=== PATIENT | female | born 1965 | race Caucasian/White ===

== ENCOUNTER 2017-09-19 08:05 | Outpatient (CLI) | payer BC ==
--- NOTE | 2017-09-19 09:27 | PRG ---
DATE OF SERVICE: 09/19/2017 HISTORY: Ms. Fabio Angela is a very pleasant 52-year-old who presents to the [facility] for evaluation of an ulceration of her left below the knee amputation stump. The patient states that s he was recently seen by Dr. Linares and at this time referred to the Wound Center for further evalua tion and treatment. The patient states that she has not yet been seen by her game author. The mayda ent states that she is still utilizing her prosthesis. She is performing dressing changes of Telfa for the ulceration of her left below the knee amputation stump. PHYSICAL EXAMINATION: VITAL SIGNS: Temperature 97.8, pulse 71, respirations 18, blood pressure 129/59, Accu-Chek 198. EXTREMITIES: The ulceration of the left below the knee amputation stump measures approximately 0.5 x 0.3 cm. A small amount of serous drainage is associated with the wound. No erythema of the skin surrounding the wound is present. No maceration of the skin of the periwound is noted. No signific ant edema of the left BKA stump is present on exam today. ASSESSMENT AND PLAN: 1. Ulceration of left [id number] amputation stump. Dressing changes of Aquacel AG and bordered gauze will be initiated today. These dressing changes are to be performed on a daily basis after c leansing and irrigation until the wound has completely healed. I have asked the patient to refrain from utilizing her prosthesis until her ulceration has completely healed. I have also asked the pat ient to be seen by her game author for an adjustment of the prosthesis before beginning to utilize h er prosthesis again. The patient understands and is in agreement with the preceding treatment plan. Ms. Angela will follow up in the Wound Center on an as needed basis. 2. Diabetes mellitus. The patient's Accu-Chek in clinic today is 198. The patient has been told t hat for optimal wound healing, her blood glucoses should remain below 150. 3. Coronary artery disease. 4. Hypertension.
[2017-09-19] MEDS ORDERED: Sodium Chloride 0.9% 15 ML NEB ONE (22:46)
== END 2017-09-19 08:06 | disposition home or self-care (01) ==
LOC: WCC 08:05
PROVIDERS: ATTEND Family Medicine
DX: T81.89XD Other complications of procedures, not elsewhere classified, subsequent encounter (principal); L97.829 Non-pressure chronic ulcer of other part of left lower leg with unspecified severity; Z89.512 Acquired absence of left leg below knee; E11.622 Type 2 diabetes mellitus with other skin ulcer; I25.10 Atherosclerotic heart disease of native coronary artery without angina pectoris; I10 Essential (primary) hypertension
CPT/HCPCS: 97602; 99213; A4218; G0463

== ENCOUNTER 2017-10-07 12:50 | Outpatient (CLI) | payer BC ==
--- NOTE | 2017-10-07 15:27 | NM ---
VENTILATION PERFUSION STUDY: Date: 10-07-17 History: Dyspnea. Radiopharmaceutical: 50.8 mCi Xenon 133, gas inhaled. 6.5 mCi Technetium 99M labelled MAA, IV. FINDINGS: Ventilation study: There is normal uptake and distribution of radiotracer seen throughout the lungs bilaterally. There i s normal washout on washout imaging. No segmental or subsegmental ventilation defect is seen. Perfusion study: There is normal uptake and distribution of radiotracer seen throughout the lungs bilaterally. Normal perfusion gradient is seen. There is no segmental or subsegmental perfusion defect identified and the re is no evidence for a ventilation perfusion mismatch. IMPRESSION: Normal ventilation perfusion study with very low probability for pulmonary embolus. POS: [facility]
--- NOTE | 2017-10-07 15:44 | RAD ---
PA AND LATERAL CHEST XRAY: DATE: 10/07/17. HISTORY: Patient with dyspnea. COMPARISON: Compared with emergent perfusion study, 09/18/16. FINDINGS: Again noted are postsurgical changes related to CABG. Cardiac silhouette is mildly enlarged. Pulmon dennis vasculature is within normal limits. The lungs remain clear. Degenerative changes are again pre sent in the spine with vascular calcifications seen in the thoracic as well as visualized abdominal a kelsie. There has been no interval change from the prior study. IMPRESSION: 1. No acute cardiopulmonary process. 2. Mild cardiomegaly. POS: [facility]
== END 2017-10-07 12:51 | disposition home or self-care (01) ==
LOC: NM 12:50
PROVIDERS: ATTEND Internal Medicine
DX: R06.00 Dyspnea, unspecified (principal); I26.99 Other pulmonary embolism without acute cor pulmonale; R79.1 Abnormal coagulation profile
CPT/HCPCS: 71020; 78582; A9540; A9558

== ENCOUNTER 2017-11-09 15:44 | Inpatient (IN) | payer BC ==
[2017-11-09 16:37] LABS: #Lymphocytes 0.7 thou/uL (1.20-3.40); #Monocytes 0.7 thou/uL (0.11-0.59); #Neutrophils 6.6 thou/uL (1.40-6.50); %Basophils 0.1 % (0.0-1.0); %Eosinophils 0.5 % (0.0-10.0); %Lymphocytes 8.7 % (21.0-51.0); %Monocytes 8.2 % (0.0-10.0); %Neutrophils 82.4 % (42.0-75.0); Hemoglobin 12.5 g/dL (12.0-16.0); Mean Corpuscular HGB CONC 32.6 g/dL (32.0-36.0); Mean Corpuscular Hemoglobin 29.3 pg (27.0-31.0); Mean Corpuscular Volume 89.9 fl (81.0-99.0); Mean Platelet Volume 9.1 fL (7.4-10.4); Platelet Count 164 thou/uL (130-400); RBC Distribution Width 13.6 % (11.5-14.5); Red Blood Cell (RBC) Count 4.25 mill/uL (4.20-5.40)
[2017-11-09 17:01] LABS: ALT (SGPT) 20 U/L (8-55); AST (SGOT) 26 U/L (5-34); Albumin 4.6 g/dL (3.5-5.0); Alkaline Phosphatase 118 U/L (40-150); Anion Gap 18 mmol/L (10-20); BUN (Urea Nitrogen) 37 mg/dL (9.8-20.1); Bilirubin, Total 0.4 mg/dL (0.2-1.2); CK (CPK) 574 U/L (29-168); Calc. Creatinine Clearance 0 mL/min (70-130); Calcium 9.1 mg/dL (7.8-10.44); Carbon Dioxide 25 mmol/L (22-29); Chloride 102 mmol/L (98-107); Estimated GFR-MDRD 35; Glucose 197 mg/dL (70-105); Potassium 3.7 mmol/L (3.5-5.1); Protein, Total 7.6 g/dL (6.0-8.3); Sodium 141 mmol/L (136-145)
[2017-11-09 17:05] LABS: CKMB 4.2 ng/mL (0-6.6); Troponin I 0.035 ng/mL (< 0.028)
--- NOTE | 2017-11-09 17:23 | RAD ---
PORTABLE CHEST: 11/09/17 HISTORY: Shortness of breath. COMPARISON: 09/18/16 study. Heart size is enlarged. There are postop sternotomy changes. No signs of overt failure or focal infil trates. IMPRESSION: Cardiomegaly with mild vascular prominence but no overt edema. POS: [facility]
[2017-11-09] MEDS ORDERED: Mag-Al 1200 mg/1200 mg/30 ML UDCUP PO PRN (17:38)
[2017-11-09] MEDS ORDERED: Dextrose 5% in Water 1,000 ML IV PRN (17:38)
[2017-11-09] MEDS ORDERED: Senokot 8.6 MG TAB PO PRN (17:38)
[2017-11-09] MEDS ORDERED: Dextrose 50% Abboject 50 ML SYRINGE SLOW IVP PRN (17:38)
--- NOTE | 2017-11-09 18:16 | HP ---
REASON FOR ADMISSION: Acute CHF exacerbation, acute kidney injury, acute respiratory failure with hy poxia. HISTORY OF PRESENTING ILLNESS: The patient initially went to see her primary care physician, Dr. Bhavesh jenkins as she had lot of tremors at home yesterday evening. On arrival there, patient was found to hav e had low saturations and was asked to come to the emergency room. The patient states she has been h aving shortness of breath from last 2 days. Has been coughing a lot, but it is mostly dry. She was scheduled for a pulmonary function test today which she had to postpone as she was not feeling well y esterday. On arrival here, she had saturations of 83% on room air. The patient has left BKA and has prosthesis, but does not ambulate much or is not very active at home. Has no complaint of chest kenney n or palpitations at present. She is a bit lethargic but easily arousable here in the ER. No compla ints of fever. Has no trouble urinating. PAST MEDICAL AND SURGICAL HISTORY: History of CABG done in 2011, diabetes mellitus type 2, hypertens ion, peripheral vascular disease, prior history of pneumonia, prior history of uncontrolled diabetes, depression, left BKA, cataract surgery both eyes, likely COPD. CURRENT MEDICATIONS: Patient is on multiple medications including aspirin 325 mg p.o. daily, Symbico rt inhaler 2 puffs twice daily, bupropion extended release 150 mg p.o. q.a.m., Coreg 12.5 mg p.o. twi ce daily, duloxetine 30 mg p.o. daily, Lasix 80 mg p.o. daily, Humulin R on a sliding scale, Motrin p .r.n., Lantus 80 units q.a.m. and 7 units q.p.m., Imdur extended release 60 mg p.o. daily, levocetiri zine 5 mg p.r.n., lisinopril 10 mg twice daily, metformin 1000 mg q.a.m., potassium 99 mg 2 tablets p .o. on the days she takes 2 Lasix tablets along with metolazone, Lyrica 150 mg 1-2 capsules at bedtim e for chronic neuropathy, Crestor 40 mg p.o. at bedtime, sertraline 100 mg p.o. q.a.m., torsemide 40 mg p.o. q.p.m., trazodone 100 mg p.o. at bedtime. ALLERGIES: No known drug allergies. PERSONAL HISTORY: Quit smoking a year ago, does not abuse alcohol or drugs. FAMILY HISTORY: Mom was bedridden for a long time before her . Father had history of diabetes. Both parents are . She is currently to her friend from last 2 years. CODE STATUS: DNR. Power of internal communications writer is her current . REVIEW OF SYSTEMS: The following complete review of systems was negative, unless otherwise mentioned in the HPI or below: Constitutional: Weight loss or gain, ability to conduct usual activities. Skin: Rash, itching. Eyes: Double vision, pain. ENT/Mouth: Nose bleeding, neck stiffness, pain, tenderness. Cardiovascular: Palpitations, dyspnea on exertion, orthopnea. Respiratory: Shortness of breath, wheezing, cough, hemoptysis, fever or night sweats. Gastrointestinal: Poor appetite, abdominal pain, heartburn, nausea, vomiting, constipation, or diarr hea. Genitourinary: Urgency, frequency, dysuria, nocturia. Musculoskeletal: Pain, swelling. Neurologic/Psychiatric: Anxiety, depression. Allergy/Immunologic: Skin rash, bleeding tendency. PHYSICAL EXAMINATION: GENERAL: The patient is a 52-year-old female who is currently in mild respiratory distress. VITAL SIGNS: Blood pressure 128/76, pulse 70 per minute, respiratory rate 22 per minute, temperature is 97 degrees Fahrenheit, saturating 83% on room air and 92% on 2 liters nasal cannula. NECK: Supple. There is elevated JVD. EYES: Extraocular muscles intact. Pupils reacting to light. ORAL CAVITY: Mucous membranes are dry. No exudates or congestion. CARDIOVASCULAR SYSTEM: S1, S2 heard. Regular rhythm. RESPIRATORY SYSTEM: Air entry 1+ bilateral. Scattered rales plus bilaterally. ABDOMEN: Soft, bowel sounds heard. No tenderness, rigidity or guarding. EXTREMITIES: Patient has left BKA. Right lower extremity has peripheral edema, no calf tenderness. VASCULAR SYSTEM: Peripheral pulses 1+ bilateral. No ischemic ulcerations or gangrene. CENTRAL NERVOUS SYSTEM: No gross focal deficits seen. Patient is lethargic, but oriented well. PSYCHIATRIC SYSTEM: The patient's mood is euthymic. No hallucinations or delusions. LABORATORY DATA AND IMAGING DATA: Influenza A and B antigen nasal swab is negative. Chest x-ray don e shows pulmonary vascular congestion with cardiomegaly. BUN 37, creatinine 1.5, glucose 197. Tropo rc I 0.03. BNP is 1175, albumin is 4.6. CK-MB 4.2. Electrolytes are stable. Serum bicarbonate 25 . White count of 8, hemoglobin and hematocrit 12 and 38, platelet count 164, MCV is 89 with 82% neut rophils. CLINICAL IMPRESSION AND PLAN: Patient will be admitted to telemetry for acute congestive heart failu re exacerbation, acute kidney injury, and acute respiratory failure with hypoxia. She will be on 2 l iters nasal cannula, and will give a total of 60 mg IV Lasix one dose now and she will be on 40 mg IV q.12 hourly. We will consult Dr. Lyles, her fowl blood tester. Echo with 2D Doppler will be obtained for current LV function. We will scale down her cardiac medications to accommodate for diuresis. We fannie l continue her low dose aspirin, bupropion, duloxetine, melatonin, Crestor, and trazodone as before, Lyrica reduced to 50 twice daily in view of her current renal function. She will be on DuoNebs q.6 h ourly as well. If patient were to worsen, she will be placed on BiPAP in the IMCU. Code status was discussed with patient and she wants to be a DO NOT RESUSCITATE. Power of internal communications writer is her of 2 years.
[2017-11-09 19:11] LABS: Troponin I 0.035 ng/mL (< 0.028)
[2017-11-09] MEDS ORDERED: Furosemide 100 MG/10 ML VIAL ONE (19:42)
[2017-11-09] MEDS ORDERED: DULoxetine 60 MG CAP PO SCH (21:00)
[2017-11-09] MEDS ORDERED: Non-Formulary Item 1 EACH (Insulin Glargine,Hum.Rec.Anlog 50 UNIT) SQ SCH (21:00)
[2017-11-09] MEDS: traZODone HCl 50 MG TAB PO SCH (21:31)
[2017-11-09] MEDS: Melatonin 3 MG TAB PO SCH (21:32)
[2017-11-09] MEDS: Rosuvastatin 20 MG TAB PO SCH (21:33)
[2017-11-09] MEDS: Pregabalin 50 MG CAP PO SCH (21:33)
[2017-11-09] MEDS: Heparin 5,000 UNITS/ML VIAL SC SCH (21:34)
[2017-11-09] MEDS: Carvedilol 3.125 MG TAB PO SCH (21:34)
[2017-11-09] MEDS: Famotidine 20 MG TAB PO SCH (21:34)
[2017-11-09] MEDS ORDERED: DULoxetine 30 MG CAP PO SCH (22:00)
[2017-11-09] MEDS: Insulin Detemir 100 UNITS/ML 50 UNITS in Pre-Filled Syringe 1 EACH SC SCH (22:42)
[2017-11-10] MEDS: Guaifenesin DM 100-10/5 ML UDCUP PO PRN ×3 (03:35→21:38)
[2017-11-10 05:43] LABS: #Eosinphils 0.1 thou/uL (0.0-0.7); #Lymphocytes 0.7 thou/uL (1.20-3.40); #Monocytes 1.5 thou/uL (0.11-0.59); #Neutrophils 10.4 thou/uL (1.40-6.50); %Basophils 0.1 % (0.0-1.0); %Eosinophils 0.4 % (0.0-10.0); %Lymphocytes 5.3 % (21.0-51.0); %Monocytes 11.6 % (0.0-10.0); %Neutrophils 82.5 % (42.0-75.0); Hemoglobin 11.6 g/dL (12.0-16.0); Mean Corpuscular HGB CONC 31.7 g/dL (32.0-36.0); Mean Corpuscular Volume 91.4 fl (81.0-99.0); Mean Platelet Volume 9.1 fL (7.4-10.4); Platelet Count 157 thou/uL (130-400); RBC Distribution Width 13.7 % (11.5-14.5); Red Blood Cell (RBC) Count 4.02 mill/uL (4.20-5.40); White Blood Cell (WBC) Count 12.6 thou/uL (4.8-10.8)
[2017-11-10] MEDS: Furosemide 40 MG/4 ML VIAL SLOW IVP SCH ×2 (05:47→14:01)
[2017-11-10 06:17] LABS: Anion Gap 17 mmol/L (10-20); BUN (Urea Nitrogen) 34 mg/dL (9.8-20.1); Calc. Creatinine Clearance 83 mL/min (70-130); Calcium 9.1 mg/dL (7.8-10.44); Carbon Dioxide 23 mmol/L (22-29); Chloride 104 mmol/L (98-107); Estimated GFR-MDRD 38; Glucose 103 mg/dL (70-105); Potassium 3.7 mmol/L (3.5-5.1); Sodium 140 mmol/L (136-145)
[2017-11-10] MEDS: Bupropion 150 MG XL TAB PO SCH (09:12)
[2017-11-10] MEDS: Carvedilol 3.125 MG TAB PO SCH ×2 (09:12→21:27)
[2017-11-10] MEDS: Metolazone 2.5 MG TAB PO SCH (09:12)
[2017-11-10] MEDS: Heparin 5,000 UNITS/ML VIAL SC SCH ×3 (09:13→21:27)
[2017-11-10] MEDS: Pregabalin 50 MG CAP PO SCH ×2 (09:13→21:26)
--- NOTE | 2017-11-10 09:52 | CON ---
DATE OF CONSULTATION: 11/10/2017 RENAL MEDICINE HISTORY OF PRESENT ILLNESS: Ms. Angela is a 52-year-old white female who was admitted due to shor tness of breath with hypoxemia. The exact etiology of her shortness of breath is unclear. She was n oted to have a saturation of 83% on room air. Chest x-ray shows increased lung markings, but no over t CHF. She is currently being started on IV diuretics. We are now being consulted for her chronic r enal failure. REVIEW OF SYSTEMS: Shows no chest pain, occasional shortness of breath on exertion, occasional tremo rs. No nausea, no vomiting. Decreased energy level. No syncopal episode, no productive cough, no f ever or chills. No gross hematuria. No dysuria, no urinary frequency. No syncopal episode. Occasi onal joint pains. No dysuria. Appetite is decreased. No headache. CURRENT MEDICATIONS: Tylenol 650 q.4 p.r.n., aspirin 81 mg daily, Wellbutrin 150 mg q.a.m., Coreg 3. 125 mg p.o. b.i.d., Cymbalta 30 mg at bedtime, Pepcid 20 mg daily, Lasix 40 mg IV q.12, heparin 5000 units subcu t.i.d., insulin detemir 15 units subcu b.i.d., Humalog sliding scale, metolazone 2.5 mg e very day, Lyrica 50 mg p.o. b.i.d., Crestor 40 mg at bedtime, senna 2 tabs at bedtime, Desyrel 100 mg at bedtime. PAST MEDICAL HISTORY: Includes the following; history of CHF, chronic renal failure - secondary to ? diabetic nephropathy, coronary artery disease, type 2 diabetes mellitus, peripheral vascular disease , status post pneumonia, cataract, ? of COPD. PAST SURGICAL HISTORY: 1. Status post cardiac catheterization. 2. Status post left BKA. 3. Status post cataract surgery. 4. Status post CABG. 5. Status post laser therapy for diabetic retinopathy. SOCIAL HISTORY: The patient is , lives in [place]. No children. Smoked for 25 years 1 pack a day. Alcohol rarely. Education, high school. Used to work as a retail employee for [employer], 4 siblings. FAMILY HISTORY: No family history of ESRD. ALLERGIES: None. TRAUMA: None. IMMUNIZATIONS: Up to date. HOSPITALIZATIONS: Please see past medical history. PHYSICAL EXAMINATION: VITAL SIGNS: Blood pressure is noted at 149/63, heart rate 64, respiratory rate 20, temperature 98.4 , pulse ox 96%. GENERAL: Awake, supine, comfortable, not in overt distress. SKIN: Adequate turgor. HEENT: She has pinkish conjunctivae, anicteric sclerae. NECK: No neck mass, no carotid bruits, no JVD. CHEST: No deformities. LUNGS: Decreased breath sounds. HEART: Normal sinus rhythm. No murmur, no gallops, no rubs. ABDOMEN: Globular, soft, nontender, no masses. EXTREMITIES: No edema, status post leg amputation. NEUROLOGIC: Moving all extremities. No tremors, no asterixis, no ataxia. LABORATORY DATA: Laboratories of 11/10/2017; white count 12.6, hemoglobin 11.6. Sodium 140, potassi um 3.7, chloride 104, carbon dioxide 23, BUN 34, creatinine 1.45, calcium is 9.1. On 11/07/2017, cre atinine 1.55. On 10/05/2017, creatinine 1.48. ASSESSMENT AND PLAN: 1. Chronic renal failure - this is most likely from diabetic nephropathy. Creatinine in the past patel s been noted to fluctuate. Agreed to hold off DAVIS inhibitors for the moment. She is currently being diuresed for a presumptive congestive heart failure. Chest x-ray did not show overt congestive hear t failure. However, the hypoxemia remains unexplained. Gentle diuresis is being done. 2. Shortness of breath - patient being ruled out for congestive heart failure. A cardiac echo has b een ordered and is pending. If ejection fraction is within normal, we need to consider the possibili ty of underlying chronic obstructive pulmonary disease with this patient. Please note there is no in dication for any dialytic intervention. I agree with current management. Hold DAVIS inhibitors tempor arily.
[2017-11-10] MEDS: Insulin Detemir 100 UNITS/ML 50 UNITS in Pre-Filled Syringe 1 EACH SC SCH ×2 (09:59→21:27)
--- NOTE | 2017-11-10 12:22 | PDOC.PN ---
- Subjective Encounter Start Date: 11/10/17 Encounter Start Time: 09:50 Subjective: breathing better, no chest pain -: is on nasal canula now - Objective MAR Reviewed: Yes Vital Signs & Weight: Vital Signs (12 hours) Temp Pulse Resp BP Pulse Ox 11/10/17 08:00 98.4 F 64 17 155/93 H 93 L 11/10/17 06:27 92 L 11/10/17 06:24 63 20 92 L 11/10/17 04:00 98.4 F 64 20 149/63 H 96 11/10/17 00:45 59 L 16 95 I&O: 11/09/17 11/10/17 11/11/17 06:59 06:59 06:59 Intake Total 960 Output Total 1250 Balance -290 Result Diagrams: 11/10/17 04:23 11/10/17 04:23 Additional Labs: Accuchecks 11/10/17 11/09/17 11/09/17 06:09 22:34 21:26 POC Glucose 167 H 161 H 169 H Phys Exam - Physical Examination HEENT: PERRLA, moist MMs Neck: no JVD, supple Respiratory: no wheezing rales++ Cardiovascular: RRR, no significant murmur Gastrointestinal: soft, non-tender, positive bowel sounds Musculoskeletal: no edema, pulses present Neurological: non-focal, moves all 4 limbs Psychiatric: A&O x 3 Dx/Plan (1) Acute exacerbation of CHF (congestive heart failure) Code(s): I50.9 - HEART FAILURE, UNSPECIFIED Status: Acute Qualifiers: Congestive heart failure type: unspecified congestive heart failure type Qualified Code(s): I50.9 - Heart failure, unspecified (2) CHANTELL (acute kidney injury) Code(s): N17.9 - ACUTE KIDNEY FAILURE, UNSPECIFIED Status: Acute (3) DM type 2 (diabetes mellitus, type 2) Status: Chronic Qualifiers: Diabetes mellitus complication status: with kidney complications Diabetes mellitus complication detail: with chronic kidney disease Diabetes mellitus exterminator insulin use: with residential use Chronic kidney disease stage: stage 3 (moderate) Qualified Code(s): E11.22 - Type 2 diabetes mellitus with diabetic chronic kidney disease; N18.3 - Chronic kidney disease, stage 3 ( moderate); N18.3 - Chronic kidney disease, stage 3 (moderate); Z79.4 - [facility] (current) use of insulin; Z79.4 - [facility] (current) use of insulin; Z79.4 - [facility] (current) use of insulin; Z79.4 - [facility] (current) use of insulin (4) CKD (chronic kidney disease) stage 3, GFR 30-59 ml/min Code(s): N18.3 - CHRONIC KIDNEY DISEASE, STAGE 3 (MODERATE) Status: Chronic (5) Obesity Code(s): E66.9 - OBESITY, UNSPECIFIED Status: Chronic Qualifiers: Obesity classification: adult class 3 (BMI >= 40) Body mass index: BMI 40.0 -44.9 (6) CAD (coronary artery disease) Code(s): I25.10 - ATHSCL HEART DISEASE OF [place] CORONARY ARTERY W/O ANG PCTRS Status: Chronic Qualifiers: Coronary Disease-Associated Artery/Lesion type: bypass graft [place] vs. transplanted heart: [place] heart Associated angina: without angina Qualified Code(s): I25.810 - Atherosclerosis of coronary artery bypass graft(s) without angina pectoris (7) Demand ischemia of myocardium Code(s): I24.8 - OTHER FORMS OF ACUTE ISCHEMIC HEART DISEASE Status: Acute - Plan iv lasix with metolazone -: watch for renal function -: echo, cardio consultation -: mobilize as tolerated -: dm and htn are stable * . Review of Systems - Medications/Allergies Allergies/Adverse Reactions: Allergies Allergy/AdvReac Type Severity Reaction Status Date / Time No Known Allergies Allergy Verified 09/16/14 15:36 Medications: Current Medications Acetaminophen (Tylenol) 650 mg PO Q4H PRN PRN Reason: Headache/Fever or Pain Al Hydroxide/Mg Hydroxide (Maalox) 30 ml PO Q6H PRN PRN Reason: Heartburn or Indigestion Albuterol/Ipratropium (Duoneb) 3 ml NEB [id number] [facility] Last Admin: 11/10/17 06:24 Dose: 3 ml Aspirin (Aspirin Chewable) 81 mg PO DAILY [facility] Last Admin: 11/10/17 09:12 Dose: 81 mg Bupropion HCl (Wellbutrin Xl) 150 mg PO QAM [facility] Last Admin: 11/10/17 09:12 Dose: 150 mg Carvedilol (Coreg) 3.125 mg PO BID [facility] Last Admin: 11/10/17 09:12 Dose: 3.125 mg Dextrose/Water (Dextrose 50%) 25 gm SLOW IVP PRN PRN PRN Reason: Hypoglycemia Duloxetine HCl (Cymbalta) 30 mg PO HS [facility] Famotidine (Pepcid) 20 mg PO 2100 [facility] Last Admin: 11/09/17 21:34 Dose: 20 mg Furosemide (Lasix) 40 mg SLOW IVP 0600,1400 [facility] Last Admin: 11/10/17 05:47 Dose: 40 mg Glucagon (Glucagon) 1 mg IM PRN PRN PRN Reason: Hypoglycemia Guaifenesin/Dextromethorphan (Robitussin Dm) 15 ml PO Q4H PRN PRN Reason: Cough Last Admin: 11/10/17 03:35 Dose: 15 ml Heparin Sodium (Porcine) (Heparin) 5,000 units SC TID [facility] Last Admin: 11/10/17 09:13 Dose: 5,000 units Dextrose/Water (D5w) 1,000 mls @ 0 mls/hr IV .Q0M PRN; As Directed PRN Reason: Hypoglycemia Insulin Detemir 50 units/ (Miscellaneous Medication) 0.5 mls @ 0 mls/hr SC BID [facility] Last Admin: 11/10/17 09:59 Dose: 0.5 mls Insulin Human Lispro (Humalog) 0 units SC .MODERATE SLIDING SC PRN PRN Reason: Moderate Correctional Scale Melatonin (Melatonin) [address] [facility] Last Admin: 11/09/17 21:32 Dose: 9 mg Metolazone (Zaroxolyn) 2.5 mg PO 0830 [facility] Last Admin: 11/10/17 09:12 Dose: 2.5 mg Pregabalin (Lyrica) 50 mg PO BID [facility] Last Admin: 11/10/17 09:13 Dose: 50 mg Rosuvastatin Calcium (Crestor) [address] [facility] Last Admin: 11/09/17 21:33 Dose: 40 mg Senna (Senokot) 2 tab PO HSPRN PRN PRN Reason: Constipation Trazodone HCl (Desyrel) [address] [facility] Last Admin: 11/09/17 21:31 Dose: 100 mg
[2017-11-10] MEDS: HumaLOG 300 UNITS/3 ML VIAL SC PRN ×2 (14:02→17:32)
--- NOTE | 2017-11-10 17:25 | CON ---
CARDIOLOGY CONSULTATION NOTE DATE OF CONSULTATION: 11/10/2017 PRIMARY GARNETT MACHINE OPERATOR: Dr. All Nicholas. REASON FOR CONSULTATION: Heart failure. HISTORY OF PRESENT ILLNESS: Ms. Angela is a very pleasant 52-year-old white female who comes to [facility] for increasing shortness of breath. She has been noticing increased shortness of breath for the last 2 days. She saw her PCP and was noted that her O2 saturations were in the 80s, so she w as sent to the hospital where she was admitted for CHF exacerbation. She has a history of coronary d isease with bypass done in 2011. Her heart function was 45% to 50% at that time; however, most [facility] echocardiogram was done just a week ago in the office and her EF was normal at 50% to 55%. Her blo od pressure has been a little higher than normal recently. She denies any chest pain, tightness or p ressure, only her shortness of breath. She also has peripheral vascular disease, which she has seen Dr. Amezquita for and is planning on doing possible intervention in the next few days. PAST MEDICAL HISTORY: 1. Coronary artery disease, status post bypass x3 in 2011. 2. Type 2 diabetes. 3. Hypertension. 4. Peripheral vascular disease. 5. History of pneumonia in the past. 6. Anxiety, depression. 7. Left BKA. 8. Cataract surgery. 9. Chronic obstructive pulmonary disease diagnosed. OUTPATIENT MEDICATIONS: Include; 1. Aspirin 325 a day. 2. Symbicort. 3. Bupropion. 4. Coreg 12.5 mg b.i.d. 5. Duloxetine. 6. Lasix 80 mg a day. 7. Humulin R sliding scale. 8. Motrin. 9. Lantus 80 units q.a.m. and 7 units q.p.m. 10. Imdur 60 mg a day. 11. Cetirizine. 12. Lisinopril 10 mg b.i.d. 13. Metformin 1000 mg b.i.d. 14. Potassium. 15. Lyrica. 16. Crestor. 17. Sertraline. 18. Torsemide. 19. Trazodone. ALLERGIES: No known drug allergies. SOCIAL HISTORY: Quit smoking a year ago. No alcohol or drugs. FAMILY HISTORY: Noncontributory. REVIEW OF SYSTEMS: A ten-point review of systems was done and is all negative unless stated in the h istory of present illness. PHYSICAL EXAMINATION: VITAL SIGNS: Temperature 98.1, pulse 60, respiration rate 17, satting 97% on 2 liters and blood pres sure 153/69. GENERAL: Awake, alert and oriented x3, in no distress. HEENT: Normocephalic and atraumatic. NECK: Supple. LUNGS: Reduced breath sounds bilaterally. CARDIOVASCULAR: S1, S2. No S3 or S4. No murmurs or rubs. ABDOMEN: Increased and distended, most likely a slight acidic wave. EXTREMITIES: 1+ edema. SKIN: Warm and dry. LABORATORY WORK: Reviewed. White count of 12, hemoglobin of 11, hematocrit 36 and platelet count of 157. Chemistry with BUN of 37, creatinine 1.55 on admission down to 1.45. Troponin has been 0.035 and then 0.035, BNP was 1175 with CK-MB of 4.2. EKG was reviewed. Chest x-ray was reviewed. ASSESSMENT: 1. Acute on chronic diastolic heart failure. 2. Morbid obesity. 3. Coronary artery disease, stable at this time. 4. Hypertension. PLAN: 1. Agree with IV diuresis, Lasix at current dose. She is already feeling better after a little bit of diuresis and her kidney function is already improving, tells me that her renal dysfunction is most likely cardiorenal from her heart failure. 2. No plan on intervention at this time as there is no evidence of an acute coronary syndrome. 3. We will get a repeat echocardiogram and we will make sure that her LV function remains the same a s just a week ago. Thank you for letting us participate in the care of your patient. We will follow.
[2017-11-10] MEDS: DULoxetine 30 MG CAP PO SCH (21:26)
[2017-11-10] MEDS: traZODone HCl 50 MG TAB PO SCH (21:26)
[2017-11-10] MEDS: Rosuvastatin 20 MG TAB PO SCH (21:27)
[2017-11-10] MEDS: Famotidine 20 MG TAB PO SCH (21:27)
[2017-11-10] MEDS: Melatonin 3 MG TAB PO SCH (21:28)
[2017-11-11] MEDS: Guaifenesin DM 100-10/5 ML UDCUP PO PRN (02:43)
[2017-11-11] MEDS: Furosemide 40 MG/4 ML VIAL SLOW IVP SCH ×2 (06:44→14:32)
[2017-11-11] MEDS: Heparin 5,000 UNITS/ML VIAL SC SCH ×3 (08:44→21:51)
[2017-11-11] MEDS: Pregabalin 50 MG CAP PO SCH ×2 (08:44→21:49)
[2017-11-11] MEDS: Bupropion 150 MG XL TAB PO SCH (08:44)
[2017-11-11] MEDS: Carvedilol 3.125 MG TAB PO SCH ×2 (08:45→21:50)
[2017-11-11] MEDS: Insulin Detemir 100 UNITS/ML 50 UNITS in Pre-Filled Syringe 1 EACH SC SCH ×3 (08:45→21:52)
[2017-11-11] MEDS: Metolazone 2.5 MG TAB PO SCH (08:45)
[2017-11-11 09:09] LABS: #Lymphocytes 0.6 thou/uL (1.20-3.40); #Monocytes 0.7 thou/uL (0.11-0.59); #Neutrophils 4.5 thou/uL (1.40-6.50); %Basophils 0.2 % (0.0-1.0); %Eosinophils 0.2 % (0.0-10.0); %Lymphocytes 9.6 % (21.0-51.0); %Neutrophils 78.1 % (42.0-75.0); Hemoglobin 11.5 g/dL (12.0-16.0); Mean Corpuscular HGB CONC 32.7 g/dL (32.0-36.0); Mean Corpuscular Hemoglobin 29.6 pg (27.0-31.0); Mean Corpuscular Volume 90.4 fl (81.0-99.0); Mean Platelet Volume 8.5 fL (7.4-10.4); Platelet Count 153 thou/uL (130-400); RBC Distribution Width 13.7 % (11.5-14.5); Red Blood Cell (RBC) Count 3.89 mill/uL (4.20-5.40); White Blood Cell (WBC) Count 5.8 thou/uL (4.8-10.8)
[2017-11-11 09:27] LABS: Anion Gap 17 mmol/L (10-20); BUN (Urea Nitrogen) 34 mg/dL (9.8-20.1); Calc. Creatinine Clearance 76 mL/min (70-130); Calcium 9.5 mg/dL (7.8-10.44); Carbon Dioxide 32 mmol/L (22-29); Chloride 93 mmol/L (98-107); Estimated GFR-MDRD 35; Glucose 149 mg/dL (70-105); Potassium 3.1 mmol/L (3.5-5.1); Sodium 139 mmol/L (136-145)
--- NOTE | 2017-11-11 09:50 | PRG ---
DATE OF SERVICE: 11/11/2017 RENAL MEDICINE SUBJECTIVE: Ms. Angela is 52-year-old white female who was seen by the Renal Service for chronic renal failure secondary to a presumed diabetic nephropathy. She was admitted for shortness of breath . Shortness of breath is multifactorial. She is being treated for possible CHF and COPD exacerbatio n. She is on IV diuretics. Creatinine yesterday was noted at 1.45. Currently, it is 1.55. Slightl y higher creatinine may be a reflection of the current diuretic regimen. Her shortness of breath is actually improved. PHYSICAL EXAMINATION: VITAL SIGNS: Blood pressure is 160/63, heart rate 73, respiratory rate 24, pulse ox 93%, temperature 99.3. GENERAL: Awake, alert, obese, comfortable, lethargic, not in distress. SKIN: Adequate turgor. HEENT: She has pinkish conjunctivae, anicteric sclerae. NECK: No neck mass, no carotid bruits, no JVD. CHEST: No deformities. LUNGS: Decreased breath sounds. HEART: Normal sinus rhythm. No murmurs, no gallops, no rubs. ABDOMEN: Globular, soft, nontender, no masses. EXTREMITIES: Trace edema, status post left BKA. MEDICATIONS: Medications of 11/11/2017 was reviewed. LABORATORY DATA: Laboratories of 11/11/2017; white count 5.8, hemoglobin 11.5, sodium 139, potassium 3.1, chloride 93, carbon dioxide 32, BUN 34, creatinine 1.55, glucose 149, calcium 9.5. ASSESSMENT AND PLAN: 1. Chronic renal failure from diabetic nephropathy - slightly higher creatinine at 1.5. This could be a reflection of the current diuretic regimen. Continue to observe. Should the renal function fur ther worsen, we may need to decrease furosemide to 40 mg IV daily from b.i.d. dosing. 2. Hypokalemia, p.r.n. correction. 3. Shortness of breath, multifactorial etiology. Awaiting official report of cardiac echo. Amy roberson is following. We will recheck basic metabolic panel and CBC in a.m., decrease p.r.n., potassium replacement.
--- NOTE | 2017-11-11 12:22 | PDOC.PN ---
- Subjective Encounter Start Date: 11/11/17 Encounter Start Time: 09:45 Subjective: breathing better, no sob -: fell this am trying to get up -: reminded to use her prosthesis to amb - Objective MAR Reviewed: Yes Vital Signs & Weight: Vital Signs (12 hours) Temp Pulse Resp BP Pulse Ox 11/11/17 11:02 98.3 F 58 L 20 158/66 H 98 11/11/17 08:00 99.3 F 73 24 H 160/63 H 93 L 11/11/17 07:12 97 11/11/17 07:08 73 20 97 11/11/17 03:13 99.0 F 156/66 H 96 Weight Weight 247 lb I&O: 11/10/17 11/11/17 11/12/17 06:59 06:59 06:59 Intake Total 960 1660 Output Total 1250 2450 Balance -290 -790 Result Diagrams: 11/11/17 08:49 11/11/17 08:49 Additional Labs: Accuchecks 11/11/17 11/11/17 11/11/17 11:04 09:15 06:07 POC Glucose 147 H 153 H 119 H 11/10/17 11/10/17 11/10/17 21:06 17:06 11:51 POC Glucose 118 H 183 H 201 H Phys Exam - Physical Examination HEENT: PERRLA, moist MMs Neck: no JVD, supple Respiratory: no wheezing, no rales Cardiovascular: RRR, no significant murmur Gastrointestinal: soft, non-tender, positive bowel sounds Musculoskeletal: pulses present, edema present Neurological: non-focal, moves all 4 limbs Dx/Plan (1) Acute exacerbation of CHF (congestive heart failure) Code(s): I50.9 - HEART FAILURE, UNSPECIFIED Status: Acute Qualifiers: Congestive heart failure type: diastolic Qualified Code(s): I50.33 - Acute on chronic diastolic (congestive) heart failure Comment: ef of 50% (2) CHANTELL (acute kidney injury) Code(s): N17.9 - ACUTE KIDNEY FAILURE, UNSPECIFIED Status: Acute (3) DM type 2 (diabetes mellitus, type 2) Status: Chronic Qualifiers: Diabetes mellitus complication status: with kidney complications Diabetes mellitus complication detail: with chronic kidney disease Diabetes mellitus terminal worker insulin use: with half-way use Chronic kidney disease stage: stage 3 (moderate) Qualified Code(s): E11.22 - Type 2 diabetes mellitus with diabetic chronic kidney disease; N18.3 - Chronic kidney disease, stage 3 ( moderate); N18.3 - Chronic kidney disease, stage 3 (moderate); Z79.4 - intermediate card tender (current) use of insulin; Z79.4 - correction (current) use of insulin; Z79.4 - intermediate card tender (current) use of insulin; Z79.4 - correction (current) use of insulin (4) CKD (chronic kidney disease) stage 3, GFR 30-59 ml/min Code(s): N18.3 - CHRONIC KIDNEY DISEASE, STAGE 3 (MODERATE) Status: Chronic (5) Obesity Code(s): E66.9 - OBESITY, UNSPECIFIED Status: Chronic Qualifiers: Obesity classification: adult class 3 (BMI >= 40) Body mass index: BMI 40.0 -44.9 (6) CAD (coronary artery disease) Code(s): I25.10 - ATHSCL HEART DISEASE OF [place] CORONARY ARTERY W/O ANG PCTRS Status: Chronic Qualifiers: Coronary Disease-Associated Artery/Lesion type: bypass graft [place] vs. transplanted heart: [place] heart Associated angina: without angina Qualified Code(s): I25.810 - Atherosclerosis of coronary artery bypass graft(s) without angina pectoris (7) Demand ischemia of myocardium Code(s): I24.8 - OTHER FORMS OF ACUTE ISCHEMIC HEART DISEASE Status: Acute - Plan continue lasix iv with metolazone for another 24hrs and switch to oral -: renal function is holding up -: oob to chair and mobilize with OT -: is a bit lethargic this am, will f/u -: replace potassium * . Review of Systems - Medications/Allergies Allergies/Adverse Reactions: Allergies Allergy/AdvReac Type Severity Reaction Status Date / Time No Known Allergies Allergy Verified 09/16/14 15:36 Medications: Current Medications Acetaminophen (Tylenol) 650 mg PO Q4H PRN PRN Reason: Headache/Fever or Pain Al Hydroxide/Mg Hydroxide (Maalox) 30 ml PO Q6H PRN PRN Reason: Heartburn or Indigestion Albuterol/Ipratropium (Duoneb) 3 ml NEB [id number] RYANNE Last Admin: 11/11/17 07:08 Dose: 3 ml Aspirin (Aspirin Chewable) 81 mg PO DAILY [facility] Last Admin: 11/11/17 08:45 Dose: 81 mg Bupropion HCl (Wellbutrin Xl) 150 mg PO QAM [facility] Last Admin: 11/11/17 08:44 Dose: 150 mg Carvedilol (Coreg) 3.125 mg PO BID [facility] Last Admin: 11/11/17 08:45 Dose: 3.125 mg Dextrose/Water (Dextrose 50%) 25 gm SLOW IVP PRN PRN PRN Reason: Hypoglycemia Duloxetine HCl (Cymbalta) 30 mg PO HS [facility] Last Admin: 11/10/17 21:26 Dose: 30 mg Famotidine (Pepcid) 20 mg PO 2100 [facility] Last Admin: 11/10/17 21:27 Dose: 20 mg Furosemide (Lasix) 40 mg SLOW IVP 0600,1400 [facility] Last Admin: 11/11/17 06:44 Dose: 40 mg Glucagon (Glucagon) 1 mg IM PRN PRN PRN Reason: Hypoglycemia Guaifenesin/Dextromethorphan (Robitussin Dm) 15 ml PO Q4H PRN PRN Reason: Cough Last Admin: 11/11/17 02:43 Dose: 15 ml Heparin Sodium (Porcine) (Heparin) 5,000 units SC TID [facility] Last Admin: 11/11/17 08:44 Dose: 5,000 units Dextrose/Water (D5w) 1,000 mls @ 0 mls/hr IV .Q0M PRN; As Directed PRN Reason: Hypoglycemia Insulin Detemir 50 units/ (Miscellaneous Medication) 0.5 mls @ 0 mls/hr SC BID [facility] Last Admin: 11/11/17 09:25 Dose: Not Given Insulin Human Lispro (Humalog) 0 units SC .MODERATE SLIDING SC PRN PRN Reason: Moderate Correctional Scale Last Admin: 11/10/17 17:32 Dose: 2 unit Melatonin (Melatonin) 9 mg PO HS [facility] Last Admin: 11/10/17 21:28 Dose: 9 mg Metolazone (Zaroxolyn) 2.5 mg PO 0830 [facility] Last Admin: 11/11/17 08:45 Dose: 2.5 mg Potassium Chloride (K-Dur) 40 meq PO QAM-WM [facility] Potassium Chloride (K-Dur) 40 meq PO ONE [facility] Pregabalin (Lyrica) 50 mg PO BID [facility] Last Admin: 11/11/17 08:44 Dose: 50 mg Rosuvastatin Calcium (Crestor) [address] [facility] Last Admin: 11/10/17 21:27 Dose: 40 mg Senna (Senokot) 2 tab PO HSPRN PRN PRN Reason: Constipation Last Admin: 11/10/17 15:27 Dose: 2 tab Trazodone HCl (Desyrel) [address] [facility] Last Admin: 11/10/17 21:26 Dose: 100 mg
[2017-11-11] MEDS ORDERED: Potassium Chloride 20 MEQ TAB PO SCH (12:45)
--- NOTE | 2017-11-11 16:15 | PDOC.CTH ---
Cardiology Progress Note - Subjective Her breathing is better today. - Objective Vital Signs Temp Pulse Resp BP Pulse Ox 11/11/17 11:02 98.3 F 58 L 20 158/66 H 98 11/11/17 08:00 99.3 F 73 24 H 160/63 H 93 L 11/11/17 07:12 97 11/11/17 07:08 73 20 97 Weight 247 lb 11/10/17 11/11/17 11/12/17 06:59 06:59 06:59 Intake Total 960 1660 Output Total 1250 2450 Balance -290 -790 - Physical Examination General/Neuro: alert & oriented x3, NAD Neck: no JVD present Lungs: CTA, unlabored respirations Heart: RRR Abdomen: NT/ND Extremities: + edema B (trace) - Telemetry Telemetry Rhythm: NSR - Labs Result Diagrams: 11/11/17 08:49 11/11/17 08:49 Troponin/CKMB CK-MB (CK-2) 4.2 ng/mL (0-6.6) 11/09/17 16:27 Troponin I 0.035 ng/mL (< 0.028) H 11/09/17 18:38 - Assessment/Plan 1. Acute on chronic diastolic heart failure 2. Morbid obesity 3. PVD 4. CAD, stable. PLAN: - Switch to PO lasix today. - Continue other meds. - Replace K.
[2017-11-11] MEDS: Famotidine 20 MG TAB PO SCH (21:48)
[2017-11-11] MEDS: Melatonin 3 MG TAB PO SCH (21:49)
[2017-11-11] MEDS: Rosuvastatin 20 MG TAB PO SCH (21:50)
[2017-11-11] MEDS: traZODone HCl 50 MG TAB PO SCH (21:51)
[2017-11-11] MEDS: DULoxetine 30 MG CAP PO SCH (21:51)
[2017-11-12] MEDS: Acetaminophen 325 MG TAB PO PRN ×2 (00:37→17:39)
[2017-11-12] MEDS: Furosemide 40 MG/4 ML VIAL SLOW IVP SCH (05:27)
[2017-11-12 06:06] LABS: BUN (Urea Nitrogen) 44 mg/dL (9.8-20.1); Calc. Creatinine Clearance 60 mL/min (70-130); Calcium 9.9 mg/dL (7.8-10.44); Estimated GFR-MDRD 28; Glucose 202 mg/dL (70-105)
[2017-11-12 06:15] LABS: Anion Gap 14 mmol/L (10-20); Carbon Dioxide 38 mmol/L (22-29); Chloride 88 mmol/L (98-107); Sodium 137 mmol/L (136-145)
[2017-11-12 06:55] LABS: Band 2 % (5-11); Hemoglobin 11.8 g/dL (12.0-16.0); Lymphocytes 5 % (21-51); MDiff Complete? YES; Mean Corpuscular HGB CONC 32.3 g/dL (32.0-36.0); Mean Corpuscular Hemoglobin 29.1 pg (27.0-31.0); Mean Corpuscular Volume 89.9 fl (81.0-99.0); Mean Platelet Volume 9.3 fL (7.4-10.4); Monocytes 10 % (0-10); Neutrophil 83 % (42-75); Platelet Count 159 thou/uL (130-400); RBC Distribution Width 13.8 % (11.5-14.5); Red Blood Cell (RBC) Count 4.07 mill/uL (4.20-5.40); White Blood Cell (WBC) Count 5.6 thou/uL (4.8-10.8)
[2017-11-12] MEDS: Potassium Chloride 20 MEQ TAB PO SCH (08:20)
[2017-11-12] MEDS: Carvedilol 3.125 MG TAB PO SCH ×2 (08:21→21:05)
[2017-11-12] MEDS: Metolazone 2.5 MG TAB PO SCH (08:21)
[2017-11-12] MEDS: Heparin 5,000 UNITS/ML VIAL SC SCH ×3 (08:21→21:08)
[2017-11-12] MEDS: Bupropion 150 MG XL TAB PO SCH (08:21)
[2017-11-12] MEDS: Insulin Detemir 100 UNITS/ML 50 UNITS in Pre-Filled Syringe 1 EACH SC SCH ×2 (08:21→21:08)
[2017-11-12] MEDS: Pregabalin 50 MG CAP PO SCH ×2 (08:22→21:03)
[2017-11-12] MEDS ORDERED: Furosemide 40 MG/4 ML VIAL SLOW IVP SCH (10:30)
--- NOTE | 2017-11-12 11:38 | PDOC.PN ---
- Subjective Encounter Start Date: 11/12/17 Encounter Start Time: 11:37 Ms. Angela was seen today on follow-up of Acute respiratory failure from CHF exacerbation. She is breathing better, and laying flat in bed. She still has a cough productive of greenish sputum. - Objective MAR Reviewed: Yes Vital Signs & Weight: Vital Signs (12 hours) Temp Pulse Resp BP Pulse Ox 11/12/17 08:19 97.4 F L 64 16 129/60 95 11/12/17 07:22 98 11/12/17 07:18 89 20 98 11/12/17 04:00 98.7 F 64 18 112/54 L 97 11/12/17 00:03 71 16 97 11/12/17 00:00 98.6 F 72 18 145/61 H 96 Weight Weight 236 lb 1.6 oz I&O: 11/11/17 11/12/17 11/13/17 06:59 06:59 06:59 Intake Total 1660 990 Output Total 2450 4600 Balance -790 -3610 Result Diagrams: 11/12/17 03:58 11/12/17 03:58 Additional Labs: Accuchecks 11/12/17 11/11/17 11/11/17 06:01 20:10 15:36 POC Glucose 172 H 186 H 119 H 11/11/17 11:04 POC Glucose 147 H Phys Exam - Physical Examination HEENT: PERRLA Respiratory: wheezing present + scattered wheezing and rhonchi bilaterally Cardiovascular: RRR, no significant murmur Gastrointestinal: soft, non-tender, positive bowel sounds Musculoskeletal: no edema Dx/Plan (1) Acute on chronic diastolic heart failure Code(s): I50.33 - ACUTE ON CHRONIC DIASTOLIC (CONGESTIVE) HEART FAILURE Status : Acute (2) Acute bronchitis Code(s): J20.9 - ACUTE BRONCHITIS, UNSPECIFIED Status: Acute (3) CHANTELL (acute kidney injury) Code(s): N17.9 - ACUTE KIDNEY FAILURE, UNSPECIFIED Status: Acute (4) CAD (coronary artery disease) Code(s): I25.10 - ATHSCL HEART DISEASE OF [place] CORONARY ARTERY W/O ANG PCTRS Status: Chronic Qualifiers: Coronary Disease-Associated Artery/Lesion type: bypass graft [place] vs. transplanted heart: [place] heart Associated angina: without angina Qualified Code(s): I25.810 - Atherosclerosis of coronary artery bypass graft(s) without angina pectoris (5) DM type 2 (diabetes mellitus, type 2) Status: Chronic Qualifiers: Diabetes mellitus complication status: with kidney complications Diabetes mellitus complication detail: with chronic kidney disease Diabetes mellitus terminal press operator insulin use: with terminal press operator use Chronic kidney disease stage: stage 3 (moderate) Qualified Code(s): E11.22 - Type 2 diabetes mellitus with diabetic chronic kidney disease; N18.3 - Chronic kidney disease, stage 3 ( moderate); N18.3 - Chronic kidney disease, stage 3 (moderate); Z79.4 - [facility] (current) use of insulin; Z79.4 - [facility] (current) use of insulin; Z79.4 - [facility] (current) use of insulin; Z79.4 - [facility] (current) use of insulin (6) Obesity Code(s): E66.9 - OBESITY, UNSPECIFIED Status: Chronic Qualifiers: Obesity classification: adult class 3 (BMI >= 40) Body mass index: BMI 40.0 -44.9 (7) Type II diabetes mellitus with neurological manifestations, uncontrolled Code(s): E11.49 - TYPE 2 DIABETES [facility] DIABETIC NEUROLOGICAL COMPLICATION; E11.65 - TYPE 2 DIABETES MELLITUS WITH HYPERGLYCEMIA Status: Chronic - Plan * Acute diastolic heart failure- she has diuresed well, and she is down almost 16 pounds since admission * Acute on chronic kidney disease- Lasix has been decreased to daily * Continue to monitor renal function * She has significant wheezing on exam, and productive cough for over a week, she likely has some superimposed bronchitis- will add Azithromycin oral * DM- stable * CAD- stable
--- NOTE | 2017-11-12 11:54 | PRG ---
DATE OF SERVICE: 11/12/2017 RENAL MEDICINE SUBJECTIVE: Ms. Angela is 52-year-old white female admitted for shortness of breath and being see n by the Renal Service for her chronic renal failure. She was started on IV Lasix 40 mg IV q.12. Cr eatinine is noted to have worsened this morning. For that reason, we will adjust and watch the Lasix . No shortness of breath, no chest pain. OBJECTIVE: VITAL SIGNS: Blood pressure is 129/60, heart rate 64, respiratory rate 16, temperature 97.4, pulse o x 95%. GENERAL: Noted to be awake, supine, comfortable, obese, not in distress. SKIN: Adequate turgor. HEENT: Pinkish conjunctivae, anicteric sclerae. NECK: No neck mass, no carotid bruits, no JVD. CHEST: No deformities. LUNGS: Clear breath sounds. No wheezing. No crackles heard. Normal sinus rhythm. No murmur, no g allops, no rubs. ABDOMEN: Globular, soft, nontender, no masses. EXTREMITIES: No edema, status post left BKA. MEDICATIONS: Medications of 11/12/2017 was reviewed. LABORATORY DATA: Laboratories of 11/12/2017; white count 5.6, hemoglobin 11.8. Sodium 137, [place] m 3, chloride 88, carbon dioxide 38, BUN 44, creatinine 1.89, glucose 202, and calcium 9.9. ASSESSMENT AND PLAN: 1. Acute kidney injury/chronic renal failure superimposed prerenal - if renal function has worsened, we will decrease Lasix from 40 mg IV q.12 to once a day dosing and if the renal function further wor sen, we can always hold off the diuretics temporarily. There is no indication for any dialytic inter vention with this patient. 2. Hypokalemia - continue K-Dur 40 mEq q.a.m. In addition, Lasix has decreased from 40 IV q.12 to o nce a day dosing. 3. Shortness of breath, much improved. We will recheck basic metabolic panel and CBC in a.m.
[2017-11-12] MEDS ORDERED: Azithromycin 250 MG TAB PO SCH (12:00)
[2017-11-12] MEDS: HumaLOG 300 UNITS/3 ML VIAL SC PRN (12:55)
[2017-11-12] MEDS: Rosuvastatin 20 MG TAB PO SCH (21:03)
[2017-11-12] MEDS: DULoxetine 30 MG CAP PO SCH (21:05)
[2017-11-12] MEDS: Famotidine 20 MG TAB PO SCH (21:05)
[2017-11-12] MEDS: traZODone HCl 50 MG TAB PO SCH (21:05)
[2017-11-12] MEDS: Melatonin 3 MG TAB PO SCH (21:06)
[2017-11-13 05:48] LABS: #Lymphocytes 1.2 thou/uL (1.20-3.40); #Monocytes 1.1 thou/uL (0.11-0.59); #Neutrophils 10.2 thou/uL (1.40-6.50); %Basophils 0.1 % (0.0-1.0); %Eosinophils 0.2 % (0.0-10.0); %Lymphocytes 9.4 % (21.0-51.0); %Monocytes 8.6 % (0.0-10.0); %Neutrophils 81.6 % (42.0-75.0); Mean Corpuscular Hemoglobin 29.7 pg (27.0-31.0); Mean Platelet Volume 9.3 fL (7.4-10.4); Platelet Count 160 thou/uL (130-400); RBC Distribution Width 13.7 % (11.5-14.5); Red Blood Cell (RBC) Count 4.02 mill/uL (4.20-5.40); White Blood Cell (WBC) Count 12.4 thou/uL (4.8-10.8)
[2017-11-13 06:15] LABS: Anion Gap 17 mmol/L (10-20); BUN (Urea Nitrogen) 54 mg/dL (9.8-20.1); Calc. Creatinine Clearance 49 mL/min (70-130); Calcium 10.1 mg/dL (7.8-10.44); Carbon Dioxide 37 mmol/L (22-29); Chloride 86 mmol/L (98-107); Estimated GFR-MDRD 23; Glucose 155 mg/dL (70-105); Potassium 3.4 mmol/L (3.5-5.1); Sodium 137 mmol/L (136-145)
[2017-11-13] MEDS: Azithromycin 250 MG TAB PO SCH (08:42)
[2017-11-13] MEDS: Potassium Chloride 20 MEQ TAB PO SCH (08:42)
[2017-11-13] MEDS: Bupropion 150 MG XL TAB PO SCH (08:43)
[2017-11-13] MEDS: Carvedilol 3.125 MG TAB PO SCH ×2 (08:43→20:24)
[2017-11-13] MEDS: Pregabalin 50 MG CAP PO SCH ×2 (08:43→20:23)
[2017-11-13] MEDS: Insulin Detemir 100 UNITS/ML 50 UNITS in Pre-Filled Syringe 1 EACH SC SCH ×2 (08:43→20:26)
[2017-11-13] MEDS: Heparin 5,000 UNITS/ML VIAL SC SCH ×3 (08:43→20:26)
--- NOTE | 2017-11-13 09:34 | PDOC.PN ---
- Subjective Encounter Start Date: 11/13/17 Encounter Start Time: 09:32 Ms. Angela is still feeling short of breath. She also says she coughs almost all day. The cough is productive of clear sputum. - Objective MAR Reviewed: Yes Vital Signs & Weight: Vital Signs (12 hours) Temp Pulse Resp BP Pulse Ox 11/13/17 08:38 99.2 F 67 18 149/65 H 93 L 11/13/17 07:49 92 L 11/13/17 07:45 74 20 92 L 11/13/17 04:00 98.7 F 70 20 103/48 L 93 L 11/12/17 23:45 86 16 94 L Weight Weight 232 lb I&O: 11/12/17 11/13/17 11/14/17 06:59 06:59 06:59 Intake Total 990 1080 Output Total 4600 1900 Balance -3610 -820 Result Diagrams: 11/13/17 04:01 11/13/17 04:01 Additional Labs: Accuchecks 11/13/17 11/12/17 11/12/17 06:01 20:18 16:54 POC Glucose 198 H 105 130 H 11/12/17 11:38 POC Glucose 294 H Phys Exam - Physical Examination HEENT: PERRLA Respiratory: wheezing present + scattered wheezing, no rales Cardiovascular: RRR, no significant murmur tachycardia Gastrointestinal: soft, non-tender, positive bowel sounds Musculoskeletal: no edema Dx/Plan (1) Acute on chronic diastolic heart failure Code(s): I50.33 - ACUTE ON CHRONIC DIASTOLIC (CONGESTIVE) HEART FAILURE Status : Acute (2) Acute bronchitis Code(s): J20.9 - ACUTE BRONCHITIS, UNSPECIFIED Status: Acute (3) CHANTELL (acute kidney injury) Code(s): N17.9 - ACUTE KIDNEY FAILURE, UNSPECIFIED Status: Acute (4) CAD (coronary artery disease) Code(s): I25.10 - ATHSCL HEART DISEASE OF [place] CORONARY ARTERY W/O ANG PCTRS Status: Chronic Qualifiers: Coronary Disease-Associated Artery/Lesion type: bypass graft [place] vs. transplanted heart: [place] heart Associated angina: without angina Qualified Code(s): I25.810 - Atherosclerosis of coronary artery bypass graft(s) without angina pectoris (5) DM type 2 (diabetes mellitus, type 2) Status: Chronic Qualifiers: Diabetes mellitus complication status: with kidney complications Diabetes mellitus complication detail: with chronic kidney disease Diabetes mellitus nursing home insulin use: with terminal worker use Chronic kidney disease stage: stage 3 (moderate) Qualified Code(s): E11.22 - Type 2 diabetes mellitus with diabetic chronic kidney disease; N18.3 - Chronic kidney disease, stage 3 ( moderate); N18.3 - Chronic kidney disease, stage 3 (moderate); Z79.4 - intermodal owner operator truck driver (current) use of insulin; Z79.4 - [facility] (current) use of insulin; Z79.4 - intermodal owner operator truck driver (current) use of insulin; Z79.4 - intermodal owner operator truck driver (current) use of insulin (6) Obesity Code(s): E66.9 - OBESITY, UNSPECIFIED Status: Chronic Qualifiers: Obesity classification: adult class 3 (BMI >= 40) Body mass index: BMI 40.0 -44.9 (7) Type II diabetes mellitus with neurological manifestations, uncontrolled Code(s): E11.49 - TYPE 2 DIABETES W [facility] DIABETIC NEUROLOGICAL COMPLICATION; E11.65 - TYPE 2 DIABETES MELLITUS WITH HYPERGLYCEMIA Status: Chronic - Plan * Acute Bronchitis- she still has quite a it of wheezing- will add Streoids, and Duonebs as needed * Acute on chronic diastolic heart failure- she has lost 20 pounds of fluid- her creatinine is elevated- Lasix is now on hold * DM- blood glucose is borderline- continue SSI and Levemir- expected to rise with steroids, and will titrate insulin as needed * HTN- Stable * Acute on chronic kidney disease- slightly worse today- Lasix is on hold- will continue to monitor until creatinine trends down
[2017-11-13] MEDS ORDERED: Albumin 25% 25 GM/100 ML BOT IVPB SCH ×2 (10:00→10:15)
--- NOTE | 2017-11-13 11:39 | PRG ---
DATE OF SERVICE: 11/13/2017 RENAL MEDICINE SUBJECTIVE: Ms. Angela is a 52-year-old white female, who was admitted for shortness of breath. She was also referred for her acute kidney injury on top of her chronic renal failure. She is being diuresed. However, renal function has been worsening, and for that reason, her diuretics have been p laced on hold. No new complaints today. She feels tired. OBJECTIVE: VITAL SIGNS: Blood pressure is 149/65, heart rate 67, respiratory rate 18, temperature 99.2, pulse o x 93%. GENERAL EXAM: Noted to be awake, supine, comfortable, obese. SKIN: Adequate turgor. LUNGS: Clear breath sounds. HEART: Normal sinus rhythm. No murmur, no gallops, no rubs. ABDOMEN: Globular, soft, nontender, no masses. EXTREMITIES: Trace edema. The patient is also noted to be status post left BKA. MEDICATIONS: Medications of 11/13/2017 were reviewed. LABORATORY DATA: Laboratories of 11/13/2017, white count 12.4, hemoglobin 12, sodium 137, potassium 3.4, chloride 96, carbon dioxide 37, BUN 54, creatinine 2.27, glucose 155, calcium 10.1. ASSESSMENT AND PLAN: 1. Acute kidney injury on top of her chronic renal failure - she has underlying diabetic nephropathy . However, renal function has worsened in the last few days. This could be related from the previou s diuretic regimen. Diuretics have been discontinued. In addition, we will start patient on albumin infusion. I agree with current management. No indication for any dialytic intervention. 2. Shortness of breath, multifactorial - ? of underlying chronic obstructive pulmonary disease. ? o f congestive heart failure in the past. Overall, I agree with current management. We will recheck CMP with this patient in a.m.
[2017-11-13] MEDS ORDERED: Ondansetron HCl/PF 4 MG/2 ML Vial IVP PRN (11:51)
[2017-11-13] MEDS ORDERED: Ondansetron ODT 4 MG TAB PO PRN (11:51)
[2017-11-13] MEDS: Albumin 25% 25 GM/100 ML BOT IVPB SCH ×2 (12:06→20:23)
[2017-11-13] MEDS: Benzonatate 100 MG CAP PO SCH ×2 (14:32→20:25)
[2017-11-13] MEDS: HumaLOG 300 UNITS/3 ML VIAL SC PRN (17:57)
[2017-11-13] MEDS: Rosuvastatin 20 MG TAB PO SCH (20:23)
[2017-11-13] MEDS: Melatonin 3 MG TAB PO SCH (20:23)
[2017-11-13] MEDS: DULoxetine 30 MG CAP PO SCH (20:25)
[2017-11-13] MEDS: Famotidine 20 MG TAB PO SCH (20:25)
[2017-11-13] MEDS: traZODone HCl 50 MG TAB PO SCH (20:25)
[2017-11-14 04:56] LABS: #Lymphocytes 0.6 thou/uL (1.20-3.40); #Monocytes 0.3 thou/uL (0.11-0.59); #Neutrophils 6.8 thou/uL (1.40-6.50); %Basophils 0.1 % (0.0-1.0); %Lymphocytes 7.4 % (21.0-51.0); %Monocytes 3.7 % (0.0-10.0); %Neutrophils 88.8 % (42.0-75.0); Hemoglobin 10.7 g/dL (12.0-16.0); Mean Corpuscular HGB CONC 32.3 g/dL (32.0-36.0); Mean Corpuscular Hemoglobin 28.9 pg (27.0-31.0); Mean Corpuscular Volume 89.4 fl (81.0-99.0); Mean Platelet Volume 8.8 fL (7.4-10.4); Platelet Count 147 thou/uL (130-400); RBC Distribution Width 13.4 % (11.5-14.5); Red Blood Cell (RBC) Count 3.71 mill/uL (4.20-5.40); White Blood Cell (WBC) Count 7.7 thou/uL (4.8-10.8)
[2017-11-14] MEDS: Albumin 25% 25 GM/100 ML BOT IVPB SCH ×3 (04:56→21:11)
[2017-11-14 05:31] LABS: ALT (SGPT) 23 U/L (8-55); AST (SGOT) 26 U/L (5-34); Albumin 4.3 g/dL (3.5-5.0); Alkaline Phosphatase 86 U/L (40-150); Anion Gap 18 mmol/L (10-20); BUN (Urea Nitrogen) 60 mg/dL (9.8-20.1); Bilirubin, Total 0.7 mg/dL (0.2-1.2); Calc. Creatinine Clearance 44 mL/min (70-130); Calcium 10.1 mg/dL (7.8-10.44); Carbon Dioxide 37 mmol/L (22-29); Chloride 84 mmol/L (98-107); Estimated GFR-MDRD 20; Globulin 2.9 g/dL (2.4-3.5); Glucose 424 mg/dL (70-105); Potassium 3.8 mmol/L (3.5-5.1); Protein, Total 7.2 g/dL (6.0-8.3); Sodium 135 mmol/L (136-145)
[2017-11-14] MEDS: HumaLOG 300 UNITS/3 ML VIAL SC PRN ×4 (05:59→21:31)
[2017-11-14] MEDS: Heparin 5,000 UNITS/ML VIAL SC SCH ×3 (08:37→21:34)
[2017-11-14] MEDS: Carvedilol 3.125 MG TAB PO SCH ×2 (08:38→21:23)
[2017-11-14] MEDS: Bupropion 150 MG XL TAB PO SCH (08:38)
[2017-11-14] MEDS: Insulin Detemir 100 UNITS/ML 50 UNITS in Pre-Filled Syringe 1 EACH SC SCH (08:38)
[2017-11-14] MEDS: Benzonatate 100 MG CAP PO SCH ×3 (08:38→21:19)
[2017-11-14] MEDS: Azithromycin 250 MG TAB PO SCH (08:39)
[2017-11-14] MEDS: Pregabalin 50 MG CAP PO SCH ×2 (08:39→21:22)
[2017-11-14] MEDS: Acetaminophen 325 MG TAB PO PRN ×2 (08:39→17:37)
[2017-11-14] MEDS: Potassium Chloride 20 MEQ TAB PO SCH (08:39)
--- NOTE | 2017-11-14 09:15 | PRG ---
DATE OF SERVICE: 11/14/2017 SUBJECTIVE: Ms. Angela is doing about the same. She is sitting up in the bed. PHYSICAL EXAMINATION: VITAL SIGNS: Blood pressure 146/64, pulse 80, it is regular. LUNGS: Clear. CARDIAC: Normal S1 and S2. LABORATORY: The creatinine is 2.5. Estimated GFR is 20. ASSESSMENT: 1. Diastolic heart failure. 2. Peripheral vascular disease. 3. Stage IV renal failure. 4. Previous bypass. PLAN: 1. Diuretics are on hold. 2. Kidney function is being followed. 3. Continue to monitor.
--- NOTE | 2017-11-14 09:50 | PRG ---
DATE OF SERVICE: 11/14/2017 SUBJECTIVE: Ms. Angela is a 52-year-old white female being followed up for her chronic renal fail ure. Recently renal function has worsened. They felt that this was a reflection of her diuretic reg imen. Her furosemide has been discontinued. I have started yesterday albumin infusion. This mornin g, she feels better. She has some occasional cough. Denies any worsening shortness of breath or hav ing chest pain. OBJECTIVE: VITAL SIGNS: Blood pressure 146/64, heart rate 74, respiratory rate 16, temperature 96.6, pulse ox 9 5%. GENERAL: Noted to be awake, alert, comfortable, not in distress, sitting. SKIN: Adequate turgor. HEENT: Pinkish conjunctivae, anicteric sclerae. NECK: No neck mass, no carotid bruits, no JVD. CHEST: No deformities. LUNGS: Clear breath sounds with occasional wheezing. HEART: Normal sinus rhythm. No murmur, no gallops or rubs. ABDOMEN: Globular, soft, nontender, no masses. EXTREMITIES: No edema. MEDICATIONS: Of 11/14/2017 was reviewed. LABORATORY DATA: Of 11/14/2017, white count 7.7, hemoglobin 10.7. Sodium 135, potassium 3.8, chlori de 84, carbon dioxide 37, BUN 60, creatinine 2.5, glucose 424, calcium 10.1, albumin 4.3. ASSESSMENT AND PLAN: 1. Acute kidney injury - consider hemodynamically mediated renal dysfunction secondary from diuretic use. Diuretics are on hold. Continue salt poor albumin 25 grams IV q.8 hours. No indication for an y dialytic intervention. I anticipate some plateauing with the renal function in the next few days. We will recheck another basic met in a.m. 2. Chronic obstructive pulmonary disease exacerbation. Continue supportive care - Currently on ster oids and DuoNeb.
--- NOTE | 2017-11-14 11:24 | PDOC.PN ---
- Subjective Encounter Start Date: 11/14/17 Encounter Start Time: 11:22 Ms. Angela was seen today in follow-up of shortness of breath. She says she is beginning to breathe a bit better now. She has less cough. She informs me that she was scheduled to have a PFT soon as an Outpatient. - Objective MAR Reviewed: Yes Vital Signs & Weight: Vital Signs (12 hours) Temp Pulse Resp BP Pulse Ox 11/14/17 08:53 92 L 11/14/17 08:52 83 24 H 92 L 11/14/17 07:24 96.6 F L 74 16 146/64 H 95 11/14/17 04:00 97.7 F 71 16 159/66 H 97 11/13/17 23:29 75 16 94 L Weight Weight 225 lb 8 oz I&O: 11/13/17 11/14/17 11/15/17 06:59 06:59 06:59 Intake Total 1080 800 Output Total 1900 1000 Balance -820 -200 Result Diagrams: 11/14/17 04:02 11/14/17 04:02 Additional Labs: Accuchecks 11/14/17 11/13/17 11/13/17 05:46 19:53 17:04 POC Glucose 389 H 355 H 288 H 11/13/17 11:41 POC Glucose 208 H Phys Exam - Physical Examination HEENT: PERRLA Respiratory: wheezing present + bilateral wheezing no rhonchi or rales. Cardiovascular: RRR, no significant murmur Gastrointestinal: soft, non-tender, positive bowel sounds Musculoskeletal: no edema Dx/Plan (1) Acute on chronic diastolic heart failure Code(s): I50.33 - ACUTE ON CHRONIC DIASTOLIC (CONGESTIVE) HEART FAILURE Status : Acute (2) Acute bronchitis Code(s): J20.9 - ACUTE BRONCHITIS, UNSPECIFIED Status: Acute (3) CHANTELL (acute kidney injury) Code(s): N17.9 - ACUTE KIDNEY FAILURE, UNSPECIFIED Status: Acute (4) CAD (coronary artery disease) Code(s): I25.10 - ATHSCL HEART DISEASE OF [place] CORONARY ARTERY W/O ANG PCTRS Status: Chronic Qualifiers: Coronary Disease-Associated Artery/Lesion type: bypass graft [place] vs. transplanted heart: [place] heart Associated angina: without angina Qualified Code(s): I25.810 - Atherosclerosis of coronary artery bypass graft(s) without angina pectoris (5) DM type 2 (diabetes mellitus, type 2) Status: Chronic Qualifiers: Diabetes mellitus complication status: with kidney complications Diabetes mellitus complication detail: with chronic kidney disease Diabetes mellitus long term care administrator insulin use: with long term care administrator use Chronic kidney disease stage: stage 3 (moderate) Qualified Code(s): E11.22 - Type 2 diabetes mellitus with diabetic chronic kidney disease; N18.3 - Chronic kidney disease, stage 3 ( moderate); N18.3 - Chronic kidney disease, stage 3 (moderate); Z79.4 - detention (current) use of insulin; Z79.4 - long term care administrator (current) use of insulin; Z79.4 - detention (current) use of insulin; Z79.4 - long term care administrator (current) use of insulin (6) Obesity Code(s): E66.9 - OBESITY, UNSPECIFIED Status: Chronic Qualifiers: Obesity classification: adult class 3 (BMI >= 40) Body mass index: BMI 40.0 -44.9 (7) Type II diabetes mellitus with neurological manifestations, uncontrolled Code(s): E11.49 - TYPE 2 DIABETES [facility] DIABETIC NEUROLOGICAL COMPLICATION; E11.65 - TYPE 2 DIABETES MELLITUS WITH HYPERGLYCEMIA Status: Chronic - Plan * Acute bronchitis- possibly on chronic lung disease- will continue Duonebs and steroids * She can follow-up with PFT's as an Outpatient once her lung function is more stable * DM- blood glucose is elevated- will increase Levemir dose * Acute renal failure- hopefully beginning to plateau. She has been given albumin IV to mobilize fluid by nephrology- will continue to monitor * acute on chronic diastolic heart failure- resolved.
[2017-11-14] MEDS ORDERED: Cyclobenzaprine 10 MG TAB PO PRN (13:59)
[2017-11-14] MEDS ORDERED: Dextrose 5% in Water 1,000 ML IV PRN (17:59)
[2017-11-14] MEDS ORDERED: Dextrose 50% Abboject 50 ML SYRINGE SLOW IVP PRN (17:59)
[2017-11-14] MEDS ORDERED: Insulin Detemir 100 UNITS/ML 10 UNITS in Pre-Filled Syringe SC SCH (18:30)
[2017-11-14] MEDS: traZODone HCl 50 MG TAB PO SCH (21:19)
[2017-11-14] MEDS: Rosuvastatin 20 MG TAB PO SCH (21:20)
[2017-11-14] MEDS: DULoxetine 30 MG CAP PO SCH (21:21)
[2017-11-14] MEDS: Famotidine 20 MG TAB PO SCH (21:23)
[2017-11-14] MEDS: Melatonin 3 MG TAB PO SCH (21:24)
[2017-11-14] MEDS: INSULIN DETEMIR SC SCH (21:25)
[2017-11-14] MEDS: PRE FILLED SC SCH (21:25)
[2017-11-15] MEDS: hydrALAZINE 20 MG/ML VIAL SLOW IVP PRN (01:00)
[2017-11-15] MEDS: Albumin 25% 25 GM/100 ML BOT IVPB SCH ×2 (04:26→11:12)
[2017-11-15] MEDS: Guaifenesin DM 100-10/5 ML UDCUP PO PRN (04:37)
[2017-11-15 05:21] LABS: #Lymphocytes 0.7 thou/uL (1.20-3.40); #Monocytes 0.6 thou/uL (0.11-0.59); #Neutrophils 7.2 thou/uL (1.40-6.50); %Eosinophils 0.2 % (0.0-10.0); %Lymphocytes 7.9 % (21.0-51.0); %Monocytes 6.5 % (0.0-10.0); %Neutrophils 85.4 % (42.0-75.0); Hemoglobin 11.3 g/dL (12.0-16.0); Mean Corpuscular HGB CONC 32.8 g/dL (32.0-36.0); Mean Corpuscular Hemoglobin 29.2 pg (27.0-31.0); Mean Corpuscular Volume 88.8 fl (81.0-99.0); Mean Platelet Volume 9.5 fL (7.4-10.4); Platelet Count 158 thou/uL (130-400); RBC Distribution Width 13.2 % (11.5-14.5); Red Blood Cell (RBC) Count 3.88 mill/uL (4.20-5.40); White Blood Cell (WBC) Count 8.4 thou/uL (4.8-10.8)
[2017-11-15 05:45] LABS: Anion Gap 20 mmol/L (10-20); BUN (Urea Nitrogen) 75 mg/dL (9.8-20.1); Calc. Creatinine Clearance 34 mL/min (70-130); Calcium 10.6 mg/dL (7.8-10.44); Carbon Dioxide 34 mmol/L (22-29); Chloride 84 mmol/L (98-107); Estimated GFR-MDRD 16; Glucose 345 mg/dL (70-105); Iron 53 ug/dL (50-170); Iron Binding Capacity, Total 181 mcg/dL (265-497); Potassium 4.2 mmol/L (3.5-5.1); Sodium 134 mmol/L (136-145)
[2017-11-15] MEDS: PRE FILLED SC SCH ×2 (08:39→21:25)
[2017-11-15] MEDS: HumaLOG 300 UNITS/3 ML VIAL SC PRN ×4 (08:39→21:25)
[2017-11-15] MEDS: INSULIN DETEMIR SC SCH ×2 (08:39→21:25)
[2017-11-15] MEDS: Heparin 5,000 UNITS/ML VIAL SC SCH ×3 (08:40→21:26)
[2017-11-15] MEDS: Potassium Chloride 20 MEQ TAB PO SCH (08:40)
[2017-11-15] MEDS: Sodium Chloride 0.9% 1,000 ML IV SCH ×2 (08:40→21:33)
[2017-11-15] MEDS: Azithromycin 250 MG TAB PO SCH (08:41)
[2017-11-15] MEDS: Bupropion 150 MG XL TAB PO SCH (08:41)
[2017-11-15] MEDS: Benzonatate 100 MG CAP PO SCH ×3 (08:41→21:27)
[2017-11-15] MEDS: Carvedilol 3.125 MG TAB PO SCH ×2 (08:41→21:30)
[2017-11-15] MEDS: Pregabalin 50 MG CAP PO SCH ×2 (08:41→21:27)
--- NOTE | 2017-11-15 09:27 | PRG ---
DATE OF SERVICE: 11/15/2017 SUBJECTIVE: Ms. Angela is a 52-year-old white female being followed by the Renal Service. Her re nal function is worsening over the last few days. She received salt poor albumin and diuretics have been discontinued, but in spite of this maneuver, renal function has been worsening. My concern is t hat she may have a superimposed ATN. She still has decreased p.o. intake for this reason, we will st art her on normal saline. Shortness of breath is much improved. She denies any other complaints tod ay. PHYSICAL EXAMINATION: VITAL SIGNS: Blood pressure 189/79, heart rate 86, respiratory rate 16, pulse ox 100%. GENERAL: Awake, supine, comfortable, obese, not in distress. SKIN: Adequate turgor. HEENT: She has pinkish conjunctivae, anicteric sclerae. NECK: No neck mass, no carotid bruits, no JVD. CHEST: No deformities. LUNGS: Decreased breath sounds. HEART: Normal sinus rhythm. No murmur, no gallops, no rubs. ABDOMEN: Globular, soft, nontender, no masses. EXTREMITIES: No edema, status post left BKA. MEDICATIONS: Of 11/15/2017 was reviewed. LABORATORY DATA: Of 11/15/2017, white count 8.4, hemoglobin 11.3, sodium 134, potassium 4.2, chlorid e 84, carbon dioxide 34, BUN 75, creatinine 3.13, glucose 345, calcium is 10.6, BUN 53, TIBC 181, gisela ritin 246. ASSESSMENT AND PLAN: 1. Acute kidney injury on top of her chronic renal failure, worsening renal dysfunction, will review her urinalysis today. We will also check urine chemistries. We will start normal saline 100 mL per hour. Hold off any diuretics at the present time. 2. Shortness of breath, multifactorial, clinically much improved. Recheck basic met and CBC in a.m.
[2017-11-15 09:31] LABS: Bilirubin Negative (Negative); Blood, Urine Large (Negative); Clarity TURBID (Clear); Glucose, Urine (Dipstick) 250 mg/dL (Negative); Leukocyte Large (Negative); Nitrite Positive (Negative); Protein, Urine (Dipstick) 100 mg/dL (Neg-Trace); Specific Gravity, Urine 1.015 (1.002-1.036)
[2017-11-15 09:33] LABS: Bacteria/HPF 4+ HPF (None Seen); Hyaline Casts/LPF 4-6 HYALINE CAST LPF (0-3 Hyaline); Pathc Cast-AUWi Flag 1.76 (0-2.49); Squamous Epithelial 0-3 HPF (0-3); Yeast-AUWi Flag 167.4 (0-25.0)
[2017-11-15 09:46] LABS: Yeast-All Forms None Seen HPF (None Seen)
--- NOTE | 2017-11-15 14:01 | PRG ---
DATE OF SERVICE: 11/15/2017 Ms. Angela is doing okay. No chest pain or pressure. PHYSICAL EXAMINATION: VITAL SIGNS: Blood pressure 140/70, pulse 69 and regular. LUNGS: Clear. CARDIAC: Normal S1, S2. ABDOMEN: Soft, nontender. EXTREMITIES: There is no edema. Creatinine has gone up, creatinine is 3.13. Estimated GFR 16. ASSESSMENT: 1. Congestive heart failure, diastolic. 2. Coronary artery disease, previous stress test, small area of ischemia. 3. Diabetes. 4. Peripheral vascular disease. 5. Renal failure. PLAN: Continued hydration is being done now, continue to follow.
--- NOTE | 2017-11-15 15:14 | PDOC.PN ---
- Subjective Encounter Start Date: 11/15/17 Encounter Start Time: 15:12 Ms. Angela was seen today in follow-up. She is breathing a little better today. She is becoming frustrated about being in the hospital. - Objective MAR Reviewed: Yes Vital Signs & Weight: Vital Signs (12 hours) Temp Pulse Resp BP BP Pulse Ox 11/15/17 11:34 97.2 F L 69 18 141/70 H 98 11/15/17 08:45 98.1 F 64 16 96 11/15/17 08:33 98.1 F 64 16 191/77 H 96 11/15/17 07:38 86 16 100 11/15/17 04:41 93 L 11/15/17 04:00 96.1 F L 63 14 189/79 H 97 Weight Weight 225 lb 8 oz I&O: 11/14/17 11/15/17 11/16/17 06:59 06:59 06:59 Intake Total 800 1466 Output Total 1000 1200 Balance -200 266 Result Diagrams: 11/15/17 04:07 11/15/17 04:07 Additional Labs: Accuchecks 11/15/17 11/15/17 11/14/17 11:31 06:05 20:08 POC Glucose 223 H 334 H 433 H 11/14/17 17:07 POC Glucose 500 H Phys Exam - Physical Examination HEENT: PERRLA + mild expiratory wheeze, no rhonchi Cardiovascular: RRR, no significant murmur Gastrointestinal: soft, non-tender, positive bowel sounds Musculoskeletal: no edema Dx/Plan (1) Acute on chronic diastolic heart failure Code(s): I50.33 - ACUTE ON CHRONIC DIASTOLIC (CONGESTIVE) HEART FAILURE Status : Acute (2) Acute bronchitis Code(s): J20.9 - ACUTE BRONCHITIS, UNSPECIFIED Status: Acute (3) CHANTELL (acute kidney injury) Code(s): N17.9 - ACUTE KIDNEY FAILURE, UNSPECIFIED Status: Acute (4) CAD (coronary artery disease) Code(s): I25.10 - ATHSCL HEART DISEASE OF [place] CORONARY ARTERY W/O ANG PCTRS Status: Chronic Qualifiers: Coronary Disease-Associated Artery/Lesion type: bypass graft [place] vs. transplanted heart: [place] heart Associated angina: without angina Qualified Code(s): I25.810 - Atherosclerosis of coronary artery bypass graft(s) without angina pectoris (5) DM type 2 (diabetes mellitus, type 2) Status: Chronic Qualifiers: Diabetes mellitus complication status: with kidney complications Diabetes mellitus complication detail: with chronic kidney disease Diabetes mellitus senior living insulin use: with senior living use Chronic kidney disease stage: stage 3 (moderate) Qualified Code(s): E11.22 - Type 2 diabetes mellitus with diabetic chronic kidney disease; N18.3 - Chronic kidney disease, stage 3 ( moderate); N18.3 - Chronic kidney disease, stage 3 (moderate); Z79.4 - watermelon inspector (current) use of insulin; Z79.4 - watermelon inspector (current) use of insulin; Z79.4 - alf (current) use of insulin; Z79.4 - alf (current) use of insulin (6) Obesity Code(s): E66.9 - OBESITY, UNSPECIFIED Status: Chronic Qualifiers: Obesity classification: adult class 3 (BMI >= 40) Body mass index: BMI 40.0 -44.9 (7) Type II diabetes mellitus with neurological manifestations, uncontrolled Code(s): E11.49 - TYPE 2 DIABETES W [facility]TH DIABETIC NEUROLOGICAL COMPLICATION; E11.65 - TYPE 2 DIABETES MELLITUS WITH HYPERGLYCEMIA Status: Chronic - Plan * Acute respiratory failure- improving- will will change the steroids to oral * Acute renal failure- discussed with Dr. Lyles- pre-renal azotemia- she will be given some fluid back. * HTN- blood pressure is better * DM- blood glucose is improved, and expect continued improvement with tappering of steroids * Continue PT/OT
[2017-11-15] MEDS: Melatonin 3 MG TAB PO SCH (21:28)
[2017-11-15] MEDS: Famotidine 20 MG TAB PO SCH (21:28)
[2017-11-15] MEDS: DULoxetine 30 MG CAP PO SCH (21:30)
[2017-11-15] MEDS: traZODone HCl 50 MG TAB PO SCH (21:30)
[2017-11-15] MEDS: Rosuvastatin 20 MG TAB PO SCH (21:30)
[2017-11-16] MEDS: hydrALAZINE 20 MG/ML VIAL SLOW IVP PRN (04:23)
[2017-11-16 05:58] LABS: Anion Gap 16 mmol/L (10-20); BUN (Urea Nitrogen) 85 mg/dL (9.8-20.1); Calc. Creatinine Clearance 32 mL/min (70-130); Calcium 10.4 mg/dL (7.8-10.44); Carbon Dioxide 30 mmol/L (22-29); Chloride 93 mmol/L (98-107); Estimated GFR-MDRD 14; Glucose 219 mg/dL (70-105); Potassium 4.4 mmol/L (3.5-5.1); Sodium 135 mmol/L (136-145)
[2017-11-16] MEDS: INSULIN DETEMIR SC SCH ×2 (08:34→21:15)
[2017-11-16] MEDS: PRE FILLED SC SCH ×2 (08:34→21:15)
[2017-11-16] MEDS: Sodium Chloride 0.9% 1,000 ML IV SCH ×2 (08:35→17:34)
[2017-11-16] MEDS: HumaLOG 300 UNITS/3 ML VIAL SC PRN ×3 (08:35→21:12)
[2017-11-16] MEDS: Benzonatate 100 MG CAP PO SCH ×3 (08:36→21:29)
[2017-11-16] MEDS: Carvedilol 3.125 MG TAB PO SCH ×2 (08:36→21:22)
[2017-11-16] MEDS: Bupropion 150 MG XL TAB PO SCH (08:36)
[2017-11-16] MEDS: Potassium Chloride 20 MEQ TAB PO SCH (08:36)
[2017-11-16] MEDS: predniSONE 20 MG TAB PO SCH (08:36)
[2017-11-16] MEDS: Heparin 5,000 UNITS/ML VIAL SC SCH ×3 (08:36→21:12)
[2017-11-16] MEDS: Pregabalin 50 MG CAP PO SCH ×2 (08:37→21:19)
[2017-11-16] MEDS: Azithromycin 250 MG TAB PO SCH (08:37)
--- NOTE | 2017-11-16 09:02 | PRG ---
DATE OF SERVICE: 11/16/2017 SUBJECTIVE: Ms. Angela is a 52-year-old white female who was seen for acute kidney injury. A pre sumptive hemodynamically mediated renal dysfunction was suspected. Diuretics was placed on hold. In addition, normal saline was started with this patient yesterday. She voices no new complaints. She denies any chest pain, shortness of breath. However, she still has this chronic cough. PHYSICAL EXAMINATION: VITAL SIGNS: Blood pressure 154/71, heart rate 71, respiratory rate 18, temperature 97.7, pulse ox 9 5%. GENERAL: Awake, alert, supine, comfortable, obese, not in distress. SKIN: Adequate turgor. HEENT: She has pinkish conjunctivae, anicteric sclerae. NECK: No neck mass, no carotid bruits, no JVD. CHEST: No deformities. LUNGS: Harsh breath sounds. HEART: Normal sinus rhythm. No murmur, no gallops, no rubs. ABDOMEN: Globular, soft, nontender. EXTREMITIES: No edema, status post left BKA. MEDICATIONS: 11/16/2017 - Reviewed. LABORATORY: 11/16/2017 - Sodium 135, potassium 4.4, chloride 93, carbon dioxide 30, BUN 85, creatini ne 3.38, glucose 219, GFR 14 mL per minute. Calcium is 10.4. 11/15/2017 - Creatinine was 3.13. ASSESSMENT AND PLAN: 1. Acute kidney injury - I did review the urinalysis. No evidence of overt acute tubular necrosis. The plan is to continue gentle volume hydration with this patient. No improvement yet with the roxanna l function was noted. There is no indication for any dialytic intervention. Continue to hold off di uretics or DAVIS inhibitors for the moment. Overall, agree with current management. 2. Shortness of breath, multifactorial, chronic obstructive pulmonary disease/congestive heart failu re. Currently on neb treatment. Recheck basic met in a.m.
--- NOTE | 2017-11-16 15:18 | PDOC.PN ---
- Subjective Encounter Start Date: 11/16/17 Encounter Start Time: 15:15 Ms. Angela says she is beginning to feel better this afternoon. She is less short of breath. - Objective MAR Reviewed: Yes Vital Signs & Weight: Vital Signs (12 hours) Temp Pulse Resp BP BP Pulse Ox 11/16/17 11:13 97.7 F 70 20 150/65 H 96 11/16/17 07:32 97.7 F 71 18 154/71 H 95 11/16/17 07:16 97.7 F 71 18 95 11/16/17 04:23 63 220/91 H 11/16/17 04:00 97.5 F L 68 13 211/83 H 98 Weight Weight 226 lb 1.6 oz I&O: 11/15/17 11/16/17 11/17/17 06:59 06:59 06:59 Intake Total 1466 4371 240 Output Total 1200 2150 700 Balance 266 2221 -460 Result Diagrams: 11/15/17 04:07 11/16/17 04:14 Additional Labs: Accuchecks 11/16/17 11/16/17 11/15/17 11:17 05:52 19:53 POC Glucose 271 H 213 H 301 H 11/15/17 17:17 POC Glucose 227 H Phys Exam - Physical Examination HEENT: PERRLA Respiratory: wheezing present + rhonchi scattered Cardiovascular: RRR, no significant murmur Gastrointestinal: soft, positive bowel sounds Musculoskeletal: edema present trace pedal edema Dx/Plan (1) Acute on chronic diastolic heart failure Code(s): I50.33 - ACUTE ON CHRONIC DIASTOLIC (CONGESTIVE) HEART FAILURE Status : Acute (2) Acute bronchitis Code(s): J20.9 - ACUTE BRONCHITIS, UNSPECIFIED Status: Acute (3) CHANTELL (acute kidney injury) Code(s): N17.9 - ACUTE KIDNEY FAILURE, UNSPECIFIED Status: Acute (4) CAD (coronary artery disease) Code(s): I25.10 - ATHSCL HEART DISEASE OF [place] CORONARY ARTERY W/O ANG PCTRS Status: Chronic Qualifiers: Coronary Disease-Associated Artery/Lesion type: bypass graft [place] vs. transplanted heart: [place] heart Associated angina: without angina Qualified Code(s): I25.810 - Atherosclerosis of coronary artery bypass graft(s) without angina pectoris (5) DM type 2 (diabetes mellitus, type 2) Status: Chronic Qualifiers: Diabetes mellitus complication status: with kidney complications Diabetes mellitus complication detail: with chronic kidney disease Diabetes mellitus termite renewal inspector insulin use: with termite renewal inspector use Chronic kidney disease stage: stage 3 (moderate) Qualified Code(s): E11.22 - Type 2 diabetes mellitus with diabetic chronic kidney disease; N18.3 - Chronic kidney disease, stage 3 ( moderate); N18.3 - Chronic kidney disease, stage 3 (moderate); Z79.4 - exterminator (current) use of insulin; Z79.4 - custodial (current) use of insulin; Z79.4 - custodial (current) use of insulin; Z79.4 - custodial (current) use of insulin (6) Obesity Code(s): E66.9 - OBESITY, UNSPECIFIED Status: Chronic Qualifiers: Obesity classification: adult class 3 (BMI >= 40) Body mass index: BMI 40.0 -44.9 (7) Type II diabetes mellitus with neurological manifestations, uncontrolled Code(s): E11.49 - TYPE 2 DIABETES W OTH DIABETIC NEUROLOGICAL COMPLICATION; E11.65 - TYPE 2 DIABETES MELLITUS WITH HYPERGLYCEMIA Status: Chronic - Plan * Acute on chronic diastolic heart failure- resolved * Acute Bronchitis- resolving * Acute renal failure- renal function is about the same- hopefully plateauing soon * Continue to monitor * DM- blood glucose is trending down
[2017-11-16] MEDS: Melatonin 3 MG TAB PO SCH (21:16)
[2017-11-16] MEDS: traZODone HCl 50 MG TAB PO SCH (21:17)
[2017-11-16] MEDS: Famotidine 20 MG TAB PO SCH (21:17)
[2017-11-16] MEDS: Rosuvastatin 20 MG TAB PO SCH (21:18)
[2017-11-16] MEDS: DULoxetine 30 MG CAP PO SCH (21:19)
[2017-11-17 05:06] LABS: Anion Gap 15 mmol/L (10-20); BUN (Urea Nitrogen) 88 mg/dL (9.8-20.1); Calc. Creatinine Clearance 33 mL/min (70-130); Calcium 9.8 mg/dL (7.8-10.44); Carbon Dioxide 28 mmol/L (22-29); Chloride 98 mmol/L (98-107); Estimated GFR-MDRD 15; Glucose 116 mg/dL (70-105); Potassium 4.1 mmol/L (3.5-5.1); Sodium 137 mmol/L (136-145)
[2017-11-17] MEDS: Sodium Chloride 0.9% 1,000 ML IV SCH ×2 (05:32→21:16)
[2017-11-17 06:17] VITALS: BMI 42.7
[2017-11-17] MEDS: predniSONE 20 MG TAB PO SCH (08:30)
[2017-11-17] MEDS: Potassium Chloride 20 MEQ TAB PO SCH (08:30)
[2017-11-17] MEDS: Carvedilol 3.125 MG TAB PO SCH ×2 (08:30→20:35)
--- NOTE | 2017-11-17 09:14 | PRG ---
DATE OF SERVICE: 11/17/2017 SUBJECTIVE: Ms. Angela is a 52-year-old white female who was initially and admitted for shortness of breath. She has multifactorial etiology for the shortness of breath which includes CHF and COPD. During the hospitalization, renal function worsened. She has been given salt poor albumin, at the same time I have started normal saline. There is now some degree of stabilization of the renal dysfu nction. Her creatinine seems to have plateaued starting this a.m. No new complaints, denies any wor sening shortness of breath, no chest pain. PHYSICAL EXAMINATION: VITAL SIGNS: Blood pressure 179/75, heart rate 68, respiratory rate 20, temperature 97.6, pulse oxim etry 93%. GENERAL: Noted to be awake, supine, comfortable, obese, not in distress. SKIN: Adequate turgor. HEENT: Pinkish conjunctivae. Anicteric sclerae. NECK: No neck mass, no carotid bruits, no JVD. CHEST: No deformities. LUNGS: Decreased breath sounds. HEART: Normal sinus rhythm. No murmur, no gallops, no rubs. ABDOMEN: Globular, soft, nontender, no masses. EXTREMITIES: Trace edema, no deformities. NEUROLOGIC: Awake, oriented to 3 spheres. No tremors, no asterixis. MEDICATIONS: 11/17/2017 - Reviewed. LABORATORY: 11/17/2017 - Sodium 137, potassium 4.1, chloride 98, carbon dioxide 28, BUN 88, creatini ne 3.29, GFR 16 mL per minute. Calcium 9.8. ASSESSMENT AND PLAN: 1. Acute kidney injury on top of her chronic renal failure - she has a superimposed hemodynamically mediated renal dysfunction. There is some degree of stabilization of her renal function at the prese nt time. Please note creatinine today is 3.29, yesterday it was 3.38. There is no indication for an y dialytic intervention. I would simply continue the current IV fluid with this patient. Continue t o hold off diuretics for the moment. 2. Shortness of breath. Clinically, much improved. Combination of chronic obstructive pulmonary di sease exacerbation and mild congestive heart failure. Overall, I agree with current management. We will check base met and CBC in a.m.
[2017-11-17] MEDS: Azithromycin 250 MG TAB PO SCH (09:40)
[2017-11-17] MEDS: Bupropion 150 MG XL TAB PO SCH (09:40)
[2017-11-17] MEDS: Pregabalin 50 MG CAP PO SCH ×2 (09:40→20:37)
[2017-11-17] MEDS: Benzonatate 100 MG CAP PO SCH ×3 (09:40→20:35)
[2017-11-17] MEDS: Heparin 5,000 UNITS/ML VIAL SC SCH ×3 (09:46→21:19)
[2017-11-17] MEDS: PRE FILLED SC SCH ×2 (09:47→20:38)
[2017-11-17] MEDS: INSULIN DETEMIR SC SCH ×2 (09:47→20:38)
--- NOTE | 2017-11-17 10:29 | PDOC.PN ---
- Subjective Encounter Start Date: 11/17/17 Encounter Start Time: 09:15 Subjective: breathing better, no sob -: is getting ready to work with OT -: has ambulated with prosthesis about 20ft yesterday - Objective MAR Reviewed: Yes Vital Signs & Weight: Vital Signs (12 hours) Temp Pulse Resp BP Pulse Ox 11/17/17 08:30 97.6 F 68 20 179/75 H 93 L 11/17/17 06:30 75 14 95 11/17/17 03:21 98.3 F 65 14 148/64 H 98 11/17/17 00:00 97.4 F L 69 18 144/63 H 95 Weight Weight 241 lb 1.6 oz I&O: 11/16/17 11/17/17 11/18/17 06:59 06:59 06:59 Intake Total 4371 3731 Output Total 2150 2400 Balance 2221 1331 Result Diagrams: 11/15/17 04:07 11/17/17 03:48 Additional Labs: Accuchecks 11/17/17 11/16/17 11/16/17 05:52 20:59 16:52 POC Glucose 110 313 H 119 H 11/16/17 11:17 POC Glucose 271 H Phys Exam - Physical Examination HEENT: PERRLA, moist MMs Neck: no JVD, supple Respiratory: no wheezing, no rales Cardiovascular: RRR, no significant murmur Gastrointestinal: soft, non-tender, positive bowel sounds Musculoskeletal: no edema, pulses present Neurological: non-focal, moves all 4 limbs Psychiatric: A&O x 3 Dx/Plan (1) Acute exacerbation of CHF (congestive heart failure) Code(s): I50.9 - HEART FAILURE, UNSPECIFIED Status: Acute Qualifiers: Congestive heart failure type: diastolic Qualified Code(s): I50.33 - Acute on chronic diastolic (congestive) heart failure Comment: ef of 50% (2) CHANTELL (acute kidney injury) Code(s): N17.9 - ACUTE KIDNEY FAILURE, UNSPECIFIED Status: Acute (3) DM type 2 (diabetes mellitus, type 2) Status: Chronic Qualifiers: Diabetes mellitus complication status: with kidney complications Diabetes mellitus complication detail: with chronic kidney disease Diabetes mellitus assistant terminal manager insulin use: with jail use Chronic kidney disease stage: stage 3 (moderate) Qualified Code(s): E11.22 - Type 2 diabetes mellitus with diabetic chronic kidney disease; N18.3 - Chronic kidney disease, stage 3 ( moderate); N18.3 - Chronic kidney disease, stage 3 (moderate); Z79.4 - rn long term care (current) use of insulin; Z79.4 - rn long term care (current) use of insulin; Z79.4 - penitentiary (current) use of insulin; Z79.4 - penitentiary (current) use of insulin (4) CKD (chronic kidney disease) stage 3, GFR 30-59 ml/min Code(s): N18.3 - CHRONIC KIDNEY DISEASE, STAGE 3 (MODERATE) Status: Chronic (5) Obesity Code(s): E66.9 - OBESITY, UNSPECIFIED Status: Chronic Qualifiers: Obesity classification: adult class 3 (BMI >= 40) Body mass index: BMI 40.0 -44.9 (6) CAD (coronary artery disease) Code(s): I25.10 - ATHSCL HEART DISEASE OF [place] CORONARY ARTERY W/O ANG PCTRS Status: Chronic Qualifiers: Coronary Disease-Associated Artery/Lesion type: bypass graft [place] vs. transplanted heart: [place] heart Associated angina: without angina Qualified Code(s): I25.810 - Atherosclerosis of coronary artery bypass graft(s) without angina pectoris (7) Demand ischemia of myocardium Code(s): I24.8 - OTHER FORMS OF ACUTE ISCHEMIC HEART DISEASE Status: Acute - Plan is on gentle iv hydration -: renal function holding up -: dc zithromax, reduce prednisone to 10mg -: oob to chair and mobilize as tolerated -: dm is uncontrolled due to steroids which is getting tapered * . Review of Systems - Medications/Allergies Allergies/Adverse Reactions: Allergies Allergy/AdvReac Type Severity Reaction Status Date / Time No Known Allergies Allergy Verified 09/16/14 15:36 Medications: Current Medications Acetaminophen (Tylenol) 650 mg PO Q4H PRN PRN Reason: Headache/Fever or Pain Last Admin: 11/14/17 17:37 Dose: 650 mg Al Hydroxide/Mg Hydroxide (Maalox) 30 ml PO Q6H PRN PRN Reason: Heartburn or Indigestion Albuterol/Ipratropium (Duoneb) 3 ml NEB [id number] RYANNE Last Admin: 11/17/17 06:30 Dose: 3 ml Albuterol/Ipratropium (Duoneb) 3 ml NEB [id number] PRN PRN Reason: SOB &/or Wheezing Aspirin (Aspirin Chewable) 81 mg PO DAILY [facility] Last Admin: 11/17/17 09:41 Dose: 81 mg Benzonatate (Tessalon) 100 mg PO TID [facility] Last Admin: 11/17/17 09:40 Dose: 100 mg Bupropion HCl (Wellbutrin Xl) 150 mg PO QAM [facility] Last Admin: 11/17/17 09:40 Dose: 150 mg Carvedilol (Coreg) 3.125 mg PO BID [facility] Last Admin: 11/17/17 08:30 Dose: 3.125 mg Cyclobenzaprine HCl (Flexeril) 5 mg PO TID PRN PRN Reason: Muscle Spasm Last Admin: 11/14/17 15:21 Dose: 5 mg Dextrose/Water (Dextrose 50%) 25 gm SLOW IVP PRN PRN PRN Reason: Hypoglycemia Duloxetine HCl (Cymbalta) 30 mg PO HS [facility] Last Admin: 11/16/17 21:19 Dose: 30 mg Famotidine (Pepcid) 20 mg PO 2100 [facility] Last Admin: 11/16/17 21:17 Dose: 20 mg Glucagon (Glucagon) 1 mg IM PRN PRN PRN Reason: Hypoglycemia Guaifenesin/Dextromethorphan (Robitussin Dm) 15 ml PO Q4H PRN PRN Reason: Cough Last Admin: 11/15/17 04:37 Dose: 15 ml Heparin Sodium (Porcine) (Heparin) 5,000 units SC TID [facility] Last Admin: 11/17/17 09:46 Dose: 5,000 units Hydralazine HCl (Apresoline) 10 mg SLOW IVP Q6H PRN PRN Reason: FOR BP > 180/100 Last Admin: 11/16/17 04:23 Dose: 10 mg Dextrose/Water (D5w) 1,000 mls @ 0 mls/hr IV .Q0M PRN; As Directed PRN Reason: Hypoglycemia Insulin Detemir 56 units/ (Miscellaneous Medication) 0.56 mls @ 0 mls/hr SC BID [facility] Last Admin: 11/17/17 09:47 Dose: 0.56 mls Sodium Chloride (Normal Saline 0.9%) 1,000 mls @ 100 mls/hr IV .Q10H [facility] Last Admin: 11/17/17 05:32 Dose: 1,000 mls Insulin Human Lispro (Humalog) 0 units SC .AGGRESSIVE SLIDING PRN PRN Reason: Aggressive Correctional Scale Last Admin: 11/16/17 11:45 Dose: 9 unit Insulin Human Lispro (Humalog) 0 units SC .BEDTIME SLIDING SC PRN PRN Reason: Bedtime Correctional Scale Last Admin: 11/16/17 21:12 Dose: 4 unit Melatonin (Melatonin) 9 mg PO [facility] Last Admin: 11/16/17 21:16 Dose: 9 mg Ondansetron HCl (Zofran Odt) 4 mg PO Q6H PRN PRN Reason: Nausea/Vomiting Ondansetron HCl (Zofran) 4 mg IVP Q6H PRN PRN Reason: Nausea/Vomiting Last Admin: 11/13/17 12:06 Dose: 4 mg Potassium Chloride (K-Dur) 20 meq PO [facility] Last Admin: 11/17/17 08:30 Dose: 20 meq Prednisone (Prednisone) 10 mg PO [facility] Pregabalin (Lyrica) 50 mg PO BID [facility] Last Admin: 11/17/17 09:40 Dose: 50 mg Rosuvastatin Calcium (Crestor) 40 mg PO [facility] Last Admin: 11/16/17 21:18 Dose: 40 mg Senna (Senokot) 2 tab PO HSPRN PRN PRN Reason: Constipation Last Admin: 11/10/17 15:27 Dose: 2 tab Sodium Chloride (Flush - Normal Saline) 10 ml IVF Q12HR [facility] Last Admin: 11/17/17 10:03 Dose: Not Given Sodium Chloride (Flush - Normal Saline) 10 ml IVF PRN PRN PRN Reason: Saline Flush Last Admin: 11/15/17 01:00 Dose: 10 ml Trazodone HCl (Desyrel) 100 mg PO [facility] Last Admin: 11/16/17 21:17 Dose: 100 mg
[2017-11-17] MEDS: HumaLOG 300 UNITS/3 ML VIAL SC PRN ×3 (13:02→20:42)
[2017-11-17] MEDS: Acetaminophen 325 MG TAB PO PRN (15:02)
[2017-11-17] MEDS: Rosuvastatin 20 MG TAB PO SCH (20:34)
[2017-11-17] MEDS: Famotidine 20 MG TAB PO SCH (20:35)
[2017-11-17] MEDS: DULoxetine 30 MG CAP PO SCH (20:35)
[2017-11-17] MEDS: traZODone HCl 50 MG TAB PO SCH (20:36)
[2017-11-17] MEDS: Melatonin 3 MG TAB PO SCH (22:29)
[2017-11-18] MEDS: hydrALAZINE 20 MG/ML VIAL SLOW IVP PRN (04:37)
[2017-11-18 05:45] LABS: #Lymphocytes 0.9 thou/uL (1.20-3.40); #Monocytes 0.8 thou/uL (0.11-0.59); #Neutrophils 5.1 thou/uL (1.40-6.50); %Basophils 0.1 % (0.0-1.0); %Eosinophils 0.4 % (0.0-10.0); %Monocytes 11.9 % (0.0-10.0); %Neutrophils 74.6 % (42.0-75.0); Hemoglobin 10.8 g/dL (12.0-16.0); Mean Corpuscular HGB CONC 35.1 g/dL (32.0-36.0); Mean Corpuscular Hemoglobin 30.9 pg (27.0-31.0); Mean Corpuscular Volume 88.2 fl (81.0-99.0); Mean Platelet Volume 9.1 fL (7.4-10.4); Platelet Count 156 thou/uL (130-400); RBC Distribution Width 13.2 % (11.5-14.5); White Blood Cell (WBC) Count 6.9 thou/uL (4.8-10.8)
[2017-11-18 05:57] LABS: Anion Gap 14 mmol/L (10-20); BUN (Urea Nitrogen) 78 mg/dL (9.8-20.1); Calc. Creatinine Clearance 35 mL/min (70-130); Calcium 9.6 mg/dL (7.8-10.44); Carbon Dioxide 26 mmol/L (22-29); Chloride 102 mmol/L (98-107); Estimated GFR-MDRD 15; Glucose 95 mg/dL (70-105); Potassium 4.3 mmol/L (3.5-5.1); Sodium 138 mmol/L (136-145)
[2017-11-18] MEDS ORDERED: predniSONE 20 MG TAB PO SCH (08:00)
[2017-11-18 08:13] VITALS: TEMP 97.9
[2017-11-18] MEDS: Sodium Chloride 0.9% 1,000 ML IV SCH ×2 (08:40)
[2017-11-18] MEDS: Potassium Chloride 20 MEQ TAB PO SCH (08:41)
[2017-11-18] MEDS: Benzonatate 100 MG CAP PO SCH (08:41)
[2017-11-18] MEDS: Bupropion 150 MG XL TAB PO SCH (08:41)
[2017-11-18] MEDS: Carvedilol 3.125 MG TAB PO SCH (08:42)
[2017-11-18] MEDS: Heparin 5,000 UNITS/ML VIAL SC SCH (08:42)
[2017-11-18] MEDS: Pregabalin 50 MG CAP PO SCH (08:43)
[2017-11-18] MEDS: INSULIN DETEMIR SC SCH (08:59)
[2017-11-18] MEDS: PRE FILLED SC SCH (08:59)
--- NOTE | 2017-11-18 09:04 | PRG ---
DATE OF SERVICE: 11/18/2017 SERVICE: Renal Medicine. SUBJECTIVE: Ms. Angela is a 52-year-old white female who was seen for her acute kidney injury on top of her chronic renal failure. She initially came in with some mild shortness of breath. She has underlying chronic obstructive pulmonary disease/congestive heart failure. Since that time, her moustapha al function has plateaued. Please note, her creatinine today is noted at 3.1. This has been steady for the last few days. She is feeling better. She denies any chest pain or shortness of breath. e is requesting to be discharged. OBJECTIVE: VITAL SIGNS: Blood pressure 146/66, heart rate 74, respiratory rate 16, temperature 97.9, pulse ox 9 7%. GENERAL: The patient is noted to be awake, supine, comfortable, not in distress. SKIN: Adequate turgor. HEENT: She has pinkish conjunctivae, anicteric sclerae. NECK: No neck mass, no carotid bruits, no JVD. CHEST: No deformities. LUNGS: Clear breath sounds. No wheezing, no crackles. HEART: Normal sinus rhythm. No murmur, no gallops or rubs. ABDOMEN: Globular, soft, nontender, no masses. EXTREMITIES: No edema, status post left BKA. MEDICATIONS: Of 11/18/2017 was reviewed. LABORATORY DATA: Of 11/18/2017, white count 6.9, hemoglobin 10.8, sodium 138, potassium 4.3, chlorid e 102, carbon dioxide 26, BUN 78, creatinine 3.18, glucose 95, calcium 9.6. ASSESSMENT AND PLAN: 1. Acute kidney injury - hemodynamically mediated renal dysfunction, slowly improving renal function . Creatinine peaked at the value of 3.38 and is currently now at 3.18 with a GFR of 15 mL per minute . From a renal point of view, no indication for any dialytic intervention. If the decision to disch arge the patient, she can follow up at the [facility]. 2. Shortness of breath. Clinically, much improved, underlying chronic obstructive pulmonary disease /congestive heart failure. Continue supportive care.
--- NOTE | 2017-11-18 11:16 | PDOC.PN ---
- Subjective Encounter Start Date: 11/18/17 Encounter Start Time: 08:15 Subjective: no sob, wants to go home -: has ambulated around 30ft with rw and her prosthesis - Objective MAR Reviewed: Yes Vital Signs & Weight: Vital Signs (12 hours) Temp Pulse Resp BP BP Pulse Ox 11/18/17 08:00 97.9 F 74 16 146/66 H 97 11/18/17 06:52 78 15 98 11/18/17 04:37 68 189/69 H 11/18/17 04:00 98.1 F 69 20 189/69 H 99 11/17/17 23:45 98.0 F 73 18 169/72 H 99 11/17/17 23:37 98 Weight Admit Weight 252 lb 7 oz Weight 234 lb 7 oz I&O: 11/17/17 11/18/17 11/19/17 06:59 06:59 06:59 Intake Total 3731 1440.5 Output Total 2400 1470 Balance 1331 -29.5 Result Diagrams: 11/18/17 04:51 11/18/17 04:51 Additional Labs: Accuchecks 11/18/17 11/17/17 11/17/17 05:45 20:18 16:12 POC Glucose 101 262 H 309 H 11/17/17 11:13 POC Glucose 209 H Phys Exam - Physical Examination HEENT: PERRLA, moist MMs Neck: no JVD, supple Respiratory: no wheezing, no rales Cardiovascular: RRR, no significant murmur Gastrointestinal: soft, non-tender, positive bowel sounds Musculoskeletal: pulses present Neurological: non-focal, moves all 4 limbs Psychiatric: A&O x 3 Dx/Plan (1) Acute exacerbation of CHF (congestive heart failure) Code(s): I50.9 - HEART FAILURE, UNSPECIFIED Status: Acute Qualifiers: Congestive heart failure type: diastolic Qualified Code(s): I50.33 - Acute on chronic diastolic (congestive) heart failure Comment: ef of 50% (2) CHANTELL (acute kidney injury) Code(s): N17.9 - ACUTE KIDNEY FAILURE, UNSPECIFIED Status: Acute (3) DM type 2 (diabetes mellitus, type 2) Status: Chronic Qualifiers: Diabetes mellitus complication status: with kidney complications Diabetes mellitus complication detail: with chronic kidney disease Diabetes mellitus regional intermodal truck driver insulin use: with regional intermodal truck driver use Chronic kidney disease stage: stage 3 (moderate) Qualified Code(s): E11.22 - Type 2 diabetes mellitus with diabetic chronic kidney disease; N18.3 - Chronic kidney disease, stage 3 ( moderate); N18.3 - Chronic kidney disease, stage 3 (moderate); Z79.4 - jail (current) use of insulin; Z79.4 - bed bug exterminator (current) use of insulin; Z79.4 - jail (current) use of insulin; Z79.4 - jail (current) use of insulin (4) CKD (chronic kidney disease) stage 3, GFR 30-59 ml/min Code(s): N18.3 - CHRONIC KIDNEY DISEASE, STAGE 3 (MODERATE) Status: Chronic (5) Obesity Code(s): E66.9 - OBESITY, UNSPECIFIED Status: Chronic Qualifiers: Obesity classification: adult class 3 (BMI >= 40) Body mass index: BMI 40.0 -44.9 (6) CAD (coronary artery disease) Code(s): I25.10 - ATHSCL HEART DISEASE OF [place] CORONARY ARTERY W/O ANG PCTRS Status: Chronic Qualifiers: Coronary Disease-Associated Artery/Lesion type: bypass graft [place] vs. transplanted heart: [place] heart Associated angina: without angina Qualified Code(s): I25.810 - Atherosclerosis of coronary artery bypass graft(s) without angina pectoris (7) Demand ischemia of myocardium Code(s): I24.8 - OTHER FORMS OF ACUTE ISCHEMIC HEART DISEASE Status: Resolved - Plan bmp on tuesday, HH with intermediate on dc -: pt wants to go home, d/w , he will f/u in his clinic -: creatinine around 3.1, reduce prednisone to 5mg daily and dc after 3 days -: d/w for setting up HH on dc * .
[2017-11-18 13:14] VITALS: BP 140/65
--- NOTE | 2017-11-18 21:38 | DIS ---
DATE OF ADMISSION: 11/09/2017 DATE OF DISCHARGE: 11/18/2017 DISCHARGE DISPOSITION: To home with home health. PRIMARY DISCHARGE DIAGNOSES: Acute congestive heart failure exacerbation with diastolic dysfunction, acute kidney injury secondary to diuresis, resolving. SECONDARY DISCHARGE DIAGNOSES: Diabetes mellitus, type 2; chronic kidney disease, stage 3; obesity; coronary artery disease; demand ischemia, resolved. PROCEDURES DONE DURING HOSPITALIZATION: Echo with 2D Doppler showed EF of 50% to 55% with grade 2/3 diastolic dysfunction, mild LVH was seen. Chest x-ray done on the day of admission showed cardiomega ly with pulmonary vascular congestion. Blood cultures x2 no growth. Influenza A and B nasal swab an tigens were negative. H and H 11 and 31, platelet count 156. Discharge BUN and creatinine is 78 and 3.1. Admitting BUN and creatinine were 37 and 1.5. BNP 1175. Troponin I indeterminate with peakin g up to 0.03. CK-MB 4.2, serum iron 53, ferritin 246. DISCHARGE MEDICATIONS: Please note no DAVIS or ARBs due to acute kidney injury. Albuterol inhaler q.6 hourly p.r.n., aspirin 325 mg p.o. daily, Symbicort inhaler 2 puffs twice daily, Wellbutrin-XL 150 m g p.o. q.a.m., Coreg 12.5 mg p.o. twice daily, Cymbalta 30 mg p.o. at bedtime, Lantus 80 units subcu twice daily, Humulin R sliding scale, Imdur extended release 60 mg p.o. daily, prednisone 5 mg daily for another 3 days and to discontinue, Lyrica 75 mg p.o. at bedtime, Crestor 40 mg p.o. at bedtime, s ertraline 100 mg p.o. daily, trazodone 100 mg p.o. at bedtime. ALLERGIES: No known drug allergies. DISCHARGE PLAN: Patient is to follow up with Dr. Lyles in 1 week and primary care physician, Dr. Leila monroe in 1 week. She also needs to have a metabolic panel drawn on Tuesday, which will be faxed to her [facility] physician. BRIEF COURSE DURING HOSPITALIZATION: The patient initially got admitted on the with complaints o f shortness of breath and saturations of 83% on room air. She was essentially admitted for acute con gestive heart failure exacerbation, acute respiratory failure with hypoxia. She was gently diuresed during her stay initially. This led to acute kidney injury on top of chronic kidney disease, stage 3 . The patient has had gentle hydration done. the last 48 hours and her creatinine has remained stab le around 3. She is wanting to go home today. 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 Home health with PT and care home will be set up on discharge. She will need metabolic panel to be done on Tuesday, which will be faxed to Dr. Lyles's offi ce. Please note no diuretics or DAVIS or ARBs were given on discharge due to acute kidney injury at pr esent. She is otherwise at her baseline respiratory status. Please see a [id number] documentation for the day of discharge on REQQI.
== END 2017-11-18 18:46 | disposition home health service (06) | DRG 291 ==
LOC: ERS 15:44 → 2NO 18:33
PROVIDERS: ADMIT Internal Medicine; ATTEND Internal Medicine
DX: I13.0 Hypertensive heart and chronic kidney disease with heart failure and stage 1 through stage 4 chronic kidney disease, or unspecified chronic kidney disease (principal); J96.01 Acute respiratory failure with hypoxia; I50.33 Acute on chronic diastolic (congestive) heart failure; N17.9 Acute kidney failure, unspecified; J44.1 Chronic obstructive pulmonary disease with (acute) exacerbation; I24.8 Other forms of acute ischemic heart disease; Z68.41 Body mass index [BMI] 40.0-44.9, adult; E11.22 Type 2 diabetes mellitus with diabetic chronic kidney disease; I73.9 Peripheral vascular disease, unspecified; N18.3 Chronic kidney disease, stage 3 (moderate); Z95.1 Presence of aortocoronary bypass graft; E66.01 Morbid (severe) obesity due to excess calories; E11.65 Type 2 diabetes mellitus with hyperglycemia; I25.10 Atherosclerotic heart disease of native coronary artery without angina pectoris; E87.6 Hypokalemia; Z89.512 Acquired absence of left leg below knee; J20.9 Acute bronchitis, unspecified; Z87.891 Personal history of nicotine dependence; Z79.82 Long term (current) use of aspirin; Z66 Do not resuscitate; Z79.4 Long term (current) use of insulin; Z83.3 Family history of diabetes mellitus; T50.2X5A Adverse effect of carbonic-anhydrase inhibitors, benzothiadiazides and other diuretics, initial encounter
CPT/HCPCS: 36415; 36416; 71045; 80048; 80053; 81001; 82553; 82728; 83540; 83550; 83605; 83880; 84484; 85025; 85379; 87040; 90471; 90732; 93005; 93306; 93798; 94640; 94760; 96374; A4216; G0009; G8978-GP-CL; G8979-GP-CJ; G8987-GO-CL; G8988-GO-CJ; J0360; J1644; J1815; J1940; J2405; J2920; J3475; J7050; J7506; J7620; P9047

== ENCOUNTER 2017-11-18 18:57 | Inpatient (IN) | payer BC ==
--- NOTE | 2017-11-18 20:22 | RAD ---
CHEST ONE VIEW 11/18/17 HISTORY: Dyspnea. COMPARISON: 11/09/17 FINDINGS: Heart size is enlarged. No pneumothorax. There is ovoid opacity projecting over the left lateral lung . There is mild thickening of right minor fissure. IMPRESSION: 1. Ovoid opacity projecting in the left lateral mid lung has well defined borders and may repres ent fluid in the major fissure. 2. Mild thickening right minor fissure likely also from small volume fluid. 3. Cardiomegaly. 4. No focal air space consolidation. POS: SHARON
[2017-11-18 20:39] LABS: #Lymphocytes 0.6 thou/uL (1.20-3.40); #Monocytes 0.7 thou/uL (0.11-0.59); #Neutrophils 8.1 thou/uL (1.40-6.50); %Eosinophils 0.4 % (0.0-10.0); %Lymphocytes 6.6 % (21.0-51.0); Hemoglobin 11.6 g/dL (12.0-16.0); Mean Corpuscular HGB CONC 33.4 g/dL (32.0-36.0); Mean Corpuscular Hemoglobin 29.4 pg (27.0-31.0); Mean Corpuscular Volume 88.1 fl (81.0-99.0); Mean Platelet Volume 8.9 fL (7.4-10.4); Platelet Count 188 thou/uL (130-400); RBC Distribution Width 13.3 % (11.5-14.5); Red Blood Cell (RBC) Count 3.93 mill/uL (4.20-5.40); White Blood Cell (WBC) Count 9.5 thou/uL (4.8-10.8)
[2017-11-18 21:06] LABS: Troponin I 0.022 ng/mL (< 0.028)
[2017-11-18 21:15] LABS: CKMB 7.2 ng/mL (0-6.6)
[2017-11-18 22:01] LABS: Chloride 99 mmol/L (98-107); Potassium 4.8 mmol/L (3.5-5.1); Sodium 137 mmol/L (136-145)
[2017-11-18 22:02] LABS: Calcium 10.4 mg/dL (7.8-10.44); Glucose 257 mg/dL (70-105)
[2017-11-18 22:03] LABS: Anion Gap 18 mmol/L (10-20); Carbon Dioxide 25 mmol/L (22-29)
[2017-11-18 22:05] LABS: Calc. Creatinine Clearance 0 mL/min (70-130); Estimated GFR-MDRD 15
[2017-11-18 22:06] LABS: BUN (Urea Nitrogen) 81 mg/dL (9.8-20.1)
[2017-11-19] MEDS ORDERED: hydrALAZINE 20 MG/ML VIAL SLOW IVP PRN (00:30)
[2017-11-19] MEDS ORDERED: DULoxetine 30 MG CAP PO SCH (00:30)
[2017-11-19] MEDS ORDERED: traZODone HCl 50 MG TAB PO SCH (00:30)
[2017-11-19] MEDS ORDERED: Carvedilol 6.25 MG TAB PO SCH (00:30)
[2017-11-19] MEDS ORDERED: Pregabalin 75 MG CAP PO SCH (00:30)
[2017-11-19] MEDS ORDERED: Nitroglycerin 2% Ointment 1 INCH/1 GM Packet TOP PRN (00:31)
[2017-11-19] MEDS ORDERED: Nitroglycerin 0.4 MG TAB (25 Tab Bottle) SL PRN (00:31)
[2017-11-19] MEDS ORDERED: Dextrose 5% in Water 1,000 ML IV PRN (00:33)
[2017-11-19] MEDS ORDERED: Dextrose 50% Abboject 50 ML SYRINGE SLOW IVP PRN (00:33)
[2017-11-19] MEDS ORDERED: Insulin Regular 300 UNITS/3 ML VIAL SC PRN (00:33)
[2017-11-19] MEDS: Insulin Regular 300 UNITS/3 ML VIAL SC PRN ×4 (00:56→20:55)
[2017-11-19] MEDS ORDERED: PROVENTIL INHALER 6.7 G (200 INHALATIONS) INH PRN (01:22)
[2017-11-19] MEDS ORDERED: Ondansetron ODT 4 MG TAB PO PRN (01:27)
[2017-11-19] MEDS ORDERED: Senokot 8.6 MG TAB PO PRN (01:30)
[2017-11-19] MEDS ORDERED: Ondansetron HCl/PF 4 MG/2 ML Vial IVP PRN (01:30)
[2017-11-19] MEDS ORDERED: Calcium Carbonate 500 MG ChewTAB PO PRN (01:30)
--- NOTE | 2017-11-19 01:34 | PDOC.EVN ---
Event Note - Event Note Event Note: Patient seen and examined on 11/18/17. Note dictated.
[2017-11-19] MEDS ORDERED: RENALLY ADJUST MEDICATIONS PO PRN (01:46)
--- NOTE | 2017-11-19 02:15 | HP ---
DATE OF ADMISSION: 11/18/2017 PRIMARY CARE PHYSICIAN: Dr. Linares. PRIMARY MANAGER ENVIRONMENTAL AFFAIRS: Dr. Nicholas PRIMARY ANIMAL BEHAVIORIST: Dr. Lyles. CHIEF COMPLAINT: Shortness of breath. Please note that the patient was discharged earlier today. S he had a code green. CHIEF COMPLAINT: Generalized weakness with shortness of breath. HISTORY OF PRESENT ILLNESS: The patient is a 52-year-old female with coronary artery disease, status post CABG; diabetes mellitus, type 2; hypertension; peripheral vascular disease, status post left be ozu-nbr-auzf amputation; who presented to the hospital with above complaints. The patient was discha rged earlier today with the diagnosis of acute diastolic heart failure exacerbation. She also had ac [place] kidney injury secondary to diuresis. Please refer to the discharge summary dictated earlier toda y by Dr. Tuttle for further details. The patient felt fine when she left the hospital. She was unable to lift her leg into the car and fe lt generally weak and fell. For this reason, deyvi bui was called. She was brought into the emerge ncy room. Her O2 saturation in the emergency room was 88% on room air. She was placed on 2 liters h ome oxygen. No significant injuries from the fall reported. No chest pain, palpitations, lightheade dness, dizziness, or focal neurologic deficits reported. Her troponins were normal. Her creatinine was 3.22 with BUN 81. Her initial vital signs in the emergency room showed temperature 98.6, respira tions 20, pulse rate of 108 that improved to 76 with a blood pressure of 183/81. Her O2 saturation l ater in the emergency room was 99% on room air. PAST MEDICAL HISTORY: 1. Recent hospitalization for diastolic heart failure. 2. Acute kidney injury on chronic kidney disease, stage 3, secondary to diuresis. 3. Diabetes mellitus, type 2. 4. Coronary artery disease, status post coronary artery bypass grafting. 5. Peripheral vascular disease, status post left azbie-xft-jtca amputation. 6. Hypertension. 7. Depression. 8. Hyperlipidemia. 9. Morbid obesity with a BMI of 43.3. 10. Chronic diastolic heart failure. PAST SURGICAL HISTORY: 1. Left qjnpl-bbf-yrro amputation. 2. Coronary artery bypass grafting. 3. Bilateral cataract surgery. ALLERGIES: No known drug allergies. CURRENT HOME MEDICATIONS: The patient was discharged on following medications: 1. Albuterol inhaler as needed. 2. Aspirin 325 mg daily. 3. Symbicort 160/4.5 b.i.d. 4. Wellbutrin extended release 150 mg q.a.m. 5. Carvedilol 12.5 mg b.i.d. 6. Cymbalta 30 mg at bedtime. 7. Lantus insulin 80 units b.i.d., regular insulin sliding scale. 8. Imdur ER 60 mg daily. 9. Sublingual nitroglycerin as needed. 10. Prednisone 5 mg daily, #3. 11. Lyrica 75 mg at bedtime. 12. Crestor 40 mg at bedtime. 13. Zoloft 100 mg daily. 14. Trazodone 100 mg at bedtime. SOCIAL HISTORY: The patient currently lives at home. She is a former smoker. No alcohol or drug us e. She makes her own decisions with the help of her family. FAMILY HISTORY: Father with diabetes. REVIEW OF SYSTEMS: The following complete review of systems was negative, unless otherwise mentioned in the HPI or below: Constitutional: Weight loss or gain, ability to conduct usual activities. Skin: Rash, itching. Eyes: Double vision, pain. ENT/Mouth: Nose bleeding, neck stiffness, pain, tenderness. Cardiovascular: Palpitations, dyspnea on exertion, orthopnea. Respiratory: Shortness of breath, wheezing, cough, hemoptysis, fever or night sweats. Gastrointestinal: Poor appetite, abdominal pain, heartburn, nausea, vomiting, constipation, or diarr hea. Genitourinary: Urgency, frequency, dysuria, nocturia. Musculoskeletal: Pain, swelling. Neurologic/Psychiatric: Anxiety, depression. Allergy/Immunologic: Skin rash, bleeding tendency. PHYSICAL EXAMINATION: VITAL SIGNS: As discussed above. GENERAL: A 52-year-old female, appears elder than the stated age, appears comfortable on 2 liter oxy gen. HEENT: Head atraumatic, normocephalic. Sclerae are anicteric. Moist mucous membranes. No oral les ion. NECK: Supple, no JVD appreciated. No carotid bruit. LUNGS: Showed scattered rales and rhonchi. No significant wheezing. Lungs were symmetrical. HEART: S1, S2 present. Regular rate and rhythm. No murmurs, rubs or gallops appreciated. ABDOMEN: Soft. Bowel sounds present. EXTREMITIES: The patient is status post left BKA. There was 2+ edema in right lower extremity. SKIN: Warm and dry. LYMPH NODES: No palpable lymph nodes in the neck. PERIPHERAL VASCULAR: Radial pulses palpable bilaterally. MUSCULOSKELETAL: No joint swelling or tenderness. LABORATORY FINDINGS: As discussed above. Total CK was 652, creatinine was 3.22 with BUN 81, CBC dony wed WBC 9.5 with a hemoglobin of 11.6. IMAGIN. Chest x-ray by my review showed cardiomegaly with mild pulmonary vascular congestion. There was fluid in the fissures. 2. EKG by my review showed sinus rhythm with left bundle branch block. IMPRESSION: 1. Generalized weakness, probably secondary to physical deconditioning. 2. Recent hospitalization for acute on chronic diastolic heart failure. The patient developed acute kidney injury secondary to diuretics. 3. Coronary artery disease, status post coronary artery bypass grafting. 4. Diabetes mellitus, type 2. 5. Peripheral vascular disease, status post left [place]-cxn-ibzi amputation. 6. Hypertension. 7. Anxiety and depression. 8. Questionable chronic obstructive pulmonary disease. 9. Chronic kidney disease, stage 3 with recent acute kidney injury. 10. Morbid obesity with a BMI of 43.3. 11. Suspected obstructive sleep apnea. 12. Chronic anemia. 13. Questionable hypoxia during the code green earlier today. Her O2 saturation in the emergency ro om; however, was 99% on room air. PLAN: The patient will be monitored on the telemetry unit. She has been currently admitted as inpat ient per discussion with the ER physician and my colleague earlier today. We will consult Nephrology , Dr. Lyles. Hold diuretics. Resume her home medications. Fluid restriction. Renal diet. Continue carvedilol with Imdur. Nebulizer treatment as needed. Continuous low dose prednisone per discharge summary. Continuous pulse oximetry. She will benefit from a sleep study as outpatient. Plan of care was discussed with the patient and the daughter at the bedside. DISPOSITION: Probably in 1-2 days based on her overall progress. Physical therapy will be consulted as well.
[2017-11-19 05:49] LABS: #Neutrophils 8.4 thou/uL (1.40-6.50); %Basophils 0.1 % (0.0-1.0); %Eosinophils 0.4 % (0.0-10.0); %Lymphocytes 9.7 % (21.0-51.0); %Monocytes 9.1 % (0.0-10.0); %Neutrophils 80.8 % (42.0-75.0); Hemoglobin 10.4 g/dL (12.0-16.0); Mean Corpuscular HGB CONC 32.6 g/dL (32.0-36.0); Mean Corpuscular Hemoglobin 28.6 pg (27.0-31.0); Mean Corpuscular Volume 87.9 fl (81.0-99.0); Mean Platelet Volume 8.4 fL (7.4-10.4); Platelet Count 180 thou/uL (130-400); RBC Distribution Width 13.3 % (11.5-14.5); Red Blood Cell (RBC) Count 3.63 mill/uL (4.20-5.40); White Blood Cell (WBC) Count 10.4 thou/uL (4.8-10.8)
[2017-11-19 06:10] LABS: Troponin I 0.037 ng/mL (< 0.028)
[2017-11-19 06:12] LABS: Anion Gap 14 mmol/L (10-20); BUN (Urea Nitrogen) 82 mg/dL (9.8-20.1); Calc. Creatinine Clearance 34 mL/min (70-130); Calcium 9.9 mg/dL (7.8-10.44); Carbon Dioxide 28 mmol/L (22-29); Chloride 102 mmol/L (98-107); Estimated GFR-MDRD 15; Glucose 199 mg/dL (70-105); Potassium 4.1 mmol/L (3.5-5.1); Sodium 140 mmol/L (136-145)
[2017-11-19] MEDS: Mometasone/Formoterol 120 PUFF INHALER INH SCH ×2 (06:36→18:44)
[2017-11-19 07:49] LABS: Bilirubin Negative (Negative); Blood, Urine Large (Negative); Clarity TURBID (Clear); Glucose, Urine (Dipstick) Negative (Negative); Leukocyte Large (Negative); Nitrite Negative (Negative); Protein, Urine (Dipstick) 100 mg/dL (Neg-Trace); Specific Gravity, Urine 1.015 (1.002-1.036); Urobilinogen 0.2 mg/dL (0.2-1.0); pH, Urine 5.5 (5.0-9.0)
[2017-11-19 07:50] LABS: Bacteria/HPF 4+ HPF (None Seen); Hyaline Casts/LPF 0-3 HYALINE CAST LPF (0-3 Hyaline); RBC/HPF 21-50 HPF (0-3); Squamous Epithelial 0-3 HPF (0-3)
[2017-11-19 07:54] LABS: Yeast-AUWi Flag 118.9 (0-25.0)
[2017-11-19 08:18] LABS: Yeast-All Forms None Seen HPF (None Seen)
[2017-11-19] MEDS: Carvedilol 25 MG TAB PO SCH ×2 (08:29→20:59)
[2017-11-19] MEDS: Bupropion 150 MG XL TAB PO SCH (08:29)
[2017-11-19] MEDS: Docusate 100 MG CAP PO SCH ×2 (08:30→20:59)
[2017-11-19] MEDS: predniSONE 5 MG TAB PO SCH (08:30)
[2017-11-19] MEDS: Cyanocobalamin (Vitamin B-12) 1,000 MCG TAB PO SCH (08:30)
[2017-11-19] MEDS: Heparin 5,000 UNITS/ML VIAL SC SCH ×3 (08:30→20:54)
[2017-11-19] MEDS: Famotidine 20 MG TAB PO SCH (08:30)
[2017-11-19] MEDS: Insulin Detemir 100 UNITS/ML 60 UNITS in Pre-Filled Syringe 1 EACH SC SCH ×2 (08:31→20:56)
[2017-11-19] MEDS: Aspirin 325 MG TAB PO SCH (08:31)
[2017-11-19] MEDS: Calcium Carbonate + Vit D 1 TAB PO SCH ×2 (08:38→17:23)
[2017-11-19] MEDS ORDERED: Famotidine 20 MG TAB PO SCH (09:00)
[2017-11-19] MEDS ORDERED: INSULIN GLARGINE HUM REC ANLOG 60 UNIT SQ SCH (09:00)
--- NOTE | 2017-11-19 10:34 | PDOC.PN ---
- Subjective Encounter Start Date: 11/19/17 Encounter Start Time: 08:10 Subjective: is sitting in chair, no sob -: feels better - Objective Resuscitation Status: Resuscitation Status FULL:Full Resuscitation MAR Reviewed: Yes Vital Signs & Weight: Vital Signs (12 hours) Temp Pulse Resp BP BP BP Pulse Ox 11/19/17 10:13 82 16 93 L 11/19/17 08:00 98.8 F 71 16 128/94 H 93 L 11/19/17 06:40 83 16 94 L 11/19/17 06:36 73 16 94 L 11/19/17 04:00 98.5 F 76 18 128/60 92 L 11/19/17 01:21 92 L 11/19/17 00:55 177/77 H 11/18/17 23:38 97.9 F 78 14 93 L 11/18/17 23:17 94 L Weight Weight 237 lb 6.4 oz I&O: 11/18/17 11/19/17 11/20/17 06:59 06:59 06:59 Intake Total 540 Balance 540 Result Diagrams: 11/19/17 05:19 11/19/17 05:19 Additional Labs: Accuchecks 11/19/17 05:49 POC Glucose 187 H Phys Exam - Physical Examination HEENT: PERRLA, moist MMs Neck: no JVD, supple Respiratory: no wheezing, no rales rhonchi+ Cardiovascular: RRR, no significant murmur Gastrointestinal: soft, non-tender, positive bowel sounds Musculoskeletal: no edema, pulses present Neurological: non-focal, moves all 4 limbs Psychiatric: A&O x 3 Dx/Plan (1) CHANTELL (acute kidney injury) Code(s): N17.9 - ACUTE KIDNEY FAILURE, UNSPECIFIED Status: Acute (2) Acute bronchitis Code(s): J20.9 - ACUTE BRONCHITIS, UNSPECIFIED Status: Resolved (3) Acute on chronic diastolic heart failure Code(s): I50.33 - ACUTE ON CHRONIC DIASTOLIC (CONGESTIVE) HEART FAILURE Status : Acute (4) CAD (coronary artery disease) Code(s): I25.10 - ATHSCL HEART DISEASE OF [place] CORONARY ARTERY W/O ANG PCTRS Status: Chronic Qualifiers: Coronary Disease-Associated Artery/Lesion type: bypass graft [place] vs. transplanted heart: [place] heart Associated angina: without angina Qualified Code(s): I25.810 - Atherosclerosis of coronary artery bypass graft(s) without angina pectoris (5) CKD (chronic kidney disease) stage 3, GFR 30-59 ml/min Code(s): N18.3 - CHRONIC KIDNEY DISEASE, STAGE 3 (MODERATE) Status: Chronic (6) DM type 2 (diabetes mellitus, type 2) Status: Chronic Qualifiers: Diabetes mellitus complication status: with kidney complications Diabetes mellitus complication detail: with chronic kidney disease Diabetes mellitus shaft tender insulin use: with snf use Chronic kidney disease stage: stage 3 (moderate) Qualified Code(s): E11.22 - Type 2 diabetes mellitus with diabetic chronic kidney disease; N18.3 - Chronic kidney disease, stage 3 ( moderate); N18.3 - Chronic kidney disease, stage 3 (moderate); Z79.4 - telescope maintenance (current) use of insulin; Z79.4 - telescope maintenance (current) use of insulin; Z79.4 - telescope maintenance (current) use of insulin; Z79.4 - half-way (current) use of insulin (7) Obesity Code(s): E66.9 - OBESITY, UNSPECIFIED Status: Chronic Qualifiers: Obesity classification: adult class 3 (BMI >= 40) Body mass index: BMI 40.0 -44.9 - Plan continue all recently discharged meds for now -: d/w patient about going to rehab/swing bed, agrees -: home oxygen if she qualifies, has lost nearly 18lbs from diuresis -: creatinine is holding up -: no bere/arb's until renal function comes back to baseline * . to ambulate with PT/OT and prosthesis for left LE Review of Systems - Medications/Allergies Allergies/Adverse Reactions: Allergies Allergy/AdvReac Type Severity Reaction Status Date / Time No Known Allergies Allergy Verified 09/16/14 15:36 Medications: Current Medications Acetaminophen (Tylenol) 650 mg PO Q4H PRN PRN Reason: Headache/Fever or Pain Albuterol Sulfate (Proventil Hfa) 2 puff INH Q6H PRN PRN Reason: SOB &/or Wheezing Albuterol/Ipratropium (Duoneb) 3 ml NEB Q2H PRN PRN Reason: SOB &/or Wheezing Albuterol/Ipratropium (Duoneb) 3 ml NEB [id number] Last Admin: 11/19/17 10:13 Dose: 3 ml Aspirin (Aspirin) 325 mg PO DAILY [facility] Last Admin: 11/19/17 08:31 Dose: 325 mg Bupropion HCl (Wellbutrin Xl) 150 mg PO QAM [facility] Last Admin: 11/19/17 08:29 Dose: 150 mg Calcium Carbonate (Tums) 1,000 mg PO Q4H PRN PRN Reason: Heartburn or Indigestion Calcium/Vitamin D (Caltrate 600 + Vit D) 1 tab PO BID-[facility] Last Admin: 11/19/17 08:38 Dose: 1 tab Carvedilol (Coreg) 12.5 mg PO BID [facility] Last Admin: 11/19/17 08:29 Dose: 12.5 mg Cyanocobalamin (Vitamin B-12) 1,000 mcg PO DAILY [facility] Last Admin: 11/19/17 08:30 Dose: 1,000 mcg Dextrose/Water (Dextrose 50%) 25 gm SLOW IVP PRN PRN PRN Reason: Hypoglycemia Docusate Sodium (Colace) 100 mg PO BID [facility] Last Admin: 11/19/17 08:30 Dose: 100 mg Duloxetine HCl (Cymbalta) 30 mg PO HS [facility] Famotidine (Pepcid) 20 mg PO DAILY [facility] Last Admin: 11/19/17 08:30 Dose: 20 mg Glucagon (Glucagon) 1 mg IM PRN PRN PRN Reason: Hypoglycemia Heparin Sodium (Porcine) (Heparin) 5,000 units SC TID [facility] Last Admin: 11/19/17 08:30 Dose: 5,000 units Hydralazine HCl (Apresoline) 10 mg SLOW IVP Q4H PRN PRN Reason: SBP Greater Than 180 Dextrose/Water (D5w) 1,000 mls @ 0 mls/hr IV .Q0M PRN; As Directed PRN Reason: Hypoglycemia Insulin Detemir 60 units/ (Miscellaneous Medication) 0.6 mls @ 0 mls/hr SC BID [facility] Last Admin: 11/19/17 08:31 Dose: 0.6 mls Insulin Human Regular (Humulin R) 0 units SC .BEDTIME SLIDING SC PRN PRN Reason: Bedtime Correctional Scale Last Admin: 11/19/17 00:56 Dose: 2 unit Insulin Human Regular (Humulin R) 0 units SC .MODERATE SLIDING SC PRN PRN Reason: Moderate Correctional Scale Isosorbide Mononitrate (Imdur) 60 mg PO DAILY [facility] Last Admin: 11/19/17 08:29 Dose: 60 mg Miscellaneous Medication (Pharmacy To Dose) 1 each PO PRN PRN PRN Reason: Pharmacy to dose Mometasone Furoate/Formoterol Fumar (Dulera 200 Mcg/5 Mcg Inhaler) 1 puff INH BID-RT [facility] Last Admin: 11/19/17 06:36 Dose: 1 puff Nitroglycerin (Nitro-Bid 2% Ointment) 0.5 inch TOP Q8HR PRN PRN Reason: SBP Greater Than 180 Nitroglycerin (Nitrostat) 0.4 mg SL Q5MIN PRN PRN Reason: Chest Pain Ondansetron HCl (Zofran Odt) 4 mg PO Q6H PRN PRN Reason: Nausea/Vomiting Ondansetron HCl (Zofran) 4 mg IVP Q6H PRN PRN Reason: Nausea/Vomiting Prednisone (Prednisone) 5 mg PO QAM-WM [facility] Last Admin: 11/19/17 08:30 Dose: 5 mg Pregabalin (Lyrica) 75 mg PO HS [facility] Rosuvastatin Calcium (Crestor) 40 mg PO HS [facility] Senna (Senokot) 2 tab PO HSPRN PRN PRN Reason: Constipation Sertraline HCl (Zoloft) 100 mg PO DAILY [facility] Last Admin: 11/19/17 08:29 Dose: 100 mg Sodium Chloride (Flush - Normal Saline) 10 ml IVF Q12HR [facility] Last Admin: 11/19/17 08:31 Dose: 10 ml Sodium Chloride (Flush - Normal Saline) 10 ml IVF PRN PRN PRN Reason: Saline Flush Trazodone HCl (Desyrel) 100 mg PO HS [facility]
--- NOTE | 2017-11-19 12:31 | PRG ---
DATE OF SERVICE: 11/19/2017 SUBJECTIVE: Ms. Angela is a 52-year-old white female who was seen by the Renal Service during her last hospitalization for an acute kidney injury on top of her chronic renal failure. Her creatinine was noted to be stabilizing in the mid 3s. On discharge, she was noted to have fallen. However, no fracture was noted. She was admitted for further observation. This morning she feels fine. She denies any chest pain or shortness of breath. The concern was her O2 sat dropped down during day of discharge. Her breathing is not any worse. No chest pain. PHYSICAL EXAMINATION: VITAL SIGNS: Blood pressure is noted to be at 128/94, heart rate 82, respiratory rate 16, pulse ox 9 3% on 1 liter. GENERAL: Noted to be awake, alert, comfortable, not in distress. SKIN: Adequate turgor. HEENT: She has pinkish conjunctivae, anicteric sclerae. NECK: No neck mass, no carotid bruits, no JVD. CHEST: No deformities. LUNGS: Decreased breath sounds. HEART: Normal sinus rhythm. No murmurs, no gallops, no rubs. ABDOMEN: Globular, soft, nontender, no masses. EXTREMITIES: No edema, status post left BKA. MEDICATIONS: Medications of 11/19/2017 was reviewed. LABORATORY DATA: Laboratories of 11/19/2017 shows the following: White count 10.4, hemoglobin 10.4, sodium 140, potassium 4.1, chloride 102, carbon dioxide 28, BUN 82, creatinine 3.3, glucose 199, and calcium 9.9. ASSESSMENT AND PLAN: 1. Acute kidney injury/chronic renal failure - creatinine is stable at 3.3. This is near her baseli ne for the last several days. Initially we thought that this patient may have a hemodynamically medi ated renal dysfunction. My suspicion is that this patient may have some acute tubular necrosis to ex plain prolonged elevated creatinine. My plan is simply to observe this number. There is no indicati on for any dialytic intervention. Please note this patient has lost several pounds during this hospi talization. If needed, I will rechallenge her with some hydration. We will be rechecking her base m et tomorrow. 2. Chronic obstructive pulmonary disease/congestive heart failure - stable. Continue supportive car e. We will be rechecking a basic met in a.m.
[2017-11-19] MEDS: traZODone HCl 50 MG TAB PO SCH (20:56)
[2017-11-19] MEDS: Pregabalin 75 MG CAP PO SCH (20:57)
[2017-11-19] MEDS: Rosuvastatin 20 MG TAB PO SCH (20:57)
[2017-11-19] MEDS: DULoxetine 30 MG CAP PO SCH (20:57)
[2017-11-20 05:29] LABS: #Eosinphils 0.1 thou/uL (0.0-0.7); #Lymphocytes 1.1 thou/uL (1.20-3.40); #Monocytes 0.9 thou/uL (0.11-0.59); #Neutrophils 6.9 thou/uL (1.40-6.50); %Basophils 0.1 % (0.0-1.0); %Eosinophils 1.3 % (0.0-10.0); %Lymphocytes 12.4 % (21.0-51.0); %Neutrophils 76.2 % (42.0-75.0); Hemoglobin 9.6 g/dL (12.0-16.0); Mean Corpuscular HGB CONC 33.1 g/dL (32.0-36.0); Mean Corpuscular Hemoglobin 29.1 pg (27.0-31.0); Mean Platelet Volume 8.8 fL (7.4-10.4); Platelet Count 173 thou/uL (130-400); RBC Distribution Width 13.2 % (11.5-14.5); Red Blood Cell (RBC) Count 3.29 mill/uL (4.20-5.40)
[2017-11-20 05:45] LABS: Anion Gap 10 mmol/L (10-20); BUN (Urea Nitrogen) 87 mg/dL (9.8-20.1); CK (CPK) 248 U/L (29-168); Calc. Creatinine Clearance 33 mL/min (70-130); Calcium 10.5 mg/dL (7.8-10.44); Carbon Dioxide 33 mmol/L (22-29); Chloride 102 mmol/L (98-107); Estimated GFR-MDRD 14; Glucose 99 mg/dL (70-105); Potassium 4.2 mmol/L (3.5-5.1); Sodium 141 mmol/L (136-145)
[2017-11-20] MEDS: Mometasone/Formoterol 120 PUFF INHALER INH SCH ×2 (06:23→19:45)
[2017-11-20] MEDS: Calcium Carbonate + Vit D 1 TAB PO SCH ×2 (08:05→17:32)
[2017-11-20] MEDS: predniSONE 5 MG TAB PO SCH (08:05)
[2017-11-20] MEDS: Famotidine 20 MG TAB PO SCH (09:50)
[2017-11-20] MEDS: Aspirin 325 MG TAB PO SCH (09:50)
[2017-11-20] MEDS: Cyanocobalamin (Vitamin B-12) 1,000 MCG TAB PO SCH (09:51)
[2017-11-20] MEDS: Bupropion 150 MG XL TAB PO SCH (09:55)
[2017-11-20] MEDS: Carvedilol 25 MG TAB PO SCH ×2 (09:55→20:27)
[2017-11-20] MEDS: Insulin Detemir 100 UNITS/ML 60 UNITS in Pre-Filled Syringe 1 EACH SC SCH ×2 (09:56→20:28)
[2017-11-20] MEDS: Heparin 5,000 UNITS/ML VIAL SC SCH ×3 (09:56→20:29)
--- NOTE | 2017-11-20 09:59 | PDOC.PN ---
- Subjective Encounter Start Date: 11/20/17 Encounter Start Time: 07:30 Subjective: no sob, is lying almost flat with one pillow -: no chest pain or palp -: says she has amb with PT yesterday - Objective Resuscitation Status: Resuscitation Status FULL:Full Resuscitation MAR Reviewed: Yes Vital Signs & Weight: Vital Signs (12 hours) Temp Pulse Resp BP BP Pulse Ox 11/20/17 08:20 97.7 F 74 20 137/62 94 L 11/20/17 06:24 95 11/20/17 06:23 16 95 11/20/17 06:21 69 16 95 11/20/17 04:00 97.8 F 72 16 150/66 H 90 L 11/20/17 00:00 98.8 F 75 16 141/66 H 93 L Weight Weight 237 lb 11.2 oz I&O: 11/19/17 11/20/17 11/21/17 06:59 06:59 06:59 Intake Total 540 1150 Output Total 1500 Balance 540 -350 Result Diagrams: 11/20/17 05:06 11/20/17 05:06 Additional Labs: Accuchecks 11/20/17 11/19/17 11/19/17 05:26 20:48 17:10 POC Glucose 100 241 H 284 H 11/19/17 11:50 POC Glucose 248 H Phys Exam - Physical Examination HEENT: PERRLA, moist MMs Neck: no JVD, supple Respiratory: no wheezing, no rales Cardiovascular: RRR, no significant murmur Gastrointestinal: soft, non-tender, positive bowel sounds Musculoskeletal: no edema, pulses present left bka Neurological: non-focal, moves all 4 limbs Psychiatric: A&O x 3 Dx/Plan (1) CHANTELL (acute kidney injury) Code(s): N17.9 - ACUTE KIDNEY FAILURE, UNSPECIFIED Status: Acute (2) Acute bronchitis Code(s): J20.9 - ACUTE BRONCHITIS, UNSPECIFIED Status: Resolved Qualifiers: Bronchitis organism: unspecified organism Qualified Code(s): J20.9 - Acute bronchitis, unspecified (3) Acute on chronic diastolic heart failure Code(s): I50.33 - ACUTE ON CHRONIC DIASTOLIC (CONGESTIVE) HEART FAILURE Status : Chronic (4) CAD (coronary artery disease) Code(s): I25.10 - ATHSCL HEART DISEASE OF [place] CORONARY ARTERY W/O ANG PCTRS Status: Chronic Qualifiers: Coronary Disease-Associated Artery/Lesion type: bypass graft [place] vs. transplanted heart: [place] heart Associated angina: without angina Qualified Code(s): I25.810 - Atherosclerosis of coronary artery bypass graft(s) without angina pectoris (5) CKD (chronic kidney disease) stage 3, GFR 30-59 ml/min Code(s): N18.3 - CHRONIC KIDNEY DISEASE, STAGE 3 (MODERATE) Status: Chronic (6) DM type 2 (diabetes mellitus, type 2) Status: Chronic Qualifiers: Diabetes mellitus complication status: with kidney complications Diabetes mellitus complication detail: with chronic kidney disease Diabetes mellitus ferry terminal agent insulin use: with half-way use Chronic kidney disease stage: stage 3 (moderate) Qualified Code(s): E11.22 - Type 2 diabetes mellitus with diabetic chronic kidney disease; N18.3 - Chronic kidney disease, stage 3 ( moderate); N18.3 - Chronic kidney disease, stage 3 (moderate); Z79.4 - ferry terminal agent (current) use of insulin; Z79.4 - ferry terminal agent (current) use of insulin; Z79.4 - prison (current) use of insulin; Z79.4 - prison (current) use of insulin (7) Obesity Code(s): E66.9 - OBESITY, UNSPECIFIED Status: Chronic Qualifiers: Obesity classification: adult class 3 (BMI >= 40) Body mass index: BMI 40.0 -44.9 (8) Physical deconditioning Code(s): R53.81 - OTHER MALAISE Status: Acute - Plan await rehab or swing eval -: gentle iv hydration with chantell -: bmp in am -: to amb more as tolerated -: no arb/bere/diuretics until renal function stabilizes * . Review of Systems - Medications/Allergies Allergies/Adverse Reactions: Allergies Allergy/AdvReac Type Severity Reaction Status Date / Time No Known Allergies Allergy Verified 09/16/14 15:36 Medications: Current Medications Acetaminophen (Tylenol) 650 mg PO Q4H PRN PRN Reason: Headache/Fever or Pain Albuterol Sulfate (Proventil Hfa) 2 puff INH Q6H PRN PRN Reason: SOB &/or Wheezing Albuterol/Ipratropium (Duoneb) 3 ml NEB Q2H PRN PRN Reason: SOB &/or Wheezing Albuterol/Ipratropium (Duoneb) 3 ml NEB [id number] [facility] Last Admin: 11/20/17 06:21 Dose: 3 ml Aspirin (Aspirin) 325 mg PO DAILY [facility] Last Admin: 11/19/17 08:31 Dose: 325 mg Bupropion HCl (Wellbutrin Xl) 150 mg PO QAM [facility] Last Admin: 11/19/17 08:29 Dose: 150 mg Calcium Carbonate (Tums) 1,000 mg PO Q4H PRN PRN Reason: Heartburn or Indigestion Calcium/Vitamin D (Caltrate 600 + Vit D) 1 tab PO BID-WM [facility] Last Admin: 11/19/17 17:23 Dose: 1 tab Carvedilol (Coreg) 12.5 mg PO BID [facility] Last Admin: 11/19/17 20:59 Dose: 12.5 mg Cyanocobalamin (Vitamin B-12) 1,000 mcg PO DAILY [facility] Last Admin: 11/19/17 08:30 Dose: 1,000 mcg Dextrose/Water (Dextrose 50%) 25 gm SLOW IVP PRN PRN PRN Reason: Hypoglycemia Docusate Sodium (Colace) 100 mg PO BID [facility] Last Admin: 11/19/17 20:59 Dose: 100 mg Duloxetine HCl (Cymbalta) 30 mg PO HS [facility] Last Admin: 11/19/17 20:57 Dose: 30 mg Famotidine (Pepcid) 20 mg PO DAILY [facility] Last Admin: 11/19/17 08:30 Dose: 20 mg Glucagon (Glucagon) 1 mg IM PRN PRN PRN Reason: Hypoglycemia Heparin Sodium (Porcine) (Heparin) 5,000 units SC TID [facility] Last Admin: 11/19/17 20:54 Dose: 5,000 units Hydralazine HCl (Apresoline) 10 mg SLOW IVP Q4H PRN PRN Reason: SBP Greater Than 180 Dextrose/Water (D5w) 1,000 mls @ 0 mls/hr IV .Q0M PRN; As Directed PRN Reason: Hypoglycemia Insulin Detemir 60 units/ (Miscellaneous Medication) 0.6 mls @ 0 mls/hr SC BID [facility] Last Admin: 11/19/17 20:56 Dose: 0.6 mls Sodium Chloride (Normal Saline 0.9%) 1,000 mls @ 50 mls/hr IV .Q20H [facility] Insulin Human Regular (Humulin R) 0 units SC .BEDTIME SLIDING SC PRN PRN Reason: Bedtime Correctional Scale Last Admin: 11/19/17 20:55 Dose: 2 unit Insulin Human Regular (Humulin R) 0 units SC .MODERATE SLIDING SC PRN PRN Reason: Moderate Correctional Scale Last Admin: 11/19/17 17:23 Dose: 6 unit Isosorbide Mononitrate (Imdur) 60 mg PO DAILY [facility] Last Admin: 11/19/17 08:29 Dose: 60 mg Miscellaneous Medication (Pharmacy To Dose) 1 each PO PRN PRN PRN Reason: Pharmacy to dose Mometasone Furoate/Formoterol Fumar (Dulera 200 Mcg/5 Mcg Inhaler) 1 puff INH BID-RT [facility] Last Admin: 11/20/17 06:23 Dose: 1 puff Nitroglycerin (Nitrostat) 0.4 mg SL Q5MIN PRN PRN Reason: Chest Pain Ondansetron HCl (Zofran Odt) 4 mg PO Q6H PRN PRN Reason: Nausea/Vomiting Ondansetron HCl (Zofran) 4 mg IVP Q6H PRN PRN Reason: Nausea/Vomiting Pregabalin (Lyrica) 75 mg PO [facility] Last Admin: 11/19/17 20:57 Dose: 75 mg Rosuvastatin Calcium (Crestor) 40 mg PO HS [facility] Last Admin: 11/19/17 20:57 Dose: 40 mg Senna (Senokot) 2 tab PO HSPRN PRN PRN Reason: Constipation Sertraline HCl (Zoloft) 100 mg PO DAILY [facility] Last Admin: 11/19/17 08:29 Dose: 100 mg Sodium Chloride (Flush - Normal Saline) 10 ml IVF Q12HR [facility] Last Admin: 11/19/17 21:00 Dose: 10 ml Sodium Chloride (Flush - Normal Saline) 10 ml IVF PRN PRN PRN Reason: Saline Flush Trazodone HCl (Desyrel) 100 mg PO [facility] Last Admin: 11/19/17 20:56 Dose: 100 mg
[2017-11-20] MEDS ORDERED: Sodium Chloride 0.9% 1,000 ML IV SCH (10:00)
--- NOTE | 2017-11-20 11:19 | PRG ---
DATE OF SERVICE: 11/20/2017 Renal Medicine SUBJECTIVE: Ms. Angela is a 52-year-old white female who was seen by the Renal Service for her ac mauricio kidney injury on top of her chronic renal failure. She has a persistently elevated creatinine re aching about 3.4. She most likely has a superimposed acute tubular necrosis. Her renal function has also been stable for the last several days. I have encouraged the patient to increase her p.o. inta ke. She will try to comply with this. I am unable at the present time to start IV fluids due to her lack of peripheral line. No complaints of chest pain. No shortness of breath. She is feeling better. She underwent physical therapy this morning and was able to walk several steps. PHYSICAL EXAMINATION: VITAL SIGNS: Blood pressure is 137/62, heart rate 74, respiratory rate 20, temperature 97.7, pulse o x 94%. GENERAL: Awake, alert, comfortable, sitting, not in distress. SKIN: Adequate turgor. HEENT: She has pinkish conjunctivae, anicteric sclerae. NECK: No neck mass, no carotid bruits, no JVD. CHEST: No deformities. LUNGS: Clear breath sounds. No wheezing. HEART: Normal sinus rhythm. No murmurs, no gallops, no rubs. ABDOMEN: Globular, soft, nontender, no masses. EXTREMITIES: No edema status post left BKA. MEDICATIONS: Medications of 11/20/2017 was reviewed. LABORATORY DATA: Laboratories of 11/20/2017; white count 9, hemoglobin 9.6, sodium 141, potassium 4. 2, chloride 102, carbon dioxide 33, BUN 87, creatinine 3.47, glucose 99, calcium 10.5, and CK 248. ASSESSMENT AND PLAN: 1. Chronic renal failure/acute kidney injury, presumptive superimposed acute tubular necrosis, stabl e renal function. No indication for any dialytic intervention. For the moment, I encouraged the pat ient to increase her p.o. intake especially with fluid intake. Continue current management. Hold di uretics or any DAVIS inhibitors. 2. Chronic obstructive pulmonary disease, supportive care. 3. Recheck basic met and CBC in a.m.
[2017-11-20] MEDS: Docusate 100 MG CAP PO SCH ×2 (11:38→20:27)
[2017-11-20] MEDS: Insulin Regular 300 UNITS/3 ML VIAL SC PRN (17:32)
[2017-11-20] MEDS: Rosuvastatin 20 MG TAB PO SCH (20:26)
[2017-11-20] MEDS: traZODone HCl 50 MG TAB PO SCH (20:26)
[2017-11-20] MEDS: DULoxetine 30 MG CAP PO SCH (20:26)
[2017-11-20] MEDS: Acetaminophen 325 MG TAB PO PRN (20:26)
[2017-11-20] MEDS: Pregabalin 75 MG CAP PO SCH (20:27)
[2017-11-21 05:19] LABS: #Eosinphils 0.1 thou/uL (0.0-0.7); #Lymphocytes 1.2 thou/uL (1.20-3.40); #Monocytes 0.8 thou/uL (0.11-0.59); #Neutrophils 4.8 thou/uL (1.40-6.50); %Basophils 0.1 % (0.0-1.0); %Eosinophils 1.2 % (0.0-10.0); %Lymphocytes 17.1 % (21.0-51.0); %Neutrophils 70.6 % (42.0-75.0); Hemoglobin 9.9 g/dL (12.0-16.0); Mean Corpuscular HGB CONC 35.5 g/dL (32.0-36.0); Mean Corpuscular Volume 87.3 fl (81.0-99.0); Mean Platelet Volume 9.3 fL (7.4-10.4); Platelet Count 174 thou/uL (130-400); RBC Distribution Width 13.3 % (11.5-14.5); Red Blood Cell (RBC) Count 3.19 mill/uL (4.20-5.40); White Blood Cell (WBC) Count 6.9 thou/uL (4.8-10.8)
[2017-11-21 05:31] LABS: Anion Gap 17 mmol/L (10-20); BUN (Urea Nitrogen) 81 mg/dL (9.8-20.1); Calc. Creatinine Clearance 36 mL/min (70-130); Calcium 10.2 mg/dL (7.8-10.44); Carbon Dioxide 26 mmol/L (22-29); Chloride 101 mmol/L (98-107); Estimated GFR-MDRD 15; Glucose 151 mg/dL (70-105); Potassium 4.5 mmol/L (3.5-5.1); Sodium 139 mmol/L (136-145)
[2017-11-21] MEDS: Mometasone/Formoterol 120 PUFF INHALER INH SCH ×2 (06:49→19:23)
--- NOTE | 2017-11-21 06:49 | PRG ---
DATE OF SERVICE: 11/21/2017 SUBJECTIVE: Ms. Angela is a 52-year-old white female who was seen by the Renal Service for acute kidney injury on top of her chronic renal failure. She has had elevated creatinine for the last jacky ral days. Yesterday I noted her creatinine to be at 3.47. I changed her diet to increase a more noah eral diet and more liberal salt intake. Creatinine this morning us 3.19. No other complaints. No c hest pain or shortness of breath. The patient is for eventual rehab transfer. PHYSICAL EXAMINATION: VITAL SIGNS: Blood pressure is 176/72, heart rate 70, respiratory rate 16, temperature 98.5, pulse o x 96%. GENERAL: Awake, alert, comfortable, supine, not in distress. SKIN: Adequate turgor. HEENT: She has pinkish conjunctivae, anicteric sclerae. NECK: No neck mass, no carotid bruits, no JVD. CHEST: No deformities. LUNGS: Clear breath sounds. HEART: Normal sinus rhythm. No murmur, no gallops, no rubs. ABDOMEN: Globular, soft, nontender, no masses. EXTREMITIES: No edema, status post left BKA. MEDICATIONS: 11/21/2017 - Reviewed. LABORATORY: 11/21/2017 - White count 6.9, hemoglobin 9.9, sodium 139, potassium 4.5, chloride 101, c arbon dioxide 26, BUN 81, creatinine 3.19, calcium 10.2. ASSESSMENT AND PLAN: Acute kidney injury/chronic renal failure, stabilizing renal function. Contin ue to liberalize p.o. intake. Unable to start normal saline due to absence of peripheral line. Cont inue supportive care. No indication for any dialytic intervention. Please note the creatinine is sl ightly improved from 3.47 to 3.19. I agree with current management. We will recheck another basic met in a.m.
[2017-11-21] MEDS: Docusate 100 MG CAP PO SCH ×2 (08:49→21:40)
[2017-11-21] MEDS: Bupropion 150 MG XL TAB PO SCH (08:50)
[2017-11-21] MEDS: Famotidine 20 MG TAB PO SCH (08:50)
[2017-11-21] MEDS: Aspirin 325 MG TAB PO SCH (08:50)
[2017-11-21] MEDS: Cyanocobalamin (Vitamin B-12) 1,000 MCG TAB PO SCH (08:50)
[2017-11-21] MEDS: Calcium Carbonate + Vit D 1 TAB PO SCH ×2 (08:50→16:16)
[2017-11-21] MEDS: Carvedilol 25 MG TAB PO SCH ×2 (08:50→21:40)
[2017-11-21] MEDS: Insulin Detemir 100 UNITS/ML 60 UNITS in Pre-Filled Syringe 1 EACH SC SCH ×2 (08:51→21:41)
[2017-11-21] MEDS: Heparin 5,000 UNITS/ML VIAL SC SCH ×3 (08:51→21:41)
--- NOTE | 2017-11-21 11:12 | PDOC.PN ---
- Subjective Encounter Start Date: 11/21/17 Encounter Start Time: 08:30 Subjective: no sob or palp -: is amb with her prosthesis -: currently sitting in chair - Objective Resuscitation Status: Resuscitation Status FULL:Full Resuscitation MAR Reviewed: Yes Vital Signs & Weight: Vital Signs (12 hours) Temp Pulse Resp BP BP Pulse Ox 11/21/17 10:55 68 16 96 11/21/17 08:00 97.8 F 73 16 115/56 L 94 L 11/21/17 06:49 67 16 98 11/21/17 04:50 98.5 F 70 16 176/72 H 96 Weight Weight 240 lb 11.2 oz I&O: 11/20/17 11/21/17 11/22/17 06:59 06:59 06:59 Intake Total 1150 900 Output Total 1500 1100 Balance -350 -200 Result Diagrams: 11/21/17 04:21 11/21/17 04:21 Additional Labs: Accuchecks 11/20/17 11/20/17 17:21 11:32 POC Glucose 321 H 159 H Phys Exam - Physical Examination HEENT: PERRLA, moist MMs Neck: no nodes, no JVD Respiratory: no wheezing, no rales Cardiovascular: RRR, no significant murmur Gastrointestinal: soft, non-tender, positive bowel sounds Musculoskeletal: no edema, pulses present Neurological: non-focal, moves all 4 limbs Psychiatric: A&O x 3 Dx/Plan (1) CHANTELL (acute kidney injury) Code(s): N17.9 - ACUTE KIDNEY FAILURE, UNSPECIFIED Status: Acute (2) Acute bronchitis Code(s): J20.9 - ACUTE BRONCHITIS, UNSPECIFIED Status: Resolved Qualifiers: Bronchitis organism: unspecified organism Qualified Code(s): J20.9 - Acute bronchitis, unspecified (3) Acute on chronic diastolic heart failure Code(s): I50.33 - ACUTE ON CHRONIC DIASTOLIC (CONGESTIVE) HEART FAILURE Status : Chronic (4) CAD (coronary artery disease) Code(s): I25.10 - ATHSCL HEART DISEASE OF [place] CORONARY ARTERY W/O ANG PCTRS Status: Chronic Qualifiers: Coronary Disease-Associated Artery/Lesion type: bypass graft [place] vs. transplanted heart: [place] heart Associated angina: without angina Qualified Code(s): I25.810 - Atherosclerosis of coronary artery bypass graft(s) without angina pectoris (5) CKD (chronic kidney disease) stage 3, GFR 30-59 ml/min Code(s): N18.3 - CHRONIC KIDNEY DISEASE, STAGE 3 (MODERATE) Status: Chronic (6) DM type 2 (diabetes mellitus, type 2) Status: Chronic Qualifiers: Diabetes mellitus complication status: with kidney complications Diabetes mellitus complication detail: with chronic kidney disease Diabetes mellitus retirement insulin use: with watermelon inspector use Chronic kidney disease stage: stage 3 (moderate) Qualified Code(s): E11.22 - Type 2 diabetes mellitus with diabetic chronic kidney disease; N18.3 - Chronic kidney disease, stage 3 ( moderate); N18.3 - Chronic kidney disease, stage 3 (moderate); Z79.4 - petroleum terminal plant operator (current) use of insulin; Z79.4 - petroleum terminal plant operator (current) use of insulin; Z79.4 - petroleum terminal plant operator (current) use of insulin; Z79.4 - petroleum terminal plant operator (current) use of insulin (7) Obesity Code(s): E66.9 - OBESITY, UNSPECIFIED Status: Chronic Qualifiers: Obesity classification: adult class 3 (BMI >= 40) Body mass index: BMI 40.0 -44.9 (8) Physical deconditioning Code(s): R53.81 - OTHER MALAISE Status: Acute - Plan says she is slowly gaining strength to walk now -: ambulated around 50ft -: creatinine around 3.1 -: dc iv fluids -: await rehab/swing eval, march dc if accepted, will need home oxygen * . Review of Systems - Medications/Allergies Allergies/Adverse Reactions: Allergies Allergy/AdvReac Type Severity Reaction Status Date / Time No Known Allergies Allergy Verified 09/16/14 15:36 Medications: Current Medications Acetaminophen (Tylenol) 650 mg PO Q4H PRN PRN Reason: Headache/Fever or Pain Last Admin: 11/20/17 20:26 Dose: 650 mg Albuterol Sulfate (Proventil Hfa) 2 puff INH Q6H PRN PRN Reason: SOB &/or Wheezing Albuterol/Ipratropium (Duoneb) 3 ml NEB Q2H PRN PRN Reason: SOB &/or Wheezing Albuterol/Ipratropium (Duoneb) 3 ml NEB [id number] Last Admin: 11/21/17 10:55 Dose: 3 ml Aspirin (Aspirin) 325 mg PO DAILY [facility] Last Admin: 11/21/17 08:50 Dose: 325 mg Bupropion HCl (Wellbutrin Xl) 150 mg PO QAM [facility] Last Admin: 11/21/17 08:50 Dose: 150 mg Calcium Carbonate (Tums) 1,000 mg PO Q4H PRN PRN Reason: Heartburn or Indigestion Calcium/Vitamin D (Caltrate 600 + Vit D) 1 tab PO BID-[facility] Last Admin: 11/21/17 08:50 Dose: 1 tab Carvedilol (Coreg) 12.5 mg PO BID [facility] Last Admin: 11/21/17 08:50 Dose: 12.5 mg Cyanocobalamin (Vitamin B-12) 1,000 mcg PO DAILY [facility] Last Admin: 11/21/17 08:50 Dose: 1,000 mcg Dextrose/Water (Dextrose 50%) 25 gm SLOW IVP PRN PRN PRN Reason: Hypoglycemia Docusate Sodium (Colace) 100 mg PO BID [facility] Last Admin: 11/21/17 08:49 Dose: 100 mg Duloxetine HCl (Cymbalta) 30 mg PO HS [facility] Last Admin: 11/20/17 20:26 Dose: 30 mg Famotidine (Pepcid) 20 mg PO DAILY [facility] Last Admin: 11/21/17 08:50 Dose: 20 mg Glucagon (Glucagon) 1 mg IM PRN PRN PRN Reason: Hypoglycemia Heparin Sodium (Porcine) (Heparin) 5,000 units SC TID [facility] Last Admin: 11/21/17 08:51 Dose: 5,000 units Hydralazine HCl (Apresoline) 10 mg SLOW IVP Q4H PRN PRN Reason: SBP Greater Than 180 Dextrose/Water (D5w) 1,000 mls @ 0 mls/hr IV .Q0M PRN; As Directed PRN Reason: Hypoglycemia Insulin Detemir 60 units/ (Miscellaneous Medication) 0.6 mls @ 0 mls/hr SC BID [facility] Last Admin: 11/21/17 08:51 Dose: 0.6 mls Insulin Human Regular (Humulin R) 0 units SC .BEDTIME SLIDING SC PRN PRN Reason: Bedtime Correctional Scale Last Admin: 11/19/17 20:55 Dose: 2 unit Insulin Human Regular (Humulin R) 0 units SC .MODERATE SLIDING SC PRN PRN Reason: Moderate Correctional Scale Last Admin: 11/20/17 17:32 Dose: 8 unit Isosorbide Mononitrate (Imdur) 60 mg PO DAILY [facility] Last Admin: 11/21/17 08:49 Dose: 60 mg Miscellaneous Medication (Pharmacy To Dose) 1 each PO PRN PRN PRN Reason: Pharmacy to dose Mometasone Furoate/Formoterol Fumar (Dulera 200 Mcg/5 Mcg Inhaler) 1 puff INH BID-RT [facility] Last Admin: 11/21/17 06:49 Dose: 1 puff Nitroglycerin (Nitrostat) 0.4 mg SL Q5MIN PRN PRN Reason: Chest Pain Ondansetron HCl (Zofran Odt) 4 mg PO Q6H PRN PRN Reason: Nausea/Vomiting Ondansetron HCl (Zofran) 4 mg IVP Q6H PRN PRN Reason: Nausea/Vomiting Pregabalin (Lyrica) 75 mg PO [facility] Last Admin: 11/20/17 20:27 Dose: 75 mg Rosuvastatin Calcium (Crestor) 40 mg PO [facility] Last Admin: 11/20/17 20:26 Dose: 40 mg Senna (Senokot) 2 tab PO HSPRN PRN PRN Reason: Constipation Sertraline HCl (Zoloft) 100 mg PO DAILY [facility] Last Admin: 11/21/17 08:50 Dose: 100 mg Sodium Chloride (Flush - Normal Saline) 10 ml IVF Q12HR [facility] Last Admin: 11/21/17 08:51 Dose: Not Given Sodium Chloride (Flush - Normal Saline) 10 ml IVF PRN PRN PRN Reason: Saline Flush Trazodone HCl (Desyrel) 100 mg PO [facility] Last Admin: 11/20/17 20:26 Dose: 100 mg
[2017-11-21] MEDS: guaiFENesin ER 600 MG TAB PO PRN (12:25)
[2017-11-21] MEDS: Rosuvastatin 20 MG TAB PO SCH (21:38)
[2017-11-21] MEDS: traZODone HCl 50 MG TAB PO SCH (21:38)
[2017-11-21] MEDS: DULoxetine 30 MG CAP PO SCH (21:39)
[2017-11-21] MEDS: Pregabalin 75 MG CAP PO SCH (21:40)
[2017-11-22 05:44] LABS: Anion Gap 17 mmol/L (10-20); BUN (Urea Nitrogen) 78 mg/dL (9.8-20.1); Calc. Creatinine Clearance 36 mL/min (70-130); Calcium 10.8 mg/dL (7.8-10.44); Carbon Dioxide 26 mmol/L (22-29); Chloride 103 mmol/L (98-107); Estimated GFR-MDRD 16; Glucose 80 mg/dL (70-105); Potassium 4.5 mmol/L (3.5-5.1); Sodium 141 mmol/L (136-145)
[2017-11-22] MEDS: Heparin 5,000 UNITS/ML VIAL SC SCH ×3 (08:28→22:47)
[2017-11-22] MEDS: Aspirin 325 MG TAB PO SCH (08:29)
[2017-11-22] MEDS: Carvedilol 25 MG TAB PO SCH ×2 (08:30→22:46)
[2017-11-22] MEDS: Cyanocobalamin (Vitamin B-12) 1,000 MCG TAB PO SCH (08:30)
[2017-11-22] MEDS: Docusate 100 MG CAP PO SCH ×2 (08:30→22:47)
[2017-11-22] MEDS: Bupropion 150 MG XL TAB PO SCH (08:30)
[2017-11-22] MEDS: Calcium Carbonate + Vit D 1 TAB PO SCH ×2 (08:30→17:19)
[2017-11-22] MEDS: Famotidine 20 MG TAB PO SCH (08:30)
[2017-11-22] MEDS: Insulin Detemir 100 UNITS/ML 60 UNITS in Pre-Filled Syringe 1 EACH SC SCH ×2 (08:48→22:50)
--- NOTE | 2017-11-22 09:24 | PRG ---
DATE OF SERVICE: 11/22/2017 SUBJECTIVE: Ms. Angela is a 52-year-old white female seen for her acute kidney injury on top of her chronic renal failure. She was seen by the Renal Service for the last several days for an acute kidney injury related to a p ossible hemodynamically mediated renal dysfunction. However, renal function remains unimproved. The possibility that there is superimposed acute tubular necrosis remains. She has been encouraged to i ncrease her fluid intake. We are unable to start IV fluids due to lack of peripheral line with this patient. She is increasing her p.o. and fluid intake at the present time. Renal function is relativ veronica stable in the last 24-48 hours. This morning she voices no new complaints. She has no chest pain, shortness of breath. We are await ing approval from her insurance to go to rehabilitation. PHYSICAL EXAMINATION: VITAL SIGNS: Blood pressure is 168/72, heart rate 75, respiratory rate 16, temperature 98.1, pulse o x 97%. GENERAL: Noted to be awake, alert, comfortable, not in distress. SKIN: Adequate turgor. HEENT: She has pinkish conjunctivae, anicteric sclerae. NECK: No neck mass, no carotid bruits, no JVD. CHEST: No deformities. LUNGS: Decreased breath sounds. HEART: Normal sinus rhythm. No murmur, no gallops or rubs. ABDOMEN: Globular, soft, nontender, no masses. EXTREMITIES: No edema, no deformities. Status post left BKA. MEDICATIONS: 11/22/2017 - Reviewed. LABORATORY: 11/21/2017 - White count 6.9, hemoglobin 9.9. 11/22/2017 - Sodium 141, potassium 4.5, chloride 103, carbon dioxide 26, BUN 78, creatinine 3.15, GFR 16 mL per minute, glucose 80, calcium 10.8. ASSESSMENT AND PLAN: 1. Acute kidney injury/chronic renal failure, stabilizing renal function. Creatinine is 3.15, sligh tly improved from yesterday of 3.19. Continued increased fluid and p.o. intake with the patient. No indication for any dialytic intervention. Overall, I agree with current management. 2. Shortness of breath - clinically resolved - underlying chronic obstructive pulmonary disease. Pl ease note the patient is for a possible transfer to rehab.
[2017-11-22] MEDS: Mometasone/Formoterol 120 PUFF INHALER INH SCH ×2 (09:25→19:40)
--- NOTE | 2017-11-22 12:12 | PDOC.PN ---
- Subjective Encounter Start Date: 11/22/17 Encounter Start Time: 08:15 Subjective: no sob or chest pain - Objective Resuscitation Status: Resuscitation Status FULL:Full Resuscitation MAR Reviewed: Yes Vital Signs & Weight: Vital Signs (12 hours) Temp Pulse Resp BP BP Pulse Ox 11/22/17 11:54 98 F 70 18 117/56 L 91 L 11/22/17 11:00 71 16 11/22/17 09:25 70 16 11/22/17 07:40 98.1 F 75 16 168/72 H 97 11/22/17 07:20 98 11/22/17 07:19 70 16 11/22/17 03:37 96 11/22/17 03:11 99 F 74 16 159/67 H 96 Weight Weight 240 lb 11.2 oz I&O: 11/21/17 11/22/17 11/23/17 06:59 06:59 06:59 Intake Total 900 720 300 Output Total 1100 1050 Balance -200 -330 300 Result Diagrams: 11/21/17 04:21 11/22/17 04:19 Additional Labs: Accuchecks 11/22/17 11/22/17 11/21/17 11:53 06:06 19:56 POC Glucose 216 H 78 150 H 11/21/17 11/21/17 16:38 12:24 POC Glucose 133 H 160 H Phys Exam - Physical Examination HEENT: PERRLA, moist MMs Neck: no JVD, supple Respiratory: no wheezing, no rales Cardiovascular: RRR, no significant murmur Gastrointestinal: soft, non-tender, positive bowel sounds Musculoskeletal: no edema, pulses present Neurological: non-focal, moves all 4 limbs Psychiatric: A&O x 3 Dx/Plan (1) CHANTELL (acute kidney injury) Code(s): N17.9 - ACUTE KIDNEY FAILURE, UNSPECIFIED Status: Acute (2) Acute bronchitis Code(s): J20.9 - ACUTE BRONCHITIS, UNSPECIFIED Status: Resolved Qualifiers: Bronchitis organism: unspecified organism Qualified Code(s): J20.9 - Acute bronchitis, unspecified (3) Acute on chronic diastolic heart failure Code(s): I50.33 - ACUTE ON CHRONIC DIASTOLIC (CONGESTIVE) HEART FAILURE Status : Chronic (4) CAD (coronary artery disease) Code(s): I25.10 - ATHSCL HEART DISEASE OF [place] CORONARY ARTERY W/O ANG PCTRS Status: Chronic Qualifiers: Coronary Disease-Associated Artery/Lesion type: bypass graft [place] vs. transplanted heart: [place] heart Associated angina: without angina Qualified Code(s): I25.810 - Atherosclerosis of coronary artery bypass graft(s) without angina pectoris (5) CKD (chronic kidney disease) stage 3, GFR 30-59 ml/min Code(s): N18.3 - CHRONIC KIDNEY DISEASE, STAGE 3 (MODERATE) Status: Chronic (6) DM type 2 (diabetes mellitus, type 2) Status: Chronic Qualifiers: Diabetes mellitus complication status: with kidney complications Diabetes mellitus complication detail: with chronic kidney disease Diabetes mellitus superintendent terminal insulin use: with senior living use Chronic kidney disease stage: stage 3 (moderate) Qualified Code(s): E11.22 - Type 2 diabetes mellitus with diabetic chronic kidney disease; N18.3 - Chronic kidney disease, stage 3 ( moderate); N18.3 - Chronic kidney disease, stage 3 (moderate); Z79.4 - parts counterman (current) use of insulin; Z79.4 - retirement (current) use of insulin; Z79.4 - parts counterman (current) use of insulin; Z79.4 - parts counterman (current) use of insulin (7) Obesity Code(s): E66.9 - OBESITY, UNSPECIFIED Status: Chronic Qualifiers: Obesity classification: adult class 3 (BMI >= 40) Body mass index: BMI 40.0 -44.9 (8) Physical deconditioning Code(s): R53.81 - OTHER MALAISE Status: Acute - Plan does not want to go to [facility] rehab but is willing to go to other rehabs -: renal function holding up with no worsoning, off iv fluids from 30hrs -: is off lasix and other diuretics -: is working with PT -: may dc anytime if rehab/swing bed if accepted * . Review of Systems - Medications/Allergies Allergies/Adverse Reactions: Allergies Allergy/AdvReac Type Severity Reaction Status Date / Time No Known Allergies Allergy Verified 09/16/14 15:36 Medications: Current Medications Acetaminophen (Tylenol) 650 mg PO Q4H PRN PRN Reason: Headache/Fever or Pain Last Admin: 11/20/17 20:26 Dose: 650 mg Albuterol Sulfate (Proventil Hfa) 2 puff INH Q6H PRN PRN Reason: SOB &/or Wheezing Albuterol/Ipratropium (Duoneb) 3 ml NEB Q2H PRN PRN Reason: SOB &/or Wheezing Albuterol/Ipratropium (Duoneb) 3 ml NEB [id number] Last Admin: 11/22/17 11:00 Dose: 3 ml Aspirin (Aspirin) 325 mg PO DAILY [facility] Last Admin: 11/22/17 08:29 Dose: 325 mg Bupropion HCl (Wellbutrin Xl) 150 mg PO QAM [facility] Last Admin: 11/22/17 08:30 Dose: 150 mg Calcium Carbonate (Tums) 1,000 mg PO Q4H PRN PRN Reason: Heartburn or Indigestion Calcium/Vitamin D (Caltrate 600 + Vit D) 1 tab PO BID-[facility] Last Admin: 11/22/17 08:30 Dose: 1 tab Carvedilol (Coreg) 12.5 mg PO BID [facility] Last Admin: 11/22/17 08:30 Dose: 12.5 mg Cyanocobalamin (Vitamin B-12) 1,000 mcg PO DAILY [facility] Last Admin: 11/22/17 08:30 Dose: 1,000 mcg Dextrose/Water (Dextrose 50%) 25 gm SLOW IVP PRN PRN PRN Reason: Hypoglycemia Docusate Sodium (Colace) 100 mg PO BID [facility] Last Admin: 11/22/17 08:30 Dose: 100 mg Duloxetine HCl (Cymbalta) 30 mg PO HS [facility] Last Admin: 11/21/17 21:39 Dose: 30 mg Famotidine (Pepcid) 20 mg PO DAILY [facility] Last Admin: 11/22/17 08:30 Dose: 20 mg Glucagon (Glucagon) 1 mg IM PRN PRN PRN Reason: Hypoglycemia Guaifenesin (Mucinex) 600 mg PO Q12HR PRN PRN Reason: Congestion Last Admin: 11/21/17 12:25 Dose: 600 mg Heparin Sodium (Porcine) (Heparin) 5,000 units SC TID [facility] Last Admin: 11/22/17 08:28 Dose: 5,000 units Hydralazine HCl (Apresoline) 10 mg SLOW IVP Q4H PRN PRN Reason: SBP Greater Than 180 Dextrose/Water (D5w) 1,000 mls @ 0 mls/hr IV .Q0M PRN; As Directed PRN Reason: Hypoglycemia Insulin Detemir 60 units/ (Miscellaneous Medication) 0.6 mls @ 0 mls/hr SC BID [facility] Last Admin: 11/22/17 08:48 Dose: 0.6 mls Insulin Human Regular (Humulin R) 0 units SC .BEDTIME SLIDING SC PRN PRN Reason: Bedtime Correctional Scale Last Admin: 11/19/17 20:55 Dose: 2 unit Insulin Human Regular (Humulin R) 0 units SC .MODERATE SLIDING SC PRN PRN Reason: Moderate Correctional Scale Last Admin: 11/20/17 17:32 Dose: 8 unit Isosorbide Mononitrate (Imdur) 60 mg PO DAILY [facility] Last Admin: 11/22/17 08:30 Dose: 60 mg Miscellaneous Medication (Pharmacy To Dose) 1 each PO PRN PRN PRN Reason: Pharmacy to dose Mometasone Furoate/Formoterol Fumar (Dulera 200 Mcg/5 Mcg Inhaler) 1 puff INH BID-RT [facility] Last Admin: 11/22/17 09:25 Dose: 1 puff Nitroglycerin (Nitrostat) 0.4 mg SL Q5MIN PRN PRN Reason: Chest Pain Ondansetron HCl (Zofran Odt) 4 mg PO Q6H PRN PRN Reason: Nausea/Vomiting Ondansetron HCl (Zofran) 4 mg IVP Q6H PRN PRN Reason: Nausea/Vomiting Pregabalin (Lyrica) 75 mg PO [facility] Last Admin: 11/21/17 21:40 Dose: 75 mg Rosuvastatin Calcium (Crestor) 40 mg PO [facility] Last Admin: 11/21/17 21:38 Dose: 40 mg Senna (Senokot) 2 tab PO HSPRN PRN PRN Reason: Constipation Sertraline HCl (Zoloft) 100 mg PO DAILY [facility] Last Admin: 11/22/17 08:30 Dose: 100 mg Sodium Chloride (Flush - Normal Saline) 10 ml IVF Q12HR [facility] Last Admin: 11/22/17 08:48 Dose: Not Given Sodium Chloride (Flush - Normal Saline) 10 ml IVF PRN PRN PRN Reason: Saline Flush Trazodone HCl (Desyrel) 100 mg PO [facility] Last Admin: 11/21/17 21:38 Dose: 100 mg
[2017-11-22] MEDS: Insulin Regular 300 UNITS/3 ML VIAL SC PRN (17:20)
[2017-11-22] MEDS: traZODone HCl 50 MG TAB PO SCH (22:46)
[2017-11-22] MEDS: Rosuvastatin 20 MG TAB PO SCH (22:46)
[2017-11-22] MEDS: DULoxetine 30 MG CAP PO SCH (22:46)
[2017-11-22] MEDS: Pregabalin 75 MG CAP PO SCH (22:48)
[2017-11-23 05:34] LABS: Anion Gap 14 mmol/L (10-20); BUN (Urea Nitrogen) 76 mg/dL (9.8-20.1); Calc. Creatinine Clearance 38 mL/min (70-130); Calcium 10.8 mg/dL (7.8-10.44); Carbon Dioxide 28 mmol/L (22-29); Chloride 101 mmol/L (98-107); Estimated GFR-MDRD 16; Glucose 136 mg/dL (70-105); Potassium 4.1 mmol/L (3.5-5.1); Sodium 139 mmol/L (136-145)
[2017-11-23] MEDS: Mometasone/Formoterol 120 PUFF INHALER INH SCH ×2 (08:09→20:47)
[2017-11-23] MEDS: Cyanocobalamin (Vitamin B-12) 1,000 MCG TAB PO SCH (08:42)
[2017-11-23] MEDS: Carvedilol 25 MG TAB PO SCH ×2 (08:42→21:43)
[2017-11-23] MEDS: Bupropion 150 MG XL TAB PO SCH (08:43)
[2017-11-23] MEDS: Calcium Carbonate + Vit D 1 TAB PO SCH ×2 (08:43→17:00)
[2017-11-23] MEDS: Famotidine 20 MG TAB PO SCH (08:43)
[2017-11-23] MEDS: Docusate 100 MG CAP PO SCH ×2 (08:43→21:42)
[2017-11-23] MEDS: Aspirin 325 MG TAB PO SCH (08:43)
[2017-11-23] MEDS: Insulin Detemir 100 UNITS/ML 60 UNITS in Pre-Filled Syringe 1 EACH SC SCH ×2 (08:44→23:34)
[2017-11-23] MEDS: Heparin 5,000 UNITS/ML VIAL SC SCH ×3 (08:44→21:44)
--- NOTE | 2017-11-23 10:07 | PRG ---
DATE OF SERVICE: 11/23/2017 SUBJECTIVE: Ms. Angela is a 52-year-old white female being followed by the Renal Service for acut e kidney injury with concomitant chronic renal failure. Doing stable in the last few days. Creatini ne is stabilizing. She has had decreased p.o. intake as well as fluid intake. As previously mention ed, unable to give normal saline due to absence of peripheral access. No new complaints today. Breathing is much better. OBJECTIVE: VITAL SIGNS: Blood pressure is 149/65, heart rate 69, respiratory rate 18, temperature 98.9, pulse o x 96%. GENERAL: Noted to be awake, sitting comfortable, not in distress. SKIN: Adequate turgor. HEENT: She has pinkish conjunctivae, anicteric sclerae. NECK: No neck mass, no carotid bruits, no JVD. CHEST: No deformities. LUNGS: Clear breath sounds. No wheezing, no crackles. HEART: Normal sinus rhythm. No murmur, no gallops, no rubs. ABDOMEN: Globular, soft, nontender. No masses. EXTREMITIES: No edema, status post left BKA. MEDICATIONS: Of 11/23/2017, reviewed. LABORATORY DATA: 11/23/2017, sodium 139, potassium 4.1, chloride 101, carbon dioxide 28, BUN 76, cre atinine 3.01, glucose 136, calcium 10.8 - minimally elevated. ASSESSMENT AND PLAN: 1. Acute kidney injury on top of her chronic renal failure, stabilizing renal function. Creatinine is slowly improving with the most recent creatinine now at 3.01. Please note that the patient's crea tinine peaked at 3.47. Increase fluid and p.o. intake with this patient. No indication for any dial ytic intervention. 2. Mild hypercalcemia. We will simply observe this. If needed, we can discontinue the calcium and vitamin D as well as the Tums. 3. Shortness of breath - multifactorial/congestive heart failure/chronic obstructive pulmonary disea se - doing better. Awaiting placement. We will check base met and CBC in a.m.
[2017-11-23] MEDS: guaiFENesin ER 600 MG TAB PO PRN (15:31)
--- NOTE | 2017-11-23 15:57 | PDOC.PN ---
- Subjective Encounter Start Date: 11/23/17 Encounter Start Time: 15:50 Subjective: f/u for CHANTELL, CHF on general supportive mgmt. Awaiting insurance approval -: for rehab/SNF. Overall feels better but generally weak. - Objective Resuscitation Status: Resuscitation Status FULL:Full Resuscitation MAR Reviewed: Yes Vital Signs & Weight: Vital Signs (12 hours) Temp Pulse Resp BP BP Pulse Ox 11/23/17 15:23 98.3 F 68 18 138/63 97 11/23/17 11:41 98.5 F 69 17 120/57 L 95 11/23/17 10:55 69 16 11/23/17 08:40 98.9 F 69 18 96 11/23/17 08:09 69 12 11/23/17 07:52 98.9 F 69 18 149/65 H 96 11/23/17 07:42 98 11/23/17 07:40 69 12 Weight Weight 238 lb 14.4 oz I&O: 11/22/17 11/23/17 11/24/17 06:59 06:59 06:59 Intake Total 720 2060 480 Output Total 1050 1700 Balance -330 360 480 Result Diagrams: 11/21/17 04:21 11/23/17 04:03 Additional Labs: Accuchecks 11/23/17 11/23/17 11/22/17 11:40 05:45 20:44 POC Glucose 117 H 131 H 341 H 11/22/17 16:24 POC Glucose 275 H Laboratory Tests 11/18/17 11/19/17 11/20/17 21:36 05:19 05:06 Creatinine 3.22 H 3.30 H 3.47 H 11/21/17 11/22/17 04:21 04:19 Creatinine 3.19 H 3.15 H EKG Reviewed by me: Yes (Tele - SR in 60's) Phys Exam - Physical Examination Constitutional: NAD HEENT: PERRLA, oral pharynx no lesions Neck: no JVD, supple Respiratory: no wheezing Cardiovascular: RRR Gastrointestinal: soft, non-tender, no distention, positive bowel sounds L BKA Musculoskeletal: pulses present Neurological: moves all 4 limbs Psychiatric: A&O x 3 Skin: normal turgor, cap refill <2 seconds Dx/Plan (1) CHANTELL (acute kidney injury) Code(s): N17.9 - ACUTE KIDNEY FAILURE, UNSPECIFIED Status: Acute Comment: Slowly improving with supportive mgmt, avoid nephrotoxic meds and contrast media , serial monitoring (2) Acute on chronic diastolic heart failure Code(s): I50.33 - ACUTE ON CHRONIC DIASTOLIC (CONGESTIVE) HEART FAILURE Status : Chronic Comment: Stable currently, EF 55%, Grade II/III diastolic dysfunction (3) CKD (chronic kidney disease) stage 3, GFR 30-59 ml/min Code(s): N18.3 - CHRONIC KIDNEY DISEASE, STAGE 3 (MODERATE) Status: Chronic (4) DM type 2 (diabetes mellitus, type 2) Status: Chronic Qualifiers: Diabetes mellitus complication status: with kidney complications Diabetes mellitus complication detail: with chronic kidney disease Diabetes mellitus termite exterminator helper insulin use: with termite exterminator helper use Chronic kidney disease stage: stage 3 (moderate) Qualified Code(s): E11.22 - Type 2 diabetes mellitus with diabetic chronic kidney disease; N18.3 - Chronic kidney disease, stage 3 ( moderate); N18.3 - Chronic kidney disease, stage 3 (moderate); Z79.4 - extermination inspector (current) use of insulin; Z79.4 - extermination inspector (current) use of insulin; Z79.4 - extermination inspector (current) use of insulin; Z79.4 - penitentiary (current) use of insulin Comment: Continue Levemir 60u sc BID, ISS (5) Obesity Code(s): E66.9 - OBESITY, UNSPECIFIED Status: Chronic Qualifiers: Obesity classification: adult class 3 (BMI >= 40) Body mass index: BMI 40.0 -44.9 - Plan PT/OT, social psychologist, respiratory therapy, DVT proph w/SCDs Continue supportive mgmt -: PT for mobilization -: Continue ASA and Coreg -: Continue Dulera and Duonebs -: AM lab: BMP, CBC * Transfer to medical * Awaiting SNF approval
[2017-11-23] MEDS: traZODone HCl 50 MG TAB PO SCH (21:42)
[2017-11-23] MEDS: Rosuvastatin 20 MG TAB PO SCH (21:43)
[2017-11-23] MEDS: DULoxetine 30 MG CAP PO SCH (21:43)
[2017-11-23] MEDS: Pregabalin 75 MG CAP PO SCH (21:43)
[2017-11-24 03:58] LABS: #Monocytes 0.6 thou/uL (0.11-0.59); #Neutrophils 7.4 thou/uL (1.40-6.50); %Basophils 0.1 % (0.0-1.0); %Eosinophils 0.5 % (0.0-10.0); %Neutrophils 81.3 % (42.0-75.0); Hemoglobin 9.3 g/dL (12.0-16.0); Mean Corpuscular HGB CONC 32.9 g/dL (32.0-36.0); Mean Corpuscular Hemoglobin 28.6 pg (27.0-31.0); Mean Corpuscular Volume 86.9 fl (81.0-99.0); Mean Platelet Volume 9.3 fL (7.4-10.4); Platelet Count 162 thou/uL (130-400); RBC Distribution Width 13.2 % (11.5-14.5); Red Blood Cell (RBC) Count 3.27 mill/uL (4.20-5.40); White Blood Cell (WBC) Count 9.1 thou/uL (4.8-10.8)
[2017-11-24 04:20] LABS: Anion Gap 13 mmol/L (10-20); BUN (Urea Nitrogen) 71 mg/dL (9.8-20.1); Calc. Creatinine Clearance 40 mL/min (70-130); Calcium 11.4 mg/dL (7.8-10.44); Carbon Dioxide 30 mmol/L (22-29); Chloride 102 mmol/L (98-107); Estimated GFR-MDRD 17; Glucose 144 mg/dL (70-105); Potassium 4.1 mmol/L (3.5-5.1); Sodium 141 mmol/L (136-145)
[2017-11-24] MEDS: Mometasone/Formoterol 120 PUFF INHALER INH SCH ×2 (07:25→18:34)
[2017-11-24] MEDS: Calcium Carbonate + Vit D 1 TAB PO SCH (08:18)
[2017-11-24] MEDS: Cyanocobalamin (Vitamin B-12) 1,000 MCG TAB PO SCH (08:18)
[2017-11-24] MEDS: Docusate 100 MG CAP PO SCH ×2 (08:18→21:59)
[2017-11-24] MEDS: Aspirin 325 MG TAB PO SCH (08:18)
[2017-11-24] MEDS: Carvedilol 25 MG TAB PO SCH ×2 (08:18→21:59)
[2017-11-24] MEDS: Famotidine 20 MG TAB PO SCH (08:19)
[2017-11-24] MEDS: Heparin 5,000 UNITS/ML VIAL SC SCH ×3 (08:19→22:02)
[2017-11-24] MEDS: Insulin Detemir 100 UNITS/ML 60 UNITS in Pre-Filled Syringe 1 EACH SC SCH ×2 (08:20→21:05)
[2017-11-24] MEDS: Bupropion 150 MG XL TAB PO SCH (08:26)
[2017-11-24] MEDS: Insulin Regular 300 UNITS/3 ML VIAL SC PRN ×2 (11:54→16:34)
--- NOTE | 2017-11-24 12:38 | PDOC.PN ---
- Subjective Encounter Start Date: 11/24/17 Encounter Start Time: 12:30 Subjective: f/u for CHANTELL, CHF currently stable. Feels better overall but still requiring -: low-volume O2 via NC. - Objective Resuscitation Status: Resuscitation Status FULL:Full Resuscitation MAR Reviewed: Yes Vital Signs & Weight: Vital Signs (12 hours) Temp Pulse Resp BP Pulse Ox 11/24/17 11:00 98.2 F 75 16 116/52 L 92 L 11/24/17 10:45 80 18 90 L 11/24/17 08:00 98.1 F 77 16 92 L 11/24/17 07:27 92 L 11/24/17 07:26 98.1 F 77 16 147/76 H 89 L 11/24/17 07:25 80 16 92 L 11/24/17 05:51 99.2 F 74 20 145/73 H 94 L 11/24/17 04:46 98 Weight Weight 238 lb 14.4 oz I&O: 11/23/17 11/24/17 11/25/17 06:59 06:59 06:59 Intake Total 2060 2280 Output Total 1700 Balance 360 2280 Result Diagrams: 11/24/17 03:46 11/24/17 03:46 Additional Labs: Accuchecks 11/24/17 11/23/17 11/23/17 04:41 20:18 16:44 POC Glucose 147 H 152 H 116 H Laboratory Tests 11/18/17 11/19/17 11/20/17 21:36 05:19 05:06 Creatinine 3.22 H 3.30 H 3.47 H Calcium 10.5 H 11/21/17 11/22/17 11/23/17 04:21 04:19 04:03 Creatinine 3.19 H 3.15 H Calcium 10.2 10.8 H 10.8 H Phys Exam - Physical Examination Constitutional: NAD HEENT: PERRLA, oral pharynx no lesions Neck: no JVD, supple diminished in bases Respiratory: no wheezing Cardiovascular: RRR Gastrointestinal: soft, non-tender, no distention, positive bowel sounds Musculoskeletal: no edema, pulses present L BKA Neurological: normal sensation, moves all 4 limbs Psychiatric: A&O x 3 Skin: normal turgor, cap refill <2 seconds Dx/Plan (1) CHANTELL (acute kidney injury) Code(s): N17.9 - ACUTE KIDNEY FAILURE, UNSPECIFIED Status: Acute Comment: Slowly improving with supportive mgmt, avoid nephrotoxic meds and contrast media , serial monitoring (2) Acute on chronic diastolic heart failure Code(s): I50.33 - ACUTE ON CHRONIC DIASTOLIC (CONGESTIVE) HEART FAILURE Status : Chronic Comment: Stable currently, EF 55%, Grade II/III diastolic dysfunction (3) CKD (chronic kidney disease) stage 3, GFR 30-59 ml/min Code(s): N18.3 - CHRONIC KIDNEY DISEASE, STAGE 3 (MODERATE) Status: Chronic (4) DM type 2 (diabetes mellitus, type 2) Status: Chronic Qualifiers: Diabetes mellitus complication status: with kidney complications Diabetes mellitus complication detail: with chronic kidney disease Diabetes mellitus fpc insulin use: with fpc use Chronic kidney disease stage: stage 3 (moderate) Qualified Code(s): E11.22 - Type 2 diabetes mellitus with diabetic chronic kidney disease; N18.3 - Chronic kidney disease, stage 3 ( moderate); N18.3 - Chronic kidney disease, stage 3 (moderate); Z79.4 - [facility] (current) use of insulin; Z79.4 - [facility] (current) use of insulin; Z79.4 - [facility] (current) use of insulin; Z79.4 - joint terminal attack controller (current) use of insulin Comment: Continue Levemir 60u sc BID, ISS (5) Obesity Code(s): E66.9 - OBESITY, UNSPECIFIED Status: Chronic Qualifiers: Obesity classification: adult class 3 (BMI >= 40) Body mass index: BMI 40.0 -44.9 - Plan PT/OT, social worker palliative care Stable overall -: Continue supportive mgmt -: CM assisting with SNF options -: OOB/ambulate as tolerated -: Wean O2 as clinically indicated * D/C Calcium supplements * AM lab: BMP
[2017-11-24] MEDS: Acetaminophen 325 MG TAB PO PRN (18:20)
[2017-11-24] MEDS: DULoxetine 30 MG CAP PO SCH (21:59)
[2017-11-24] MEDS: traZODone HCl 50 MG TAB PO SCH (21:59)
[2017-11-24] MEDS: Pregabalin 75 MG CAP PO SCH (22:00)
[2017-11-24] MEDS: Rosuvastatin 20 MG TAB PO SCH (22:00)
[2017-11-25 05:16] LABS: Anion Gap 12 mmol/L (10-20); BUN (Urea Nitrogen) 64 mg/dL (9.8-20.1); Calc. Creatinine Clearance 41 mL/min (70-130); Calcium 11.2 mg/dL (7.8-10.44); Carbon Dioxide 31 mmol/L (22-29); Chloride 102 mmol/L (98-107); Estimated GFR-MDRD 18; Glucose 169 mg/dL (70-105); Potassium 3.8 mmol/L (3.5-5.1); Sodium 141 mmol/L (136-145)
[2017-11-25] MEDS: Mometasone/Formoterol 120 PUFF INHALER INH SCH ×2 (07:38→19:40)
[2017-11-25] MEDS: Aspirin 325 MG TAB PO SCH (08:54)
[2017-11-25] MEDS: Bupropion 150 MG XL TAB PO SCH (08:54)
[2017-11-25] MEDS: Carvedilol 25 MG TAB PO SCH ×2 (08:54→20:21)
[2017-11-25] MEDS: Docusate 100 MG CAP PO SCH ×2 (08:55→20:11)
[2017-11-25] MEDS: Famotidine 20 MG TAB PO SCH (08:55)
[2017-11-25] MEDS: Cyanocobalamin (Vitamin B-12) 1,000 MCG TAB PO SCH (08:55)
[2017-11-25] MEDS: Insulin Detemir 100 UNITS/ML 60 UNITS in Pre-Filled Syringe 1 EACH SC SCH ×2 (08:56→20:14)
[2017-11-25] MEDS: Heparin 5,000 UNITS/ML VIAL SC SCH ×3 (09:06→20:12)
--- NOTE | 2017-11-25 10:06 | PDOC.PN ---
- Subjective Encounter Start Date: 11/25/17 Encounter Start Time: 09:40 Subjective: f/u CHANTELL and CHF. Overall feeling well with mild cough. Remains on low-flow -: O2 1.5L/min. Ambulates with PT. Awaiting insurance approval for rehab. - Objective Resuscitation Status: Resuscitation Status FULL:Full Resuscitation MAR Reviewed: Yes Vital Signs & Weight: Vital Signs (12 hours) Temp Pulse Resp BP BP Pulse Ox 11/25/17 08:00 97.4 F L 64 16 11/25/17 07:52 97.4 F L 64 16 139/75 98 11/25/17 07:38 65 16 99 11/25/17 04:00 98 F 59 L 18 155/70 H 95 11/25/17 00:00 98 F 70 20 144/70 H 99 Weight Weight 238 lb 14.4 oz I&O: 11/24/17 11/25/17 11/26/17 06:59 06:59 06:59 Intake Total 2280 480 Output Total 500 Balance 2280 -20 Result Diagrams: 11/24/17 03:46 11/25/17 03:55 Additional Labs: Accuchecks 11/25/17 11/25/17 11/24/17 05:39 00:47 20:12 POC Glucose 156 H 205 H 297 H 11/24/17 11/24/17 16:06 10:58 POC Glucose 286 H 240 H Laboratory Tests 11/18/17 11/19/17 11/20/17 21:36 05:19 05:06 Creatinine 3.22 H 3.30 H 3.47 H Calcium 10.5 H 11/21/17 11/22/17 11/23/17 04:21 04:19 04:03 Creatinine 3.19 H 3.15 H Calcium 10.2 10.8 H 10.8 H Phys Exam - Physical Examination Constitutional: NAD HEENT: PERRLA, oral pharynx no lesions Neck: no JVD, supple Respiratory: no wheezing Cardiovascular: RRR Gastrointestinal: soft, non-tender, no distention, positive bowel sounds L BKA Musculoskeletal: no edema, pulses present Neurological: normal sensation, moves all 4 limbs Psychiatric: A&O x 3 Skin: normal turgor, cap refill <2 seconds Dx/Plan (1) CHANTELL (acute kidney injury) Code(s): N17.9 - ACUTE KIDNEY FAILURE, UNSPECIFIED Status: Acute Comment: Slowly improving with supportive mgmt, avoid nephrotoxic meds and contrast media , serial monitoring (2) Acute on chronic diastolic heart failure Code(s): I50.33 - ACUTE ON CHRONIC DIASTOLIC (CONGESTIVE) HEART FAILURE Status : Chronic Comment: Stable currently, EF 55%, Grade II/III diastolic dysfunction (3) CKD (chronic kidney disease) stage 3, GFR 30-59 ml/min Code(s): N18.3 - CHRONIC KIDNEY DISEASE, STAGE 3 (MODERATE) Status: Chronic (4) DM type 2 (diabetes mellitus, type 2) Status: Chronic Qualifiers: Diabetes mellitus complication status: with kidney complications Diabetes mellitus complication detail: with chronic kidney disease Diabetes mellitus supervisor intermediates insulin use: with assisted use Chronic kidney disease stage: stage 3 (moderate) Qualified Code(s): E11.22 - Type 2 diabetes mellitus with diabetic chronic kidney disease; N18.3 - Chronic kidney disease, stage 3 ( moderate); N18.3 - Chronic kidney disease, stage 3 (moderate); Z79.4 - retirement (current) use of insulin; Z79.4 - supervisor intermediates (current) use of insulin; Z79.4 - supervisor intermediates (current) use of insulin; Z79.4 - supervisor intermediates (current) use of insulin Comment: Continue Levemir 60u sc BID, ISS (5) Obesity Code(s): E66.9 - OBESITY, UNSPECIFIED Status: Chronic Qualifiers: Obesity classification: adult class 3 (BMI >= 40) Body mass index: BMI 40.0 -44.9 (6) Physical deconditioning Code(s): R53.81 - OTHER MALAISE Status: Acute Comment: PT for mobilization, awaiting final approval for rehab - Plan PT/OT, social services coordinator, respiratory therapy Stable overall -: Continue wean of O2 supplementation -: Continue ASA and Coreg -: PT for ambulation -: AM lab: BMP * Awaiting final Rehab approval from insurance
[2017-11-25] MEDS: Insulin Regular 300 UNITS/3 ML VIAL SC PRN ×3 (11:30→20:25)
[2017-11-25] MEDS: DULoxetine 30 MG CAP PO SCH (20:12)
[2017-11-25] MEDS: Pregabalin 75 MG CAP PO SCH (20:13)
[2017-11-25] MEDS: Rosuvastatin 20 MG TAB PO SCH (20:13)
[2017-11-25] MEDS: traZODone HCl 50 MG TAB PO SCH (20:14)
[2017-11-26 04:44] LABS: Anion Gap 16 mmol/L (10-20); BUN (Urea Nitrogen) 59 mg/dL (9.8-20.1); Calc. Creatinine Clearance 43 mL/min (70-130); Calcium 10.9 mg/dL (7.8-10.44); Carbon Dioxide 26 mmol/L (22-29); Chloride 102 mmol/L (98-107); Estimated GFR-MDRD 19; Glucose 127 mg/dL (70-105); Sodium 140 mmol/L (136-145)
[2017-11-26] MEDS: Mometasone/Formoterol 120 PUFF INHALER INH SCH ×2 (06:22→18:59)
[2017-11-26] MEDS: Famotidine 20 MG TAB PO SCH (08:54)
[2017-11-26] MEDS: Cyanocobalamin (Vitamin B-12) 1,000 MCG TAB PO SCH (08:54)
[2017-11-26] MEDS: Carvedilol 25 MG TAB PO SCH ×2 (08:54→20:20)
[2017-11-26] MEDS: Docusate 100 MG CAP PO SCH ×2 (08:54→20:21)
[2017-11-26] MEDS: Insulin Detemir 100 UNITS/ML 60 UNITS in Pre-Filled Syringe 1 EACH SC SCH ×2 (08:55→20:22)
[2017-11-26] MEDS: Heparin 5,000 UNITS/ML VIAL SC SCH ×3 (08:55→20:21)
[2017-11-26] MEDS: Aspirin 325 MG TAB PO SCH (09:06)
[2017-11-26] MEDS: Bupropion 150 MG XL TAB PO SCH (09:16)
--- NOTE | 2017-11-26 11:58 | PDOC.PN ---
- Subjective Encounter Start Date: 11/26/17 Encounter Start Time: 11:00 Subjective: no sob, is sitting in chair -: c/o high colored urine - Objective Resuscitation Status: Resuscitation Status FULL:Full Resuscitation MAR Reviewed: Yes Vital Signs & Weight: Vital Signs (12 hours) Temp Pulse Resp BP BP Pulse Ox 11/26/17 11:33 70 18 93 L 11/26/17 11:15 97.8 F 70 16 112/50 L 95 11/26/17 08:00 98.3 F 66 16 97 11/26/17 07:01 98.3 F 66 16 117/69 97 11/26/17 06:26 99 11/26/17 06:25 67 16 99 11/26/17 06:22 67 16 99 11/26/17 03:20 97 Weight Weight 238 lb 14.4 oz I&O: 11/25/17 11/26/17 11/27/17 06:59 06:59 06:59 Intake Total 480 240 Output Total 500 Balance -20 240 Result Diagrams: 11/24/17 03:46 11/26/17 04:10 Additional Labs: Accuchecks 11/26/17 11/25/17 11/25/17 04:07 20:11 16:11 POC Glucose 133 H 276 H 359 H 11/25/17 11:16 POC Glucose 270 H Phys Exam - Physical Examination HEENT: PERRLA, moist MMs Neck: no JVD, supple Respiratory: no wheezing, no rales Cardiovascular: RRR, no significant murmur Gastrointestinal: soft, non-tender, no distention, positive bowel sounds Musculoskeletal: no edema, pulses present Neurological: non-focal, moves all 4 limbs Psychiatric: A&O x 3 Dx/Plan (1) CHANTELL (acute kidney injury) Code(s): N17.9 - ACUTE KIDNEY FAILURE, UNSPECIFIED Status: Acute Comment: Slowly improving with supportive mgmt, avoid nephrotoxic meds and contrast media , serial monitoring (2) Acute bronchitis Code(s): J20.9 - ACUTE BRONCHITIS, UNSPECIFIED Status: Resolved Qualifiers: Bronchitis organism: unspecified organism Qualified Code(s): J20.9 - Acute bronchitis, unspecified (3) Acute on chronic diastolic heart failure Code(s): I50.33 - ACUTE ON CHRONIC DIASTOLIC (CONGESTIVE) HEART FAILURE Status : Chronic Comment: Stable currently, EF 55%, Grade II/III diastolic dysfunction (4) CAD (coronary artery disease) Code(s): I25.10 - ATHSCL HEART DISEASE OF [place] CORONARY ARTERY W/O ANG PCTRS Status: Chronic Qualifiers: Coronary Disease-Associated Artery/Lesion type: bypass graft [place] vs. transplanted heart: [place] heart Associated angina: without angina Qualified Code(s): I25.810 - Atherosclerosis of coronary artery bypass graft(s) without angina pectoris (5) CKD (chronic kidney disease) stage 3, GFR 30-59 ml/min Code(s): N18.3 - CHRONIC KIDNEY DISEASE, STAGE 3 (MODERATE) Status: Chronic (6) DM type 2 (diabetes mellitus, type 2) Status: Chronic Qualifiers: Diabetes mellitus complication status: with kidney complications Diabetes mellitus complication detail: with chronic kidney disease Diabetes mellitus exterminator insulin use: with exterminator use Chronic kidney disease stage: stage 3 (moderate) Qualified Code(s): E11.22 - Type 2 diabetes mellitus with diabetic chronic kidney disease; N18.3 - Chronic kidney disease, stage 3 ( moderate); N18.3 - Chronic kidney disease, stage 3 (moderate); Z79.4 - snf (current) use of insulin; Z79.4 - snf (current) use of insulin; Z79.4 - snf (current) use of insulin; Z79.4 - termite helper (current) use of insulin Comment: Continue Levemir 60u sc BID, ISS (7) Obesity Code(s): E66.9 - OBESITY, UNSPECIFIED Status: Chronic Qualifiers: Obesity classification: adult class 3 (BMI >= 40) Body mass index: BMI 40.0 -44.9 (8) Physical deconditioning Code(s): R53.81 - OTHER MALAISE Status: Acute Comment: PT for mobilization, awaiting final approval for rehab - Plan renal function is stabilizing -: awaiting rehab approval -: may dc if approved -: urine for analysis and culture -: to ambulate more with PT, is using oxygen at HS * . Review of Systems - Medications/Allergies Allergies/Adverse Reactions: Allergies Allergy/AdvReac Type Severity Reaction Status Date / Time No Known Allergies Allergy Verified 09/16/14 15:36 Medications: Current Medications Acetaminophen (Tylenol) 650 mg PO Q4H PRN PRN Reason: Headache/Fever or Pain Last Admin: 11/24/17 18:20 Dose: 650 mg Albuterol Sulfate (Proventil Hfa) 2 puff INH Q6H PRN PRN Reason: SOB &/or Wheezing Albuterol/Ipratropium (Duoneb) 3 ml NEB Q2H PRN PRN Reason: SOB &/or Wheezing Albuterol/Ipratropium (Duoneb) 3 ml NEB [id number] [facility] Last Admin: 11/26/17 11:33 Dose: 3 ml Aspirin (Aspirin) 325 mg PO DAILY [facility] Last Admin: 11/26/17 09:06 Dose: 325 mg Bupropion HCl (Wellbutrin Xl) 150 mg PO QAM [facility] Last Admin: 11/26/17 09:16 Dose: 150 mg Calcium Carbonate (Tums) 1,000 mg PO Q4H PRN PRN Reason: Heartburn or Indigestion Carvedilol (Coreg) 12.5 mg PO BID [facility] Last Admin: 11/26/17 08:54 Dose: 12.5 mg Cyanocobalamin (Vitamin B-12) 1,000 mcg PO DAILY [facility] Last Admin: 11/26/17 08:54 Dose: 1,000 mcg Dextrose/Water (Dextrose 50%) 25 gm SLOW IVP PRN PRN PRN Reason: Hypoglycemia Docusate Sodium (Colace) 100 mg PO BID [facility] Last Admin: 11/26/17 08:54 Dose: 100 mg Duloxetine HCl (Cymbalta) 30 mg PO HS [facility] Last Admin: 11/25/17 20:12 Dose: 30 mg Famotidine (Pepcid) 20 mg PO DAILY [facility] Last Admin: 11/26/17 08:54 Dose: 20 mg Glucagon (Glucagon) 1 mg IM PRN PRN PRN Reason: Hypoglycemia Guaifenesin (Mucinex) 600 mg PO Q12HR PRN PRN Reason: Congestion Last Admin: 11/23/17 15:31 Dose: 600 mg Heparin Sodium (Porcine) (Heparin) 5,000 units SC TID [facility] Last Admin: 11/26/17 08:55 Dose: 5,000 units Hydralazine HCl (Apresoline) 10 mg SLOW IVP Q4H PRN PRN Reason: SBP Greater Than 180 Dextrose/Water (D5w) 1,000 mls @ 0 mls/hr IV .Q0M PRN; As Directed PRN Reason: Hypoglycemia Insulin Detemir 60 units/ (Miscellaneous Medication) 0.6 mls @ 0 mls/hr SC BID [facility] Last Admin: 11/26/17 08:55 Dose: 0.6 mls Insulin Human Regular (Humulin R) 0 units SC .BEDTIME SLIDING SC PRN PRN Reason: Bedtime Correctional Scale Last Admin: 11/25/17 20:25 Dose: 3 unit Insulin Human Regular (Humulin R) 0 units SC .MODERATE SLIDING SC PRN PRN Reason: Moderate Correctional Scale Last Admin: 11/25/17 16:14 Dose: 10 unit Isosorbide Mononitrate (Imdur) 60 mg PO DAILY [facility] Last Admin: 11/26/17 08:54 Dose: 60 mg Miscellaneous Medication (Pharmacy To Dose) 1 each PO PRN PRN PRN Reason: Pharmacy to dose Mometasone Furoate/Formoterol Fumar (Dulera 200 Mcg/5 Mcg Inhaler) 1 puff INH BID-RT [facility] Last Admin: 11/26/17 06:22 Dose: 1 puff Nitroglycerin (Nitrostat) 0.4 mg SL Q5MIN PRN PRN Reason: Chest Pain Ondansetron HCl (Zofran Odt) 4 mg PO Q6H PRN PRN Reason: Nausea/Vomiting Ondansetron HCl (Zofran) 4 mg IVP Q6H PRN PRN Reason: Nausea/Vomiting Pregabalin (Lyrica) 75 mg PO [facility] Last Admin: 11/25/17 20:13 Dose: 75 mg Rosuvastatin Calcium (Crestor) 40 mg PO [facility] Last Admin: 11/25/17 20:13 Dose: 40 mg Senna (Senokot) 2 tab PO HSPRN PRN PRN Reason: Constipation Sertraline HCl (Zoloft) 100 mg PO DAILY [facility] Last Admin: 11/26/17 08:54 Dose: 100 mg Sodium Chloride (Flush - Normal Saline) 10 ml IVF Q12HR [facility] Last Admin: 11/26/17 07:48 Dose: Not Given Sodium Chloride (Flush - Normal Saline) 10 ml IVF PRN PRN PRN Reason: Saline Flush Trazodone HCl (Desyrel) 100 mg PO [facility] Last Admin: 11/25/17 20:14 Dose: 100 mg
[2017-11-26] MEDS: Insulin Regular 300 UNITS/3 ML VIAL SC PRN (15:54)
[2017-11-26] MEDS: DULoxetine 30 MG CAP PO SCH (20:21)
[2017-11-26] MEDS: Pregabalin 75 MG CAP PO SCH (20:21)
[2017-11-26] MEDS: traZODone HCl 50 MG TAB PO SCH (20:22)
[2017-11-26] MEDS: Rosuvastatin 20 MG TAB PO SCH (20:22)
[2017-11-26] MEDS: guaiFENesin ER 600 MG TAB PO PRN (20:24)
[2017-11-27 05:25] LABS: Bilirubin Negative (Negative); Blood, Urine Small (Negative); Clarity CLOUDY (Clear); Glucose, Urine (Dipstick) Negative (Negative); Leukocyte Large (Negative); Nitrite Positive (Negative); Protein, Urine (Dipstick) 30 mg/dL (Neg-Trace); Urobilinogen 0.2 mg/dL (0.2-1.0)
[2017-11-27 05:27] LABS: Bacteria/HPF 3+ HPF (None Seen); Hyaline Casts/LPF 0-3 HYALINE CAST LPF (0-3 Hyaline); Pathc Cast-AUWi Flag 0.13 (0-2.49); Squamous Epithelial 0-3 HPF (0-3)
[2017-11-27] MEDS: guaiFENesin ER 600 MG TAB PO PRN ×2 (05:43→20:15)
[2017-11-27] MEDS: Mometasone/Formoterol 120 PUFF INHALER INH SCH ×2 (07:04→18:34)
[2017-11-27] MEDS: Bupropion 150 MG XL TAB PO SCH (08:35)
[2017-11-27] MEDS: Heparin 5,000 UNITS/ML VIAL SC SCH ×3 (08:35→20:11)
[2017-11-27] MEDS: Aspirin 325 MG TAB PO SCH (08:36)
[2017-11-27] MEDS: Famotidine 20 MG TAB PO SCH (08:36)
[2017-11-27] MEDS: Docusate 100 MG CAP PO SCH ×2 (08:36→20:09)
[2017-11-27] MEDS: Cyanocobalamin (Vitamin B-12) 1,000 MCG TAB PO SCH (08:36)
[2017-11-27] MEDS: Carvedilol 25 MG TAB PO SCH ×2 (08:36→20:12)
[2017-11-27] MEDS: Insulin Detemir 100 UNITS/ML 60 UNITS in Pre-Filled Syringe 1 EACH SC SCH ×2 (08:40→20:11)
--- NOTE | 2017-11-27 09:35 | PDOC.PN ---
- Subjective Encounter Start Date: 11/27/17 Encounter Start Time: 09:34 Subjective: Seen and examined feeling ok - Objective Resuscitation Status: Resuscitation Status FULL:Full Resuscitation Vital Signs & Weight: Vital Signs (12 hours) Temp Pulse Resp BP Pulse Ox 11/27/17 07:32 98.1 F 62 22 H 110/67 98 11/27/17 07:04 64 16 99 11/27/17 07:03 64 16 99 11/27/17 03:30 95 11/26/17 22:21 98.0 F 75 18 99 Weight Weight 238 lb 14.4 oz I&O: 11/26/17 11/27/17 11/28/17 06:59 06:59 06:59 Intake Total 720 Output Total 1575 Balance -855 Result Diagrams: 11/24/17 03:46 11/26/17 04:10 Additional Labs: Accuchecks 11/27/17 11/26/17 11/26/17 05:12 19:39 15:37 POC Glucose 92 235 H 250 H 11/26/17 11:15 POC Glucose 142 H Phys Exam - Physical Examination Constitutional: NAD HEENT: PERRLA, moist MMs, sclera anicteric, TM's clear, oral pharynx no lesions Neck: no nodes, no JVD, supple, full ROM Respiratory: no wheezing, no rales, no rhonchi Cardiovascular: RRR, no significant murmur, no rub Gastrointestinal: soft, non-tender, no distention, positive bowel sounds Musculoskeletal: no edema, pulses present Neurological: non-focal, normal sensation, moves all 4 limbs Dx/Plan (1) Physical deconditioning Code(s): R53.81 - OTHER MALAISE Status: Acute Comment: PT for mobilization, awaiting final approval for rehab (2) CHANTELL (acute kidney injury) Code(s): N17.9 - ACUTE KIDNEY FAILURE, UNSPECIFIED Status: Acute Comment: Slowly improving with supportive mgmt, avoid nephrotoxic meds and contrast media , serial monitoring (3) Acute exacerbation of CHF (congestive heart failure) Code(s): I50.9 - HEART FAILURE, UNSPECIFIED Status: Acute Qualifiers: Congestive heart failure type: diastolic Qualified Code(s): I50.33 - Acute on chronic diastolic (congestive) heart failure Comment: ef of 50% (4) Altered mental status Code(s): R41.82 - ALTERED MENTAL STATUS, UNSPECIFIED Status: Acute (5) DKA (diabetic ketoacidoses) Code(s): E13.10 - OTH DIABETES MELLITUS WITH KETOACIDOSIS WITHOUT COMA Status : Acute (6) UTI (urinary tract infection) Status: Acute (7) Acute on chronic diastolic heart failure Code(s): I50.33 - ACUTE ON CHRONIC DIASTOLIC (CONGESTIVE) HEART FAILURE Status : Chronic Comment: Stable currently, EF 55%, Grade II/III diastolic dysfunction (8) CAD (coronary artery disease) Code(s): I25.10 - ATHSCL HEART DISEASE OF [place] CORONARY ARTERY W/O ANG PCTRS Status: Chronic Qualifiers: Coronary Disease-Associated Artery/Lesion type: bypass graft [place] vs. transplanted heart: [place] heart Associated angina: without angina Qualified Code(s): I25.810 - Atherosclerosis of coronary artery bypass graft(s) without angina pectoris - Plan PT/OT, drug abuse social worker, respiratory therapy, out of bed/ambulate Awairting insurance authorization for Rehab placement * .
[2017-11-27] MEDS: traZODone HCl 50 MG TAB PO SCH (20:09)
[2017-11-27] MEDS: Rosuvastatin 20 MG TAB PO SCH (20:09)
[2017-11-27] MEDS: Pregabalin 75 MG CAP PO SCH (20:10)
[2017-11-27] MEDS: DULoxetine 30 MG CAP PO SCH (20:11)
[2017-11-28 04:43] LABS: Anion Gap 15 mmol/L (10-20); BUN (Urea Nitrogen) 50 mg/dL (9.8-20.1); Calc. Creatinine Clearance 42 mL/min (70-130); Calcium 9.9 mg/dL (7.8-10.44); Carbon Dioxide 28 mmol/L (22-29); Chloride 101 mmol/L (98-107); Estimated GFR-MDRD 19; Glucose 161 mg/dL (70-105); Potassium 3.8 mmol/L (3.5-5.1); Sodium 140 mmol/L (136-145)
[2017-11-28] MEDS: Mometasone/Formoterol 120 PUFF INHALER INH SCH ×2 (06:42→20:09)
[2017-11-28] MEDS: Aspirin 325 MG TAB PO SCH (08:49)
[2017-11-28] MEDS: Bupropion 150 MG XL TAB PO SCH (08:49)
[2017-11-28] MEDS: Heparin 5,000 UNITS/ML VIAL SC SCH ×3 (08:49→22:41)
[2017-11-28] MEDS: Insulin Detemir 100 UNITS/ML 60 UNITS in Pre-Filled Syringe 1 EACH SC SCH ×2 (08:49→22:42)
[2017-11-28] MEDS: Docusate 100 MG CAP PO SCH ×2 (08:49→22:40)
[2017-11-28] MEDS: Cyanocobalamin (Vitamin B-12) 1,000 MCG TAB PO SCH (08:49)
[2017-11-28] MEDS: Famotidine 20 MG TAB PO SCH (08:49)
[2017-11-28] MEDS: Carvedilol 25 MG TAB PO SCH ×2 (09:06→22:40)
[2017-11-28] MEDS: Insulin Regular 300 UNITS/3 ML VIAL SC PRN (12:01)
--- NOTE | 2017-11-28 12:50 | PDOC.PN ---
- Subjective Encounter Start Date: 11/28/17 Encounter Start Time: 10:00 CC: CHANTELL Sub: Pt still c/o generalized weakness, denies dyspnea - Objective Resuscitation Status: Resuscitation Status FULL:Full Resuscitation Vital Signs & Weight: Vital Signs (12 hours) Temp Pulse Resp BP Pulse Ox 11/28/17 11:42 98.1 F 75 20 146/77 H 93 L 11/28/17 11:30 68 95 11/28/17 08:00 98.1 F 70 20 95 11/28/17 07:22 98.1 F 70 20 128/71 95 11/28/17 06:39 71 16 100 Weight Weight 238 lb 14.4 oz I&O: 11/27/17 11/28/17 11/29/17 06:59 06:59 06:59 Intake Total 720 840 240 Output Total 1575 Balance -855 840 240 Result Diagrams: 11/24/17 03:46 11/28/17 04:02 Additional Labs: Accuchecks 11/28/17 11/28/17 11/27/17 11:37 04:54 19:51 POC Glucose 186 H 146 H 241 H 11/27/17 16:35 POC Glucose 191 H Phys Exam - Physical Examination Constitutional: NAD HEENT: moist MMs Neck: no JVD Respiratory: no wheezing, no rales no accessory muscle usage seen, no rhonchi Cardiovascular: RRR, no significant murmur, no rub distended, nttp, no guarding, no rebound tenderness Gastrointestinal: soft, non-tender, no distention Musculoskeletal: no edema Neurological: non-focal moves all joints Psychiatric: A&O x 3 Skin: no rash Dx/Plan - Plan * . (1) CHANTELL (acute kidney injury) Code(s): N17.9 - ACUTE KIDNEY FAILURE, UNSPECIFIED Status: Acute Comment: Creatinine appears plateaued. continue supportive mgmt, avoid nephrotoxic meds and contrast media\ (2) Acute bronchitis Code(s): J20.9 - ACUTE BRONCHITIS, UNSPECIFIED Status: Resolved Qualifiers: Bronchitis organism: unspecified organism Qualified Code(s): J20.9 - Acute bronchitis, unspecified (3) Acute on chronic diastolic heart failure Code(s): I50.33 - ACUTE ON CHRONIC DIASTOLIC (CONGESTIVE) HEART FAILURE Status : Chronic Comment: Stable currently, EF 55%, Grade II/III diastolic dysfunction (4) CAD (coronary artery disease) Code(s): I25.10 - ATHSCL HEART DISEASE OF [place] CORONARY ARTERY W/O ANG PCTRS Status: Chronic Qualifiers: Coronary Disease-Associated Artery/Lesion type: bypass graft [place] vs. transplanted heart: [place] heart Associated angina: without angina Qualified Code(s): I25.810 - Atherosclerosis of coronary artery bypass graft(s) without angina pectoris (5) CKD (chronic kidney disease) stage 3, GFR 30-59 ml/min Code(s): N18.3 - CHRONIC KIDNEY DISEASE, STAGE 3 (MODERATE) Status: Chronic (6) DM type 2 (diabetes mellitus, type 2) Status: Chronic Qualifiers: Diabetes mellitus complication status: with kidney complications Diabetes mellitus complication detail: with chronic kidney disease Diabetes mellitus long-term insulin use: with long term acute care registered nurse use Chronic kidney disease stage: stage 3 (moderate) Qualified Code(s): E11.22 - Type 2 diabetes mellitus with diabetic chronic kidney disease; N18.3 - Chronic kidney disease, stage 3 ( moderate); N18.3 - Chronic kidney disease, stage 3 (moderate); Z79.4 - regional intermodal truck driver (current) use of insulin; Z79.4 - skilled nursing (current) use of insulin; Z79.4 - skilled nursing (current) use of insulin; Z79.4 - regional intermodal truck driver (current) use of insulin Comment: Continue Levemir 60u sc BID, ISS blood sugars stable. monitor for now (7) Obesity Code(s): E66.9 - OBESITY, UNSPECIFIED Status: Chronic Qualifiers: Obesity classification: adult class 3 (BMI >= 40) Body mass index: BMI 40.0 -44.9 (8) Physical deconditioning Code(s): R53.81 - OTHER MALAISE Status: Acute Comment: PT for mobilization, awaiting final approval for rehab 9. HTN: Monitor bp closely Continue bp meds. - Plan waiting for placement * .
[2017-11-28] MEDS: Rosuvastatin 20 MG TAB PO SCH (22:40)
[2017-11-28] MEDS: traZODone HCl 50 MG TAB PO SCH (22:40)
[2017-11-28] MEDS: Pregabalin 75 MG CAP PO SCH (22:41)
[2017-11-28] MEDS: DULoxetine 30 MG CAP PO SCH (22:41)
[2017-11-28] MEDS: guaiFENesin ER 600 MG TAB PO PRN (22:43)
[2017-11-29] MEDS: Mometasone/Formoterol 120 PUFF INHALER INH SCH ×2 (08:01→19:50)
[2017-11-29] MEDS: Aspirin 325 MG TAB PO SCH (08:04)
[2017-11-29] MEDS: Cyanocobalamin (Vitamin B-12) 1,000 MCG TAB PO SCH (08:04)
[2017-11-29] MEDS: Famotidine 20 MG TAB PO SCH (08:04)
[2017-11-29] MEDS: Heparin 5,000 UNITS/ML VIAL SC SCH ×3 (08:04→20:43)
[2017-11-29] MEDS: Bupropion 150 MG XL TAB PO SCH (08:05)
[2017-11-29] MEDS: Carvedilol 25 MG TAB PO SCH ×2 (08:05→20:44)
[2017-11-29] MEDS: Docusate 100 MG CAP PO SCH ×2 (08:06→20:44)
[2017-11-29] MEDS: Insulin Detemir 100 UNITS/ML 60 UNITS in Pre-Filled Syringe 1 EACH SC SCH ×2 (08:08→20:42)
[2017-11-29 15:02] VITALS: BMI 42.5
--- NOTE | 2017-11-29 15:17 | PDOC.PN ---
- Subjective Encounter Start Date: 11/29/17 Encounter Start Time: 11:30 Patient, is Seeen today, alert and oriented. Pt is Weak and waiting of SNF / Rehab Evalution. - Objective Resuscitation Status: Resuscitation Status FULL:Full Resuscitation MAR Reviewed: Yes Vital Signs & Weight: Vital Signs (12 hours) Temp Pulse Resp BP Pulse Ox Pulse Ox Pulse Ox 11/29/17 11:20 92 L 89 L 11/29/17 10:09 65 16 94 L 11/29/17 08:00 98.3 F 68 16 11/29/17 07:58 68 16 94 L 11/29/17 07:22 98.3 F 68 16 148/67 H 98 Pulse Ox 11/29/17 11:20 94 L 11/29/17 10:09 11/29/17 08:00 11/29/17 07:58 11/29/17 07:22 Weight Admit Weight 244 lb 0.08 oz Weight 239 lb 14.4 oz I&O: 11/28/17 11/29/17 11/30/17 06:59 06:59 06:59 Intake Total 840 2230 Output Total 875 Balance 840 1355 Result Diagrams: 11/24/17 03:46 11/28/17 04:02 Additional Labs: Accuchecks 11/29/17 11/29/17 11/28/17 12:14 04:48 20:40 POC Glucose 150 H 171 H 239 H 11/28/17 15:59 POC Glucose 126 H Radiology Reviewed by me: Yes Phys Exam - Physical Examination HEENT: PERRLA, moist MMs Neck: no nodes, no JVD Respiratory: no wheezing, no rales Cardiovascular: RRR, no significant murmur Gastrointestinal: soft, non-tender Musculoskeletal: no edema, pulses present Neurological: non-focal, normal sensation Psychiatric: normal affect Dx/Plan (1) Physical deconditioning Code(s): R53.81 - OTHER MALAISE Status: Acute Comment: PT for mobilization, awaiting final approval for rehab (2) CHANTELL (acute kidney injury) Code(s): N17.9 - ACUTE KIDNEY FAILURE, UNSPECIFIED Status: Acute Comment: Slowly improving with supportive mgmt, avoid nephrotoxic meds and contrast media , serial monitoring (3) Acute exacerbation of CHF (congestive heart failure) Code(s): I50.9 - HEART FAILURE, UNSPECIFIED Status: Acute Qualifiers: Congestive heart failure type: diastolic Qualified Code(s): I50.33 - Acute on chronic diastolic (congestive) heart failure Comment: ef of 50% (4) UTI (urinary tract infection) Status: Acute (5) DM type 2 (diabetes mellitus, type 2) Status: Chronic Qualifiers: Diabetes mellitus complication status: with kidney complications Diabetes mellitus complication detail: with chronic kidney disease Diabetes mellitus correction insulin use: with correction use Chronic kidney disease stage: stage 3 (moderate) Qualified Code(s): E11.22 - Type 2 diabetes mellitus with diabetic chronic kidney disease; N18.3 - Chronic kidney disease, stage 3 ( moderate); N18.3 - Chronic kidney disease, stage 3 (moderate); Z79.4 - termite treater (current) use of insulin; Z79.4 - termite treater (current) use of insulin; Z79.4 - termite treater (current) use of insulin; Z79.4 - penitentiary (current) use of insulin Comment: Continue Levemir 60u sc BID, ISS - Plan cont current plan of care, PT/OT, social organization professor, respiratory therapy, incentive spirometry, DVT proph w/lovenox * . - Discharge Day Encounter end time: 12:00 Review of Systems - Review of Systems Constitutional: negative: fever, chills, sweats, weakness, malaise, other Eyes: negative: Pain, Vision Change, Conjunctivae Inflammation, Eyelid Inflammation, Redness, Other ENT: negative: Ear Pain, Ear Discharge, Nose Pain, Nose Discharge, Nose Congestion, Mouth Pain, Mouth Swelling, Throat Pain, Throat Swelling, Other Respiratory: negative: Cough, Dry, Shortness of Breath, Hemoptysis, SOB with Excertion, Pleuritic Pain, Sputum, Wheezing Cardiovascular: negative: chest pain, palpitations, orthopnea, paroxysmal nocturnal dyspnea, edema, light headedness, other Gastrointestinal: negative: Nausea, Vomiting, Abdominal Pain, Diarrhea, Constipation, Melena, Hematochezia, Other Genitourinary: negative: Dysuria, Frequency, Incontinence, Hematuria, Retention , Other Musculoskeletal: negative: Neck Pain, Shoulder Pain, Arm Pain, Back Pain, Hand Pain, Leg Pain, Foot Pain, Other Skin: negative: Rash, Lesions, Kevin, Bruising, Other - Medications/Allergies Allergies/Adverse Reactions: Allergies Allergy/AdvReac Type Severity Reaction Status Date / Time No Known Allergies Allergy Verified 09/16/14 15:36 Medications: Current Medications Acetaminophen (Tylenol) 650 mg PO Q4H PRN PRN Reason: Headache/Fever or Pain Last Admin: 11/24/17 18:20 Dose: 650 mg Albuterol Sulfate (Proventil Hfa) 2 puff INH Q6H PRN PRN Reason: SOB &/or Wheezing Albuterol/Ipratropium (Duoneb) 3 ml NEB Q2H PRN PRN Reason: SOB &/or Wheezing Albuterol/Ipratropium (Duoneb) 3 ml NEB [id number] [facility] Last Admin: 11/29/17 13:37 Dose: 3 ml Aspirin (Aspirin) 325 mg PO DAILY [facility] Last Admin: 11/29/17 08:04 Dose: 325 mg Bupropion HCl (Wellbutrin Xl) 150 mg PO QAM [facility] Last Admin: 11/29/17 08:05 Dose: 150 mg Calcium Carbonate (Tums) 1,000 mg PO Q4H PRN PRN Reason: Heartburn or Indigestion Carvedilol (Coreg) 12.5 mg PO BID [facility] Last Admin: 11/29/17 08:05 Dose: 12.5 mg Cyanocobalamin (Vitamin B-12) 1,000 mcg PO DAILY [facility] Last Admin: 11/29/17 08:04 Dose: 1,000 mcg Dextrose/Water (Dextrose 50%) 25 gm SLOW IVP PRN PRN PRN Reason: Hypoglycemia Docusate Sodium (Colace) 100 mg PO BID [facility] Last Admin: 11/29/17 08:06 Dose: 100 mg Duloxetine HCl (Cymbalta) 30 mg PO HS [facility] Last Admin: 11/28/17 22:41 Dose: 30 mg Famotidine (Pepcid) 20 mg PO DAILY [facility] Last Admin: 11/29/17 08:04 Dose: 20 mg Glucagon (Glucagon) 1 mg IM PRN PRN PRN Reason: Hypoglycemia Guaifenesin (Mucinex) 600 mg PO Q12HR PRN PRN Reason: Congestion Last Admin: 11/28/17 22:43 Dose: 600 mg Heparin Sodium (Porcine) (Heparin) 5,000 units SC TID [facility] Last Admin: 11/29/17 12:49 Dose: 5,000 units Hydralazine HCl (Apresoline) 10 mg SLOW IVP Q4H PRN PRN Reason: SBP Greater Than 180 Dextrose/Water (D5w) 1,000 mls @ 0 mls/hr IV .Q0M PRN; As Directed PRN Reason: Hypoglycemia Insulin Detemir 60 units/ (Miscellaneous Medication) 0.6 mls @ 0 mls/hr SC BID [facility] Last Admin: 11/29/17 08:08 Dose: 0.6 mls Insulin Human Regular (Humulin R) 0 units SC .BEDTIME SLIDING SC PRN PRN Reason: Bedtime Correctional Scale Last Admin: 11/26/17 15:54 Dose: 2 unit Insulin Human Regular (Humulin R) 0 units SC .MODERATE SLIDING SC PRN PRN Reason: Moderate Correctional Scale Last Admin: 11/28/17 12:01 Dose: 2 unit Isosorbide Mononitrate (Imdur) 60 mg PO DAILY [facility] Last Admin: 11/29/17 08:04 Dose: 60 mg Miscellaneous Medication (Pharmacy To Dose) 1 each PO PRN PRN PRN Reason: Pharmacy to dose Mometasone Furoate/Formoterol Fumar (Dulera 200 Mcg/5 Mcg Inhaler) 1 puff INH BID-RT [facility] Last Admin: 11/29/17 08:01 Dose: 1 puff Nitroglycerin (Nitrostat) 0.4 mg SL Q5MIN PRN PRN Reason: Chest Pain Ondansetron HCl (Zofran Odt) 4 mg PO Q6H PRN PRN Reason: Nausea/Vomiting Last Admin: 11/29/17 08:05 Dose: 4 mg Ondansetron HCl (Zofran) 4 mg IVP Q6H PRN PRN Reason: Nausea/Vomiting Pregabalin (Lyrica) 75 mg PO HS [facility] Last Admin: 11/28/17 22:41 Dose: 75 mg Rosuvastatin Calcium (Crestor) 40 mg PO HS [facility] Last Admin: 11/28/17 22:40 Dose: 40 mg Senna (Senokot) 2 tab PO HSPRN PRN PRN Reason: Constipation Sertraline HCl (Zoloft) 100 mg PO DAILY [facility] Last Admin: 11/29/17 08:05 Dose: 100 mg Sodium Chloride (Flush - Normal Saline) 10 ml IVF Q12HR [facility] Last Admin: 11/29/17 08:14 Dose: Not Given Sodium Chloride (Flush - Normal Saline) 10 ml IVF PRN PRN PRN Reason: Saline Flush Trazodone HCl (Desyrel) 100 mg PO HS [facility] Last Admin: 11/28/17 22:40 Dose: 100 mg
[2017-11-29] MEDS: Insulin Regular 300 UNITS/3 ML VIAL SC PRN (20:43)
[2017-11-29] MEDS: traZODone HCl 50 MG TAB PO SCH (20:43)
[2017-11-29] MEDS: Rosuvastatin 20 MG TAB PO SCH (20:44)
[2017-11-29] MEDS: DULoxetine 30 MG CAP PO SCH (20:44)
[2017-11-29] MEDS: Pregabalin 75 MG CAP PO SCH (20:53)
[2017-11-30] MEDS: Insulin Regular 300 UNITS/3 ML VIAL SC PRN ×2 (05:37→12:20)
[2017-11-30] MEDS: Mometasone/Formoterol 120 PUFF INHALER INH SCH (07:04)
[2017-11-30 07:26] VITALS: TEMP 98.1
[2017-11-30] MEDS: Insulin Detemir 100 UNITS/ML 60 UNITS in Pre-Filled Syringe 1 EACH SC SCH (08:26)
[2017-11-30] MEDS: Heparin 5,000 UNITS/ML VIAL SC SCH (08:27)
[2017-11-30] MEDS: Carvedilol 25 MG TAB PO SCH (08:27)
[2017-11-30] MEDS: Bupropion 150 MG XL TAB PO SCH (08:27)
[2017-11-30] MEDS: Cyanocobalamin (Vitamin B-12) 1,000 MCG TAB PO SCH (08:27)
[2017-11-30] MEDS: Aspirin 325 MG TAB PO SCH (08:28)
[2017-11-30] MEDS: Docusate 100 MG CAP PO SCH (08:28)
[2017-11-30] MEDS: Famotidine 20 MG TAB PO SCH (08:28)
[2017-11-30 12:49] VITALS: BP 127/49
--- NOTE | 2017-11-30 13:59 | DIS ---
ATTENDING PHYSICIAN: Dr. Kory Luis DATE OF DISCHARGE: 11/30/2017 ADMITTING DIAGNOSIS: Generalized weakness. DISCHARGE DIAGNOSES: 1. Acute kidney injury on chronic kidney disease stage 3. 2. Type 2 diabetes mellitus. 3. Peripheral vascular disease. 4. Hypertension. 5. Chronic obstructive pulmonary disease exacerbation. 6. Obstructive sleep apnea. 7. Hypercalcemia. CONSULTANTS: Consultants involved on the care was Dr. Doug Lyles from Nephrology. HISTORY OF PRESENT ILLNESS: In brief, this is a 52-year-old white female who came into the hospital complaining of persistent weakness and lethargy with a known history of coronary artery disease, stat us post CABG, type 2 diabetes mellitus, hypertension, peripheral vascular disease, and status post le ft below knee amputation. The patient was recently discharged with a diagnosis of acute diastolic he art failure exacerbation with history of acute kidney injury secondary to excessive diuresis. The pa tient was unable to lift her leg into the car and felt generally weak and for this reason a Code Gree n was called and patient was brought to the ER. Initially her oxygenation was 88% and she was placed on 2 liters of nasal cannula and her creatinine was already creeping up at 2.2 and BUN of 81. So ba sically she was having worsening renal functions and the patient was admitted for further evaluation. The patient was seen by Dr. Lyles who initially had started her on some fluids until the creatinine w as improving. The patient showed very slow recovery and PT and OT have been seeing the patient. The patient also has history of congestive heart failure, diastolic dysfunction which was stable at this point. As the patient's renal function started improving, the patient was being evaluated for sendi ng her to a rehab. The patient had a baseline creatinine of 2.6 and that was on the day of the disch arge. She has chronic kidney disease which is slowly progressing to end-stage renal disease and has been closely monitored by Nephrology. After PT evaluation, it was suggested that the patient would b enefit from rehab placement, so she was discharged to inpatient rehabilitation. PHYSICAL EXAMINATION: On date of discharge: VITAL SIGNS: Blood pressures are 127/49, heart rate is 80 and saturations 98%. GENERAL: The patient is morbidly obese. She is alert and oriented x3. HEENT: Atraumatic, normocephalic, PERRLA. Extraocular movements were intact. CARDIOVASCULAR: S1, S2 normal. No murmurs, rubs or gallops. LUNGS: Bilateral air entry was equal. No wheezing, no crackles. ABDOMEN: Soft and nontender. No guarding, no rebound tenderness. EXTREMITIES: The patient has a left leg amputation and has a prosthesis intact. DISCHARGE MEDICATIONS: 1. Aspirin 325 mg p.o. daily. 2. Budesonide. 3. Bupropion 150 mg in the morning. 4. Coreg 12.5 mg twice a day. 5. Duloxetine, Cymbalta 30 mg at bedtime. 6. Insulin Glargine 80 units subcu b.i.d. 7. Isosorbide mononitrate 60 mg p.o. daily. 8. Nitroglycerin 0.4 mg sublingual as needed. 9. Prednisone 5 mg daily. 10. Pregabalin 75 mg p.o. daily. 11. Simvastatin 40 mg p.o. daily. 12. Sertraline 100 mg p.o. daily. 13. Trazodone 100 mg p.o. daily. DISCHARGE INSTRUCTIONS: Continue activity as tolerated at the rehab facility. Continue with a low s odium diet and follow a renal diet if possible. ACTIVITY: As tolerated. The patient is discharged to inpatient rehab. I spent 35 minutes with this patient on the day discharge.
--- NOTE | 2017-12-17 18:58 | EKG ---
Test Reason : Blood Pressure : / mmHG Vent. Rate : 083 BPM Atrial Rate : 083 BPM P-R Int : 166 ms QRS Dur : 152 ms QT Int : 414 ms P-R-T Axes : 061 071 110 degrees QTc Int : 486 ms Normal sinus rhythm Possible Left atrial enlargement Left bundle branch block Abnormal ECG Confirmed by COLLEEN DONALDSON, ZURI Vance ([id number]), school photograph editor KRYSTINA MOLINA ([id number]) on 12/17/2017 6:58:19 PM Referred By: Confirmed By:ZURI MACIAS MD
== END 2017-11-30 14:33 | DRG 682 ==
LOC: ERS 18:57 → 2NO 22:45 → T4-A 11-23 18:25
PROVIDERS: ADMIT Internal Medicine; ATTEND Internal Medicine
DX: N17.9 Acute kidney failure, unspecified (principal); E11.10 Type 2 diabetes mellitus with ketoacidosis without coma; I50.33 Acute on chronic diastolic (congestive) heart failure; E11.22 Type 2 diabetes mellitus with diabetic chronic kidney disease; E66.01 Morbid (severe) obesity due to excess calories; I25.810 Atherosclerosis of coronary artery bypass graft(s) without angina pectoris; E11.51 Type 2 diabetes mellitus with diabetic peripheral angiopathy without gangrene; J44.0 Chronic obstructive pulmonary disease with (acute) lower respiratory infection; J44.1 Chronic obstructive pulmonary disease with (acute) exacerbation; Z68.41 Body mass index [BMI] 40.0-44.9, adult; N39.0 Urinary tract infection, site not specified; I13.0 Hypertensive heart and chronic kidney disease with heart failure and stage 1 through stage 4 chronic kidney disease, or unspecified chronic kidney disease; E83.52 Hypercalcemia; G47.33 Obstructive sleep apnea (adult) (pediatric); Z95.1 Presence of aortocoronary bypass graft; Z89.512 Acquired absence of left leg below knee; Z98.42 Cataract extraction status, left eye; Z98.41 Cataract extraction status, right eye; Z87.891 Personal history of nicotine dependence; F41.8 Other specified anxiety disorders; D64.9 Anemia, unspecified; J20.9 Acute bronchitis, unspecified; Z79.4 Long term (current) use of insulin; R41.82 Altered mental status, unspecified; F12.11 Cannabis abuse, in remission; N18.3 Chronic kidney disease, stage 3 (moderate)
CPT/HCPCS: 36415; 36416; 71045; 80048; 81001; 82550; 82553; 84484; 85025; 87077; 87086; 87186; 93005; 94640; 94644; 94760; A4216; G8978-GP-CJ; G8978-GP-CM; G8979-GP-CI; G8979-GP-CK; G8987-GO-CJ; G8988-GO-CI; J1644; J1815; J7620; Q0162

== ENCOUNTER 2018-03-05 10:51 | Observation (INO) | payer BC ==
[2018-03-05 11:33] LABS: #Eosinphils 0.1 thou/uL (0.0-0.7); #Lymphocytes 1.1 thou/uL (1.20-3.40); #Monocytes 0.6 thou/uL (0.11-0.59); #Neutrophils 5.9 thou/uL (1.40-6.50); %Basophils 0.2 % (0.0-1.0); %Eosinophils 1.1 % (0.0-10.0); %Lymphocytes 13.8 % (21.0-51.0); %Neutrophils 76.9 % (42.0-75.0); Hemoglobin 10.3 g/dL (12.0-16.0); Mean Corpuscular HGB CONC 32.8 g/dL (32.0-36.0); Mean Corpuscular Hemoglobin 28.6 pg (27.0-31.0); Mean Corpuscular Volume 87.2 fl (81.0-99.0); Mean Platelet Volume 7.8 fL (7.4-10.4); Platelet Count 218 thou/uL (130-400); RBC Distribution Width 14.5 % (11.5-14.5); White Blood Cell (WBC) Count 7.6 thou/uL (4.8-10.8)
[2018-03-05 11:59] LABS: ALT (SGPT) 13 U/L (8-55); AST (SGOT) 19 U/L (5-34); Albumin 4.5 g/dL (3.5-5.0); Alkaline Phosphatase 91 U/L (40-150); Anion Gap 17 mmol/L (10-20); BUN (Urea Nitrogen) 37 mg/dL (9.8-20.1); Bilirubin, Total 0.5 mg/dL (0.2-1.2); CK (CPK) 163 U/L (29-168); Calc. Creatinine Clearance 0 mL/min (70-130); Calcium 9.6 mg/dL (7.8-10.44); Carbon Dioxide 25 mmol/L (22-29); Chloride 99 mmol/L (98-107); Estimated GFR-MDRD 22; Globulin 3.4 g/dL (2.4-3.5); Glucose 177 mg/dL (70-105); Lipase 30 U/L (8-78); Potassium 4.2 mmol/L (3.5-5.1); Protein, Total 7.9 g/dL (6.0-8.3); Sodium 137 mmol/L (136-145)
[2018-03-05 12:00] LABS: CKMB 4.8 ng/mL (0-6.6); Troponin I 0.013 ng/mL (< 0.028)
--- NOTE | 2018-03-05 13:24 | RAD ---
RADIOGRAPH CHEST 1 VIEW: Date: 03/05/18. Time: 10:33 a.m. HISTORY: A 52-year-old female with acute chest pain. COMPARISON: 11/18/17. FINDINGS: There is cardiomegaly. The sternotomy wires are again demonstrated. There is no consolidation or pn eumothorax. No janelle pulmonary alveolar edema. New finding of mild blunting of the right lateral co stophrenic angle. The ovoid opacity overlying the left lateral mid lung zone demonstrated on the gary or study, is no longer visualized. IMPRESSION: 1. Questionable small right pleural effusion. 2. Cardiomegaly without pulmonary edema. 3. Evidence for previous open heart surgery. FRANCO [] POS: [facility]
[2018-03-05] MEDS ORDERED: Dextrose 50% Abboject 50 ML SYRINGE SLOW IVP PRN (14:33)
[2018-03-05] MEDS ORDERED: Dextrose 5% in Water 1,000 ML IV PRN (14:33)
[2018-03-05] MEDS ORDERED: Acetaminophen 325 MG TAB PO PRN (14:38)
--- NOTE | 2018-03-05 14:44 | PDOC.EVN ---
Event Note - Event Note Event Note: H&P dictated #[id number]
[2018-03-05] MEDS ORDERED: PROVENTIL INHALER 6.7 G (200 INHALATIONS) INH PRN (14:45)
[2018-03-05] MEDS ORDERED: Nitroglycerin 0.4 MG TAB (25 Tab Bottle) ONE (16:35)
[2018-03-05 18:24] LABS: Troponin I 0.014 ng/mL (< 0.028)
[2018-03-05 20:17] LABS: Troponin I 0.013 ng/mL (< 0.028)
[2018-03-05] MEDS: Rosuvastatin 20 MG TAB PO SCH (20:23)
[2018-03-05] MEDS: Pregabalin 75 MG CAP PO SCH (20:24)
[2018-03-05] MEDS: Carvedilol 25 MG TAB PO SCH (20:25)
[2018-03-05] MEDS: DULoxetine 30 MG CAP PO SCH (20:26)
[2018-03-05] MEDS: traZODone HCl 50 MG TAB PO SCH (20:27)
[2018-03-05] MEDS ORDERED: Heparin 5,000 UNITS/ML VIAL SC SCH (21:00)
[2018-03-06 04:56] LABS: #Eosinphils 0.1 thou/uL (0.0-0.7); #Lymphocytes 1.1 thou/uL (1.20-3.40); #Monocytes 0.6 thou/uL (0.11-0.59); #Neutrophils 3.7 thou/uL (1.40-6.50); %Basophils 0.5 % (0.0-1.0); %Eosinophils 1.4 % (0.0-10.0); %Lymphocytes 19.6 % (21.0-51.0); %Monocytes 10.5 % (0.0-10.0); Hemoglobin 8.7 g/dL (12.0-16.0); Mean Corpuscular HGB CONC 32.2 g/dL (32.0-36.0); Mean Corpuscular Hemoglobin 28.2 pg (27.0-31.0); Mean Corpuscular Volume 87.4 fl (81.0-99.0); Mean Platelet Volume 7.9 fL (7.4-10.4); Platelet Count 202 thou/uL (130-400); RBC Distribution Width 14.5 % (11.5-14.5); Red Blood Cell (RBC) Count 3.09 mill/uL (4.20-5.40); White Blood Cell (WBC) Count 5.4 thou/uL (4.8-10.8)
[2018-03-06 05:18] LABS: Troponin I 0.012 ng/mL (< 0.028)
[2018-03-06 05:27] LABS: Anion Gap 14 mmol/L (10-20); BUN (Urea Nitrogen) 37 mg/dL (9.8-20.1); Calc. Creatinine Clearance 60 mL/min (70-130); Carbon Dioxide 25 mmol/L (22-29); Chloride 105 mmol/L (98-107); Estimated GFR-MDRD 24; Glucose 90 mg/dL (70-105); Potassium 3.8 mmol/L (3.5-5.1); Sodium 140 mmol/L (136-145)
[2018-03-06 06:10] VITALS: BMI 46.5
[2018-03-06] MEDS: Mometasone/Formoterol 120 PUFF INHALER INH SCH ×2 (07:30→19:00)
[2018-03-06 08:11] LABS: Iron 48 ug/dL (50-170); Iron Binding Capacity, Total 239 mcg/dL (265-497)
[2018-03-06] MEDS: Famotidine 20 MG TAB PO SCH (08:46)
[2018-03-06] MEDS: Bupropion 150 MG XL TAB PO SCH (08:46)
[2018-03-06] MEDS: Furosemide 40 MG TAB PO SCH ×2 (08:46→14:03)
[2018-03-06] MEDS: Carvedilol 25 MG TAB PO SCH ×2 (08:46→20:33)
[2018-03-06] MEDS ORDERED: Aspirin 325 MG TAB PO SCH ×2 (09:00)
--- NOTE | 2018-03-06 09:36 | PRG ---
DATE OF SERVICE: 03/06/2018 SUBJECTIVE: Ms. Angela is a 52-year-old white female with chronic renal failure and admitted for chest pain. She was also found to be in CHF. Her breathing is much better this morning. Please not e she was resumed back on her Lasix at a bigger dose of 40 mg IV q.12h. Her renal function is slightl y worsened from the last time when she was discharged. I feel that this is a reflection of the [facility] diuretic regimen. My plan is simply to observe this. PHYSICAL EXAMINATION: VITAL SIGNS: Blood pressure is 175/81 - before BP meds, heart rate 67, respiratory rate 12, temperat ure 97.9, pulse ox 98%. GENERAL: Awake, sitting comfortable, not in overt distress. SKIN: Adequate turgor. HEENT: She has slightly pale conjunctivae, anicteric sclerae. NECK: No neck mass, no carotid bruits, no JVD. CHEST: No deformities. LUNGS: Decreased breath sounds. HEART: Normal sinus rhythm. No murmur, no gallops, no rubs. ABDOMEN: Globular, soft, nontender. EXTREMITIES: Trace edema. MEDICATIONS: 03/06/2018 - Reviewed. LABORATORY: 03/06/2018 - White count 5.4, hemoglobin 8.7. Sodium 140, potassium 3.8, chloride 105, carbon dioxide 25, BUN 37, creatinine 2.13. BNP 261. Chest x-ray shows congestive heart failure. 03/05/2018 - Creatinine 2.29. ASSESSMENT AND PLAN: Chronic renal failure - slightly higher creatinine. My plan is simply to obse rve this. Continue current diuretic regimen. No changes to be made. No indication for any dialytic intervention. I did encourage the patient to follow up with the Renal Clinic. She has been so busy in the last several months that she was not able to do that. She has also failed to follow up with her customer service representative teller which I encouraged her to do the follow up. I agree with current management. Okay for possible discharge.
--- NOTE | 2018-03-06 09:39 | PDOC.EVN ---
Event Note - Event Note Event Note: DC SUMMARY #[id number]
[2018-03-06] MEDS ORDERED: Iron Dextran 500 MG in Sodium Chloride 0.9% 250 ML IVPB SCH (10:00)
[2018-03-06] MEDS: Sodium Ferric Gluconate 250 MG, Admixture Fee 1 EACH in Sodium Chloride 0.9% 250 ML 250 ML IVPB SCH ×2 (11:03→22:34)
--- NOTE | 2018-03-06 12:37 | CON ---
DATE OF CONSULTATION: 03/06/2018 REASON FOR CONSULTATION: Chest pain. HISTORY OF PRESENT ILLNESS: Ms. Fabio Angela is a pleasant 52-year-old woman with a history of co ronary artery disease, stage 4 renal failure, peripheral vascular disease, morbid obesity, anemia, br ought to the hospital with chest pain. Ms. Angela states that she had severe episodes of pain yesterday. The pain was in the middle of h er chest and went across her chest. It was ultimately relieved with nitroglycerin. Similar to previous anginal chest pain she has had before. Patient's cardiac enzymes were negative. She is currently pain free. PAST MEDICAL HISTORY: The patient has a history of coronary artery disease and underwent bypass surg alexsandra by Dr. Flower in 04/2012. She had bypass x3, internal mammary to the LAD, good conduit small targ et vein graft to a diagonal, good conduit small target saphenous vein graft to the posterior descendi ng artery, posterolateral branch too small for bypass, not a redo candidate due to diffusely diseased distal vessels. The patient did have what was a wound infection subsequently, which required debrid ement of the left thigh wound infection. The patient has had recurrent angina in the last year at [facility]. She underwent stress testing, which showed a small area of lateral ischemia. She also has severe peripheral vascular disease with exertional leg pain. She also has stage 4 renal failure. MEDICATIONS AT HOME: 1. Rosuvastatin 40 mg a day. 2. Aspirin 325 mg daily. 3. Insulin. 4. Carvedilol 12.5 mg twice a day. 5. Isosorbide 60 mg a day. 6. Potassium. 7. Furosemide 40 mg a day. 8. Iron orally. 9. Amlodipine 5 mg a day. ALLERGIES: TORSEMIDE is listed. SOCIAL HISTORY: No alcohol or tobacco. She is very inactive. She has also had left ighaa-kaqa-tarj tation due to vascular insufficiency. FAMILY HISTORY: Noncontributory. REVIEW OF SYSTEMS: Constitutional: Positive for weakness, fatigue. Vision: No changes. Hearing: No changes. Pulmonary: No cough or wheezing. Gastrointestinal: No nausea, vomiting, layla rrhea. Skin: No rashes. Neurologic: No unilateral weakness or numbness. Psychiatric: No unusual depression or anxiety. PHYSICAL EXAMINATION: GENERAL: She is a pleasant 52-year-old woman. VITAL SIGNS: Her blood pressure is 175/81 and pulse 67 and regular. She is 5 feet 3 inches tall, 26 3 pounds. BMI is 46.6. HEENT: Sclerae nonicteric. Mouth, mucous membranes moist. NECK: Veins are normal. LUNGS: Clear anteriorly and laterally. CARDIAC: Normal S1, normal S2. There is no murmur, rub, or gallop. ABDOMEN: Obese, nontender, no hepatosplenomegaly. EXTREMITIES: Warm, dry, no clubbing or cyanosis. She has a ckkgt-ndtt-ldcmudxdle on the left. Ther e is 1+ edema. PULSES: I do not feel a femoral pulse on the right. I do not feel popliteal pulses on the right or pedal pulses. The left, I do feel a faint left femoral pulse. PERTINENT LABORATORY AND X-RAY FINDINGS: Her creatinine is elevated at 2.13. Estimated GFR is 24. On , creatinine was 2.29 with an estimated GFR of 22. BNP 261. EKG: Sinus rhythm with a left bundle branch block. ASSESSMENT: 1. Status post coronary artery bypass grafting x3, 2011, as outlined above with diffusely diseased d istal vessels, not a reoperative candidate. 2. Morbid obesity, BMI is 46.6. 3. Stage 4 renal failure. 4. Anemia with a hemoglobin of 8.7, iron level 48, and a ferritin level of 68 despite oral iron. He moglobin 8.7. 5. Peripheral vascular disease, severe. Discussed with the patient she has multiple medical problems, which impact her prognosis as outlined above. Cardiac catheterization may be feasible from the left leg, although the risk of vascular comp lication is increase in this patient with severe peripheral vascular disease. In addition, the risk of renal failure resulting in dialysis is significant in case intervention is indicated, usually requ ires a significant amount of contrast. PLAN: 1. We will give her intravenous iron. 2. Discussed with Dr. Amezquita whether she may be a candidate for treating the peripheral disease w ith imaging with carbon dioxide. 3. Continue statins. 4. Continue blood pressure medicine. 5. We will follow with you. 6. We would recommend keeping her overnight for observation to make sure her pain is not going to re cur. Prognosis in this patient is guarded.
--- NOTE | 2018-03-06 13:09 | DIS ---
DATE OF ADMISSION: 03/05/2018 DATE OF DISCHARGE: 03/06/2018 ADMITTING DIAGNOSES: Chest discomfort, shortness of breath, acute kidney injury, chronic obstructive pulmonary disease, congestive heart failure, diabetes mellitus type 2, hypertension. DISCHARGE DIAGNOSES: 1. Chest discomfort, shortness of breath resolved. 2. Chronic obstructive pulmonary disease, stable. 3. Congestive heart failure, stable. 4. Hypertension, stable. 5. Diabetes mellitus type 2, stable. HOSPITAL COURSE: This is a 52-year-old female who was admitted for left-sided chest discomfort and m ild shortness of breath. The patient was admitted to the Internal Medicine team, followed very close ly by Cardiology and Nephrology as well. The patient was started on therapy for her shortness of nicole ath and admitted for chest pain. The patient stated that this shortness of breath has tremendously i mproved. At point at the time of discharge, the patient was chest pain free as well. The patient wa s cleared from an Internal Medicine and a renal perspective as well as a cardiac perspective for disc harge. The patient was to follow up in 2 weeks with her PCP, pension adviser and photography colorist for [facility] er management and care. The patient was advised to reduce her aspirin levels to 81 instead of 325. Case and plan discussed with the patient at length. She understands and agrees with this plan. DISPOSITION: Home. FOLLOWUP: Follow up with primary care physician, Renal and Cardiology in 2 weeks. MEDICATIONS: See MAR. DIET: Low fat, low calorie, high fiber diet. Weight loss highly advised considering BMI is at 47. Prognosis is guarded. CONDITION: Stable.
--- NOTE | 2018-03-06 14:57 | PDOC.PN ---
- Subjective Encounter Start Date: 03/06/18 Encounter Start Time: 14:56 Patient seen and examined, no new issues or concerns, all questions answered. - Objective Vital Signs & Weight: Vital Signs (12 hours) Temp Pulse Resp BP Pulse Ox 03/06/18 14:02 68 20 03/06/18 11:00 97.6 F 67 12 151/65 H 100 03/06/18 10:54 72 18 93 L 03/06/18 07:43 97.8 F 67 20 03/06/18 07:36 98 03/06/18 07:31 67 20 98 03/06/18 07:30 97.9 F 67 12 175/81 H 98 03/06/18 04:05 66 14 145/67 H 93 L Weight Weight 263 lb 1.6 oz I&O: 03/05/18 03/06/18 03/07/18 06:59 06:59 06:59 Intake Total 600 730 Output Total 500 900 Balance 100 -170 Result Diagrams: 03/06/18 04:06 03/06/18 04:05 Additional Labs: Accuchecks 03/06/18 03/05/18 03/05/18 11:10 20:39 16:43 POC Glucose 216 H 185 H 131 H Phys Exam - Physical Examination Constitutional: NAD HEENT: PERRLA, moist MMs, sclera anicteric Neck: no nodes, no JVD, supple Respiratory: no wheezing, no rales, no rhonchi, clear to auscultation bilateral Cardiovascular: RRR, no significant murmur, no rub Gastrointestinal: soft, non-tender, no distention Musculoskeletal: pulses present, edema present (trace) Neurological: non-focal, normal sensation Psychiatric: normal affect, A&O x 3 Dx/Plan (1) Iron deficiency anemia Code(s): D50.9 - IRON DEFICIENCY ANEMIA, UNSPECIFIED Status: Acute (2) Acute on chronic diastolic heart failure Code(s): I50.33 - ACUTE ON CHRONIC DIASTOLIC (CONGESTIVE) HEART FAILURE Status : Chronic Comment: Stable currently, EF 55%, Grade II/III diastolic dysfunction (3) CAD (coronary artery disease) Code(s): I25.10 - ATHSCL HEART DISEASE OF [place] CORONARY ARTERY W/O ANG PCTRS Status: Chronic Qualifiers: (4) DM type 2 (diabetes mellitus, type 2) Status: Chronic Qualifiers: Comment: Continue Levemir 60u sc BID, ISS (5) Obesity Code(s): E66.9 - OBESITY, UNSPECIFIED Status: Chronic - Plan * IV iron to be given * DC in AM post 2 doses of IV iron * continue all other medical management without changes * case and plan d/w patient at length, she understands and agrees with this plan
[2018-03-06] MEDS ORDERED: Mometasone/Formoterol 120 PUFF INHALER INH SCH (18:30)
[2018-03-06] MEDS: DULoxetine 30 MG CAP PO SCH (20:34)
[2018-03-06] MEDS: traZODone HCl 50 MG TAB PO SCH (20:34)
[2018-03-06] MEDS: Rosuvastatin 20 MG TAB PO SCH (20:35)
[2018-03-06] MEDS: Pregabalin 75 MG CAP PO SCH (20:36)
[2018-03-06] MEDS: HumaLOG 300 UNITS/3 ML VIAL SC PRN (20:46)
[2018-03-07 06:07] LABS: Anion Gap 13 mmol/L (10-20); BUN (Urea Nitrogen) 42 mg/dL (9.8-20.1); Calc. Creatinine Clearance 56 mL/min (70-130); Calcium 8.6 mg/dL (7.8-10.44); Carbon Dioxide 27 mmol/L (22-29); Chloride 103 mmol/L (98-107); Estimated GFR-MDRD 23; Glucose 204 mg/dL (70-105); Potassium 3.6 mmol/L (3.5-5.1); Sodium 139 mmol/L (136-145)
[2018-03-07] MEDS: Mometasone/Formoterol 120 PUFF INHALER INH SCH (06:34)
[2018-03-07] MEDS: HumaLOG 300 UNITS/3 ML VIAL SC PRN (06:35)
[2018-03-07] MEDS: Carvedilol 25 MG TAB PO SCH (07:51)
[2018-03-07] MEDS: Furosemide 40 MG TAB PO SCH ×2 (07:51→15:21)
[2018-03-07] MEDS: Bupropion 150 MG XL TAB PO SCH (07:52)
[2018-03-07] MEDS: Famotidine 20 MG TAB PO SCH (07:52)
--- NOTE | 2018-03-07 08:30 | PDOC.EVN ---
Event Note - Event Note Event Note: DC SUMMARY DATE CHANGED AND DICTATED ADDENDUM #[id number]
[2018-03-07] MEDS ORDERED: Aspirin 81 mg Enteric Coated Tablet PO SCH (09:00)
[2018-03-07] MEDS ORDERED: Epoetin (ESRD) 20,000 UNITS/ML SC SCH (09:00)
[2018-03-07] MEDS ORDERED: Amlodipine 5 MG TAB PO SCH (09:00)
[2018-03-07] MEDS ORDERED: Furosemide 20 MG/2 ML VIAL SLOW IVP SCH (09:15)
[2018-03-07] MEDS ORDERED: Potassium Chloride 20 MEQ TAB PO SCH (09:15)
--- NOTE | 2018-03-07 09:21 | HP ---
CHIEF COMPLAINT: Shortness of breath and back pain. HISTORY OF PRESENT ILLNESS: This is a 52-year-old female who was admitted to the internal medicine team by ER due to epigastric and back pain as well as shortness of breath. The patient states that the pain started about 2-3 days ago, it has kind of been there on and off for the past 2-3 months, but started to get progressively worse for the last 2-3 days, and the patient presented to the ER and does not have any alleviating or aggravating factors. No other associated complaints or issues. Denies any other complaints. States the pain is dull and throbbing, constant about 8/10 in nature but currently received pain medication and has gone down to 2/10. The patient has no other additional complaints or information. The patient was seen and examined in the ER and all questions answered. ALLERGIES: The patient admits allergies to TORSEMIDE and she states that she "bad reaction." Otherwise no known drug allergies. PAST MEDICAL HISTORY: Includes chronic kidney injury stage IV, diabetes mellitus type 2, coronary artery disease, peripheral vascular disease, hypertension, hyperlipidemia, obesity as well as anxiety. MEDICATIONS: See MAR. SOCIAL HISTORY: The patient quit smoking a few years back; however, smoked for 30 years a pack a day. Socially drinks. FAMILY HISTORY: Father and mother both had high blood pressure. Father had diabetes. REVIEW OF SYSTEMS: All systems reviewed, pertinent positives in HPi otherwise negative PHYSICAL EXAMINATION: VITAL SIGNS: Blood pressure 135/61, heart rate of 88, temperature of 98 degrees , respiratory rate of 12, O2 saturations 95% on room air. GENERAL: The patient is lying in bed comfortably, obese. HEENT: Pupils equal, round, reactive to light and accommodation. Extraocular muscles intact. Oral cavity, moist and pink. CARDIOVASCULAR: Regular rate and rhythm, S1, S2. No murmurs, rubs, or gallops appreciated. PULMONARY: Clear to auscultation bilaterally. Increased AP diameter. No respiratory distress. Aerating well. ABDOMINAL: Positive bowel sounds. Soft, nontender. No rebound or guarding noted. EXTREMITIES: Left lower extremity below-knee amputation. Peripheral pulses 2+ . Trace edema in left lower extremity. 1+ pitting edema in the right lower extremity. LABORATORY DATA: CBC shows no abnormalities except for hemoglobin which is 10.3. Basic metabolic panel normal excepting for sugars which were 177, creatinine 2.29 and BUN 37. ASSESSMENT: 1. Chest pain. 2. Diabetes mellitus type 2. 3. Chronic kidney disease stage 4. 4. Hypertension. 5. Heart failure. 6. Anxiety. 7. Epigastric pain. PLAN: At this point in time, we will admit the patient to telemetry observation. Consult Nephrology and Cardiology. The patient likely has significant renal disease given that she has had an amputation in her left lower extremity where majority is found. At this point in time, unclear etiology of her chest pain. We will trend troponins. Tele monitoring. Consult Cardiology. The patient sees Cardiology outpatient and so we will not order an echo at this point in time. We will await for Cardiology input. Back pain may be due to simple immobility or muscle spasm. We will provide the patient with Flexeril and follow up with recommendations of specialist. We would prefer getting a CT with contrast IV; however, given significantly decline in renal function. We will await to the patient wishes to remain a FULL CODE. Heparin and Pepcid for GI and DVT prophylaxis. Case and plan discussed with patient at length. She understands and agrees with this plan. RYAN
--- NOTE | 2018-03-07 09:39 | PRG ---
DATE OF SERVICE: 03/07/2018 SUBJECTIVE: Ms. Anegla is a 52-year-old white female who was initially admitted for chest pain/sh ortness of breath. She is feeling much better. Cardiology is following. She has received IV iron a s per recommendation by Cardiology. Her renal function is being followed up by the Renal Service and it is stable. No new complaints today. PHYSICAL EXAMINATION: VITAL SIGNS: Blood pressure is ranging from 136/60-181/73, heart rate 74, respiratory rate 12, and t emperature 98.6. GENERAL: Awake, sitting comfortable, not in overt distress. SKIN: Adequate turgor. HEENT: She has slightly pale conjunctivae, anicteric sclerae. NECK: No neck mass, no carotid bruits, no JVD. CHEST: No deformities. LUNGS: Clear breath sounds, no wheezing, no crackles. HEART: Normal sinus rhythm. No murmurs, no gallops, no rubs. ABDOMEN: Globular, soft, nontender, no masses. EXTREMITIES: No edema. MEDICATIONS: Medications of 03/07/2018 reviewed. LABORATORY DATA: Laboratories of 03/07/2018; sodium 139, potassium 3.6, chloride 103, carbon dioxide 27, BUN 42, creatinine 2.23, GFR 23 mL per minute, glucose 204, calcium 8.6. ASSESSMENT AND PLAN: 1. Chronic renal failure - stable renal function. Continue current management. Continue current di uretic regimen. There is no indication for any dialytic intervention. 2. Anemia status post iron infusion. We will go ahead and give patient Epogen 7,500 units subcutane ously every week. She may need this long-term. 3. Chest pain - resolved. Cardiology is following. Agree with current management.
[2018-03-07 12:45] VITALS: BP 124/54; TEMP 98.1
--- NOTE | 2018-03-07 13:05 | ADD-DIS ---
ADDENDUM TO DISCHARGE SUMMARY FROM 03/06/2018 "CHANGE THE DISCHARGE DATE TO 03/07/2018." The patient received 2 doses of IV iron yesterday and then the day of discharge.
== END 2018-03-07 16:47 | disposition home or self-care (01) ==
LOC: ERS 10:51 → 2SW 15:59
PROVIDERS: ADMIT Internal Medicine; ATTEND Internal Medicine
DX: R07.9 Chest pain, unspecified (principal); R10.13 Epigastric pain; R06.02 Shortness of breath; M54.9 Dorsalgia, unspecified; I25.10 Atherosclerotic heart disease of native coronary artery without angina pectoris; I13.0 Hypertensive heart and chronic kidney disease with heart failure and stage 1 through stage 4 chronic kidney disease, or unspecified chronic kidney disease; E11.22 Type 2 diabetes mellitus with diabetic chronic kidney disease; N18.4 Chronic kidney disease, stage 4 (severe); I50.9 Heart failure, unspecified; D63.1 Anemia in chronic kidney disease; E11.51 Type 2 diabetes mellitus with diabetic peripheral angiopathy without gangrene; E78.5 Hyperlipidemia, unspecified; F41.9 Anxiety disorder, unspecified; E66.01 Morbid (severe) obesity due to excess calories; Z68.42 Body mass index [BMI] 45.0-49.9, adult; Z88.8 Allergy status to other drugs, medicaments and biological substances; Z79.82 Long term (current) use of aspirin; Z79.4 Long term (current) use of insulin; Z79.899 Other long term (current) drug therapy; Z95.1 Presence of aortocoronary bypass graft; Z89.512 Acquired absence of left leg below knee; Z87.891 Personal history of nicotine dependence; Z82.49 Family history of ischemic heart disease and other diseases of the circulatory system; Z83.3 Family history of diabetes mellitus
CPT/HCPCS: 36415; 36416; 71045; 80048; 80053; 82553; 82728; 83540; 83550; 83690; 83880; 84484; 85025; 93005; 94640; 94760; 96365; 96366; 96374; 96375; G0378; J1644; J1940; J2916; J7050; J7620; Q4081

== ENCOUNTER 2018-06-28 11:52 | Observation (INO) | payer BC ==
[2018-06-28 13:45] VITALS: BMI 45.5
[2018-06-28] MEDS: Sodium Chloride 0.9% 1,000 ML IV SCH (15:41)
[2018-06-28] MEDS ORDERED: PROVENTIL INHALER 6.7 G (200 INHALATIONS) INH PRN (19:38)
[2018-06-28] MEDS ORDERED: Lorazepam 1 MG TAB PO PRN (19:47)
[2018-06-28] MEDS ORDERED: Nitroglycerin 0.4 MG TAB (25 Tab Bottle) SL PRN (19:47)
[2018-06-28 20:38] LABS: Anion Gap 12 mmol/L (10-20); BUN (Urea Nitrogen) 28 mg/dL (9.8-20.1); Calc. Creatinine Clearance 74 mL/min (70-130); Calcium 9.1 mg/dL (7.8-10.44); Carbon Dioxide 28 mmol/L (22-29); Chloride 105 mmol/L (98-107); Estimated GFR-MDRD 33; Glucose 154 mg/dL (70-105); Potassium 3.9 mmol/L (3.5-5.1); Sodium 141 mmol/L (136-145)
[2018-06-28] MEDS ORDERED: Rosuvastatin 20 MG TAB PO SCH (21:00)
[2018-06-28] MEDS ORDERED: Amlodipine 5 MG TAB PO SCH (21:00)
[2018-06-28] MEDS ORDERED: Pregabalin 75 MG CAP PO SCH (21:00)
[2018-06-28] MEDS ORDERED: DULoxetine 30 MG CAP PO SCH (21:00)
[2018-06-28] MEDS ORDERED: traZODone HCl 50 MG TAB PO SCH (21:00)
[2018-06-28] MEDS: Carvedilol 6.25 MG TAB PO SCH (21:02)
[2018-06-28] MEDS: Insulin Glargine 70 UNITS in Pre-Filled Syringe 1 EACH SC SCH (21:04)
[2018-06-29] MEDS: Sodium Chloride 0.9% 1,000 ML IV SCH (01:50)
[2018-06-29] MEDS ORDERED: Dextrose 50% Abboject 50 ML SYRINGE ONE (04:19)
[2018-06-29 05:11] LABS: Anion Gap 14 mmol/L (10-20); BUN (Urea Nitrogen) 27 mg/dL (9.8-20.1); Calc. Creatinine Clearance 80 mL/min (70-130); Calcium 9.3 mg/dL (7.8-10.44); Carbon Dioxide 24 mmol/L (22-29); Chloride 109 mmol/L (98-107); Estimated GFR-MDRD 36; Potassium 3.5 mmol/L (3.5-5.1); Sodium 143 mmol/L (136-145)
[2018-06-29 05:16] LABS: Glucose 43 mg/dL (70-105)
[2018-06-29] MEDS: Carvedilol 6.25 MG TAB PO SCH (05:32)
[2018-06-29] MEDS ORDERED: Mometasone/Formoterol 120 PUFF INHALER INH SCH (06:30)
[2018-06-29] MEDS ORDERED: Lidocaine 1% (PF) 30 ML VIAL ONE (06:33)
[2018-06-29] MEDS ORDERED: Heparin 10,000 UNITS/1 ML VIAL ONE (07:45)
[2018-06-29] MEDS ORDERED: hydrALAZINE 20 MG/ML VIAL ONE (07:45)
[2018-06-29] MEDS ORDERED: Midazolam HCl 2 mg/2 ml Vial ONE (08:14)
[2018-06-29] MEDS ORDERED: Fentanyl 100 MCG/2 ML VIAL ONE (08:14)
[2018-06-29] MEDS ORDERED: Sodium Chloride 0.9% 1,000 ML IV SCH (08:30)
[2018-06-29] MEDS ORDERED: Ferrous Sulfate 325 MG TAB PO SCH (09:00)
[2018-06-29] MEDS ORDERED: Bupropion 150 MG XL TAB PO SCH (09:00)
[2018-06-29] MEDS ORDERED: Aspirin 325 MG TAB PO SCH (09:00)
[2018-06-29] MEDS ORDERED: Iopamidol 370 76% 100 ML VIAL ONE (10:37)
[2018-06-29] MEDS ORDERED: Iopamidol 370 76% 50 ML VIAL FS ONE (10:37)
[2018-06-29] MEDS: Insulin Glargine 70 UNITS in Pre-Filled Syringe 1 EACH SC SCH (10:45)
[2018-06-29] MEDS ORDERED: Ondansetron HCl/PF 4 MG/2 ML Vial IVP SCH (13:00)
[2018-06-29 15:54] VITALS: BP 157/70; TEMP 97.6
--- NOTE | 2018-06-30 15:14 | EKG ---
Test Reason : POST CATH Blood Pressure : / mmHG Vent. Rate : 061 BPM Atrial Rate : 061 BPM P-R Int : 184 ms QRS Dur : 156 ms QT Int : 504 ms P-R-T Axes : 060 079 140 degrees QTc Int : 507 ms Normal sinus rhythm Left bundle branch block Abnormal ECG When compared with ECG of 05-MAR-2018 11:10, No significant change was found Confirmed by CARLTON DONALDSON, ELIANE ([id number]) on 06/30/2018 3:13:47 PM Referred By: CARLTON Confirmed By:ELIANE VINCENT MD
== END 2018-06-29 18:23 | disposition home or self-care (01) ==
LOC: 2SW 11:52 → EDSTATUS 06-29 13:26 → SCHINTOOBSV 06-29 13:45
PROVIDERS: ADMIT Internal Medicine Cardiovascular Disease; ATTEND Internal Medicine Cardiovascular Disease
PROC: B41F1ZZ Fluoroscopy of Right Lower Extremity Arteries using Low Osmolar Contrast (ICD-10-PCS; principal; 2018-06-29)
DX: I70.213 Atherosclerosis of native arteries of extremities with intermittent claudication, bilateral legs (principal); I10 Essential (primary) hypertension; E78.5 Hyperlipidemia, unspecified; E11.319 Type 2 diabetes mellitus with unspecified diabetic retinopathy without macular edema; F41.9 Anxiety disorder, unspecified; F32.9 Major depressive disorder, single episode, unspecified; I25.10 Atherosclerotic heart disease of native coronary artery without angina pectoris; E11.40 Type 2 diabetes mellitus with diabetic neuropathy, unspecified; Z87.891 Personal history of nicotine dependence; Z79.4 Long term (current) use of insulin; Z79.84 Long term (current) use of oral hypoglycemic drugs; Z79.899 Other long term (current) drug therapy; Z88.8 Allergy status to other drugs, medicaments and biological substances; Z95.1 Presence of aortocoronary bypass graft
CPT/HCPCS: 36247; 36415; 36416; 75630; 75710; 76942; 80048; 85347; 93005; 93010; 96361; 96374; 99152; C1760; C1769; C1887; G0378; J0360; J1644; J2001; J2250; J2405; J3010

== ENCOUNTER 2018-07-08 12:20 | Day surgery (SDC) | payer BC ==
[~2018-07-08 12:20] MED LIST: Fluorouracil 100 MG, EPINEPHrine 0.3 MG in Ophthalmic Irrigation Solution 500 ML IVPB SCH
[2018-07-08] MEDS ORDERED: Albuterol Sulfate 1.25 MG/3 ML NEB ONE (13:27)
[2018-07-08] MEDS ORDERED: Phenylephrine 2.5% Ophth Soln 5 ML BOT ONE (16:03)
[2018-07-08] MEDS ORDERED: Cyclopentolate 1% Opth Drop 2 ML BOT ONE (16:03)
--- NOTE | 2018-07-08 18:19 | OP ---
DATE OF PROCEDURE: 07/08/2018 PREOPERATIVE DIAGNOSIS: Tractional retinal detachment, left eye. POSTOPERATIVE DIAGNOSIS: Tractional retinal detachment, left eye. PROCEDURE: Pars plana vitrectomy and retinal detachment repair, left eye. SURGEON: Castillo Aviles M.D. ANESTHESIA: General endotracheal anesthesia. COMPLICATIONS: None. PROCEDURE IN DETAIL: The patient was identified in the preoperative holding area. Appropriate infor med consent for the planned surgical procedure on the left eye had been obtained. The patient was tr ansported to the operative suite. Appropriate cardiopulmonary monitoring established. General endot isabelle anesthesia was initiated. Retrobulbar block was placed. The patient was prepped and draped in the usual sterile manner for ophthalmic surgery on the left eye. Lid speculum was placed in the l eft eye. The 25-gauge trocars were placed on the conjunctiva and sclera supratemporally, inferotempo rally and supranasally. Infusion line was placed inferotemporally. Light pipe and vitreous cutter w ere inserted into the eye. Core vitrectomy was performed. Elevated posterior hyaloid face causing a tractional detachment temporally was identified. The posterior hyaloid face was peeled. The remain ing both attached and detached retina holes at the 5:30 and 2 o'clock positions were noted. Posterio r drain retinotomy was created superior to the nerve and complete air fluid exchange was performed wi th 10 minutes being allowed for fluid to drain posteriorly. A 360 laser was placed using endolaser d elivery device. Silicone oil was infused into the eye. Trocars were removed and sclerotomy was sutu red closed. Retrobulbar Kenalog and subconjunctival Ancef were placed. Atropine and antibiotic oint ment were placed and the eye was patched and shielded. The patient was taken to the postoperative re covery unit in good condition having suffered no immediate perioperative complications. DISCHARGE INSTRUCTIONS: The patient was instructed to keep patch and shield on, avoid lifting or marlin ding and follow up in the morning with Dr. Aviles.
== END 2018-07-08 17:50 | disposition home or self-care (01) ==
LOC: SDC 12:20
PROVIDERS: ATTEND Ophthalmology Retina Specialist
PROC: 08NF3ZZ Release Left Retina, Percutaneous Approach (ICD-10-PCS; principal; 2018-07-08)
PROC: 08T53ZZ Resection of Left Vitreous, Percutaneous Approach (ICD-10-PCS; principal; 2018-07-08)
DX: H33.42 Traction detachment of retina, left eye (principal)
CPT/HCPCS: 93005; 93010; C1814; J0171; J9190

== ENCOUNTER 2018-09-21 15:47 | Outpatient (CLI) | payer BC ==
--- NOTE | 2018-09-21 17:18 | RAD ---
TWO VIEW CHEST: 09/21/18 HISTORY: Shortness of breath. COMPARISON: 10/07/17. Mild cardiomegaly with postop sternotomy change. The lungs appear clear. No infiltrate. Vascular everardo ings are upper normal. IMPRESSION: Mild cardiomegaly. No acute lung process apparent. POS: [facility]
== END 2018-09-21 15:48 | disposition home or self-care (01) ==
LOC: BICRAD 15:47
PROVIDERS: ATTEND Internal Medicine
DX: I50.9 Heart failure, unspecified (principal); J06.9 Acute upper respiratory infection, unspecified; I20.9 Angina pectoris, unspecified; R06.02 Shortness of breath; R07.9 Chest pain, unspecified; R06.00 Dyspnea, unspecified; E11.9 Type 2 diabetes mellitus without complications; I51.7 Cardiomegaly; Z79.899 Other long term (current) drug therapy
CPT/HCPCS: 36415; 71046; 80053; 82550; 82553; 83036; 83880; 84443; 84484; 85025

== ENCOUNTER 2018-09-25 12:43 | Inpatient (IN) | payer BC ==
[2018-09-25 14:13] LABS: #Lymphocytes 0.6 thou/uL (1.20-3.40); #Monocytes 0.4 thou/uL (0.11-0.59); #Neutrophils 5.2 thou/uL (1.40-6.50); %Basophils 0.3 % (0.0-1.0); %Eosinophils 0.5 % (0.0-10.0); %Lymphocytes 10.2 % (21.0-51.0); %Monocytes 6.5 % (0.0-10.0); %Neutrophils 82.5 % (42.0-75.0); Hemoglobin 11.3 g/dL (12.0-16.0); Mean Corpuscular HGB CONC 30.3 g/dL (32.0-36.0); Mean Corpuscular Hemoglobin 28.7 pg (27.0-31.0); Mean Corpuscular Volume 94.5 fL (78.0-98.0); Mean Platelet Volume 9.7 fL (7.4-10.4); Platelet Count 148 thou/uL (130-400); RBC Distribution Width 16.5 % (11.5-14.5); Red Blood Cell (RBC) Count 3.95 mill/uL (4.20-5.40); White Blood Cell (WBC) Count 6.3 thou/uL (4.8-10.8)
[2018-09-25 14:33] LABS: ALT (SGPT) 104 U/L (8-55); AST (SGOT) 134 U/L (5-34); Albumin 3.8 g/dL (3.5-5.0); Alkaline Phosphatase 89 U/L (40-150); Anion Gap 15 mmol/L (10-20); BUN (Urea Nitrogen) 33 mg/dL (9.8-20.1); Bilirubin, Total 0.3 mg/dL (0.2-1.2); Calc. Creatinine Clearance 0 mL/min (70-130); Calcium 9.2 mg/dL (7.8-10.44); Carbon Dioxide 24 mmol/L (22-29); Chloride 100 mmol/L (98-107); Estimated GFR-MDRD 20; Glucose 352 mg/dL (70-105); Lipase 30 U/L (8-78); Potassium 4.7 mmol/L (3.5-5.1); Protein, Total 6.8 g/dL (6.0-8.3); Sodium 134 mmol/L (136-145)
[2018-09-25 14:33] LABS: Troponin I 0.022 ng/mL (< 0.028)
[2018-09-25 14:36] LABS: CKMB 52.9 ng/mL (0-6.6)
[2018-09-25] MEDS ORDERED: Insulin Regular 300 UNITS/3 ML VIAL ONE (15:12)
[2018-09-25] MEDS ORDERED: Furosemide 40 MG/4 ML VIAL ONE (15:39)
--- NOTE | 2018-09-25 15:42 | RAD ---
ONE VIEW CHEST: HISTORY: Pain and weakness. Recent fall. COMPARISON: 03/05/2018 and 09/21/2018 FINDINGS: There are sternotomy wires. The heart is enlarged. Pulmonary vessels and hilum are normal. Costoph renic angles are clear. No consolidation or mass. No pneumothorax or osseous abnormalities. IMPRESSION: Cardiomegaly without evidence of failure. POS: [facility]
[2018-09-25] MEDS ORDERED: Acetaminophen 325 MG TAB PO PRN (16:11)
[2018-09-25] MEDS ORDERED: HumaLOG 300 UNITS/3 ML VIAL SC PRN (16:11)
[2018-09-25] MEDS ORDERED: Dextrose 50% Abboject 50 ML SYRINGE SLOW IVP PRN (16:11)
[2018-09-25] MEDS ORDERED: Dextrose 5% in Water 1,000 ML IV PRN (16:11)
[2018-09-25] MEDS ORDERED: INSULIN GLARGINE SC SCH (16:15)
--- NOTE | 2018-09-25 16:58 | HP ---
DATE OF ADMISSION: 09/25/2018 PRIMARY CARE PROVIDER: Clarice Linares M.D. CHIEF COMPLAINT: Shortness of breath. HISTORY OF PRESENT ILLNESS: Ms. Angela is a pleasant 53-year-old lady who was seen at [facility] on 09/25/2018. She reports that over the last 1-1/2 to 2 weeks, she has had progressively worsening shortness of breath. She reports orthopnea, but denies paroxysmal nocturnal dyspnea. She endorses shortness of breath on exertion. She reports occasional cough that is nonproductive. She denies any fevers or chills. She reports occasional chest discomfort, but is unable to describe it further. She reports that she has been having abdominal swelling as well as lower extremity swelling on the right side. She reports that today, she has been unable to stand up or walk. She was seen by her primary care provider about 4 days ago and her furosemide dose was increased from 40 mg daily to 40 mg 2 times a day. She also had blood work done recently and was contacted by her primary care provider to go to the emergency room because of abnormal labs. The patient reports that her skin on the right lower extremity has been feeling tense, with worsening swelling over the last few days. She also reports that her abdominal girth has been increasing significantly. REVIEW OF SYSTEMS: All other systems reviewed and found to be negative. PAST MEDICAL HISTORY: Diabetes mellitus, coronary artery disease, hypertension , depression, dyslipidemia, obesity, diabetic neuropathy, retinopathy and nephropathy, chronic venous insufficiency, chronic kidney disease stage 4. PAST SURGICAL HISTORY: Coronary artery bypass graft surgery, left below knee amputation, left eye surgery and cataract surgery. PSYCHIATRIC HISTORY: Depression. SOCIAL HISTORY: The patient drinks alcohol occasionally. She denies tobacco use and recreational drug use. ALLERGIES: TORSEMIDE. CURRENT MEDICATIONS: ProAir HFA 2 puffs every 4 hours as needed, amlodipine 5 mg daily, Lantus 70 units subcutaneously 2 times a day, Coreg 12.5 mg daily, aspirin 325 mg daily, trazodone 100 mg daily, furosemide 40 mg 2 times a day, duloxetine 30 mg daily, Humulin R by sliding scale, isosorbide mononitrate 30 mg daily, Symbicort 160/4.5 mcg 1-2 puffs 2 times a day, nitroglycerin p.r.n., MiraLax p.r.n., Lyrica 150 mg at bedtime, Crestor 40 mg at bedtime and lorazepam 0.5 mg daily as needed for anxiety. FAMILY HISTORY: No family history of premature coronary artery disease. PHYSICAL EXAMINATION: GENERAL: Ms. Angela is awake and alert, in moderate distress. She is obese. VITAL SIGNS: Blood pressure is 126/78, pulse 69, respiratory rate 18 and oxygen saturation 96% on room air. She is afebrile. EYES: No scleral icterus. No conjunctival pallor. ENT: Moist mucosal membranes. No oropharyngeal erythema or exudates. NECK: Supple, nontender, trachea is midline, she has jugular venous distention. RESPIRATORY: Accessory muscles of breathing are active. Chest wall movements are symmetric bilaterally. LUNGS: Reveals a few bibasilar crackles. CARDIOVASCULAR: S1 and S2 are heard, regular. Peripheral pulses palpable. No carotid bruit, no pericardial rub. ABDOMEN: Soft, distended, nontender, bowel sounds heard, no hepatomegaly, no splenomegaly. NEUROLOGIC: Cranial nerves II-XII intact. MUSCULOSKELETAL: She is status post left below knee amputation. SKIN: No rashes or subcutaneous nodules. She has 2+ pitting edema over the right lower extremity. LYMPHATIC: No cervical lymphadenopathy. PSYCHIATRIC: The patient appears anxious, oriented to person, place and time. LABORATORY DATA: Ms. Angela' labs and investigations were reviewed. I reviewed her electrocardiogram, which shows normal sinus rhythm, no ST changes to suggest an acute coronary syndrome. I also reviewed her chest x-ray, which shows clear lungs and cardiomegaly. She has a normal white count, normocytic anemia with hemoglobin 11.3, normal platelet count, decreased sodium of 134, elevated blood urea nitrogen of 33, elevated creatinine 2.57, last known creatinine 2.14 on 09/21/2018, normal troponin I, but elevated CK-MB of 52.9, elevated AST of 134, elevated ALT of 104, elevated BNP of 416.5 and normal lipase. ASSESSMENT AND PLAN: Ms. Angela is a pleasant 53-year-old lady who was seen at [facility] on 09/25/2018. Her problem list includes: 1. Congestive heart failure exacerbation: Ms. Angela is presenting with congestive heart failure exacerbation. She has known history of diastolic congestive heart failure. She will be admitted to the hospital for further management. She will be treated with intravenous furosemide, which she has used in the past without any problem. Cardiology service will be consulted for opinion and help with management. 2. Acute on chronic renal failure stage 4: The patient will receive intravenous diuretics, therefore her electrolytes and creatinine will be closely monitored. Nephrology service will be consulted for opinion and help with management. 3. Diabetes mellitus type 2: We will start the patient on Accu-Cheks and insulin sliding scale. 4. Hypertension: We will resume the patient's antihypertensives, monitor vital signs and titrate antihypertensives as needed. 5. Dyslipidemia: We will continue statin. 6. Coronary artery disease: The patient reports occasional chest discomfort, but is unable to characterize it further. We will await Cardiology evaluation. Many thanks for allowing me to participate in your patient's care. Please feel free to contact me with any questions or concerns. LEVEL OF RISK: High. LEVEL OF COMPLEXITY: High. MTDD
[2018-09-25] MEDS ORDERED: Albumin 25% 25 GM/100 ML BOT IVPB SCH (18:00)
[2018-09-25] MEDS ORDERED: Heparin 5,000 UNITS/ML VIAL SC SCH ×2 (21:00→21:45)
--- NOTE | 2018-09-26 00:44 | CON ---
DATE OF CONSULTATION: 09/25/2018 HISTORY OF PRESENT ILLNESS: Ms. Angela is a 53-year-old white female, followed by the Renal Service for her chronic renal failure. She was admitted due to shortness of breath. She was seen by her PCP. She was complaining of progressive shortness of breath with leg edema. For that reason, her diuretics have been increased; however, shortness of breath remains unimproved. Of interest, this patient also has known history of COPD. REVIEW OF SYSTEMS: Positive for shortness of breath. Positive for leg edema. No nausea, no vomiting, no chest pain, no syncopal episode, no productive cough. No fever or chills. No gross hematuria, no dysuria, no urinary frequency, no hematochezia, no melena. Appetite and energy level are decreased. No diplopia, no headache, no sore throat. CURRENT MEDICATIONS: ProAir 2 puffs every 4 hours as needed, amlodipine 5 mg tab once a day, Lantus 70 units subcu b.i.d., Coreg 12.5 mg daily, aspirin 325 mg once a day, trazodone 100 mg at bedtime, furosemide 40 mg tab b.i.d., duloxetine 30 mg daily, Humulin R sliding scale, isosorbide mononitrate 30 mg daily, Symbicort 1-2 puffs b.i.d., nitroglycerin p.r.n., Lyrica 150 mg at bedtime, Crestor 40 mg at bedtime, lorazepam one mg p.r.n. PAST MEDICAL HISTORY: 1. Chronic renal failure from diabetic nephropathy. 2. Chronic obstructive pulmonary disease. 3. Type 2 diabetes mellitus. 4. Hypertension. 5. Status post congestive heart failure. 6. Diabetic neuropathy. 7. Hyperlipidemia. 8. History of anxiety. 9. Depression. 10. Insomnia. PAST SURGICAL HISTORY: 1. The patient has history of cardiac catheterization. 2. Status post left BKA. 2. Status post cataract surgery. 3. Status post CABG. 4. Status post laser therapy for diabetic retinopathy. 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 4 siblings. Education, high school. Alcohol, rarely. Smoked for 25 years, 1 pack a day. and lives in [place]. Sedentary lifestyle. FAMILY HISTORY: No family history of ESRD. ALLERGIES: None. TRAUMA: None. IMMUNIZATIONS: Up-to-date. HOSPITALIZATIONS: Please see past medical history. PHYSICAL EXAMINATION: VITAL SIGNS: Blood pressure 126/78, heart rate 69, respiratory rate 18, O2 sat 96% on room air. GENERAL: The patient is awake, comfortable, obese, not in distress. SKIN: Adequate turgor. HEENT: She has a pinkish conjunctivae, anicteric sclerae. NECK: No neck mass, no carotid bruits, no JVD. CHEST: No deformities. LUNGS: Decreased breath sounds. No wheezing. HEART: Normal sinus rhythm. No murmur, no gallops, no rubs. ABDOMEN: Globular, soft, nontender. No masses. EXTREMITIES: Right leg edema. Left leg, status post BKA. NEUROLOGIC: Moving all extremities. No tremors, no asterixis, no ataxia. LABORATORY DATA: Laboratories of 09/25/2018, white count 6.3, hemoglobin 11.3, sodium 134, potassium 4.7, chloride 100, carbon dioxide 24, BUN 33, creatinine 2.57, glucose 352, AST 134, ALT 104, albumin is 3.8. Further review of the serum creatinine shows the followin09/21/2018 creatinine was 2.14. 08/31/2018 creatinine was 1.94. 07/27/2018 creatinine was 1.79. IMAGING: Chest x-ray, no overt CHF. ASSESSMENT AND PLAN: 1. Shortness of breath, multifactorial etiology. This could be early congestive heart failure versus chronic obstructive pulmonary disease exacerbation. Agree with planned diuretic regimen with this patient. I would at least start her on albumin infusion to 25 grams IV q.6. hours. Currently on furosemide 40 mg IV q.12 hours. We will also consider neb treatment q.i.d. 2. Acute Kidney Injury/ CRF - No indication for any dialytic intervention. It is possible she may have superimposed hemodynamically mediated renal dysfunction to explain the worsening creatinine. She has had increased dose of diuretics in the recent past. Agree with supportive care; as previously mentioned will start albumin infusion. MTDD
[2018-09-26] MEDS ORDERED: Dextrose 5% in Water 1,000 ML IV PRN (05:17)
[2018-09-26] MEDS: Furosemide 40 MG/4 ML VIAL SLOW IVP SCH ×2 (05:32→15:14)
[2018-09-26] MEDS: Albumin 25% 25 GM/100 ML BOT IVPB SCH ×4 (05:33→22:26)
[2018-09-26] MEDS ORDERED: Furosemide 40 MG/4 ML VIAL SLOW IVP SCH (06:00)
[2018-09-26] MEDS ORDERED: Lorazepam 1 MG TAB PO PRN (08:17)
[2018-09-26] MEDS ORDERED: Non-Formulary Item 1 EACH (Albuterol Sulfate Hfa (Or) 2 PUFF) INH PRN (08:17)
[2018-09-26] MEDS ORDERED: Nitroglycerin 0.4 MG TAB (25 Tab Bottle) SL PRN (08:17)
--- NOTE | 2018-09-26 08:58 | PRG ---
DATE OF SERVICE: 09/26/2018 SUBJECTIVE: Ms. 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 The shortness of breath is thought to be secondary to congestive heart failure/chronic obstructive pulmonary disease exacerbation. She is ge tting neb treatment as well as diuresis. She is breathing better this morning. PHYSICAL EXAMINATION: VITAL SIGNS: Blood pressure is 126/60, heart rate 68, respiratory rate 18, temperature 99.9, O2 sat 94% on room air. GENERAL: Awake, alert, comfortable, obese, not in distress. SKIN: Adequate turgor. HEENT: She has pinkish conjunctivae, anicteric sclerae. NECK: No neck mass, no carotid bruits, no JVD. CHEST: No deformities. LUNGS: Decreased breath sounds. No wheezing. HEART: Normal sinus rhythm. No murmur, no gallops, no rubs. ABDOMEN: Globular, soft, nontender, no masses. EXTREMITIES: No edema. Status post left BKA. MEDICATIONS: 09/26/2018 - Reviewed. LABORATORY: 09/26/2018 - Glucose 153, base met pending. BNP 416. Chest x-ray of 09/25/2018 showed cardiomegaly without evidence of failure. ASSESSMENT AND PLAN: 1. Shortness of breath, multifactorial etiology. Consider chronic obstructive pulmonary disease exa cerbation and/or mild congestive heart failure. Continue judicious use of diuretics. The patient patel s been started on albumin infusion. 2. Chronic renal failure/acute kidney injury. Awaiting repeat base met. Agree with judicious use o f diuretics. Albumin infusion has been done at the same time. There is no indication for any dialyt ic intervention.
[2018-09-26] MEDS ORDERED: Non-Formulary Item 1 EACH (Budesonide-Formoterol [Symbicort 160-4.5] 2 PUFF) INH SCH (09:00)
[2018-09-26] MEDS ORDERED: Non-Formulary Item 1 EACH (Insulin Glargine,Hum.Rec.Anlog [Lantus Solostar] 70 UNIT) SQ SCH (09:00)
[2018-09-26 09:11] LABS: Anion Gap 13 mmol/L (10-20); BUN (Urea Nitrogen) 31 mg/dL (9.8-20.1); Calc. Creatinine Clearance 51 mL/min (70-130); Calcium 9.6 mg/dL (7.8-10.44); Carbon Dioxide 29 mmol/L (22-29); Chloride 101 mmol/L (98-107); Estimated GFR-MDRD 20; Glucose 145 mg/dL (70-105); Potassium 3.6 mmol/L (3.5-5.1); Sodium 139 mmol/L (136-145)
[2018-09-26 09:12] LABS: #Lymphocytes 0.9 thou/uL (1.20-3.40); #Monocytes 0.5 thou/uL (0.11-0.59); #Neutrophils 4.1 thou/uL (1.40-6.50); %Basophils 0.3 % (0.0-1.0); %Eosinophils 0.8 % (0.0-10.0); %Lymphocytes 15.6 % (21.0-51.0); %Monocytes 8.9 % (0.0-10.0); %Neutrophils 74.4 % (42.0-75.0); Hemoglobin 10.5 g/dL (12.0-16.0); Mean Corpuscular HGB CONC 30.2 g/dL (32.0-36.0); Mean Corpuscular Hemoglobin 28.2 pg (27.0-31.0); Mean Corpuscular Volume 93.4 fL (78.0-98.0); Mean Platelet Volume 9.2 fL (7.4-10.4); Platelet Count 147 thou/uL (130-400); RBC Distribution Width 16.4 % (11.5-14.5); Red Blood Cell (RBC) Count 3.71 mill/uL (4.20-5.40); White Blood Cell (WBC) Count 5.5 thou/uL (4.8-10.8)
[2018-09-26] MEDS ORDERED: PROVENTIL INHALER 6.7 G (200 INHALATIONS) INH PRN (09:28)
[2018-09-26 09:31] LABS: Troponin I 0.041 ng/mL (< 0.028)
[2018-09-26] MEDS: Heparin 5,000 UNITS/ML VIAL SC SCH ×3 (10:16→20:36)
[2018-09-26] MEDS: Insulin Glargine 70 UNITS in Pre-Filled Syringe 1 EACH SC SCH ×2 (10:16→20:36)
[2018-09-26] MEDS: Aspirin 325 MG TAB PO SCH (10:18)
[2018-09-26] MEDS: Carvedilol 25 MG TAB PO SCH ×2 (10:19→20:36)
[2018-09-26] MEDS: Ferrous Sulfate 325 MG TAB PO SCH (10:19)
--- NOTE | 2018-09-26 11:19 | CON ---
DATE OF CONSULTATION: 09/26/2018 REASON FOR CONSULTATION: Congestive heart failure and angina. HISTORY OF PRESENT ILLNESS: Ms. Fabio Angela is a 53-year-old woman with multiple medical problem s including previous coronary artery bypass grafting, diastolic heart failure, peripheral vascular di sease, morbid obesity, diabetes, hypercholesterolemia. Ms. Angela was admitted to the hospital primarily with difficulty breathing. She has received int ravenous furosemide and is having some response. Her breathing is better, but she is intermittently having chest pressure, requiring nitroglycerin. PAST MEDICAL HISTORY: She has a history of peripheral vascular disease. She had an arteriogram done by Dr. Amezquita. The patient tells me that there was some consideration from trying to do an inter vention on the lower extremity, starting from the foot and going up, but that has not been done due t o her other medical problems. The patient, as mentioned, has multiple medical problems. PAST SURGICAL HISTORY: She has a history amputation of the lower extremity on the left due to vascul ar disease. She has a history of coronary artery bypass grafting by Dr. Flower in 04/2012. She had b ypass x3, internal mammary to the LAD, good conduit, small target; vein graft to the diagonal, good c onduit, small target; saphenous vein graft to posterior descending artery; posterolateral branch too small to bypass. Not a redo candidate due to diffusely diseased vessels. She had a wound infection, subsequently requiring debridement. Also, the left eye infection. She has been having angina for a t least the last year, but has not undergone cardiac catheterization due to multiple problems includi ng heart failure, renal insufficiency, morbid obesity, and stage 4 renal failure. Stress test only s howed a small area of lateral ischemia. Did not appear that the risk would be justified. ALLERGIES: TORSEMIDE that she lists. I am not sure that is a true allergy. SOCIAL HISTORY: No tobacco. She is disabled. CURRENT MEDICATIONS: 1. She is on intravenous furosemide. 2. She is on albumin. 3. Amlodipine. 4. Carvedilol. 5. Heparin. 6. Rosuvastatin. REVIEW OF SYSTEMS: Constitutional: No significant weight gain or loss. She is extremely overweight . Chest: Intermittent angina. Pulmonary: No cough or wheezing. She is short of breath and is ort hopneic. Gastrointestinal: No nausea, vomiting, diarrhea. Skin: No rashes. Neurologic: No unila teral weakness or numbness. Psychiatric: No unusual depression or anxiety. PHYSICAL EXAMINATION: GENERAL: It is a pleasant woman. She is comfortably sitting at about 30 degrees, but she cannot lie flat. VITAL SIGNS: Blood pressure 127/58, pulse 70 and regular. HEENT: Eyes, sclerae nonicteric. Mouth, mucous membranes moist. NECK: Supple, no lymphadenopathy. LUNGS: Clear, no wheezing, rales, or rhonchi. CARDIAC: Normal S1, normal S2. There is no murmur, rub, or gallop. ABDOMEN: Obese, nontender, no hepatosplenomegaly. EXTREMITIES: She has had an amputation in the left lower extremity. The right side has moderate lynnette ma. PULSES: I do not feel a femoral pulse on the left. I do feel a femoral pulse on the right. I do no t feel popliteal pulses. LABORATORY AND X-RAY FINDINGS: EKG, sinus rhythm, nonspecific intraventricular conduction delay. He r creatinine is 2.49. Estimated GFR is 20, which corresponds to stage 4 renal failure. ASSESSMENT: 1. Diastolic heart failure. 2. Stage 4 renal failure. 3. Diabetes. 4. Peripheral vascular disease. 5. Previous bypass. PLAN: 1. Continue diuretic therapy. 2. We will have to carefully weigh out the risk and benefits of cardiac catheterization. She has patel d a significant risk of renal failure with contrast exposure. Also, has mentioned that she has diffu sely diseased distal vessels. Therefore, it is unclear how much benefit there would be in catheteriz ation. 3. We have discussed with her about the importance of weight loss. She has not really been able to do this successfully. Long-term prognosis is likely poor. Hopefully, it can at least improve her he art failure status at the present time.
--- NOTE | 2018-09-26 14:40 | PDOC.PN ---
- Subjective Encounter Start Date: 09/26/18 Encounter Start Time: 08:20 Pt seen for followup re: CHF exacerbation. Reports on and off chest pain. No fevers. - Objective MAR Reviewed: Yes Vital Signs & Weight: Vital Signs (12 hours) Temp Pulse Resp BP Pulse Ox 09/26/18 14:05 89 L 09/26/18 14:01 89 16 09/26/18 12:00 98.5 F 68 18 131/56 L 96 09/26/18 08:52 99.8 F H 70 18 127/58 L 94 L 09/26/18 07:43 65 16 94 L 09/26/18 04:00 99.9 F H 68 18 126/60 92 L Weight Weight 268 lb 11.2 oz I&O: 09/25/18 09/26/18 09/27/18 06:59 06:59 06:59 Intake Total 270 Output Total 3450 Balance -3180 Result Diagrams: 09/26/18 08:45 09/26/18 08:45 Additional Labs: Accuchecks 09/26/18 09/26/18 09/26/18 11:12 08:44 05:51 POC Glucose 227 H 145 H 153 H EKG Reviewed by me: Yes (Tele: NSR) Phys Exam - Physical Examination Morbid obesity HEENT: moist MMs, sclera anicteric, oral pharynx no lesions, 2+ tonsils Neck: no nodes, supple, full ROM JVD+ Respiratory: no wheezing, no rhonchi David crackles Cardiovascular: RRR, no rub S1, s2 Gastrointestinal: soft, non-tender, positive bowel sounds distended Musculoskeletal: edema present s/p L BKA Neurological: moves all 4 limbs Psychiatric: normal affect, A&O x 3 Dx/Plan (1) Acute on chronic diastolic ACC/AHA stage C congestive heart failure Code(s): I50.33 - ACUTE ON CHRONIC DIASTOLIC (CONGESTIVE) HEART FAILURE Status : Acute Comment: NYHA Class 3. Continue IV furosemide. (2) Acute worsening of stage 3 chronic kidney disease Code(s): N18.3 - CHRONIC KIDNEY DISEASE, STAGE 3 (MODERATE) Status: Acute Comment: pt started on albumin infusion (3) Type II diabetes mellitus with neurological manifestations, uncontrolled Code(s): E11.49 - TYPE 2 DIABETES W OTH DIABETIC NEUROLOGICAL COMPLICATION; E11.65 - TYPE 2 DIABETES MELLITUS WITH HYPERGLYCEMIA Status: Chronic Comment : continue accuchecks, insulin sliding scale (4) Dyslipidemia Code(s): E78.5 - HYPERLIPIDEMIA, UNSPECIFIED Status: Chronic Comment: continue statin - Plan * . Review of Systems - Review of Systems Constitutional: negative: fever, chills, sweats, weakness, malaise Respiratory: SOB with Excertion. negative: Cough, Shortness of Breath, Pleuritic Pain, Wheezing Cardiovascular: chest pain, edema. negative: palpitations, orthopnea, paroxysmal nocturnal dyspnea, light headedness Gastrointestinal: negative: Nausea, Vomiting, Abdominal Pain, Diarrhea, Constipation, Melena, Hematochezia Genitourinary: negative: Dysuria, Frequency, Incontinence, Hematuria, Retention Skin: negative: Rash, Lesions, Kevin, Bruising - Medications/Allergies Allergies/Adverse Reactions: Allergies Allergy/AdvReac Type Severity Reaction Status Date / Time torsemide Allergy Verified 03/05/18 16:55 Medications: Current Medications Acetaminophen (Tylenol) 650 mg PO Q4H PRN PRN Reason: Headache/Fever/Mild Pain (1-3) Albumin Human (Albumin 25%) 25 gm IVPB 0500,1100,1700,2300 [facility] Stop: 09/28/18 17:01 Last Admin: 09/26/18 12:08 Dose: 25 gm Albuterol Sulfate (Proventil Hfa) 2 puff INH Q4H PRN PRN Reason: SOB &/or Wheezing Albuterol/Ipratropium (Duoneb) 3 ml EZPAP [id number] [facility] Last Admin: 09/26/18 14:01 Dose: 3 ml Amlodipine Besylate (Norvasc) 5 mg PO QPM [facility] Aspirin (Aspirin) 325 mg PO DAILY [facility] Last Admin: 09/26/18 10:18 Dose: 325 mg Carvedilol (Coreg) 12.5 mg PO BID [facility] Last Admin: 09/26/18 10:19 Dose: 12.5 mg Dextrose/Water (Dextrose 50%) 25 gm SLOW IVP PRN PRN PRN Reason: Hypoglycemia Ferrous Sulfate (Feosol) 325 mg PO DAILY [facility] Last Admin: 09/26/18 10:19 Dose: 325 mg Furosemide (Lasix) 40 mg SLOW IVP 0600,1400 [facility] Last Admin: 09/26/18 05:32 Dose: 40 mg Glucagon (Glucagon) 1 mg IM PRN PRN PRN Reason: Hypoglycemia Heparin Sodium (Porcine) (Heparin) 5,000 units SC TID [facility] Last Admin: 09/26/18 10:16 Dose: 5,000 units Dextrose/Water (D5w) 1,000 mls @ 0 mls/hr IV .Q0M PRN PRN Reason: Hypoglycemia Insulin Glargine 70 units/ (Miscellaneous Medication) 0.7 mls @ 0 mls/hr SC BID [facility] Last Admin: 09/26/18 10:16 Dose: 0.7 mls Insulin Human Lispro (Humalog) 0 units SC .MILD SLIDING SCALE PRN PRN Reason: Mild Correctional Scale Isosorbide Mononitrate (Imdur) 60 mg PO DAILY [facility] Lorazepam (Ativan) 1 mg PO Q8H PRN PRN Reason: Anxiety Mometasone Furoate/Formoterol Fumar (Dulera 200 Mcg/5 Mcg Inhaler) 2 puff INH BID-RT [facility] Nitroglycerin (Nitrostat) 0.4 mg SL ASDIR PRN PRN Reason: Chest Pain Pregabalin (Lyrica) 150 mg PO HS [facility] Rosuvastatin Calcium (Crestor) 40 mg PO HS [facility] Sertraline HCl (Zoloft) 50 mg PO DAILY [facility] Last Admin: 09/26/18 10:17 Dose: 50 mg Trazodone HCl (Desyrel) 100 mg PO HS [facility]
[2018-09-26] MEDS: HumaLOG 300 UNITS/3 ML VIAL SC PRN (17:11)
[2018-09-26] MEDS: Mometasone/Formoterol 120 PUFF INHALER INH SCH (19:43)
[2018-09-26] MEDS: Rosuvastatin 20 MG TAB PO SCH (20:34)
[2018-09-26] MEDS: traZODone HCl 50 MG TAB PO SCH (20:35)
[2018-09-26] MEDS: Pregabalin 75 MG CAP PO SCH (20:35)
[2018-09-26] MEDS: Amlodipine 5 MG TAB PO SCH (20:45)
[2018-09-27] MEDS: Albumin 25% 25 GM/100 ML BOT IVPB SCH (05:07)
[2018-09-27] MEDS: Furosemide 40 MG/4 ML VIAL SLOW IVP SCH (05:07)
[2018-09-27 05:45] LABS: Anion Gap 14 mmol/L (10-20); BUN (Urea Nitrogen) 34 mg/dL (9.8-20.1); Calc. Creatinine Clearance 6 mL/min (70-130); Calcium 9.2 mg/dL (7.8-10.44); Carbon Dioxide 28 mmol/L (22-29); Chloride 103 mmol/L (98-107); Estimated GFR-MDRD 20; Glucose 100 mg/dL (70-105); Potassium 3.6 mmol/L (3.5-5.1); Sodium 141 mmol/L (136-145)
[2018-09-27] MEDS: Mometasone/Formoterol 120 PUFF INHALER INH SCH ×2 (07:12→18:58)
--- NOTE | 2018-09-27 09:22 | PRG ---
DATE OF SERVICE: 09/27/2018 Ms. Angela is feeling better today. She is diuresing well. No chest pain. OBJECTIVE: VITAL SIGNS: Blood pressure 126/57, pulse 60, it is regular. LUNGS: Clear. CARDIAC: Normal S1, normal S2. ABDOMEN: Soft, nontender. EXTREMITIES: Still has moderate peripheral edema. LABORATORY: Creatinine is 2.5. Estimated GFR is 20. Still Stage IV renal failure, but fortunately no worsening. Echocardiogram: Ejection fraction 50-55%. ASSESSMENT: 1. Diastolic heart failure, recurrent. 2. Diabetes. 3. Previous bypass surgery. 4. Peripheral vascular disease. 5. Potassium relatively low at 3.6. PLAN: 1. She will receive an extra dose of potassium today and give her daily potassium. Discontinue intr avenous furosemide for now. 2. Medical therapy is the most appropriate choice in this patient. Cardiac catheterization carries significant risk with stage 4 renal failure in this patient with heart failure, diabetes. Only small area of ischemia was previously documented on stress testing as an outpatient. Her predominant prob andie appears to be diastolic heart failure. Reviewing the notes, she has distal disease in the jewell ry arteries.
[2018-09-27] MEDS: Carvedilol 25 MG TAB PO SCH ×2 (09:36→20:57)
[2018-09-27] MEDS: Heparin 5,000 UNITS/ML VIAL SC SCH ×3 (09:36→20:55)
[2018-09-27] MEDS: Ferrous Sulfate 325 MG TAB PO SCH (09:36)
[2018-09-27] MEDS: Aspirin 325 MG TAB PO SCH (09:36)
[2018-09-27] MEDS: Insulin Glargine 70 UNITS in Pre-Filled Syringe 1 EACH SC SCH ×2 (09:37→20:55)
--- NOTE | 2018-09-27 10:13 | PRG ---
DATE OF SERVICE: 09/27/2018 SERVICE: Renal Medicine. SUBJECTIVE: Ms. Angela is a 53-year-old white female who was admitted for shortness of breath of multifactorial etiology - COPD exacerbation and some mild CHF. She has been diuresed. We are seeing her for her acute kidney injury on top of her chronic renal failure. Her renal function is actually stable and slightly improved from the initial creatinine. Her Lasix has been changed to 40 mg tab o nce a day from 40 mg IV q.12 hours. She has been given albumin infusion. Her shortness of breath is dramatically improved this morning. The patient is wanting to go home. OBJECTIVE: VITAL SIGNS: Blood pressure 135/62, heart rate 61, respiratory 16, temperature 98, pulse ox 93%. GENERAL: Awake, alert, comfortable, not in distress. SKIN: Adequate turgor. HEENT: She has pinkish conjunctivae, anicteric sclerae. NECK: No neck mass, no carotid bruits, no JVD. CHEST: No deformities. LUNGS: Clear breath sounds, no wheezing, no crackles. HEART: Normal sinus rhythm. No murmur, no gallops or rubs. ABDOMEN: Globular, soft, nontender. No masses. EXTREMITIES: No edema, status post left BKA. MEDICATIONS: Of 09/27/2018 was reviewed. LABORATORY DATA: 09/26/2018, white count 5.5, hemoglobin 10.5. On 09/27/2018, sodium 141, potassium 3.6, chloride 103, carbon dioxide 20, BUN 34, creatinine 2.5, glucose 100, calcium 9.2. ASSESSMENT AND PLAN: 1. Acute kidney injury/chronic renal failure, stable renal function. Adjust diuretics. We will dec rease Lasix to 40 mg tab once a day. We will consume salt poor albumin. 2. Shortness of breath, much improved. Currently on DuoNeb q.i.d. Also, we will change diuretics.
[2018-09-27] MEDS ORDERED: Potassium Chloride 20 MEQ TAB PO SCH (12:00)
--- NOTE | 2018-09-27 13:14 | PDOC.PN ---
- Subjective Encounter Start Date: 09/27/18 Encounter Start Time: 07:20 Pt seen for followup re: CHF exacerbation. Denies chest pain. Feels better. Diuresing well. - Objective MAR Reviewed: Yes Vital Signs & Weight: Vital Signs (12 hours) Temp Pulse Resp BP Pulse Ox 09/27/18 12:49 64 16 96 09/27/18 08:45 98.0 F 61 16 135/62 93 L 09/27/18 07:09 67 14 99 09/27/18 03:35 97.5 F L 60 18 126/57 L 96 Weight Weight 29 lb 3.2 oz I&O: 09/26/18 09/27/18 09/28/18 06:59 06:59 06:59 Intake Total 270 2100 Output Total 3450 4200 Balance -3180 -2100 Result Diagrams: 09/26/18 08:45 09/27/18 05:05 Additional Labs: Accuchecks 09/27/18 09/27/18 09/27/18 11:04 05:26 00:15 POC Glucose 144 H 96 199 H 09/26/18 09/26/18 20:26 16:45 POC Glucose 264 H 280 H EKG Reviewed by me: Yes (Tele: NSR) Phys Exam - Physical Examination Obese HEENT: moist MMs, sclera anicteric, oral pharynx no lesions, 2+ tonsils Neck: no nodes, supple, full ROM JVD present David crackles Cardiovascular: RRR, no rub S1, S2 Gastrointestinal: soft, non-tender, positive bowel sounds distended s/p Left BKA Neurological: moves all 4 limbs Psychiatric: normal affect, A&O x 3 Dx/Plan (1) Acute on chronic diastolic ACC/AHA stage C congestive heart failure Code(s): I50.33 - ACUTE ON CHRONIC DIASTOLIC (CONGESTIVE) HEART FAILURE Status : Acute Comment: Improving, NYHA Class 3. Change lasix to oral (2) Acute worsening of stage 3 chronic kidney disease Code(s): N18.3 - CHRONIC KIDNEY DISEASE, STAGE 3 (MODERATE) Status: Acute Comment: pt receiving albumin infusion (3) Type II diabetes mellitus with neurological manifestations, uncontrolled Code(s): E11.49 - TYPE 2 DIABETES W OTH DIABETIC NEUROLOGICAL COMPLICATION; E11.65 - TYPE 2 DIABETES MELLITUS WITH HYPERGLYCEMIA Status: Chronic Comment : Improved, continue accuchecks, insulin sliding scale (4) Dyslipidemia Code(s): E78.5 - HYPERLIPIDEMIA, UNSPECIFIED Status: Chronic Comment: continue statin - Plan * . Review of Systems - Review of Systems Constitutional: negative: fever, chills, sweats, weakness, malaise Respiratory: SOB with Excertion. negative: Cough, Shortness of Breath, Pleuritic Pain, Wheezing Cardiovascular: orthopnea. negative: chest pain, palpitations, paroxysmal nocturnal dyspnea, edema, light headedness Gastrointestinal: negative: Nausea, Vomiting, Abdominal Pain, Diarrhea, Constipation, Melena, Hematochezia Genitourinary: negative: Dysuria, Frequency, Incontinence, Hematuria, Retention - Medications/Allergies Allergies/Adverse Reactions: Allergies Allergy/AdvReac Type Severity Reaction Status Date / Time torsemide Allergy Verified 03/05/18 16:55 Medications: Current Medications Acetaminophen (Tylenol) 650 mg PO Q4H PRN PRN Reason: Headache/Fever/Mild Pain (1-3) Albuterol Sulfate (Proventil Hfa) 2 puff INH Q4H PRN PRN Reason: SOB &/or Wheezing Albuterol/Ipratropium (Duoneb) 3 ml EZPAP [id number] [facility] Last Admin: 09/27/18 12:49 Dose: 3 ml Amlodipine Besylate (Norvasc) 5 mg PO QPM [facility] Last Admin: 09/26/18 20:45 Dose: 5 mg Aspirin (Aspirin) 325 mg PO DAILY [facility] Last Admin: 09/27/18 09:36 Dose: 325 mg Carvedilol (Coreg) 12.5 mg PO BID [facility] Last Admin: 09/27/18 09:36 Dose: 12.5 mg Dextrose/Water (Dextrose 50%) 25 gm SLOW IVP PRN PRN PRN Reason: Hypoglycemia Ferrous Sulfate (Feosol) 325 mg PO DAILY [facility] Last Admin: 09/27/18 09:36 Dose: 325 mg Furosemide (Lasix) 40 mg PO DAILY [facility] Glucagon (Glucagon) 1 mg IM PRN PRN PRN Reason: Hypoglycemia Heparin Sodium (Porcine) (Heparin) 5,000 units SC TID [facility] Last Admin: 09/27/18 09:36 Dose: 5,000 units Dextrose/Water (D5w) 1,000 mls @ 0 mls/hr IV .Q0M PRN PRN Reason: Hypoglycemia Insulin Glargine 70 units/ (Miscellaneous Medication) 0.7 mls @ 0 mls/hr SC BID [facility] Last Admin: 09/27/18 09:37 Dose: 0.7 mls Insulin Human Lispro (Humalog) 0 units SC .MILD SLIDING SCALE PRN PRN Reason: Mild Correctional Scale Last Admin: 09/26/18 17:11 Dose: 4 unit Isosorbide Mononitrate (Imdur) 60 mg PO DAILY [facility] Last Admin: 09/27/18 09:36 Dose: 60 mg Lorazepam (Ativan) 1 mg PO Q8H PRN PRN Reason: Anxiety Mometasone Furoate/Formoterol Fumar (Dulera 200 Mcg/5 Mcg Inhaler) 2 puff INH BID-RT [facility] Last Admin: 09/27/18 07:12 Dose: 2 puff Nitroglycerin (Nitrostat) 0.4 mg SL ASDIR PRN PRN Reason: Chest Pain Potassium Chloride (K-Dur) 40 meq PO 1200 [facility] Stop: 09/27/18 14:00 Pregabalin (Lyrica) 150 mg PO [facility] Last Admin: 09/26/18 20:35 Dose: 150 mg Rosuvastatin Calcium (Crestor) 40 mg PO HS [facility] Last Admin: 09/26/18 20:34 Dose: 40 mg Sertraline HCl (Zoloft) 50 mg PO DAILY [facility] Last Admin: 09/27/18 09:36 Dose: 50 mg Trazodone HCl (Desyrel) 100 mg PO [facility] Last Admin: 09/26/18 20:35 Dose: 100 mg
[2018-09-27] MEDS: traZODone HCl 50 MG TAB PO SCH (20:56)
[2018-09-27] MEDS: Pregabalin 75 MG CAP PO SCH (20:56)
[2018-09-27] MEDS: Amlodipine 5 MG TAB PO SCH (20:58)
[2018-09-27] MEDS: Rosuvastatin 20 MG TAB PO SCH (21:03)
[2018-09-28] MEDS: Acetaminophen 325 MG TAB PO PRN (00:11)
[2018-09-28 05:09] LABS: Anion Gap 13 mmol/L (10-20); BUN (Urea Nitrogen) 41 mg/dL (9.8-20.1); Calc. Creatinine Clearance 50 mL/min (70-130); Calcium 9.4 mg/dL (7.8-10.44); Carbon Dioxide 29 mmol/L (22-29); Chloride 103 mmol/L (98-107); Estimated GFR-MDRD 21; Glucose 208 mg/dL (70-105); Potassium 3.9 mmol/L (3.5-5.1); Sodium 141 mmol/L (136-145)
[2018-09-28] MEDS: Mometasone/Formoterol 120 PUFF INHALER INH SCH ×2 (07:11→19:24)
--- NOTE | 2018-09-28 10:05 | PRG ---
DATE OF SERVICE: 09/28/2018 SUBJECTIVE: Ms. Angela is a 53-year-old white female with chronic renal failure from her presumed diabetic nephropathy and was admitted for shortness of breath. Shortness of breath is multifactoria l. Mild congestive heart failure with COPD exacerbation was a consideration. Breathing is improving . Yesterday, we converted her IV Lasix to p.o. Lasix. Currently, she is on Lasix 40 mg tab once a day. She is also on albumin infusion. No new complaints today. She had some difficulty sleeping las t night. PHYSICAL EXAMINATION: VITAL SIGNS: Blood pressure 121/55, heart rate 58, respiratory rate 18, temperature 98, and pulse ox 94%. GENERAL: Awake, alert, comfortable, not in distress. SKIN: Adequate turgor. HEENT: She has pinkish conjunctivae, anicteric sclerae. NECK: No neck mass, no carotid bruits, no JVD. CHEST: No deformities. LUNGS: Clear breath sounds. HEART: Normal sinus rhythm. No murmur, no gallops, no rubs. ABDOMEN: Globular, soft, nontender, no masses. EXTREMITIES: Positive for edema in right leg, status post left BKA. MEDICATIONS: 09/28/2018 reviewed. LABORATORY DATA: Laboratories of 09/26/2018; white count 5.5, hemoglobin 10.5. On 09/28/2018, sodiu m 141, potassium 3.9, chloride 103, carbon dioxide 29, BUN 41, creatinine 2.46, glucose 208, and calc ium 9.4. ASSESSMENT AND PLAN: 1. Acute kidney injury/chronic renal failure -- superimposed prerenal azotemia on top of her diabeti c nephropathy, stabilizing renal function with indication for any dialytic intervention. We will agr ee with diuretics. 2. Right leg edema -- on Lasix 40 mg. 3. Shortness of breath, multifactorial -- COPD exacerbation with? mild CHF. Overall, agree with cur rent management. Recheck base met and CBC in a.m.
[2018-09-28] MEDS: Insulin Glargine 70 UNITS in Pre-Filled Syringe 1 EACH SC SCH ×2 (10:34→20:53)
[2018-09-28] MEDS: Heparin 5,000 UNITS/ML VIAL SC SCH ×3 (11:58→20:53)
[2018-09-28] MEDS: Ferrous Sulfate 325 MG TAB PO SCH (11:59)
[2018-09-28] MEDS: Aspirin 325 MG TAB PO SCH (11:59)
[2018-09-28] MEDS: Carvedilol 25 MG TAB PO SCH ×2 (12:00→20:52)
[2018-09-28] MEDS: Furosemide 40 MG TAB PO SCH (12:01)
--- NOTE | 2018-09-28 14:09 | PDOC.CTH ---
Cardiology Progress Note - Subjective Breathing much better and almost at baseline. - Objective Vital Signs Temp Pulse Resp BP Pulse Ox 09/28/18 13:52 62 16 94 L 09/28/18 11:00 97.5 F L 58 L 18 151/67 H 95 09/28/18 07:09 64 16 96 09/28/18 07:00 98 F 58 L 18 121/55 L 94 L 09/28/18 03:59 93 L 09/28/18 03:43 98.3 F 64 17 115/53 L 95 Weight 258 lb 09/27/18 09/28/18 09/29/18 06:59 06:59 06:59 Intake Total 2100 1520 Output Total 4200 1675 Balance -2100 -155 - Physical Examination General/Neuro: alert & oriented x3, NAD Neck: no JVD present Lungs: unlabored respirations Heart: RRR Abdomen: NT/ND Extremities: + edema B (2+) - Telemetry Telemetry Rhythm: S Ed - Labs Result Diagrams: 09/26/18 08:45 09/28/18 04:24 Troponin/CKMB CK-MB (CK-2) 52.9 ng/mL (0-6.6) H* 09/25/18 13:50 Troponin I 0.041 ng/mL (< 0.028) H 09/26/18 08:45 - Assessment/Plan 1. Acute on chronic diastolic heart failure. 2. CAD, previous CABG 3. PVD. 4. EF at 50-55%. 5. Stage 4 CKD. PLAN: - Continue current PO dose of lasix. - Will increase Amlodipine for better BP control.
--- NOTE | 2018-09-28 14:19 | PDOC.PN ---
- Subjective Encounter Start Date: 09/28/18 Encounter Start Time: 08:00 Pt seen for followup re: diastolic CHF exacerbation. feels better. - Objective MAR Reviewed: Yes Vital Signs & Weight: Vital Signs (12 hours) Temp Pulse Resp BP Pulse Ox 09/28/18 13:52 62 16 94 L 09/28/18 11:00 97.5 F L 58 L 18 151/67 H 95 09/28/18 07:09 64 16 96 09/28/18 07:00 98 F 58 L 18 121/55 L 94 L 09/28/18 03:59 93 L 09/28/18 03:43 98.3 F 64 17 115/53 L 95 Weight Weight 258 lb I&O: 09/27/18 09/28/18 09/29/18 06:59 06:59 06:59 Intake Total 2100 1520 Output Total 4200 1675 Balance -2099 -155 Result Diagrams: 09/29/18 04:23 09/29/18 04:23 Additional Labs: Accuchecks 09/28/18 09/27/18 09/27/18 10:44 20:27 17:02 POC Glucose 111 H 214 H 162 H EKG Reviewed by me: Yes (Tele: NSR) Phys Exam - Physical Examination Morbid obesity HEENT: moist MMs Neck: supple David crackles Cardiovascular: RRR Gastrointestinal: soft s/p L BKA Neurological: moves all 4 limbs Psychiatric: normal affect Dx/Plan (1) Acute on chronic diastolic ACC/AHA stage C congestive heart failure Code(s): I50.33 - ACUTE ON CHRONIC DIASTOLIC (CONGESTIVE) HEART FAILURE Status : Acute Comment: Improving, NYHA Class 3. Now on oral lasix. (2) Acute worsening of stage 3 chronic kidney disease Code(s): N18.3 - CHRONIC KIDNEY DISEASE, STAGE 3 (MODERATE) Status: Acute Comment: Creatinine stabilizing, 2.46 today (3) Type II diabetes mellitus with neurological manifestations, uncontrolled Code(s): E11.49 - TYPE 2 DIABETES W OTH DIABETIC NEUROLOGICAL COMPLICATION; E11.65 - TYPE 2 DIABETES MELLITUS WITH HYPERGLYCEMIA Status: Chronic Comment : continue accuchecks, insulin sliding scale (4) Dyslipidemia Code(s): E78.5 - HYPERLIPIDEMIA, UNSPECIFIED Status: Chronic Comment: on statin - Plan * . amlodipine added for high blood pressure. Review of Systems - Review of Systems Respiratory: negative: Cough, Shortness of Breath, SOB with Excertion, Pleuritic Pain, Wheezing Cardiovascular: negative: chest pain, palpitations, orthopnea, paroxysmal nocturnal dyspnea, edema, light headedness - Medications/Allergies Allergies/Adverse Reactions: Allergies Allergy/AdvReac Type Severity Reaction Status Date / Time torsemide Allergy Verified 03/05/18 16:55 Medications: Current Medications Acetaminophen (Tylenol) 650 mg PO Q4H PRN PRN Reason: Headache/Fever/Mild Pain (1-3) Last Admin: 09/28/18 00:11 Dose: 650 mg Albuterol Sulfate (Proventil Hfa) 2 puff INH Q4H PRN PRN Reason: SOB &/or Wheezing Albuterol/Ipratropium (Duoneb) 3 ml EZPAP [id number] [facility] Last Admin: 09/28/18 13:52 Dose: 3 ml Amlodipine Besylate (Norvasc) 10 mg PO QPM [facility] Aspirin (Aspirin) 325 mg PO DAILY [facility] Last Admin: 09/28/18 11:59 Dose: 325 mg Carvedilol (Coreg) 12.5 mg PO BID [facility] Last Admin: 09/28/18 12:00 Dose: 12.5 mg Dextrose/Water (Dextrose 50%) 25 gm SLOW IVP PRN PRN PRN Reason: Hypoglycemia Ferrous Sulfate (Feosol) 325 mg PO DAILY [facility] Last Admin: 09/28/18 11:59 Dose: 325 mg Furosemide (Lasix) 40 mg PO DAILY [facility] Last Admin: 09/28/18 12:01 Dose: 40 mg Glucagon (Glucagon) 1 mg IM PRN PRN PRN Reason: Hypoglycemia Heparin Sodium (Porcine) (Heparin) 5,000 units SC TID [facility] Last Admin: 09/28/18 11:58 Dose: 5,000 units Dextrose/Water (D5w) 1,000 mls @ 0 mls/hr IV .Q0M PRN PRN Reason: Hypoglycemia Insulin Glargine 70 units/ (Miscellaneous Medication) 0.7 mls @ 0 mls/hr SC BID [facility] Last Admin: 09/28/18 10:34 Dose: Not Given Insulin Human Lispro (Humalog) 0 units SC .MILD SLIDING SCALE PRN PRN Reason: Mild Correctional Scale Last Admin: 09/26/18 17:11 Dose: 4 unit Isosorbide Mononitrate (Imdur) 60 mg PO DAILY [facility] Last Admin: 09/28/18 12:01 Dose: 60 mg Lorazepam (Ativan) 1 mg PO Q8H PRN PRN Reason: Anxiety Mometasone Furoate/Formoterol Fumar (Dulera 200 Mcg/5 Mcg Inhaler) 2 puff INH BID-RT [facility] Last Admin: 09/28/18 07:11 Dose: 2 puff Nitroglycerin (Nitrostat) 0.4 mg SL ASDIR PRN PRN Reason: Chest Pain Pregabalin (Lyrica) 150 mg PO HS [facility] Last Admin: 09/27/18 20:56 Dose: 150 mg Rosuvastatin Calcium (Crestor) 40 mg PO HS [facility] Last Admin: 09/27/18 21:03 Dose: 40 mg Sertraline HCl (Zoloft) 50 mg PO DAILY [facility] Last Admin: 09/28/18 12:01 Dose: 50 mg Trazodone HCl (Desyrel) 100 mg PO HS [facility] Last Admin: 09/27/18 20:56 Dose: 100 mg
[2018-09-28] MEDS: Amlodipine 10 MG TAB PO SCH (20:51)
[2018-09-28] MEDS: Rosuvastatin 20 MG TAB PO SCH (20:51)
[2018-09-28] MEDS: traZODone HCl 50 MG TAB PO SCH (20:51)
[2018-09-28] MEDS: Pregabalin 75 MG CAP PO SCH (20:52)
[2018-09-29 05:03] LABS: #Eosinphils 0.1 thou/uL (0.0-0.7); #Lymphocytes 0.6 thou/uL (1.20-3.40); #Monocytes 0.5 thou/uL (0.11-0.59); #Neutrophils 3.5 thou/uL (1.40-6.50); %Basophils 0.3 % (0.0-1.0); %Eosinophils 1.5 % (0.0-10.0); %Monocytes 9.9 % (0.0-10.0); %Neutrophils 75.4 % (42.0-75.0); Hemoglobin 9.9 g/dL (12.0-16.0); Mean Corpuscular HGB CONC 30.3 g/dL (32.0-36.0); Mean Corpuscular Hemoglobin 28.5 pg (27.0-31.0); Mean Platelet Volume 9.4 fL (7.4-10.4); Platelet Count 142 thou/uL (130-400); RBC Distribution Width 15.7 % (11.5-14.5); Red Blood Cell (RBC) Count 3.46 mill/uL (4.20-5.40); White Blood Cell (WBC) Count 4.6 thou/uL (4.8-10.8)
[2018-09-29 05:21] LABS: Anion Gap 15 mmol/L (10-20); BUN (Urea Nitrogen) 46 mg/dL (9.8-20.1); Calc. Creatinine Clearance 48 mL/min (70-130); Calcium 8.9 mg/dL (7.8-10.44); Carbon Dioxide 28 mmol/L (22-29); Chloride 102 mmol/L (98-107); Estimated GFR-MDRD 20; Glucose 314 mg/dL (70-105); Potassium 4.1 mmol/L (3.5-5.1); Sodium 141 mmol/L (136-145)
[2018-09-29] MEDS: Mometasone/Formoterol 120 PUFF INHALER INH SCH ×2 (07:42→19:05)
[2018-09-29] MEDS: Aspirin 325 MG TAB PO SCH (08:41)
[2018-09-29] MEDS: Carvedilol 25 MG TAB PO SCH ×2 (08:41→21:38)
[2018-09-29] MEDS: Ferrous Sulfate 325 MG TAB PO SCH (08:42)
[2018-09-29] MEDS: Furosemide 40 MG TAB PO SCH (08:43)
[2018-09-29] MEDS: Insulin Glargine 70 UNITS in Pre-Filled Syringe 1 EACH SC SCH ×2 (08:43→21:36)
[2018-09-29] MEDS: Heparin 5,000 UNITS/ML VIAL SC SCH ×3 (08:44→21:37)
--- NOTE | 2018-09-29 09:09 | PRG ---
DATE OF SERVICE: 09/29/2018 SUBJECTIVE: Ms. Angela is a 53-year-old white female who was seen by the Renal Service for her ac mauricio kidney injury on top of her chronic renal failure. She had a hemodynamically mediated renal dysf unction. She was also admitted due to shortness of breath. She was said to have diastolic dysfuncti on as well as COPD exacerbation. No new complaints today. Continue gentle diuresis. OBJECTIVE: VITAL SIGNS: Blood pressure is 123/56, heart rate 64, respiratory rate 18, temperature 98.2, and pul se ox 94%. GENERAL: Noted to be awake, alert, comfortable, not in overt distress. SKIN: Adequate turgor. HEENT: She does have pinkish conjunctivae, anicteric sclerae. NECK: No neck mass, no carotid bruits, no JVD. CHEST: No deformities. LUNGS: Clear. Decreased breath sounds. HEART: Normal sinus rhythm. No murmur, no gallops, no rubs. ABDOMEN: Globular, soft, nontender, no masses. EXTREMITIES: Trace edema. Status post right BKA. MEDICATIONS: 09/29/2018 reviewed. LABORATORY DATA: Laboratories of 09/29/2018, sodium 141, potassium 4.1, chloride 102, carbon dioxide 28, BUN 46, creatinine 2.56, glucose 214, calcium 8.9. White count 4.6 and hemoglobin 9.9. ASSESSMENT AND PLAN: 1. Shortness of breath -- multifactorial etiology -- for mild congestive heart failure/chronic obstr uctive pulmonary disease exacerbation, stable, continuing low dose diuretics. 2. Acute kidney injury/chronic renal failure, stable. Creatinine noted at 2.56. Continue current d iuretic regimen. No indication for any dialytic intervention. Overall, agree with current managemen tZabrina [place] base met and CBC in a.m.
--- NOTE | 2018-09-29 11:52 | PDOC.PN ---
- Subjective Encounter Start Date: 09/29/18 Encounter Start Time: 08:00 Pt seen for followup re: diastolic CHF exacerbation. Denies chest pain, feels better. Still needing supplemental oxygen. - Objective MAR Reviewed: Yes Vital Signs & Weight: Vital Signs (12 hours) Temp Pulse Resp BP Pulse Ox 09/29/18 08:20 98.3 F 64 18 123/56 L 94 L 09/29/18 07:24 63 16 91 L 09/29/18 04:00 98.1 F 62 18 111/51 L 98 09/29/18 00:43 67 12 Weight Weight 261 lb 12.8 oz I&O: 09/28/18 09/29/18 09/30/18 06:59 06:59 06:59 Intake Total 1520 1060 Output Total 1675 0665 Balance -155 -1425 Result Diagrams: 09/29/18 04:23 09/29/18 04:23 Additional Labs: Accuchecks 09/29/18 09/29/18 09/28/18 11:12 05:22 20:41 POC Glucose 185 H 281 H 193 H 09/28/18 16:31 POC Glucose 145 H EKG Reviewed by me: Yes (Tele: NSR) Phys Exam - Physical Examination Morbid obesity HEENT: moist MMs Neck: supple Respiratory: clear to auscultation bilateral Cardiovascular: RRR Gastrointestinal: soft s/p left BKA Neurological: moves all 4 limbs Psychiatric: normal affect Dx/Plan (1) Acute on chronic diastolic ACC/AHA stage C congestive heart failure Code(s): I50.33 - ACUTE ON CHRONIC DIASTOLIC (CONGESTIVE) HEART FAILURE Status : Acute Comment: Improving, NYHA Class 3. Continue oral furosemide (2) Acute worsening of stage 3 chronic kidney disease Code(s): N18.3 - CHRONIC KIDNEY DISEASE, STAGE 3 (MODERATE) Status: Acute Comment: Creatinine stabilizing (3) Type II diabetes mellitus with neurological manifestations, uncontrolled Code(s): E11.49 - TYPE 2 DIABETES W OTH DIABETIC NEUROLOGICAL COMPLICATION; E11.65 - TYPE 2 DIABETES MELLITUS WITH HYPERGLYCEMIA Status: Chronic Comment : reasonable control (4) Dyslipidemia Code(s): E78.5 - HYPERLIPIDEMIA, UNSPECIFIED Status: Chronic Comment: will continue statin - Plan * . Review of Systems - Review of Systems Respiratory: SOB with Excertion. negative: Cough, Shortness of Breath, Hemoptysis, Pleuritic Pain, Wheezing Cardiovascular: negative: chest pain, palpitations, orthopnea, paroxysmal nocturnal dyspnea, edema, light headedness - Medications/Allergies Allergies/Adverse Reactions: Allergies Allergy/AdvReac Type Severity Reaction Status Date / Time torsemide Allergy Verified 03/05/18 16:55 Medications: Current Medications Acetaminophen (Tylenol) 650 mg PO Q4H PRN PRN Reason: Headache/Fever/Mild Pain (1-3) Last Admin: 09/28/18 00:11 Dose: 650 mg Albuterol Sulfate (Proventil Hfa) 2 puff INH Q4H PRN PRN Reason: SOB &/or Wheezing Albuterol/Ipratropium (Duoneb) 3 ml EZPAP [id number] [facility] Last Admin: 09/29/18 07:24 Dose: 3 ml Amlodipine Besylate (Norvasc) 10 mg PO QPM [facility] Last Admin: 09/28/18 20:51 Dose: 10 mg Aspirin (Aspirin) 325 mg PO DAILY [facility] Last Admin: 09/29/18 08:41 Dose: 325 mg Carvedilol (Coreg) 12.5 mg PO BID [facility] Last Admin: 09/29/18 08:41 Dose: 12.5 mg Dextrose/Water (Dextrose 50%) 25 gm SLOW IVP PRN PRN PRN Reason: Hypoglycemia Ferrous Sulfate (Feosol) 325 mg PO DAILY [facility] Last Admin: 09/29/18 08:42 Dose: 325 mg Furosemide (Lasix) 40 mg PO DAILY [facility] Last Admin: 09/29/18 08:43 Dose: 40 mg Glucagon (Glucagon) 1 mg IM PRN PRN PRN Reason: Hypoglycemia Heparin Sodium (Porcine) (Heparin) 5,000 units SC TID [facility] Last Admin: 09/29/18 08:44 Dose: 5,000 units Dextrose/Water (D5w) 1,000 mls @ 0 mls/hr IV .Q0M PRN PRN Reason: Hypoglycemia Insulin Glargine 70 units/ (Miscellaneous Medication) 0.7 mls @ 0 mls/hr SC BID [facility] Last Admin: 09/29/18 08:43 Dose: 0.7 mls Insulin Human Lispro (Humalog) 0 units SC .MILD SLIDING SCALE PRN PRN Reason: Mild Correctional Scale Last Admin: 09/26/18 17:11 Dose: 4 unit Isosorbide Mononitrate (Imdur) 60 mg PO DAILY [facility] Last Admin: 09/29/18 08:42 Dose: 60 mg Lorazepam (Ativan) 1 mg PO Q8H PRN PRN Reason: Anxiety Last Admin: 09/29/18 04:58 Dose: 1 mg Mometasone Furoate/Formoterol Fumar (Dulera 200 Mcg/5 Mcg Inhaler) 2 puff INH BID-RT [facility] Last Admin: 09/29/18 07:42 Dose: 2 puff Nitroglycerin (Nitrostat) 0.4 mg SL ASDIR PRN PRN Reason: Chest Pain Pregabalin (Lyrica) 150 mg PO HS [facility] Last Admin: 09/28/18 20:52 Dose: 150 mg Rosuvastatin Calcium (Crestor) 40 mg PO HS [facility] Last Admin: 09/28/18 20:51 Dose: 40 mg Sertraline HCl (Zoloft) 50 mg PO DAILY [facility] Last Admin: 09/29/18 08:43 Dose: 50 mg Trazodone HCl (Desyrel) 100 mg PO [facility] Last Admin: 09/28/18 20:51 Dose: 100 mg
[2018-09-29] MEDS: HumaLOG 300 UNITS/3 ML VIAL SC PRN (12:24)
--- NOTE | 2018-09-29 14:41 | PDOC.CTH ---
Cardiology Progress Note - Subjective No new issues. Breathing unchanged. - Objective Vital Signs Temp Pulse Resp BP Pulse Ox 09/29/18 12:59 63 16 94 L 09/29/18 12:00 97.4 F L 63 18 113/55 L 94 L 09/29/18 08:20 98.3 F 64 18 123/56 L 94 L 09/29/18 07:24 63 16 91 L 09/29/18 04:00 98.1 F 62 18 111/51 L 98 Weight 261 lb 12.8 oz 09/28/18 09/29/18 09/30/18 06:59 06:59 06:59 Intake Total 1520 1060 480 Output Total 1675 2485 Balance -155 -1425 480 - Physical Examination General/Neuro: alert & oriented x3, NAD Neck: no JVD present Lungs: unlabored respirations Heart: RRR Abdomen: NT/ND Extremities: + edema B (1+) - Telemetry Telemetry Rhythm: NSR - Labs Result Diagrams: 09/29/18 04:23 09/29/18 04:23 Troponin/CKMB CK-MB (CK-2) 52.9 ng/mL (0-6.6) H* 09/25/18 13:50 Troponin I 0.041 ng/mL (< 0.028) H 09/26/18 08:45 - Assessment/Plan 1. Acute on chronic diastolic heart failure. 2. CAD, previous CABG 3. PVD. 4. EF at 50-55%. 5. Stage 4 CKD. PLAN: - Continue current PO dose of lasix. - Better BP control now. Continue current meds.
[2018-09-29] MEDS: Acetaminophen 325 MG TAB PO PRN (14:46)
[2018-09-29] MEDS: Amlodipine 10 MG TAB PO SCH (21:37)
[2018-09-29] MEDS: Rosuvastatin 20 MG TAB PO SCH (21:37)
[2018-09-29] MEDS: Pregabalin 75 MG CAP PO SCH (21:38)
[2018-09-29] MEDS: traZODone HCl 50 MG TAB PO SCH (21:39)
[2018-09-30 05:37] LABS: #Lymphocytes 0.7 thou/uL (1.20-3.40); #Monocytes 0.6 thou/uL (0.11-0.59); #Neutrophils 4.2 thou/uL (1.40-6.50); %Basophils 0.6 % (0.0-1.0); %Eosinophils 0.9 % (0.0-10.0); %Lymphocytes 12.7 % (21.0-51.0); %Neutrophils 75.9 % (42.0-75.0); Mean Corpuscular Volume 93.7 fL (78.0-98.0); Mean Platelet Volume 9.2 fL (7.4-10.4); Platelet Count 156 thou/uL (130-400); RBC Distribution Width 15.5 % (11.5-14.5); Red Blood Cell (RBC) Count 3.43 mill/uL (4.20-5.40); White Blood Cell (WBC) Count 5.5 thou/uL (4.8-10.8)
[2018-09-30 05:55] LABS: Anion Gap 14 mmol/L (10-20); BUN (Urea Nitrogen) 58 mg/dL (9.8-20.1); Calc. Creatinine Clearance 47 mL/min (70-130); Calcium 9.2 mg/dL (7.8-10.44); Carbon Dioxide 30 mmol/L (22-29); Chloride 102 mmol/L (98-107); Estimated GFR-MDRD 19; Glucose 147 mg/dL (70-105); Sodium 142 mmol/L (136-145)
[2018-09-30] MEDS: Mometasone/Formoterol 120 PUFF INHALER INH SCH ×2 (08:21→20:14)
[2018-09-30] MEDS: Ferrous Sulfate 325 MG TAB PO SCH (08:48)
[2018-09-30] MEDS: Carvedilol 25 MG TAB PO SCH ×2 (08:48→20:47)
[2018-09-30] MEDS: Aspirin 325 MG TAB PO SCH (08:48)
[2018-09-30] MEDS: Heparin 5,000 UNITS/ML VIAL SC SCH ×3 (08:49→20:47)
[2018-09-30] MEDS: Insulin Glargine 70 UNITS in Pre-Filled Syringe 1 EACH SC SCH ×2 (08:49→20:48)
[2018-09-30] MEDS ORDERED: Sodium Chloride 0.65% Nasal 44 ML BOT EA NARE PRN (09:53)
--- NOTE | 2018-09-30 10:08 | PRG ---
DATE OF SERVICE: 09/30/2018 RENAL MEDICINE SUBJECTIVE: Ms. Angela is a 53-year-old white female with chronic renal failure from diabetic nep hropathy and followed up by the Renal Service for her acute kidney injury on top of her chronic renal failure. She came in with shortness of breath. She has been diuresed. I noted that the patient patel s been having a slightly worsening creatinine. Most recently, it is now 2.6. The plan is to tempora rily hold off her furosemide to see if there will be some stabilization of the renal dysfunction. Pl ease note the cardiac echo was within normal. Her shortness of breath is much improved. OBJECTIVE: VITAL SIGNS: Blood pressure is 111/56, heart rate 69, respiratory rate 18, temperature 98.6, pulse o x 92%. GENERAL: Noted to be awake, alert, comfortable, not in distress. SKIN: Adequate turgor. HEENT: She has pinkish conjunctivae, anicteric sclerae. NECK: No neck mass, no carotid bruits, no JVD. CHEST: No deformities. LUNGS: Decreased breath sounds. HEART: Normal sinus rhythm. No murmur, no gallops, no rubs. ABDOMEN: Globular, soft, nontender, no masses. EXTREMITIES: Right leg edema, status post left BKA. MEDICATIONS: Medications of 09/30/2018 reviewed. LABORATORY DATA: Laboratories of 09/30/2018, sodium 142, potassium 4, chloride 102, carbon dioxide 3 0, BUN 58, creatinine 2.64, glucose 147, calcium 9.2. White count 5.5, hemoglobin 10, hematocrit 22. 2. ASSESSMENT AND PLAN: 1. Acute kidney injury/chronic renal failure, slightly higher creatinine at 2.6. Yesterday, this wa s 2.56. GFR has dropped down by 1 mL per minute. My bias is to hold off the furosemide temporarily. Please note there is a note that she may be allergic to torsemide. However, I do not think this is accurate since the patient has had furosemide for the last several days without any adverse reaction . 2. Shortness of breath, much improved. Combination of diastolic dysfunction/chronic obstructive pul monary disease exacerbation. Last cardiac echo showed normal EF. Recheck base met and CBC in a.m.
--- NOTE | 2018-09-30 13:38 | PDOC.PN ---
- Subjective Encounter Start Date: 09/30/18 Encounter Start Time: 08:00 Pt seen for followup re: CHF exacerbation. Feels better. - Objective MAR Reviewed: Yes Vital Signs & Weight: Vital Signs (12 hours) Temp Pulse Resp BP Pulse Ox 09/30/18 13:09 98.6 F 59 L 18 123/57 L 96 09/30/18 08:21 65 20 88 L 09/30/18 08:05 88 L 09/30/18 07:59 65 20 88 L 09/30/18 07:45 98.7 F 65 18 135/61 91 L 09/30/18 04:00 98.6 F 69 18 111/56 L 92 L Weight Weight 261 lb 1.6 oz I&O: 09/29/18 09/30/18 10/01/18 06:59 06:59 06:59 Intake Total 1060 1600 Output Total 2485 1999 Balance -8890 -730 Result Diagrams: 09/30/18 04:52 10/01/18 06:06 Additional Labs: Accuchecks 09/30/18 09/30/18 09/29/18 10:51 05:24 20:33 POC Glucose 142 H 139 H 194 H 09/29/18 16:59 POC Glucose 127 H EKG Reviewed by me: Yes (Tele: NSR) Phys Exam - Physical Examination Constitutional: NAD HEENT: moist MMs Neck: supple Respiratory: clear to auscultation bilateral Cardiovascular: RRR Gastrointestinal: soft s/p L BKA Neurological: moves all 4 limbs Psychiatric: normal affect Dx/Plan (1) Acute on chronic diastolic ACC/AHA stage C congestive heart failure Code(s): I50.33 - ACUTE ON CHRONIC DIASTOLIC (CONGESTIVE) HEART FAILURE Status : Acute Comment: Improved, Continue oral furosemide (2) Acute worsening of stage 3 chronic kidney disease Code(s): N18.3 - CHRONIC KIDNEY DISEASE, STAGE 3 (MODERATE) Status: Acute Comment: Creatinine slightly worse, 2.64 today (3) Type II diabetes mellitus with neurological manifestations, uncontrolled Code(s): E11.49 - TYPE 2 DIABETES W OTH DIABETIC NEUROLOGICAL COMPLICATION; E11.65 - TYPE 2 DIABETES MELLITUS WITH HYPERGLYCEMIA Status: Chronic Comment : reasonable control (4) Dyslipidemia Code(s): E78.5 - HYPERLIPIDEMIA, UNSPECIFIED Status: Chronic Comment: continue statin - Plan * . Review of Systems - Review of Systems Respiratory: negative: Cough, Shortness of Breath, SOB with Excertion, Pleuritic Pain, Wheezing Cardiovascular: negative: chest pain, palpitations, orthopnea, paroxysmal nocturnal dyspnea, edema, light headedness - Medications/Allergies Allergies/Adverse Reactions: Allergies Allergy/AdvReac Type Severity Reaction Status Date / Time torsemide Allergy Verified 03/05/18 16:55 Medications: Current Medications Acetaminophen (Tylenol) 650 mg PO Q4H PRN PRN Reason: Headache/Fever/Mild Pain (1-3) Last Admin: 09/29/18 14:46 Dose: 650 mg Albuterol Sulfate (Proventil Hfa) 2 puff INH Q4H PRN PRN Reason: SOB &/or Wheezing Albuterol/Ipratropium (Duoneb) 3 ml EZPAP [id number] [facility] Last Admin: 09/30/18 07:59 Dose: 3 ml Amlodipine Besylate (Norvasc) 10 mg PO QPM [facility] Last Admin: 09/29/18 21:37 Dose: 10 mg Aspirin (Aspirin) 325 mg PO DAILY [facility] Last Admin: 09/30/18 08:48 Dose: 325 mg Carvedilol (Coreg) 12.5 mg PO BID [facility] Last Admin: 09/30/18 08:48 Dose: 12.5 mg Dextrose/Water (Dextrose 50%) 25 gm SLOW IVP PRN PRN PRN Reason: Hypoglycemia Ferrous Sulfate (Feosol) 325 mg PO DAILY [facility] Last Admin: 09/30/18 08:48 Dose: 325 mg Glucagon (Glucagon) 1 mg IM PRN PRN PRN Reason: Hypoglycemia Heparin Sodium (Porcine) (Heparin) 5,000 units SC TID [facility] Last Admin: 09/30/18 08:49 Dose: 5,000 units Dextrose/Water (D5w) 1,000 mls @ 0 mls/hr IV .Q0M PRN PRN Reason: Hypoglycemia Insulin Glargine 70 units/ (Miscellaneous Medication) 0.7 mls @ 0 mls/hr SC BID [facility] Last Admin: 09/30/18 08:49 Dose: 0.7 mls Insulin Human Lispro (Humalog) 0 units SC .MILD SLIDING SCALE PRN PRN Reason: Mild Correctional Scale Last Admin: 09/29/18 12:24 Dose: 2 unit Isosorbide Mononitrate (Imdur) 60 mg PO DAILY [facility] Last Admin: 09/30/18 08:47 Dose: 60 mg Lorazepam (Ativan) 1 mg PO Q8H PRN PRN Reason: Anxiety Last Admin: 09/29/18 04:58 Dose: 1 mg Mometasone Furoate/Formoterol Fumar (Dulera 200 Mcg/5 Mcg Inhaler) 2 puff INH BID-RT [facility] Last Admin: 09/30/18 08:21 Dose: 2 puff Nitroglycerin (Nitrostat) 0.4 mg SL ASDIR PRN PRN Reason: Chest Pain Pregabalin (Lyrica) 150 mg PO [facility] Last Admin: 09/29/18 21:38 Dose: 150 mg Rosuvastatin Calcium (Crestor) 40 mg PO [facility] Last Admin: 09/29/18 21:37 Dose: 40 mg Sertraline HCl (Zoloft) 50 mg PO DAILY [facility] Last Admin: 09/30/18 08:47 Dose: 50 mg Sodium Chloride ([place] Nasal [place] 0.65%) 0 ml EA NARE PRN PRN PRN Reason: Nasal Dryness Trazodone HCl (Desyrel) 100 mg PO HS [facility] Last Admin: 09/29/18 21:39 Dose: 100 mg
[2018-09-30] MEDS: Pregabalin 75 MG CAP PO SCH (20:46)
[2018-09-30] MEDS: Rosuvastatin 20 MG TAB PO SCH (20:46)
[2018-09-30] MEDS: Amlodipine 10 MG TAB PO SCH (20:47)
--- NOTE | 2018-09-30 21:39 | PDOC.CTH ---
<Mary Hanson - Last Filed: 09/30/18 21:39> Cardiology Progress Note - Subjective The pt seen and examined. No overnight events. No cardiac complaints. The pt is eating take out food with diet coke, which contains large amounts of salt. Instructed not to have those food. She voiced understanding. - Objective Vital Signs Temp Pulse Resp BP BP Pulse Ox 09/30/18 20:47 61 132/62 09/30/18 20:14 91 L 09/30/18 20:13 91 L 09/30/18 13:09 98.6 F 59 L 18 123/57 L 96 Weight 261 lb 1.6 oz 09/29/18 09/30/18 10/01/18 06:59 06:59 06:59 Intake Total 1060 1600 Output Total 7175 7071 889 Balance -5786 -601 -420 - Physical Examination General/Neuro: other: (drowsy) Lungs: CTA Heart: RRR Abdomen: soft Extremities: other: (no edema) - Labs Result Diagrams: 09/30/18 04:52 09/30/18 04:52 Troponin/CKMB CK-MB (CK-2) 52.9 ng/mL (0-6.6) H* 09/25/18 13:50 Troponin I 0.041 ng/mL (< 0.028) H 09/26/18 08:45 - Assessment/Plan 1. Acute on chronic diastolic HF with EF 50-55% - stable with bblocker, but no on DAVIS/ARB due to hx of CKD 2. CAD with previous CABG - stable 3. CKD stage 4 - Lasix is on hold by neurological surgeon; 4. DM type 2 - managed by pcp 5. Hyperlipidemia - on Statin 6. COPD - stable MAR reviewed . Review of Systems - Review of Systems Constitutional: reports: no symptoms reported EENTM: reports: no symptoms reported Respiratory: reports: no symptoms reported Cardiac (ROS): reports: no symptoms reported ABD/GI: reports: no symptoms reported : reports: no symptoms reported Musculoskeletal: reports: no symptoms reported <Noemí Gonzalez - Last Filed: 10/01/18 12:26> Cardiology Progress Note - Objective Vital Signs Temp Pulse Pulse Resp BP BP Pulse Ox 10/01/18 11:15 56 L 122/58 L 10/01/18 07:18 55 L 20 92 L 10/01/18 07:12 92 L 10/01/18 07:10 55 L 20 92 L 10/01/18 03:33 97.9 F 59 L 14 125/60 92 L Weight 263 lb 4.8 oz 09/30/18 10/01/18 10/02/18 06:59 06:59 06:59 Intake Total 1600 400 Output Total 2000 1050 Balance -400 -650 - Labs Result Diagrams: 09/30/18 04:52 10/01/18 06:06 Troponin/CKMB CK-MB (CK-2) 52.9 ng/mL (0-6.6) H* 09/25/18 13:50 Troponin I 0.041 ng/mL (< 0.028) H 09/26/18 08:45 - Assessment/Plan Pt. seen and eval. by me. I agree with the A/P by the PERSONAL FITNESS MANAGER.
[2018-10-01] MEDS: traZODone HCl 50 MG TAB PO SCH ×2 (00:22→21:59)
[2018-10-01 07:07] LABS: Anion Gap 14 mmol/L (10-20); BUN (Urea Nitrogen) 56 mg/dL (9.8-20.1); Calc. Creatinine Clearance 55 mL/min (70-130); Calcium 9.3 mg/dL (7.8-10.44); Carbon Dioxide 25 mmol/L (22-29); Chloride 103 mmol/L (98-107); Estimated GFR-MDRD 23; Glucose 70 mg/dL (70-105); Potassium 3.9 mmol/L (3.5-5.1); Sodium 138 mmol/L (136-145)
[2018-10-01] MEDS: Mometasone/Formoterol 120 PUFF INHALER INH SCH ×2 (07:18→20:03)
[2018-10-01] MEDS: Ferrous Sulfate 325 MG TAB PO SCH (09:15)
[2018-10-01] MEDS: Carvedilol 25 MG TAB PO SCH ×2 (09:16→21:58)
[2018-10-01] MEDS: Aspirin 325 MG TAB PO SCH (09:18)
[2018-10-01] MEDS: Heparin 5,000 UNITS/ML VIAL SC SCH ×3 (09:18→21:57)
[2018-10-01] MEDS: Insulin Glargine 70 UNITS in Pre-Filled Syringe 1 EACH SC SCH ×2 (09:22→21:57)
--- NOTE | 2018-10-01 10:52 | PDOC.PN ---
- Subjective Encounter Start Date: 10/01/18 Encounter Start Time: 08:20 Pt seen for followup re: CHF exacerbation. Still on supplemental oxygen, but feels better. - Objective MAR Reviewed: Yes Vital Signs & Weight: Vital Signs (12 hours) Temp Pulse Resp BP Pulse Ox 10/01/18 07:18 55 L 20 92 L 10/01/18 07:12 92 L 10/01/18 07:10 55 L 20 92 L 10/01/18 03:33 97.9 F 59 L 14 125/60 92 L 09/30/18 23:59 92 L 09/30/18 23:10 94 L Weight Weight 263 lb 4.8 oz I&O: 09/30/18 10/01/18 10/02/18 06:59 06:59 06:59 Intake Total 1600 400 Output Total 2000 1050 Balance -400 -650 Result Diagrams: 09/30/18 04:52 10/01/18 06:06 Additional Labs: Accuchecks 10/01/18 09/30/18 09/30/18 06:24 20:44 17:15 POC Glucose 73 203 H 134 H 09/30/18 10:51 POC Glucose 142 H EKG Reviewed by me: Yes (Tele: NSR) Phys Exam - Physical Examination Morbid obesity HEENT: moist MMs Neck: supple Respiratory: clear to auscultation bilateral Cardiovascular: RRR Gastrointestinal: soft Neurological: moves all 4 limbs Psychiatric: normal affect Dx/Plan (1) Acute on chronic diastolic ACC/AHA stage C congestive heart failure Code(s): I50.33 - ACUTE ON CHRONIC DIASTOLIC (CONGESTIVE) HEART FAILURE Status : Acute Comment: Improved (2) Acute worsening of stage 3 chronic kidney disease Code(s): N18.3 - CHRONIC KIDNEY DISEASE, STAGE 3 (MODERATE) Status: Acute Comment: Creatinine improved to 2.23 today, lasix is on hold (3) Type II diabetes mellitus with neurological manifestations, uncontrolled Code(s): E11.49 - TYPE 2 DIABETES W OTH DIABETIC NEUROLOGICAL COMPLICATION; E11.65 - TYPE 2 DIABETES MELLITUS WITH HYPERGLYCEMIA Status: Chronic Comment : reasonable control (4) Dyslipidemia Code(s): E78.5 - HYPERLIPIDEMIA, UNSPECIFIED Status: Chronic Comment: on statin - Plan * . will likely need inpatient rehab Review of Systems - Review of Systems Respiratory: SOB with Excertion. negative: Cough, Shortness of Breath, Pleuritic Pain, Wheezing Cardiovascular: negative: chest pain, palpitations, orthopnea, paroxysmal nocturnal dyspnea, edema, light headedness - Medications/Allergies Allergies/Adverse Reactions: Allergies Allergy/AdvReac Type Severity Reaction Status Date / Time torsemide Allergy Verified 03/05/18 16:55 Medications: Current Medications Acetaminophen (Tylenol) 650 mg PO Q4H PRN PRN Reason: Headache/Fever/Mild Pain (1-3) Last Admin: 09/29/18 14:46 Dose: 650 mg Albuterol Sulfate (Proventil Hfa) 2 puff INH Q4H PRN PRN Reason: SOB &/or Wheezing Albuterol/Ipratropium (Duoneb) 3 ml EZPAP [id number] [facility] Last Admin: 10/01/18 07:10 Dose: 3 ml Amlodipine Besylate (Norvasc) 10 mg PO QPM [facility] Last Admin: 09/30/18 20:47 Dose: 10 mg Aspirin (Aspirin) 325 mg PO DAILY [facility] Last Admin: 10/01/18 09:18 Dose: 325 mg Carvedilol (Coreg) 12.5 mg PO BID [facility] Last Admin: 10/01/18 09:16 Dose: 12.5 mg Dextrose/Water (Dextrose 50%) 25 gm SLOW IVP PRN PRN PRN Reason: Hypoglycemia Epoetin Randall (Procrit) 7,500 units SC Q7D [facility] Ferrous Sulfate (Feosol) 325 mg PO DAILY [facility] Last Admin: 10/01/18 09:15 Dose: 325 mg Glucagon (Glucagon) 1 mg IM PRN PRN PRN Reason: Hypoglycemia Heparin Sodium (Porcine) (Heparin) 5,000 units SC TID [facility] Last Admin: 10/01/18 09:18 Dose: 5,000 units Dextrose/Water (D5w) 1,000 mls @ 0 mls/hr IV .Q0M PRN PRN Reason: Hypoglycemia Insulin Glargine 70 units/ (Miscellaneous Medication) 0.7 mls @ 0 mls/hr SC BID [facility] Last Admin: 10/01/18 09:22 Dose: Not Given Insulin Human Lispro (Humalog) 0 units SC .MILD SLIDING SCALE PRN PRN Reason: Mild Correctional Scale Last Admin: 09/29/18 12:24 Dose: 2 unit Isosorbide Mononitrate (Imdur) 60 mg PO DAILY [facility] Last Admin: 10/01/18 09:17 Dose: 60 mg Lorazepam (Ativan) 1 mg PO Q8H PRN PRN Reason: Anxiety Last Admin: 09/29/18 04:58 Dose: 1 mg Mometasone Furoate/Formoterol Fumar (Dulera 200 Mcg/5 Mcg Inhaler) 2 puff INH BID-RT [facility] Last Admin: 10/01/18 07:18 Dose: 2 puff Nitroglycerin (Nitrostat) 0.4 mg SL ASDIR PRN PRN Reason: Chest Pain Pregabalin (Lyrica) 150 mg PO [facility] Last Admin: 09/30/18 20:46 Dose: 150 mg Rosuvastatin Calcium (Crestor) 40 mg PO [facility] Last Admin: 09/30/18 20:46 Dose: 40 mg Sertraline HCl (Zoloft) 50 mg PO DAILY [facility] Last Admin: 10/01/18 09:17 Dose: 50 mg Sodium Chloride ([place] Nasal [place] 0.65%) 0 ml EA NARE PRN PRN PRN Reason: Nasal Dryness Trazodone HCl (Desyrel) 100 mg PO [facility] Last Admin: 10/01/18 00:22 Dose: 100 mg
--- NOTE | 2018-10-01 10:57 | PRG ---
DATE OF SERVICE: 10/01/2018 RENAL MEDICINE SUBJECTIVE: Ms. Angela is a 53-year-old white female initially admitted for shortness of breath. She had CHF/COPD exacerbation. We were consulted for her acute kidney injury on top of her chronic renal failure. Due to the worsening renal dysfunction, I have adjusted her furosemide/diuretic regim en yesterday. No other complaints today, doing well. She still has this chronic right leg swelling. No complaints of worsening shortness of breath. OBJECTIVE: VITAL SIGNS: Blood pressure is noted at 125/60, heart rate 55, respiratory rate 20, pulse ox 92%. GENERAL: Awake, alert, comfortable, not in overt distress. SKIN: Adequate turgor. HEENT: She has pinkish conjunctivae, anicteric sclerae. NECK: No neck mass, no carotid bruits, no JVD. CHEST: No deformities. LUNGS: Clear breath sounds. HEART: Normal sinus rhythm. No murmur, no gallops, no rubs. ABDOMEN: Globular, soft, nontender, no masses. EXTREMITIES: Right leg edema, status post left BKA. MEDICATIONS: Medications of 10/01/2018 was reviewed. LABORATORY DATA: Laboratories of 09/30/2018, white count 5.5, hemoglobin 10. On 10/01/2018, sodium 138, potassium 3.9, chloride 103, carbon dioxide 25, BUN 56, creatinine 2.23, GFR 23 mL per minute. Calcium 9.3. ASSESSMENT AND PLAN: 1. Acute kidney injury on top of her chronic renal failure -- much improved creatinine after discont inuation of her diuretic regimen. This was initially adjusted downwards, but recently this has been discontinued. No indication for any dialytic intervention. Continue current management. 2. Shortness of breath, much improved. Combined chronic obstructive pulmonary disease/mild congesti ve heart failure. Of interest, her EF is said to be within normal. 3. Due to the persistent anemia, my bias is to start this patient on Epogen. 4. Anemia -- Epogen 7500 units subcutaneously every week. Continue iron supplementation. Awaiting rehab placement.
[2018-10-01] MEDS ORDERED: Epoetin (ESRD) 20,000 UNITS/ML SC SCH (11:00)
--- NOTE | 2018-10-01 12:29 | PDOC.CTH ---
Cardiology Progress Note - Subjective Pt. seen and eval. by me. No new events. No new complaints. Does complain of some discomfort with inspiration.Slowly diuresing. - Objective Vital Signs Temp Pulse Pulse Resp BP BP Pulse Ox 10/01/18 11:15 56 L 122/58 L 10/01/18 07:18 55 L 20 92 L 10/01/18 07:12 92 L 10/01/18 07:10 55 L 20 92 L 10/01/18 03:33 97.9 F 59 L 14 125/60 92 L Weight 263 lb 4.8 oz 09/30/18 10/01/18 10/02/18 06:59 06:59 06:59 Intake Total 1600 400 Output Total 2000 1050 Balance -400 -650 - Physical Examination General/Neuro: alert & oriented x3 Neck: no JVD present Lungs: CTA Heart: RRR Abdomen: soft - Telemetry Telemetry Rhythm: NSR 50-60's BBB - Labs Result Diagrams: 09/30/18 04:52 10/01/18 06:06 Troponin/CKMB CK-MB (CK-2) 52.9 ng/mL (0-6.6) H* 09/25/18 13:50 Troponin I 0.041 ng/mL (< 0.028) H 09/26/18 08:45 - Assessment/Plan 1. Acute on chronic diastolic HF with EF 50-55% - stable with bblocker, but no on DAVIS/ARB due to hx of CKD 2. CAD with previous CABG - stable 3. 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 DM type 2 - managed by pcp. s/p left BKA 5. Hyperlipidemia - on Statin 6. COPD - stable MAR reviewed
[2018-10-01] MEDS: Acetaminophen 325 MG TAB PO PRN (19:53)
--- NOTE | 2018-10-01 21:48 | EKG ---
Test Reason : Blood Pressure : / mmHG Vent. Rate : 069 BPM Atrial Rate : 069 BPM P-R Int : 172 ms QRS Dur : 158 ms QT Int : 468 ms P-R-T Axes : 046 096 168 degrees QTc Int : 501 ms Normal sinus rhythm Rightward axis Non-specific intra-ventricular conduction block Abnormal ECG When compared with ECG of 25-SEP-2018 12:59, (Unconfirmed) Sinus rhythm has replaced Wide QRS rhythm Confirmed by CASTRO MENDEZ (2) on 10/01/2018 9:47:57 PM Referred By: SALLIE Confirmed By:CASTRO MENDEZ
[2018-10-01] MEDS: Amlodipine 10 MG TAB PO SCH (21:57)
[2018-10-01] MEDS: Rosuvastatin 20 MG TAB PO SCH (21:58)
[2018-10-01] MEDS: Pregabalin 75 MG CAP PO SCH (21:58)
[2018-10-02] MEDS: Mometasone/Formoterol 120 PUFF INHALER INH SCH ×2 (07:47→19:05)
--- NOTE | 2018-10-02 08:35 | PRG ---
DATE OF SERVICE: 10/02/2018 SUBJECTIVE: Ms. Angela is a 53-year-old white female followed up by the Renal Service for her acu te kidney injury on top of her chronic renal failure. Recently due to the worsening creatinine, the Lasix has been discontinued temporarily. My last creatinine with her was 2.23. No other complaints today. Denies any chest pain or shortness of breath. No acute events last night . OBJECTIVE: VITAL SIGNS: Blood pressure is 136/63, heart rate 61, respiratory rate 18, temperature 97.5, pulse o x 96%. GENERAL: Noted to be awake, alert, supine, comfortable, not in overt distress. SKIN: Adequate turgor. HEENT: She has slightly pale conjunctivae, anicteric sclerae. NECK: No neck mass, no carotid bruits, no JVD. CHEST: No deformities. LUNGS: Decreased breath sounds. HEART: Normal sinus rhythm. No murmur, no gallops, no rubs. ABDOMEN: Globular, soft, nontender, no masses. EXTREMITIES: Positive for edema. Status post left BKA. MEDICATIONS: 10/02/2018 - Reviewed. LABORATORY: 09/30/2018 - Hemoglobin 10. 10/01/2018 - Sodium 138, potassium 3.9, chloride 103, carbon dioxide 25, BUN 56, creatinine 2.23, demond cium 9.3. ASSESSMENT AND PLAN: 1. Acute kidney injury/chronic renal failure - superimposed prerenal azotemia. Renal function is mu ch improved yesterday. My bias is to resume Lasix at 20 mg tab once a day if the patient will have f urther symptoms. Currently, she is asymptomatic. We will continue current management for the moment . Will check base met in a.m. 2. Anemia, currently on an Epogen regimen. We will recheck CBC. 3. Shortness of breath, much improved. Combination of chronic obstructive pulmonary disease and mil d diastolic dysfunction. Awaiting rehab transfer.
[2018-10-02] MEDS: Insulin Glargine 70 UNITS in Pre-Filled Syringe 1 EACH SC SCH ×2 (09:02→20:53)
[2018-10-02] MEDS: Heparin 5,000 UNITS/ML VIAL SC SCH ×3 (09:03→20:44)
[2018-10-02] MEDS: HumaLOG 300 UNITS/3 ML VIAL SC PRN ×2 (09:03→11:16)
[2018-10-02] MEDS: Aspirin 325 MG TAB PO SCH (09:04)
[2018-10-02] MEDS: Carvedilol 25 MG TAB PO SCH ×2 (09:05→20:43)
[2018-10-02] MEDS: Ferrous Sulfate 325 MG TAB PO SCH (09:05)
--- NOTE | 2018-10-02 10:17 | PRG ---
DATE OF SERVICE: 10/02/2018 SUBJECTIVE: Ms. Angela has no chest pain or pressure, feels better today. No angina. PHYSICAL EXAMINATION: VITAL SIGNS: Blood pressure 136/63, pulse 60, it is regular. LUNGS: Clear. CARDIAC: Normal S1, normal S2. ABDOMEN: Obese, nontender. EXTREMITIES: Moderate edema. LABORATORY: Hemoglobin is 10. Creatinine is 2.23. Estimated GFR is 23. ASSESSMENT: 1. Stage 4 renal failure. 2. Coronary artery disease. 3. Diastolic heart failure, becoming volume overloaded. PLAN: Agree with starting back on diuretic, discussed torsemide. She does not want to have torsemid e. She prefers to go back on furosemide. We will start 20 mg a day. May need a higher dose. Long-term prognosis is guarded with these multiple medical problems, including the above listed as w ell as diabetes.
[2018-10-02] MEDS ORDERED: Furosemide 20 MG TAB PO SCH (10:45)
[2018-10-02] MEDS: Acetaminophen 325 MG TAB PO PRN (11:19)
--- NOTE | 2018-10-02 15:12 | PDOC.PN ---
- Subjective Encounter Start Date: 10/02/18 Encounter Start Time: 07:40 Pt seen for followup re; diastolic CHF exacerbation. Feels better. Denies chest pain, nausea or vomiting. - Objective MAR Reviewed: Yes Vital Signs & Weight: Vital Signs (12 hours) Temp Pulse Resp BP Pulse Ox 10/02/18 13:31 65 20 93 L 10/02/18 11:10 57 L 14 131/59 L 10/02/18 07:46 61 18 96 10/02/18 07:30 97.5 F L 57 L 18 136/63 10/02/18 03:39 97.8 F 61 15 122/59 L 93 L Weight Weight 261 lb 1.6 oz I&O: 10/01/18 10/02/18 10/03/18 06:59 06:59 06:59 Intake Total 400 450 Output Total 1050 600 Balance -650 -150 Result Diagrams: 09/30/18 04:52 10/01/18 06:06 Additional Labs: Accuchecks 10/02/18 10/02/18 10/01/18 10:49 05:39 20:37 POC Glucose 151 H 180 H 219 H 10/01/18 09/28/18 16:31 05:31 POC Glucose 141 H 215 H EKG Reviewed by me: Yes (Tele: NSR) Phys Exam - Physical Examination Morbid obesity HEENT: moist MMs Neck: supple David crackles Cardiovascular: RRR Gastrointestinal: soft Neurological: moves all 4 limbs Psychiatric: normal affect Dx/Plan (1) Acute on chronic diastolic ACC/AHA stage C congestive heart failure Code(s): I50.33 - ACUTE ON CHRONIC DIASTOLIC (CONGESTIVE) HEART FAILURE Status : Acute Comment: Improved, pt being started on oral furosemide (2) Acute worsening of stage 3 chronic kidney disease Code(s): N18.3 - CHRONIC KIDNEY DISEASE, STAGE 3 (MODERATE) Status: Acute Comment: Creatinine improved to 2.23 yesterday, recheck tomorrow (3) Type II diabetes mellitus with neurological manifestations, uncontrolled Code(s): E11.49 - TYPE 2 DIABETES W OTH DIABETIC NEUROLOGICAL COMPLICATION; E11.65 - TYPE 2 DIABETES MELLITUS WITH HYPERGLYCEMIA Status: Chronic Comment : reasonable control (4) Dyslipidemia Code(s): E78.5 - HYPERLIPIDEMIA, UNSPECIFIED Status: Chronic Comment: continue statin - Plan * . Review of Systems - Review of Systems Respiratory: negative: Cough, Shortness of Breath, SOB with Excertion, Pleuritic Pain, Wheezing Cardiovascular: negative: chest pain, palpitations, orthopnea, paroxysmal nocturnal dyspnea, edema, light headedness - Medications/Allergies Allergies/Adverse Reactions: Allergies Allergy/AdvReac Type Severity Reaction Status Date / Time torsemide Allergy Verified 03/05/18 16:55 Medications: Current Medications Acetaminophen (Tylenol) 650 mg PO Q4H PRN PRN Reason: Headache/Fever/Mild Pain (1-3) Last Admin: 10/02/18 11:19 Dose: 650 mg Albuterol Sulfate (Proventil Hfa) 2 puff INH Q4H PRN PRN Reason: SOB &/or Wheezing Albuterol/Ipratropium (Duoneb) 3 ml EZPAP [id number] [facility] Last Admin: 10/02/18 13:31 Dose: 3 ml Amlodipine Besylate (Norvasc) 10 mg PO QPM [facility] Last Admin: 10/01/18 21:57 Dose: 10 mg Aspirin (Aspirin) 325 mg PO DAILY [facility] Last Admin: 10/02/18 09:04 Dose: 325 mg Carvedilol (Coreg) 12.5 mg PO BID [facility] Last Admin: 10/02/18 09:05 Dose: 12.5 mg Dextrose/Water (Dextrose 50%) 25 gm SLOW IVP PRN PRN PRN Reason: Hypoglycemia Epoetin Randall (Procrit) 7,500 units SC Q7D [facility] Last Admin: 10/01/18 12:26 Dose: 7,500 units Ferrous Sulfate (Feosol) 325 mg PO DAILY [facility] Last Admin: 10/02/18 09:05 Dose: 325 mg Furosemide (Lasix) 20 mg PO DAILY [facility] Glucagon (Glucagon) 1 mg IM PRN PRN PRN Reason: Hypoglycemia Heparin Sodium (Porcine) (Heparin) 5,000 units SC TID [facility] Last Admin: 10/02/18 09:03 Dose: 5,000 units Dextrose/Water (D5w) 1,000 mls @ 0 mls/hr IV .Q0M PRN PRN Reason: Hypoglycemia Insulin Glargine 70 units/ (Miscellaneous Medication) 0.7 mls @ 0 mls/hr SC BID [facility] Last Admin: 10/02/18 09:02 Dose: 0.7 mls Insulin Human Lispro (Humalog) 0 units SC .MILD SLIDING SCALE PRN PRN Reason: Mild Correctional Scale Last Admin: 10/02/18 11:16 Dose: 2 unit Isosorbide Mononitrate (Imdur) 60 mg PO DAILY [facility] Last Admin: 10/02/18 09:05 Dose: 60 mg Lorazepam (Ativan) 1 mg PO Q8H PRN PRN Reason: Anxiety Last Admin: 09/29/18 04:58 Dose: 1 mg Mometasone Furoate/Formoterol Fumar (Dulera 200 Mcg/5 Mcg Inhaler) 2 puff INH BID-RT [facility] Last Admin: 10/02/18 07:47 Dose: 2 puff Nitroglycerin (Nitrostat) 0.4 mg SL ASDIR PRN PRN Reason: Chest Pain Pregabalin (Lyrica) 150 mg PO [facility] Last Admin: 10/01/18 21:58 Dose: 150 mg Rosuvastatin Calcium (Crestor) 40 mg PO [facility] Last Admin: 10/01/18 21:58 Dose: 40 mg Sertraline HCl (Zoloft) 50 mg PO DAILY [facility] Last Admin: 10/02/18 09:04 Dose: 50 mg Sodium Chloride ([place] Nasal [place] 0.65%) 0 ml EA NARE PRN PRN PRN Reason: Nasal Dryness Sodium Chloride (Flush - Normal Saline) 10 ml IVF Q12HR [facility] Sodium Chloride (Flush - Normal Saline) 10 ml IVF PRN PRN PRN Reason: Saline Flush Trazodone HCl (Desyrel) 100 mg PO [facility] Last Admin: 10/01/18 21:59 Dose: 100 mg
[2018-10-02] MEDS: Pregabalin 75 MG CAP PO SCH (20:41)
[2018-10-02] MEDS: Rosuvastatin 20 MG TAB PO SCH (20:41)
[2018-10-02] MEDS: traZODone HCl 50 MG TAB PO SCH (20:42)
[2018-10-02] MEDS: Amlodipine 10 MG TAB PO SCH (20:43)
[2018-10-03 06:13] LABS: #Eosinphils 0.1 thou/uL (0.0-0.7); #Lymphocytes 0.7 thou/uL (1.20-3.40); #Monocytes 0.4 thou/uL (0.11-0.59); #Neutrophils 3.5 thou/uL (1.40-6.50); %Basophils 0.1 % (0.0-1.0); %Eosinophils 1.2 % (0.0-10.0); %Lymphocytes 15.6 % (21.0-51.0); %Monocytes 9.4 % (0.0-10.0); %Neutrophils 73.7 % (42.0-75.0); Mean Corpuscular HGB CONC 31.4 g/dL (32.0-36.0); Mean Corpuscular Hemoglobin 29.1 pg (27.0-31.0); Mean Corpuscular Volume 92.7 fL (78.0-98.0); Mean Platelet Volume 9.4 fL (7.4-10.4); Platelet Count 160 thou/uL (130-400); RBC Distribution Width 15.4 % (11.5-14.5); Red Blood Cell (RBC) Count 3.45 mill/uL (4.20-5.40); White Blood Cell (WBC) Count 4.7 thou/uL (4.8-10.8)
[2018-10-03 06:31] LABS: Anion Gap 15 mmol/L (10-20); BUN (Urea Nitrogen) 59 mg/dL (9.8-20.1); Calc. Creatinine Clearance 61 mL/min (70-130); Calcium 9.5 mg/dL (7.8-10.44); Carbon Dioxide 26 mmol/L (22-29); Chloride 104 mmol/L (98-107); Estimated GFR-MDRD 26; Sodium 141 mmol/L (136-145)
[2018-10-03 06:38] LABS: Glucose 51 mg/dL (70-105)
[2018-10-03] MEDS: Mometasone/Formoterol 120 PUFF INHALER INH SCH ×2 (07:22→19:47)
[2018-10-03] MEDS: Aspirin 325 MG TAB PO SCH (08:56)
[2018-10-03] MEDS: Ferrous Sulfate 325 MG TAB PO SCH (08:57)
[2018-10-03] MEDS: Carvedilol 25 MG TAB PO SCH (08:57)
[2018-10-03] MEDS: Heparin 5,000 UNITS/ML VIAL SC SCH ×3 (08:58→20:54)
[2018-10-03] MEDS: Furosemide 20 MG TAB PO SCH (08:58)
[2018-10-03] MEDS: Insulin Glargine 70 UNITS in Pre-Filled Syringe 1 EACH SC SCH ×2 (08:59→21:02)
--- NOTE | 2018-10-03 09:02 | PRG ---
DATE OF SERVICE: 10/03/2018 SUBJECTIVE: Ms. Angela is a 53-year-old white female who was admitted for shortness of breath. S he had a combination of mild diastolic dysfunction and COPD exacerbation. Her diuretics were adjuste d downwards, currently on hold with improvement of her renal dysfunction. We are following her for h er acute kidney injury on top of her chronic renal failure. This morning, she has no new complaints. She is feeling better. PHYSICAL EXAMINATION: VITAL SIGNS: Blood pressure is 139/60, heart rate 63, respiratory rate 15, temperature 97.5, pulse o ximetry 92% on 2 liters. GENERAL: Awake, alert, comfortable, not in overt distress. SKIN: Adequate turgor. HEENT: She has pinkish conjunctivae, anicteric sclerae. NECK: No neck mass, no carotid bruits, no JVD. CHEST: No deformities. LUNGS: Clear. Decreased breath sounds. HEART: Normal sinus rhythm. No murmur, no gallops, no rubs. ABDOMEN: Globular, soft, nontender, no masses. EXTREMITIES: Trace edema. Status post left BKA. MEDICATIONS: 10/03/2018 - Reviewed. LABORATORY: 10/03/2018 - White count 4.7, hemoglobin 10. Sodium 141, potassium 3.9, chloride 103, c arbon dioxide 29, BUN 41, creatinine 2.46, GFR 21 mL per minute. This was 09/28/2018. On 10/03/2018 sodium was 149, potassium 4, chloride 104, carbon dioxide 26, BUN 59, creatinine 2.03, calcium 9.5. ASSESSMENT AND PLAN: 1. Shortness of breath, multifactorial etiology, which includes a combination of congestive heart fa ilure and chronic obstructive pulmonary disease exacerbation. Please note her diuretics have been re sumed by Dr. Nicholas at 20 mg tab once a day. 2. Acute kidney injury on top of her chronic renal failure - stable. Improving renal function. Cre atinine is noted at its best value at this hospitalization. Continue current management. Continue j udicious use of diuretics. 3. Anemia, on weekly Epogen.
--- NOTE | 2018-10-03 10:34 | PRG ---
DATE OF SERVICE: 10/03/2018 SUBJECTIVE: Ms. Angela is breathing somewhat better today, feels a little bit better she says. S he is getting up and around a little more. PHYSICAL EXAMINATION: VITAL SIGNS: Blood pressure 139/60, pulse is 60, it is sinus. LUNGS: Clear. CARDIAC: Normal S1, normal S2. ABDOMEN: Obese, nontender. EXTREMITIES: There is still moderate edema. ASSESSMENT: 1. Diastolic heart failure. 2. Very mild sinus bradycardia, heart rate is in the high 50s at times. 3. Coronary artery disease. 4. Morbid obesity. 5. Peripheral vascular disease. 6. Stage 4 renal failure. PLAN: 1. Reduce carvedilol to 6.25 mg twice a day with regard to diastolic heart failure, probably do bett er with a little higher heart rate, better output of the kidneys. 2. Probably tomorrow if the kidney function is stable, increase furosemide to 20 mg orally twice a d ay.
--- NOTE | 2018-10-03 11:39 | PDOC.PN ---
- Subjective Encounter Start Date: 10/03/18 Encounter Start Time: 11:38 Says she feels ok and does not need anything. Says her breathing is improving since admission. - Objective MAR Reviewed: Yes Vital Signs & Weight: Vital Signs (12 hours) Temp Pulse Resp BP Pulse Ox 10/03/18 08:00 98.1 F 64 18 131/60 95 10/03/18 07:26 92 L 10/03/18 07:24 59 L 16 92 L 10/03/18 07:22 59 L 16 92 L 10/03/18 04:10 97.5 F L 60 15 139/60 91 L 10/03/18 00:31 58 L 16 88 L Weight Weight 262 lb 1.6 oz I&O: 10/02/18 10/03/18 10/04/18 06:59 06:59 06:59 Intake Total 450 1380 Output Total 600 1450 Balance -150 -70 Result Diagrams: 10/03/18 05:21 10/03/18 05:21 Additional Labs: Accuchecks 10/03/18 10/03/18 10/03/18 10:55 07:06 06:02 POC Glucose 120 H 108 54 L* 10/02/18 17:10 POC Glucose 147 H Phys Exam - Physical Examination Constitutional: NAD Sleepy. Obese. Respiratory: no wheezing, no rales, no rhonchi Cardiovascular: RRR, no significant murmur, no rub Gastrointestinal: soft, non-tender, no distention 2+ pitting edema of BLE's Neurological: non-focal Dx/Plan (1) Acute on chronic diastolic ACC/AHA stage C congestive heart failure Code(s): I50.33 - ACUTE ON CHRONIC DIASTOLIC (CONGESTIVE) HEART FAILURE Status : Acute Comment: Improved, pt being started on oral furosemide (2) Acute worsening of stage 3 chronic kidney disease Code(s): N18.3 - CHRONIC KIDNEY DISEASE, STAGE 3 (MODERATE) Status: Acute Comment: Creatinine improved to 2.23 yesterday, recheck tomorrow (3) Dyslipidemia Code(s): E78.5 - HYPERLIPIDEMIA, UNSPECIFIED Status: Chronic Comment: continue statin (4) CHANTELL (acute kidney injury) Code(s): N17.9 - ACUTE KIDNEY FAILURE, UNSPECIFIED Status: Acute Comment: Slowly improving with supportive mgmt, avoid nephrotoxic meds and contrast media , serial monitoring (5) CAD (coronary artery disease) Code(s): I25.10 - ATHSCL HEART DISEASE OF [place] CORONARY ARTERY W/O ANG PCTRS Status: Chronic Qualifiers: (6) DM type 2 (diabetes mellitus, type 2) Status: Chronic Qualifiers: Comment: Continue Levemir 60u sc BID, ISS (7) Obesity Code(s): E66.9 - OBESITY, UNSPECIFIED Status: Chronic - Plan * Cardiology following. Primary diastolic dysfunction with distal, small vessel CAD. Resuming diuresis for CHF. No cath given the renal function. * Has diuresed since admission, but weight unchanged. Subjectively feels better. * Nephrology following. Creat a little better today. * Copd with oxygen requirement. * Continuing to balance diuretics for CHF with the tenuous renal function.
[2018-10-03] MEDS ORDERED: Polyethylene Glycol 3350 17 GM Packet PO PRN (16:49)
[2018-10-03] MEDS ORDERED: Bisacodyl 10 MG SUPP PR PRN (16:49)
[2018-10-03] MEDS ORDERED: Bisacodyl 5 MG TAB PO PRN (16:49)
[2018-10-03] MEDS: Carvedilol 6.25 MG TAB PO SCH (17:16)
[2018-10-03] MEDS: Acetaminophen 325 MG TAB PO PRN (20:51)
[2018-10-03] MEDS: Senokot S 8.6-50 MG TAB PO SCH (20:52)
[2018-10-03] MEDS: traZODone HCl 50 MG TAB PO SCH (20:52)
[2018-10-03] MEDS: Rosuvastatin 20 MG TAB PO SCH (20:52)
[2018-10-03] MEDS: Amlodipine 10 MG TAB PO SCH (20:52)
[2018-10-03] MEDS: Pregabalin 75 MG CAP PO SCH (20:52)
[2018-10-04 05:27] LABS: Anion Gap 14 mmol/L (10-20); BUN (Urea Nitrogen) 64 mg/dL (9.8-20.1); Calc. Creatinine Clearance 60 mL/min (70-130); Calcium 9.5 mg/dL (7.8-10.44); Carbon Dioxide 27 mmol/L (22-29); Chloride 105 mmol/L (98-107); Estimated GFR-MDRD 25; Glucose 83 mg/dL (70-105); Potassium 3.9 mmol/L (3.5-5.1); Sodium 142 mmol/L (136-145)
[2018-10-04] MEDS: Mometasone/Formoterol 120 PUFF INHALER INH SCH ×2 (06:42→19:17)
[2018-10-04] MEDS: Furosemide 20 MG TAB PO SCH (08:28)
[2018-10-04] MEDS: Ferrous Sulfate 325 MG TAB PO SCH (08:28)
[2018-10-04] MEDS: Carvedilol 6.25 MG TAB PO SCH ×2 (08:28→16:10)
[2018-10-04] MEDS: Aspirin 325 MG TAB PO SCH (08:28)
[2018-10-04] MEDS: Insulin Glargine 70 UNITS in Pre-Filled Syringe 1 EACH SC SCH ×2 (08:28→21:34)
[2018-10-04] MEDS: Senokot S 8.6-50 MG TAB PO SCH ×2 (08:29→21:35)
[2018-10-04] MEDS: Heparin 5,000 UNITS/ML VIAL SC SCH ×3 (08:29→21:32)
--- NOTE | 2018-10-04 11:40 | PRG ---
DATE OF SERVICE: 10/04/2018 SUBJECTIVE: Ms. Angela is a 53-year-old white female, who was admitted for shortness of breath from combined COPD exacerbation/mild diastolic dysfunction. We are seeing the patient for acute kidney injury on top of her chronic renal failure. Adjustment of diuretics has been made. She is currently on low-dose diuretics. Renal function has slowly been improving overtime. No other complaints today. She denies any chest pain or shortness of breath. OBJECTIVE: VITAL SIGNS: Blood pressure 126/61, heart rate 58, respiratory rate 16, and O2 sat 94%. GENERAL: Awake, alert, comfortable, obese. SKIN: Adequate turgor. HEENT: She has pinkish conjunctivae. Anicteric sclerae. NECK: No neck mass. No carotid bruits. No JVD. CHEST: No deformities. LUNGS: Clear breath sounds. No wheezing. No crackles. HEART: Normal sinus rhythm. No murmur. No gallops. No rubs. ABDOMEN: Globular, soft, nontender. No masses. EXTREMITIES: Right leg trace edema. Left - status post AKA. MEDICATIONS: Medications of October 04, 2018, was reviewed. LABORATORY DATA: Laboratories of October 03, 2018, white count 4.7, hemoglobin 10. October 04, 2018, sodium 142, potassium 3.9, chloride 105, carbon dioxide 27, BUN 64, creatinine 2.07, glucose 83, and calcium is 9.5. ASSESSMENT AND PLAN: 1. Shortness of breath - clinically resolved, combined diastolic dysfunction with chronic obstructive pulmonary disease exacerbation. 2. Acute kidney injury on top of her chronic renal failure - much improved. Hemodynamically-mediated renal dysfunction on top of her diabetic nephropathy. The patient is awaiting approval for rehab transfer. Overall, agree with current management. We will check in a.m. Job ID: [id number]
[2018-10-04] MEDS: Acetaminophen 325 MG TAB PO PRN (11:55)
--- NOTE | 2018-10-04 12:37 | PDOC.PN ---
- Subjective Encounter Start Date: 10/04/18 Encounter Start Time: 11:00 Doing better overall. Could not get up with Physical Therapy very well this morning. Generalized weakness. Breathing is better. No new complaints. - Objective Vital Signs & Weight: Vital Signs (12 hours) Temp Pulse Resp BP Pulse Ox 10/04/18 11:53 97.6 F 57 L 16 125/56 L 97 10/04/18 08:25 97.6 F 58 L 16 126/60 94 L 10/04/18 06:42 58 L 16 94 L 10/04/18 06:36 58 L 16 94 L 10/04/18 04:00 97.8 F 60 18 126/61 93 L 10/04/18 00:38 61 18 95 Weight Weight 261 lb 3.2 oz I&O: 10/03/18 10/04/18 10/05/18 06:59 06:59 06:59 Intake Total 1380 830 Output Total 1450 950 Balance -70 -120 Result Diagrams: 10/03/18 05:21 10/04/18 04:40 Additional Labs: Accuchecks 10/04/18 10/04/18 10/03/18 10:56 06:21 20:16 POC Glucose 104 72 121 H 10/03/18 17:15 POC Glucose 103 Phys Exam - Physical Examination Constitutional: NAD Respiratory: no wheezing, no rales, no rhonchi Diminished Cardiovascular: RRR, no significant murmur, no rub Gastrointestinal: soft, non-tender, no distention Musculoskeletal: no edema Psychiatric: normal affect, A&O x 3 Dx/Plan (1) Acute on chronic diastolic ACC/AHA stage C congestive heart failure Code(s): I50.33 - ACUTE ON CHRONIC DIASTOLIC (CONGESTIVE) HEART FAILURE Status : Acute Comment: Improved, on oral furosemide (2) Acute worsening of stage 3 chronic kidney disease Code(s): N18.3 - CHRONIC KIDNEY DISEASE, STAGE 3 (MODERATE) Status: Acute Comment: Creatinine improved (3) Dyslipidemia Code(s): E78.5 - HYPERLIPIDEMIA, UNSPECIFIED Status: Chronic Comment: continue statin (4) CHANTELL (acute kidney injury) Code(s): N17.9 - ACUTE KIDNEY FAILURE, UNSPECIFIED Status: Acute Comment: Slowly improving with supportive mgmt, avoid nephrotoxic meds and contrast media , serial monitoring (5) CAD (coronary artery disease) Code(s): I25.10 - ATHSCL HEART DISEASE OF [place] CORONARY ARTERY W/O ANG PCTRS Status: Chronic Qualifiers: (6) DM type 2 (diabetes mellitus, type 2) Status: Chronic Qualifiers: Comment: Continue Levemir 70u sc BID, ISS (7) Obesity Code(s): E66.9 - OBESITY, UNSPECIFIED Status: Chronic (8) Depression Code(s): F32.9 - MAJOR DEPRESSIVE DISORDER, SINGLE EPISODE, UNSPECIFIED Status : Acute Comment: Zoloft, Trazodone. - Plan * Stable from the pulmonary standpoint. The CHF compensated and COPD stable. * Renal function stabilized. * Awaiting approval for rehab. * We discussed the [place]. She is still very weak. She understands the risk of infection, but would like to keep for another day or two as she continues to rehab and get stronger.
[2018-10-04] MEDS: Rosuvastatin 20 MG TAB PO SCH (21:32)
[2018-10-04] MEDS: traZODone HCl 50 MG TAB PO SCH (21:33)
[2018-10-04] MEDS: Pregabalin 75 MG CAP PO SCH (21:34)
[2018-10-04] MEDS: Amlodipine 10 MG TAB PO SCH (21:34)
[2018-10-05 06:31] LABS: Anion Gap 12 mmol/L (10-20); BUN (Urea Nitrogen) 66 mg/dL (9.8-20.1); Calc. Creatinine Clearance 62 mL/min (70-130); Calcium 9.2 mg/dL (7.8-10.44); Carbon Dioxide 29 mmol/L (22-29); Chloride 102 mmol/L (98-107); Estimated GFR-MDRD 26; Glucose 157 mg/dL (70-105); Potassium 3.9 mmol/L (3.5-5.1); Sodium 139 mmol/L (136-145)
[2018-10-05] MEDS: Mometasone/Formoterol 120 PUFF INHALER INH SCH (07:47)
[2018-10-05] MEDS: Ferrous Sulfate 325 MG TAB PO SCH (09:05)
[2018-10-05] MEDS: Senokot S 8.6-50 MG TAB PO SCH (09:05)
[2018-10-05] MEDS: Carvedilol 6.25 MG TAB PO SCH ×2 (09:05→16:23)
[2018-10-05] MEDS: Furosemide 20 MG TAB PO SCH (09:05)
[2018-10-05] MEDS: Aspirin 325 MG TAB PO SCH (09:05)
[2018-10-05] MEDS: Heparin 5,000 UNITS/ML VIAL SC SCH ×2 (09:07→15:02)
[2018-10-05] MEDS: Insulin Glargine 70 UNITS in Pre-Filled Syringe 1 EACH SC SCH (09:07)
--- NOTE | 2018-10-05 10:56 | PRG ---
DATE OF SERVICE: 10/05/2018 SUBJECTIVE: Ms. Angela is a 53-year-old white female followed up for acute kidney injury on top of her chronic renal failure. She was also admitted for shortness of breath, which is multifactorial in etiology and is currently much improved. We are awaiting approval for rehab. No other complaints today. No chest pain or shortness of breath. OBJECTIVE: VITAL SIGNS: Blood pressure 139/60, heart rate 59, respiratory rate 16, pulse ox 96%, and temperature 97.7. GENERAL: Awake, alert, comfortable, not in distress. SKIN: Adequate turgor. HEENT: She has pinkish conjunctivae. Anicteric sclerae. NECK: No neck mass. No carotid bruits. No JVD. CHEST: No deformities. LUNGS: Decreased breath sounds. No wheezing. HEART: Normal sinus rhythm. No murmur. No gallops. No rubs. ABDOMEN: Globular, soft, and nontender. No masses. EXTREMITIES: No edema. No deformities. Status post left AKA. MEDICATIONS: Medications of October 05, 2018, reviewed. LABORATORY DATA: Laboratories of October 03, 2018, white count 4.7 and hemoglobin 10. On October 05, 2018, sodium 139, potassium 3.9, chloride 102, carbon dioxide 29, BUN 66, creatinine 2.0, glucose 157, and calcium 9.2. ASSESSMENT AND PLAN: 1. Acute kidney injury on top of chronic renal failure, superimposed prerenal azotemia, much improved creatinine. Creatinine 2.0 is nearing baseline. Continue current management. Continue judicious use of diuretics. 2. Shortness of breath, multifactorial. 3. Mild congestive heart failure-diastolic dysfunction/chronic obstructive pulmonary disease exacerbation. Currently, on neb treatment and low-dose diuretics. Continue current management. 4. Anemia - the patient had been placed on weekly Epogen. Agree with current management. Recheck baseline CBC in a.m. Job ID: [id number]
[2018-10-05 14:12] VITALS: BMI 46.7
[2018-10-05 15:01] VITALS: BP 131/63; TEMP 97.5
--- NOTE | 2018-10-07 18:23 | EKG ---
Test Reason : Blood Pressure : / mmHG Vent. Rate : 061 BPM Atrial Rate : 034 BPM P-R Int : 000 ms QRS Dur : 148 ms QT Int : 488 ms P-R-T Axes : 000 -58 133 degrees QTc Int : 491 ms Wide QRS rhythm Left axis deviation Non-specific intra-ventricular conduction block Possible Lateral infarct , age undetermined Abnormal ECG Confirmed by JOSE ENGLISH [id number]), web editor KRYSTINA MOLINA ([id number]) on 10/07/2018 6:23:14 PM Referred By: Confirmed By:JOSE ENGLISH
== END 2018-10-05 17:22 | DRG 291 ==
LOC: ERS 12:43 → 2NO 16:04 → ERS 17:55
PROVIDERS: ADMIT Internal Medicine; ATTEND Internal Medicine
PROC: 3E0234Z Introduction of Serum, Toxoid and Vaccine into Muscle, Percutaneous Approach (ICD-10-PCS; principal; 2018-09-25)
DX: I13.0 Hypertensive heart and chronic kidney disease with heart failure and stage 1 through stage 4 chronic kidney disease, or unspecified chronic kidney disease (principal); I50.33 Acute on chronic diastolic (congestive) heart failure; N18.4 Chronic kidney disease, stage 4 (severe); Z68.42 Body mass index [BMI] 45.0-49.9, adult; N17.9 Acute kidney failure, unspecified; J44.1 Chronic obstructive pulmonary disease with (acute) exacerbation; E11.22 Type 2 diabetes mellitus with diabetic chronic kidney disease; Z79.84 Long term (current) use of oral hypoglycemic drugs; F32.9 Major depressive disorder, single episode, unspecified; E78.5 Hyperlipidemia, unspecified; E66.01 Morbid (severe) obesity due to excess calories; E11.42 Type 2 diabetes mellitus with diabetic polyneuropathy; E11.319 Type 2 diabetes mellitus with unspecified diabetic retinopathy without macular edema; Z89.512 Acquired absence of left leg below knee; Z88.8 Allergy status to other drugs, medicaments and biological substances; I25.119 Atherosclerotic heart disease of native coronary artery with unspecified angina pectoris; Z95.1 Presence of aortocoronary bypass graft; E78.00 Pure hypercholesterolemia, unspecified; F41.9 Anxiety disorder, unspecified; Z87.891 Personal history of nicotine dependence; D63.1 Anemia in chronic kidney disease; Z23 Encounter for immunization
CPT/HCPCS: 36415; 36416; 51701; 71045; 80048; 80053; 82553; 83690; 83880; 84484; 85025; 90471; 90732; 93005; 93010; 93306; 93798; 94640; 96374; G0009; G8978-GP-CM; G8979-GP-CK; G8987-GO-CL; G8988-GO-CJ; J1644; J1815; J1940; J7620; P9047; Q4081

== ENCOUNTER 2018-11-23 13:03 | Outpatient (CLI) | payer BC ==
--- NOTE | 2018-11-23 14:28 | RAD ---
CHEST TWO VIEWS: Comparison: 10-26-18 History: Dyspnea. FINDINGS: There are sternotomy wires. There is atherosclerosis of the aorta. Heart size is enlarged. Pulmonary vessels and hilum are normal. Costophrenic angles are clear. Hyperinflation with chronic changes. No consolidation or mass. No pneumothorax or osseous abnormality. IMPRESSION: Atherosclerosis. Hyperinflation. Chronic changes. No acute cardiopulmonary process. POS: [facility]
== END 2018-11-23 13:04 | disposition home or self-care (01) ==
LOC: RAD 13:03
PROVIDERS: ATTEND Internal Medicine Pulmonary Disease
DX: R06.00 Dyspnea, unspecified (principal); I70.0 Atherosclerosis of aorta
CPT/HCPCS: 71046